=== PATIENT | male | born 1930 | race Caucasian/White ===

== ENCOUNTER 2016-06-20 18:38 | Inpatient (IN) | payer MEDICARE, OTHER ==
[~2016-06-20] VITALS: Ht 182.9 cm; Wt 65.9 kg
[~2016-06-20 18:38] MED LIST: APR10 PO; ASPCH81X PO; ATRINS INH; CARV3.12 PO; CHOL1000 PO; CYAN10005 PO; DFL100 PO; ESCI1TAB6 PO; FINA5TAB PO; IMDSR30 PO; LEVO25TA5 PO; LSX40 PO; PLV75 PO; PRT40 PO; TRAM-10 PO; XPNINS1255 INH; [UNRECOGNIZED DRUG - CODE] UT
[2016-06-20] MEDS ORDERED: SODIUM CHLORIDE 0.9% 1000ML 1,000 ML IV ONE (19:12)
--- NOTE | 2016-06-20 19:18 | EMERGENCY ROOM VISIT NOTE ---
History Report prepared by Fany: [place] Under the Supervision of: Dr. Joe Pennington D.O. First contact with patient: 19:01 Chief Complaint: WOUND INFECTION Stated Complaint: WEAKNESS Nursing Triage Summary: left great toe infection color is black History of Present Illness The patient is an 86 year old male who presents to the Emergency Room via BLS from home with complaints of a constant left great toe infection beginning several weeks prior to arrival. He associates left great toe pain with today's symptoms. As per nurse, the patient's family would like the patient worked up for a stroke. She notes the patient has a cardiac history and has urinary incontinence. The history is limited secondary to the patient's dementia. 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 Review of Systems The HPI and ROS are limited secondary to the patient's dementia. Past Medical & Surgical Medical Problems: (1) AAA (abdominal aortic aneurysm) (2) ASCVD (arteriosclerotic cardiovascular disease) (3) BPH (benign prostatic hyperplasia) (4) Carotid stenosis, asymptomatic (5) Change in mental state (6) CHF (congestive heart failure) (7) chronic pain pelvic and thigh (8) Cluster headache syndrome (9) CVA (cerebral vascular accident) (10) Dementia (11) Depression (12) DM2 (diabetes mellitus, type 2) (13) H/O chronic ischemic heart disease (14) History of left heart catheterization (LHC) (15) HLD (hyperlipidemia) (16) Incontinence of feces (17) Incontinence of urine (18) infected left great toe (19) Lacunar infarction (20) PAD (peripheral artery disease) (21) Respiratory failure (22) TIA (transient ischemic attack) Surgical Problems: (1) Hx of CABG (2) Hx of endarterectomy (3) S/P CABG x 4 (4) S/P insertion of iliac artery stent (5) Stented coronary artery Family History Diabetes mellitus Heart disease Social History Smoking Status: Unknown if Ever Smoked Alcohol Use: none Drug Use: none Marital Status: Housing Status: lives with family Occupation Status: retired Current/Historical Medications Scheduled Albuterol Sulfate (Proair Respiclick), 2 PUFFS INH QID Aspirin (Aspirin Chewable), 81 MG PO DAILY Cholecalciferol (Vitamin D3), 1,000 UNITS PO DAILY Clopidogrel Bisulfate (Clopidogrel), 75 MG PO DAILY Cyanocobalamin (Vitamin B-12), 1,000 MCG PO DAILY Finasteride (Proscar), 5 MG PO DAILY Furosemide (Furosemide), 40 MG PO QAM Hydralazine HCl (Hydralazine HCl), 10 MG PO TID Ipratropium Dale (Ipratropium Dale), 0.5 MG INH Q6R Isosorbide Mononitrate (Isosorbide Mononitrate ER), 90 MG PO DAILY Levothyroxine Sodium (Levothyroxine Sodium), 25 MCG PO DAILY Metoprolol Succinate (Toprol Xl), 50 MG PO DAILY Paroxetine (Paxil), 10 MG PO DAILY Scheduled PRN Nitroglycerin (Nitroglycerin Lingual), 1 SPRAY UT UD PRN for PRN Tramadol (Ultram), 50 MG PO Q4H PRN for Pain Allergies Coded Allergies: Pravastatin (Verified Allergy, Mild, 06/20/16) Codeine (Verified Allergy, Unknown, 06/20/16) Morphine (Unverified Allergy, Unknown, UNKNOWN, 06/20/16) Statins (Unverified Allergy, Unknown, UNKNOWN, 06/20/16) Sulfa Antibiotics (Verified Allergy, Unknown, ., 06/20/16) Physical Exam Vital Signs Date Time Temp Pulse Resp B/P Pulse Ox O2 Delivery O2 Flow Rate FiO2 06/20/16 20:00 73 20 95 06/20/16 19:55 146/82 06/20/16 19:38 72 21 93 Room Air 06/20/16 19:30 95 Room Air 06/20/16 19:08 79 25 06/20/16 18:55 36.9 82 18 176/94 93 Room Air 06/20/16 18:53 81 06/20/16 18:48 176/94 Physical Exam GENERAL: Patient is listless but awake. Responds to verbal commands. Does not appear to be in pain. EYES: The conjunctivae are clear. The pupils are round and reactive. EARS, NOSE, MOUTH AND THROAT: The nose is without any evidence of any deformity. Mucous membranes are moist tongue is midline NECK: The neck is nontender and supple. RESPIRATORY: Diminished to both bases. There were rales noted at both bases. No respiratory distress was noted. CARDIOVASCULAR: Regular rate and rhythm noted there no murmurs rubs or gallops normal S1 normal S2 GASTROINTESTINAL: The abdomen is soft. Bowel sounds are present in all quadrants. Abdomen is nontender MUSCULOSKELETAL/EXTREMITIES: There is no evidence of gross deformity full range of motion is noted in the hips and shoulders SKIN: There is a blackened area noted over the left great toe. There was edema and erythema noted on the dorsum of the left foot. Pulses were symmetric. NEUROLOGIC: Patient is oriented to person, place, but not time or situation. Strength was symmetric but diminished. Medical Decision & Procedures ER Provider Diagnostic Interpretation: Radiology results as stated below per my review and radiologist interpretation: CHEST ONE VIEW PORTABLE CLINICAL HISTORY: Sepsis. COMPARISON STUDY: Chest radiograph February 28, 2016. FINDINGS: There are median sternotomy wires and clips from bypass grafting. No pneumothorax or pleural effusion is present. Cardiomediastinal silhouette is stable. Right lung airspace opacity shown on exam of February 28, 2016 has resolved. Mild interstitial prominence is noted without overt pulmonary edema. There is no consolidation to suggest pneumonia. IMPRESSION: 1. No consolidation to suggest pneumonia. 2. Mild age indeterminate interstitial thickening. Electronically signed by: Yusuf Jin M.D. 06/20/2016 8:24 PM LEFT FOOT MIN 3 VIEWS ROUTINE CLINICAL HISTORY: Left great toe infection COMPARISON: None FINDINGS: The tarsometatarsal joints are intact. No fracture or suspicious lesion is identified within the left foot. There is no radiographic evidence of osteomyelitis within the left foot. IMPRESSION: No acute fracture or radiographic evidence of osteomyelitis within the left foot. Electronically signed by: Yusuf Jin M.D. 06/20/2016 8:[address] OF THE HEAD WITHOUT CONTRAST CLINICAL HISTORY: Weakness. COMPARISON STUDY: Head CT December 15, 2013. CT DOSE: 614.27 mGy.cm TECHNIQUE: Helical axial images of the head were obtained without IV contrast. Automated exposure control was utilized for the study. FINDINGS: No acute intracranial hemorrhage, midline shift or mass effect is present. Ventricular system is stable. The basilar cisterns are patent. There are no extra-axial collections. There are numerous old lacunar infarcts within the bilateral basal ganglia as well as the left cerebellar hemisphere. The majority of these were present on head CT of December 15, 2013. A lacunar infarct within the left cerebral hemisphere is new since prior exam but appears chronic. There are no CT findings to suggest acute dural sinus thrombosis or acute territorial infarct. There are no significant calvarial abnormalities. IMPRESSION: 1. No acute intracranial hemorrhage or mass effect. 2. Numerous lacunar infarcts. The majority of these were present on head CT of December 15, 2013 and are chronic. A few are new since prior exam. The appearance favors old lacunar infarcts although several are age indeterminate. Electronically signed by: Yusuf Jin M.D. 06/20/2016 8:06 PM Laboratory Results 06/20/16 19:10 Red Blood Count 4.01, Mean Corpuscular Volume 94.0, Mean Corpuscular Hemoglobin 32.4, Mean Corpuscular Hemoglobin Concent 34.5, Mean Platelet Volume 13.4, Neutrophils (%) (Auto) 84.7, Lymphocytes (%) (Auto) 6.3, Monocytes (%) (Auto) 8.3, Eosinophils (%) (Auto) 0.2, Basophils (%) (Auto) 0.2, Neutrophils # (Auto) 10.02, Lymphocytes # (Auto) 0.75, Monocytes # (Auto) 0.98, Eosinophils # (Auto) 0.02, Basophils # (Auto) 0.02 06/20/16 19:10 Test 06/20/16 19:10 06/20/16 19:19 White Blood Count 11.82 K/uL (4.8-10.8) Red Blood Count 4.01 M/uL (4.7-6.1) Hemoglobin 13.0 g/dL (14.0-18.0) Hematocrit 37.7 % (42-52) Mean Corpuscular Volume 94.0 fL (80-100) Mean Corpuscular Hemoglobin 32.4 pg (25-34) Mean Corpuscular Hemoglobin Concent 34.5 g/dl (32-36) Platelet Count 178 K/uL (130-400) Mean Platelet Volume 13.4 fL (7.4-10.4) Neutrophils (%) (Auto) 84.7 % Lymphocytes (%) (Auto) 6.3 % Monocytes (%) (Auto) 8.3 % Eosinophils (%) (Auto) 0.2 % Basophils (%) (Auto) 0.2 % Neutrophils # (Auto) 10.02 K/uL (1.4-6.5) Lymphocytes # (Auto) 0.75 K/uL (1.2-3.4) Monocytes # (Auto) 0.98 K/uL (0.11-0.59) Eosinophils # (Auto) 0.02 K/uL (0-0.5) Basophils # (Auto) 0.02 K/uL (0-0.2) RDW Standard Deviation 47.4 fL (36.4-46.3) RDW Coefficient of Variation 13.7 % (11.5-14.5) Immature Granulocyte % (Auto) 0.3 % Immature Granulocyte # (Auto) 0.03 K/uL (0.00-0.02) Erythrocyte Sedimentation Rate 30 mm/hr (0-14) Prothrombin Time 12.0 SECONDS (9.0-12.0) Prothromb Time International Ratio 1.1 (0.9-1.1) Activated Partial Thromboplast Time 30.3 SECONDS (21.0-31.0) Partial Thromboplastin Ratio 1.2 Anion Gap 10.0 mmol/L (3-11) Est Creatinine Clear Calc Drug Dose 26.0 ml/min Estimated GFR () 34.3 Estimated GFR (Non- 29.6 BUN/Creatinine Ratio 18.6 (10-20) Calcium Level 8.8 mg/dl (8.5-10.1) Phosphorus Level 2.7 mg/dl (2.5-4.9) Magnesium Level 2.1 mg/dl (1.8-2.4) Total Bilirubin 0.6 mg/dl (0.2-1) Aspartate Amino Transf (AST/SGOT) 10 U/L (15-37) Alanine Aminotransferase (ALT/SGPT) 10 U/L (12-78) Alkaline Phosphatase 110 U/L (45-117) Total Creatine Kinase 66 U/L (39-308) Creatine Kinase MB 0.6 ng/ml (0.5-3.6) Creatine Kinase MB Ratio 0.9 (0-3.0) Troponin I 0.409 ng/ml (0-0.045) C-Reactive Protein 2.42 mg/dl (0-0.29) Pro-B-Type Natriuretic Peptide > 36931 pg/ml (0-1800) Total Protein 7.2 gm/dl (6.4-8.2) Albumin 3.5 gm/dl (3.4-5.0) Globulin 3.7 gm/dl (2.5-4.0) Albumin/Globulin Ratio 0.9 (0.9-2) Lipase 114 U/L (73-393) Bedside Lactic Acid Venous 0.98 mmol/L (0.90-1.70) Laboratory results per my review. Medications Administered Medications (Trade) Dose Ordered Sig/Juan Route Start Time Stop Time Status Last Admin Dose Admin Sodium Chloride (Nss 1000ml) 1,000 ml @ 999 mls/hr Q1H1M ONCE IV 06/20/16 19:12 06/20/16 20:12 DC 06/20/16 19:56 999 MLS/HR Ceftriaxone Sodium (Rocephin Inj) 1 gm NOW STAT IV 06/20/16 20:14 06/20/16 20:15 DC 06/20/16 20:33 1 GM ECG Indication: other (toe infection) Rate (beats per minute): 77 Rhythm: sinus rhythm Findings: PVC, ST depression (diffuse), other (poor R wave progression) Comparison ECG Date: 02/29/2016 Change: no significant change (Similar tracing noted) ED Course 1910: The patient was evaluated in room A11B. A complete history and physical examination were performed. 1911: Ordered Sodium Chloride 1,000 ml @ 999 mls/hr IV. 2013: Ordered Rocephin Inj 1 gm IV. 2025: I spoke to Kendy Orozco (Hospitalist) about the patient's case, and she will follow the patient for further evaluation. Medical Decision Etiologies such as metabolic, infection, hypo/hyperglycemia, electrolyte abnormalities, cardiac sources, intracerebral event, toxicologic, neurologic, as well as others were entertained. Nursing notes reviewed. Additional history is obtained from the patient's son. The patient is an 86-year-old male who has a history of dementia but also has a history of diabetes who presented to the emergency department for evaluation of left great toe ulceration. Patient appeared to have signs of left great toe diabetic ulcer as well as cellulitis of the left foot. The patient was treated with IV fluids and IV antibiotics in emergency department. I discussed the patient's laboratory and radiographic studies with him and his son. I also discussed his case with the on-call [facility] hospitalist group. They have agreed to evaluate the patient in the emergency department for further management and disposition. Consults Time Called: 2022 Consulting Physician: Kendy Orozco (Hospitalist) Returned Call: 2025 I spoke to Kendy Orozco (Hospitalist) about the patient's case, and she will follow the patient for further evaluation. Impression Primary Impression: Altered mental status Additional Impressions: Elevated troponin Cellulitis of left foot Diabetic ulcer of left great toe Scribe Attestation The scribe's documentation has been prepared under my direction and personally reviewed by me in its entirety. I confirm that the note above accurately reflects all work, treatment, procedures, and medical decision making performed by me. Departure Information Dispostion Being Evaluated By Hospitalist (Kendy Orozco (Hospitalist)) Referrals Kim Crawford M.D. (PCP) Problem Qualifiers
[2016-06-20 19:40] LABS: BASO % 0.2 %; BASO ABS # 0.02 K/uL (0-0.2); COMPLETE YES; EOS % 0.2 %; HEMATOCRIT 37.7 % (42-52); IG% 0.3 %; LYMPH % 6.3 %; LYMPH ABS # 0.75 K/uL (1.2-3.4); MEAN CORPUSCULAR HEMOGLOBIN 32.4 pg (25-34); MEAN CORPUSCULAR HGB CONC 34.5 g/dl (32-36); MEAN PLATELET VOLUME 13.4 fL (7.4-10.4); MONO % 8.3 %; NEUT % 84.7 %; PLATELET COUNT 178 K/uL (130-400); RED BLOOD COUNT 4.01 M/uL (4.7-6.1); WHITE BLOOD COUNT 11.82 K/uL (4.8-10.8)
[2016-06-20 19:51] LABS: INR 1.1 (0.9-1.1); PARTIAL THROMBOPLASTIN RATIO 1.2
--- NOTE | 2016-06-20 20:07 | DIAGNOSTIC IMAGING REPORT ---
CT OF THE HEAD WITHOUT CONTRAST CLINICAL HISTORY: Weakness. COMPARISON STUDY: Head CT December 15, 2013. CT DOSE: 614.27 mGy.cm TECHNIQUE: Helical axial images of the head were obtained without IV contrast. Automated exposure control was utilized for the study. FINDINGS: No acute intracranial hemorrhage, midline shift or mass effect is present. Ventricular system is stable. The basilar cisterns are patent. There are no extra-axial collections. There are numerous old lacunar infarcts within the bilateral basal ganglia as well as the left cerebellar hemisphere. The majority of these were present on head CT of December 15, 2013. A lacunar infarct within the left cerebral hemisphere is new since prior exam but appears chronic. There are no CT findings to suggest acute dural sinus thrombosis or acute territorial infarct. There are no significant calvarial abnormalities. IMPRESSION: 1. No acute intracranial hemorrhage or mass effect. 2. Numerous lacunar infarcts. The majority of these were present on head CT of December 15, 2013 and are chronic. A few are new since prior exam. The appearance favors old lacunar infarcts although several are age indeterminate. Electronically signed by: Yusuf Jin M.D. 06/20/2016 8:06 PM Dictated Date/Time: 06/20/2016 8:01 PM
[2016-06-20 20:09] LABS: ALT/SGPT 10 U/L (12-78); BLOOD UREA NITROGEN 37 mg/dl (7-18); BUN/CREATININE RATIO 18.6 (10-20); C-REACTIVE PROTEIN 2.42 mg/dl (0-0.29); CALCIUM 8.8 mg/dl (8.5-10.1); CARBON DIOXIDE 26 mmol/L (21-32); CHLORIDE 104 mmol/L (98-107); GLUCOSE 170 mg/dl (70-99); MAGNESIUM 2.1 mg/dl (1.8-2.4); SODIUM 140 mmol/L (136-145)
[2016-06-20 20:14] LABS: ALB/GLOB RATIO 0.9 (0.9-2); ALKALINE PHOSPHATASE 110 U/L (45-117); AST/SGOT 10 U/L (15-37); CKMB/CK RATIO 0.9 (0-3.0); PHOSPHORUS 2.7 mg/dl (2.5-4.9)
[2016-06-20] MEDS ORDERED: CEFTRIAXONE SOD INJ 1 GM ADDVIAL IV STA (20:14)
[2016-06-20] MEDS ORDERED: METO1TAB66 PO (20:25)
[2016-06-20] MEDS ORDERED: PARO1TAB27 PO (20:25)
[2016-06-20] MEDS ORDERED: ALBU18002 INH (20:25)
[2016-06-20] MEDS ORDERED: PLV75 PO (20:26)
[2016-06-20] MEDS ORDERED: SODIUM CHLORIDE 0.9% 1000ML 1,000 ML IV SCH (20:26)
--- NOTE | 2016-06-20 20:26 | DIAGNOSTIC IMAGING REPORT ---
CHEST ONE VIEW PORTABLE CLINICAL HISTORY: Sepsis. COMPARISON STUDY: Chest radiograph February 28, 2016. FINDINGS: There are median sternotomy wires and clips from bypass grafting. No pneumothorax or pleural effusion is present. Cardiomediastinal silhouette is stable. Right lung airspace opacity shown on exam of February 28, 2016 has resolved. Mild interstitial prominence is noted without overt pulmonary edema. There is no consolidation to suggest pneumonia. IMPRESSION: 1. No consolidation to suggest pneumonia. 2. Mild age indeterminate interstitial thickening. Electronically signed by: Yusuf Jin M.D. 06/20/2016 8:24 PM Dictated Date/Time: 06/20/2016 8:23 PM
--- NOTE | 2016-06-20 20:27 | DIAGNOSTIC IMAGING REPORT ---
LEFT FOOT MIN 3 VIEWS ROUTINE CLINICAL HISTORY: Left great toe infection COMPARISON: None FINDINGS: The tarsometatarsal joints are intact. No fracture or suspicious lesion is identified within the left foot. There is no radiographic evidence of osteomyelitis within the left foot. IMPRESSION: No acute fracture or radiographic evidence of osteomyelitis within the left foot. Electronically signed by: Yusuf Jin M.D. 06/20/2016 8:26 PM Dictated Date/Time: 06/20/2016 8:25 PM
[2016-06-20] MEDS ORDERED: POLYETHYLENE (MIRALAX) 17 GM PACK PO PRN (20:30)
[2016-06-20] MEDS ORDERED: ALUMINUM/MAGNESIUM/SIMETH (MAALOX MAX) 30 ML UDC PO PRN (20:30)
[2016-06-20] MEDS ORDERED: ONDANSETRON INJ 2 MG/ML 2 ML VIAL IV PRN (20:30)
[2016-06-20] MEDS ORDERED: ACETAMINOPHEN 325 MG TAB PO PRN (20:30)
[2016-06-20] MEDS ORDERED: MAGNESIUM HYDROXIDE SUSP 30 ML UDC PO PRN (20:30)
[2016-06-20] MEDS ORDERED: GLUCOSE 10 TABS/TUBE PO PRN (20:45)
[2016-06-20] MEDS ORDERED: VANCOMYCIN CONSULT ACTIVE PRN (20:45)
[2016-06-20] MEDS ORDERED: DEXTROSE 50% 50 ML SYR IV PRN (20:45)
[2016-06-20] MEDS ORDERED: GLUCAGON FOR INJ 1 MG VIAL SQ PRN (20:45)
[2016-06-20] MEDS ORDERED: TRAMADOL HCL 50 MG TAB PO PRN (20:45)
[2016-06-20] MEDS ORDERED: GLUCOSE 40% GEL 15 GM TUBE PO PRN (20:45)
[2016-06-20] MEDS ORDERED: PIPERACILL/TAZOBAC CONSULT ACTIVE PRN (20:45)
[2016-06-20] MEDS: INSULIN HUMAN REGULAR SC SCH (21:00)
[2016-06-20] MEDS ORDERED: VANCOMYCIN INJ 1,500 MG in SODIUM CHLORIDE 0.9% 500ML 500 ML IV SCH (21:00)
[2016-06-20] MEDS ORDERED: VANCOMYCIN INJ 1,000 MG in SODIUM CHLORIDE 0.9% 250ML 250 ML IV SCH (21:00)
[2016-06-20 21:15] VITALS: BP 168/92; PULSE 80; TEMP 36.5; O2SAT 94; BMI 20.1
[2016-06-20] MEDS ORDERED: PIPERACILL/TAZOBAC IV 3.375 GM in DEXTROSE 5% 100ML IV ONE (22:00)
--- NOTE | 2016-06-20 22:00 | History and Physical ---
History & Physical Date & Time of Service: Jun 20, 2016 at 22:00 Chief Complaint: Change In Mental State,Infected Left Great Toe Primary Care Physician: Kim Crawford M.D. History of Present Illness Source: hospital records this is a 86 Yo Male with complex past medical hx of Severe Peripheral Vascular disease , chronic systolic heart failure with severe ischemic cardiomyopathy EF 20 % . 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 xray was negative for osteomyelitis. He was started on cephalexin which he finished on 06/05/16 there was some improvement of redness and swelling of left foot after abx but had persisted dark discoloration of left great toe with scab formation pt was seen by Dr Santos in the past for his PAD had balloon angioplasty and stent place in left common iliac vein in 2013 has not been following with Vascular surgery since after Dr Posadas left practice today -pt was found to be more somnolent , confused was having tremor , dysarthria no fever or chills notes family was concerned for a new stroke , brought him to ER for evaluation Past Medical/Surgical History Medical Problems: (1) AAA (abdominal aortic aneurysm) Status: Chronic (2) ASCVD (arteriosclerotic cardiovascular disease) Status: Chronic (3) BPH (benign prostatic hyperplasia) Status: Chronic (4) Carotid stenosis, asymptomatic Status: Chronic (5) CHF (congestive heart failure) Status: Chronic (6) chronic pain pelvic and thigh Status: Chronic (7) Cluster headache syndrome Status: Chronic (8) CVA (cerebral vascular accident) Status: Chronic (9) Dementia Status: Chronic (10) Depression Status: Chronic (11) DM2 (diabetes mellitus, type 2) Status: Chronic (12) H/O chronic ischemic heart disease Status: Chronic (13) History of left heart catheterization (LHC) Status: Chronic (14) HLD (hyperlipidemia) Status: Chronic (15) Incontinence of feces Status: Chronic (16) Incontinence of urine Status: Chronic (17) Lacunar infarction Permanent Comment: basal ganglia, thalami, franco, left cerebellar hemisphere Status: Chronic (18) PAD (peripheral artery disease) Status: Chronic (19) TIA (transient ischemic attack) Status: Chronic Surgical Problems: (1) Hx of CABG Permanent Comment: 1986 Status: Resolved (2) Hx of endarterectomy Status: Chronic (3) S/P CABG x 4 Permanent Comment: 2002 Status: Chronic (4) S/P insertion of iliac artery stent Status: Chronic (5) Stented coronary artery Status: Chronic Family History Diabetes mellitus Heart disease Social History Smoking Status: Unknown if Ever Smoked Drug Use: none Marital Status: Housing status: lives with significant other Occupational Status: retired Immunizations History of Influenza Vaccine: Yes History of Tetanus Vaccine?: Yes History of Pneumococcal: Yes Pneumococcal Date: Feb 17, 2008 History of Hepatitis B Vaccine: Unknown Allergies Coded Allergies: Pravastatin (Verified Allergy, Mild, 06/20/16) Codeine (Verified Allergy, Unknown, 06/20/16) Morphine (Unverified Allergy, Unknown, UNKNOWN, 06/20/16) Statins (Unverified Allergy, Unknown, UNKNOWN, 06/20/16) Sulfa Antibiotics (Verified Allergy, Unknown, ., 06/20/16) Home Medications Scheduled Albuterol Sulfate (Proair Respiclick), 2 PUFFS INH QID Aspirin (Aspirin Chewable), 81 MG PO DAILY Cholecalciferol (Vitamin D3), 1,000 UNITS PO DAILY Clopidogrel Bisulfate (Clopidogrel), 75 MG PO DAILY Cyanocobalamin (Vitamin B-12), 1,000 MCG PO DAILY Finasteride (Proscar), 5 MG PO DAILY Furosemide (Furosemide), 40 MG PO QAM Hydralazine HCl (Hydralazine HCl), 10 MG PO TID Ipratropium Goff (Ipratropium Goff), 0.5 MG INH Q6R Isosorbide Mononitrate (Isosorbide Mononitrate ER), 90 MG PO DAILY Levothyroxine Sodium (Levothyroxine Sodium), 25 MCG PO DAILY Metoprolol Succinate (Toprol Xl), 50 MG PO DAILY Paroxetine (Paxil), 10 MG PO DAILY Scheduled PRN Nitroglycerin (Nitroglycerin Lingual), 1 SPRAY UT UD PRN for PRN Tramadol (Ultram), 50 MG PO Q4H PRN for Pain Review of Systems unable to obtain due to pt's dementia Musculoskeletal: + problem reported (grangrenous left great toe ) Physical Exam Vital Signs Date Time Temp Pulse Resp B/P Pulse Ox O2 Delivery O2 Flow Rate FiO2 06/20/16 21:01 69 17 153/74 96 06/20/16 20:30 69 23 97 06/20/16 20:00 73 20 95 06/20/16 19:55 146/82 06/20/16 19:38 72 21 93 Room Air 06/20/16 19:30 95 Room Air 06/20/16 19:08 79 25 06/20/16 18:55 36.9 82 18 176/94 93 Room Air 06/20/16 18:53 81 06/20/16 18:48 176/94 General Appearance: no apparent distress, + pertinent finding (elderly male , forgetful . baseline dementia ) Head: normocephalic, atraumatic Eyes: sclerae normal Respiratory/Chest: lungs clear, normal breath sounds, no respiratory distress Cardiovascular: regular rate, rhythm Abdomen/GI: non tender, soft Extremities/Musculoskelatal: + slow capillary refill (pedal pulse not palpable ), + pertinent finding (There is dark black scabbed distal border of toe nailbed that extends under toenail, no erythema or drainage present, ) Neurologic/Psych: + pertinent finding (baseline dementia, no facial droop , no focal neurological deficit noted ) Diagnostics Laboratory Results Results Past 24 Hours Test 06/20/16 19:10 06/20/16 19:19 Range/Units White Blood Count 11.82 4.8-10.8 K/uL Red Blood Count 4.01 4.7-6.1 M/uL Hemoglobin 13.0 14.0-18.0 g/dL Hematocrit 37.7 42-52 % Mean Corpuscular Volume 94.0 80-100 fL Mean Corpuscular Hemoglobin 32.4 25-34 pg Mean Corpuscular Hemoglobin Concent 34.5 32-36 g/dl Platelet Count 178 130-400 K/uL Mean Platelet Volume 13.4 7.4-10.4 fL Neutrophils (%) (Auto) 84.7 % Lymphocytes (%) (Auto) 6.3 % Monocytes (%) (Auto) 8.3 % Eosinophils (%) (Auto) 0.2 % Basophils (%) (Auto) 0.2 % Neutrophils # (Auto) 10.02 1.4-6.5 K/uL Lymphocytes # (Auto) 0.75 1.2-3.4 K/uL Monocytes # (Auto) 0.98 0.11-0.59 K/uL Eosinophils # (Auto) 0.02 0-0.5 K/uL Basophils # (Auto) 0.02 0-0.2 K/uL RDW Standard Deviation 47.4 36.4-46.3 fL RDW Coefficient of Variation 13.7 11.5-14.5 % Immature Granulocyte % (Auto) 0.3 % Immature Granulocyte # (Auto) 0.03 0.00-0.02 K/uL Erythrocyte Sedimentation Rate 30 0-14 mm/hr Prothrombin Time 12.0 9.0-12.0 SECONDS Prothromb Time International Ratio 1.1 0.9-1.1 Activated Partial Thromboplast Time 30.3 21.0-31.0 SECONDS Partial Thromboplastin Ratio 1.2 Sodium Level 140 136-145 mmol/L Potassium Level 4.0 3.5-5.1 mmol/L Chloride Level 104 98-107 mmol/L Carbon Dioxide Level 26 21-32 mmol/L Anion Gap 10.0 3-11 mmol/L Blood Urea Nitrogen 37 7-18 mg/dl Creatinine 2.00 0.60-1.40 mg/dl Est Creatinine Clear Calc Drug Dose 26.0 ml/min Estimated GFR () 34.3 Estimated GFR (Non- 29.6 BUN/Creatinine Ratio 18.6 10-20 Random Glucose 170 70-99 mg/dl Calcium Level 8.8 8.5-10.1 mg/dl Phosphorus Level 2.7 2.5-4.9 mg/dl Magnesium Level 2.1 1.8-2.4 mg/dl Total Bilirubin 0.6 0.2-1 mg/dl Aspartate Amino Transf (AST/SGOT) 10 15-37 U/L Alanine Aminotransferase (ALT/SGPT) 10 12-78 U/L Alkaline Phosphatase 110 45-117 U/L Total Creatine Kinase 66 39-308 U/L Creatine Kinase MB 0.6 0.5-3.6 ng/ml Creatine Kinase MB Ratio 0.9 0-3.0 Troponin I 0.409 0-0.045 ng/ml C-Reactive Protein 2.42 0-0.29 mg/dl Pro-B-Type Natriuretic Peptide > 68301 0-1800 pg/ml Total Protein 7.2 6.4-8.2 gm/dl Albumin 3.5 3.4-5.0 gm/dl Globulin 3.7 2.5-4.0 gm/dl Albumin/Globulin Ratio 0.9 0.9-2 Lipase 114 73-393 U/L Bedside Lactic Acid Venous 0.98 0.90-1.70 mmol/L Microbiology Results 06/20/16 Blood Culture, Angelica Batch Pending 06/20/16 Blood Culture, Angelica Batch Pending 06/20/16 Blood Culture, Received Pending 06/20/16 Blood Culture, Received Pending Diagnostic Radiology CT OF THE HEAD WITHOUT CONTRAST IMPRESSION: 1. No acute intracranial hemorrhage or mass effect. 2. Numerous lacunar infarcts. The majority of these were present on head CT of December 15, 2013 and are chronic. A few are new since prior exam. The appearance favors old lacunar infarcts although several are age indeterminate. LEFT FOOT MIN 3 VIEWS ROUTINE FINDINGS: The tarsometatarsal joints are intact. No fracture or suspicious lesion is identified within the left foot. There is no radiographic evidence of osteomyelitis within the left foot. IMPRESSION: No acute fracture or radiographic evidence of osteomyelitis within the left foot. CHEST XRAY : IMPRESSION: 1. No consolidation to suggest pneumonia. 2. Mild age indeterminate interstitial thickening. Impression Assessment and Plan CONFUSION /METABOLIC ENCEPHALOPATHY : due to left great toe infection CT head negative for any new CVA mental status improved to baseline after IV abx cont neuro checks LEFT GREAT TOE INFECTION due to severe peripheral vascular disease no evidence of sepsis pt recently completed 7 days course of Keflex on 06/05/16 ordered for IV Vancomycin /Zosyn xray of left foot negative for osteomyelitis Vancomycin can be d/liz if MRSA screen negative ID eval requested Wound care consulted SEVERE PERIPHERAL VASCULAR DISEASE possibly causing non healing of left great toe wound with evidence of ischemia Had bilat LE angiogram with balloon angioplasty of left SFA and balloon expandable stent in left common iliac artery in [address] Malik on aspirin , Plavix , statin evidence of persistent poor circulation of left lower ext with non healing wound lower ext arterial Doppler ordered very poor prognosis very poor candidate for amputation due to severe cardiomyopathy increased chance of non healing of post surgical incision aware -was updated by Dr Malik in past that there very limited option for vascular intervention due to severity of disease CHRONIC SYSTOLIC HEART FAILURE /SEVERE CARDIOMYOPATHY : hx of NSTEMI EF of 20 % as per Last ECHO on 10/2015 does not appear to be in acute decompensation monitor vol status ; I's /O's caution for IV fluid hydration HX OF MULTIPLE CVA : CT head showed evidence of old lacunar infraction no new ischemic change cont aspirin , Plavix ,statin CKD STAGE 3-4 : baseline Cr 1.9 -2 monitor avoid contrast studied when able avoid nephrotoxins HTN: BP stable cont home medications of Beta mayra , Imdur , Hydralazine ELEVATED TROPONIN : chronically elevated Troponin improved from prior admission possible due to Advance CKD -poor renal clearance with very poor cardiac reserve has underlying severe CAD monitor in tele serial cardiac markers ordered HYPERLIPIDEMIA: cont statin TYPE 2 DM DIET CONTROLLED insulin SSI check Hb A1c CODE STATUS : has living will DNR/DNI DVT PROPHYLAXIS : moderate to high risk sub q heparin DISPOSITION : at present living at home with elderly mentions -difficulty in taking care of pt due to advance dementia /poor functional status was in [facility] in past after NSTEMI willing for SNF vs placement PT/OT eval requested Social service consulted for discharge planning Medicine follow up with Dr Crawford Contacts: Mary Jane Cuevas # phone : [phone] updated regarding Pt's status requests update form Provider periodically as due to bad weather it would be difficult to commute for her to [facility] Level of Care Telemetry Resuscitation Status DO NOT RESUSCITATE VTE Prophylaxis VTE Risk Assessment Done? Y/N: Yes Risk Level: Moderate Given or contraindicated: Unfractionated heparin SQ
[2016-06-20] MEDS: HydrALAZINE 10 MG TAB PO SCH (22:24)
[2016-06-20] MEDS: ALBUTEROL HFA 8 GM INHALER INH SCH (22:24)
[2016-06-20] MEDS: HEPARIN SOD 5000 UNIT/0.5 ML CARP SQ SCH (22:30)
[2016-06-20 23:22] VITALS: BP 134/70; PULSE 66; TEMP 36.6; O2SAT 98
[2016-06-21] VITALS (9 sets, daily range): BP systolic 127–151; BP diastolic 72–95; PULSE 69–77; TEMP 36.4–36.7; O2SAT 93–97
[2016-06-21] MEDS ORDERED: PIPERACILL/TAZOBAC IV 3.375 GM in DEXTROSE 5% 100ML 100 ML IV SCH ×2
[2016-06-21 03:10] LABS: CKMB/CK RATIO 1.7 (0-3.0)
[2016-06-21] MEDS: PIPERACILL/TAZOBAC IV 3.375 GM in DEXTROSE 5% 100ML IV SCH ×3 (04:13→19:48)
[2016-06-21 04:55] LABS: URINE APPEARANCE CLEAR (CLEAR); URINE BILIRUBIN NEG (NEG); URINE COLOR YELLOW; URINE EPITHELIAL CELL AUTO 0-5 /lpf (0-5); URINE NITRITE NEG (NEG); URINE PH 5.5 (4.5-7.5); URINE SPECIFIC GRAVITY 1.014 (1.000-1.030); UROBILINOGEN NEG (NEG); ZZUR CULT IF INDIC CLEAN CATCH NO
[2016-06-21 05:17] LABS: MANUAL MICROSCOPIC REQUIRED? NO; REVIEW REQ? NO
[2016-06-21 05:33] LABS: MEAN CELL VOLUME 94.1 fL (80-100); MEAN CORPUSCULAR HEMOGLOBIN 32.3 pg (25-34); MEAN CORPUSCULAR HGB CONC 34.3 g/dl (32-36); MEAN PLATELET VOLUME 12.6 fL (7.4-10.4); PLATELET COUNT 161 K/uL (130-400); RED BLOOD COUNT 3.93 M/uL (4.7-6.1); WHITE BLOOD COUNT 11.26 K/uL (4.8-10.8)
[2016-06-21] MEDS: LEVOTHYROXINE 25 MCG TAB PO SCH (05:48)
[2016-06-21] MEDS: HEPARIN SOD 5000 UNIT/0.5 ML CARP SQ SCH ×3 (05:48→20:47)
[2016-06-21 06:04] LABS: BUN/CREATININE RATIO 16.5 (10-20); CALCIUM 8.2 mg/dl (8.5-10.1); CREATININE 1.9 mg/dl (0.60-1.40); POTASSIUM 3.9 mmol/L (3.5-5.1)
[2016-06-21 06:06] LABS: CHOLESTEROL/HDL RATIO 3.8
[2016-06-21 06:36] LABS: ESTIMATED AVERAGE GLUCOSE 160 mg/dl; HA1C FLAG Normal (Normal)
[2016-06-21] MEDS: ALBUTEROL HFA 8 GM INHALER INH SCH ×4 (08:04→20:43)
[2016-06-21] MEDS: HydrALAZINE 10 MG TAB PO SCH ×3 (08:04→20:43)
[2016-06-21] MEDS: ASPIRIN 81 MG ECTAB PO SCH (08:04)
[2016-06-21] MEDS: ISOSORBIDE MONONITRATE 30 MG TABCR PO SCH (08:05)
[2016-06-21] MEDS: PAROXETINE 20 MG TAB PO SCH (08:05)
[2016-06-21] MEDS: CLOPIDOGREL BISULFATE 75 MG TAB PO SCH (08:06)
[2016-06-21] MEDS: FINASTERIDE 5 MG TAB PO SCH (08:06)
[2016-06-21] MEDS: METOPROLOL SUCC 50MG EXT REL TAB PO SCH (08:07)
[2016-06-21] MEDS: CYANOCOBALAMIN 500 MCG TAB (VIT B-12) PO SCH (08:07)
[2016-06-21] MEDS: CHOLECALCIFEROL 1000 INTER.UNIT TAB PO SCH (08:07)
[2016-06-21] MEDS: INSULIN HUMAN REGULAR SC SCH ×4 (08:12→20:44)
--- NOTE | 2016-06-21 09:37 | Pharmacy Progress Note ---
Pharmacy Antibiotic Consult Date of Service: Jun 21, 2016. Pharmacy Dosing Scope Pharmacy is consulted to initiate VANCOMYCIN / ZOSYN IV dosing therapy, order appropriate labs and adjust drug dose/frequency. Subjective The patient is a 86 year old male admitted on Jun 20, 2016 at 20:29. Objective Height (Feet): 6 Height (Inches): 0.00 Weight (Kilograms): 67.200 Lab Results (24hrs): Laboratory Tests Test 06/20/16 19:10 06/21/16 05:23 BUN/Creatinine Ratio 18.6 16.5 Blood Urea Nitrogen 37 mg/dl 31 mg/dl Creatinine 2.00 mg/dl 1.90 mg/dl White Blood Count 11.82 K/uL 11.26 K/uL Red Blood Count 4.01 M/uL Hemoglobin 13.0 g/dL Hematocrit 37.7 % Mean Corpuscular Volume 94.0 fL Mean Corpuscular Hemoglobin 32.4 pg Mean Corpuscular Hemoglobin Concent 34.5 g/dl Platelet Count 178 K/uL Mean Platelet Volume 13.4 fL Neutrophils (%) (Auto) 84.7 % Lymphocytes (%) (Auto) 6.3 % Monocytes (%) (Auto) 8.3 % Eosinophils (%) (Auto) 0.2 % Basophils (%) (Auto) 0.2 % Neutrophils # (Auto) 10.02 K/uL Lymphocytes # (Auto) 0.75 K/uL Monocytes # (Auto) 0.98 K/uL Eosinophils # (Auto) 0.02 K/uL Basophils # (Auto) 0.02 K/uL Micro Results: * 06/20/16 -- Blood x 2 -- pending * 06/21/16 -- Nasal -- (-) MRSA Assessment & Plan 86yo male ordered VANCOMYCIN / ZOSYN for L toe wound. VANCOMYCIN: * Loading dose: VANCOMYCIN 1500mg (22mg/kg) IV X 1 dose (received last evening ~2215) then VANCOMYCIN 1000mg (~15mg/kg) IV every 30 hours. * Estimated Pk parameters: Vd ~0.7 L/kg ke ~0.027 t1/2 ~26 hours * Goal trough level estimate: between 15 - 20 mcg/mL. * Trough level has been ordered for: @ 0930. Pharmacy will continue to follow and will adjust dose/frequency as necessary. Thank you
--- NOTE | 2016-06-21 18:21 | Progress Note ---
Medicine Progress Note Date & Time of Visit: Jun 21, 2016 at 18:06. Subjective Patient seen and examined. Notes pain of left toe. Objective Last 8 Hrs Date Time Temp Pulse Resp B/P Pulse Ox O2 Delivery O2 Flow Rate FiO2 06/21/16 16:36 97 Nasal Cannula 2.0 06/21/16 15:38 36.7 69 18 140/83 97 Nasal Cannula 2.0 06/21/16 12:00 Nasal Cannula 2.0 06/21/16 11:55 36.7 75 19 141/81 96 Nasal Cannula 2.0 Physical Exam: General-awake; alert; NAD Eyes-EOMI; no scleral icterus Neck-no stridor; trachea midline Lungs-CTA bilaterally; no wheezes/crackles Heart-RRR Abdomen-soft; NTND; nBS Extremities-no c/c/e; necrotic appearing left great toe Neuro-unable to assess due to underlying dementia Laboratory Results: Last 24 Hours Test 06/20/16 19:10 06/20/16 19:19 06/20/16 22:27 06/21/16 02:36 White Blood Count 11.82 K/uL Red Blood Count 4.01 M/uL Hemoglobin 13.0 g/dL Hematocrit 37.7 % Mean Corpuscular Volume 94.0 fL Mean Corpuscular Hemoglobin 32.4 pg Mean Corpuscular Hemoglobin Concent 34.5 g/dl Platelet Count 178 K/uL Mean Platelet Volume 13.4 fL Neutrophils (%) (Auto) 84.7 % Lymphocytes (%) (Auto) 6.3 % Monocytes (%) (Auto) 8.3 % Eosinophils (%) (Auto) 0.2 % Basophils (%) (Auto) 0.2 % Neutrophils # (Auto) 10.02 K/uL Lymphocytes # (Auto) 0.75 K/uL Monocytes # (Auto) 0.98 K/uL Eosinophils # (Auto) 0.02 K/uL Basophils # (Auto) 0.02 K/uL RDW Standard Deviation 47.4 fL RDW Coefficient of Variation 13.7 % Immature Granulocyte % (Auto) 0.3 % Immature Granulocyte # (Auto) 0.03 K/uL Erythrocyte Sedimentation Rate 30 mm/hr Prothrombin Time 12.0 SECONDS Prothromb Time International Ratio 1.1 Activated Partial Thromboplast Time 30.3 SECONDS Partial Thromboplastin Ratio 1.2 Sodium Level 140 mmol/L Potassium Level 4.0 mmol/L Chloride Level 104 mmol/L Carbon Dioxide Level 26 mmol/L Anion Gap 10.0 mmol/L Blood Urea Nitrogen 37 mg/dl Creatinine 2.00 mg/dl Est Creatinine Clear Calc Drug Dose 26.0 ml/min Estimated GFR () 34.3 Estimated GFR (Non- 29.6 BUN/Creatinine Ratio 18.6 Random Glucose 170 mg/dl Calcium Level 8.8 mg/dl Phosphorus Level 2.7 mg/dl Magnesium Level 2.1 mg/dl Total Bilirubin 0.6 mg/dl Aspartate Amino Transf (AST/SGOT) 10 U/L Alanine Aminotransferase (ALT/SGPT) 10 U/L Alkaline Phosphatase 110 U/L Total Creatine Kinase 66 U/L 115 U/L Creatine Kinase MB 0.6 ng/ml 1.9 ng/ml Creatine Kinase MB Ratio 0.9 1.7 Troponin I 0.409 ng/ml 0.442 ng/ml C-Reactive Protein 2.42 mg/dl Pro-B-Type Natriuretic Peptide > 69451 pg/ml Total Protein 7.2 gm/dl Albumin 3.5 gm/dl Globulin 3.7 gm/dl Albumin/Globulin Ratio 0.9 Lipase 114 U/L Bedside Lactic Acid Venous 0.98 mmol/L Bedside Glucose 140 mg/dl Test 06/21/16 04:03 06/21/16 05:23 06/21/16 06:47 06/21/16 10:33 Urine Color YELLOW Urine Appearance CLEAR Urine pH 5.5 Urine Specific [place] 1.014 Urine Protein NEG Urine Glucose (UA) NEG Urine Ketones NEG Urine Occult Blood NEG Urine Nitrite NEG Urine Bilirubin NEG Urine Urobilinogen NEG Urine Leukocyte Esterase NEG Urine WBC (Auto) 0 /hpf Urine RBC (Auto) 0-4 /hpf Urine Hyaline Casts (Auto) 0 /lpf Urine Epithelial Cells (Auto) 0-5 /lpf Urine Bacteria (Auto) NEG White Blood Count 11.26 K/uL Red Blood Count 3.93 M/uL Hemoglobin 12.7 g/dL Hematocrit 37.0 % Mean Corpuscular Volume 94.1 fL Mean Corpuscular Hemoglobin 32.3 pg Mean Corpuscular Hemoglobin Concent 34.3 g/dl RDW Standard Deviation 47.1 fL RDW Coefficient of Variation 13.7 % Platelet Count 161 K/uL Mean Platelet Volume 12.6 fL Sodium Level 142 mmol/L Potassium Level 3.9 mmol/L Chloride Level 106 mmol/L Carbon Dioxide Level 24 mmol/L Anion Gap 12.0 mmol/L Blood Urea Nitrogen 31 mg/dl Creatinine 1.90 mg/dl Est Creatinine Clear Calc Drug Dose 27.4 ml/min Estimated GFR () 36.4 Estimated GFR (Non- 31.4 BUN/Creatinine Ratio 16.5 Random Glucose 143 mg/dl Estimated Average Glucose 160 mg/dl Hemoglobin A1c 7.2 % Calcium Level 8.2 mg/dl Magnesium Level 2.0 mg/dl Triglycerides Level 80 mg/dl Cholesterol Level 143 mg/dl HDL Cholesterol 38 mg/dl LDL Cholesterol, Calculated 89 mg/dl VLDL Cholesterol, Calculated 16 mg/dl Cholesterol/HDL Ratio 3.8 Bedside Glucose 154 mg/dl Total Creatine Kinase 107 U/L Creatine Kinase MB 1.1 ng/ml Creatine Kinase MB Ratio 1.0 Troponin I 0.413 ng/ml Test 06/21/16 11:02 06/21/16 16:19 Bedside Glucose 155 mg/dl 141 mg/dl Date/Time Source Procedure Growth Status 06/21/16 17:05 Blood Blood Culture Pending Received 06/21/16 16:57 Blood Blood Culture Pending Received 06/20/16 19:20 Blood Blood Culture - Preliminary Gram Negative Bacilli Resulted 06/20/16 19:10 Blood Blood Culture Pending Received 06/21/16 00:20 Nasal MRSA DNA Surveillance Screen - Final Specimen Negative for MRSA by DNA Probe Complete Assessment & Plan METABOLIC ENCEPHALOPATHY - most likely due to left great toe infection - CT head negative LEFT GREAT TOE INFECTION - patient with underlying severe peripheral vascular disease - pt recently completed 10 day course of Keflex on 06/16/16 - continue Vancomycin and Zosyn - xray of left foot negative for osteomyelitis - ID consulted - Wound care consulted - arterial doppler of left leg pending - Ortho consulted to evaluate for possible amputation - blood culture (06/20) 1of2 with gram negative bacilli - repeat cultures pending SEVERE PERIPHERAL VASCULAR DISEASE - s/p bilateral LE angiogram with balloon angioplasty of left SFA and balloon expandable stent in left common iliac artery [place] [address] Malik - continue aspirin, Plavix - lower ext arterial Doppler pending CHRONIC SYSTOLIC HEART FAILURE /SEVERE CARDIOMYOPATHY - hx of NSTEMI - EF of 20 % as per Last ECHO on 10/2015 HX OF MULTIPLE CVA - CT head showed evidence of old lacunar infraction - cont aspirin, Plavix CKD STAGE 3-4 - baseline Cr 1.9 -2 HTN - BP stable - cont metoprolol, Imdur, Hydralazine TYPE 2 DM DIET CONTROLLED - insulin SSI - A1c of 7.2 CODE STATUS DNR/DNI DVT PROPHYLAXIS : moderate to high risk sub q heparin DISPOSITION : at present living at home with elderly mentions -difficulty in taking care of pt due to advance dementia /poor functional status was in [facility] in past after NSTEMI willing for SNF vs placement PT/OT eval requested Social service consulted for discharge planning Consultants: Infectious disease Orthopedics Procedures: CT head 1. No acute intracranial hemorrhage or mass effect. 2. Numerous lacunar infarcts. The majority of these were present on head CT of December 15, 2013 and are chronic. A few are new since prior exam. The appearance favors old lacunar infarcts although several are age indeterminate. Xray Left foot No acute fracture or radiographic evidence of osteomyelitis within the left foot. Current Inpatient Medications: Current Inpatient Medications Medications (Trade) Dose Ordered Sig/Juan Route Start Time Stop Time Status Last Admin Dose Admin Heparin Sodium (Porcine) (Heparin Sq 5000 Unit/0.5ml) 5,000 unit Q8 SQ 06/20/16 22:00 07/20/16 21:59 06/21/16 14:43 5,000 UNIT Acetaminophen (Tylenol Tab) 650 mg Q4H PRN PO 06/20/16 20:30 07/20/16 20:29 Al Hydrox/Mg Hydrox/Simethicone (Maalox Max Susp) 15 ml Q4H PRN PO 06/20/16 20:30 07/20/16 20:29 Magnesium Hydroxide (Milk Of Magnesia Susp) 30 ml Q12H PRN PO 06/20/16 20:30 07/20/16 20:29 Ondansetron HCl (Zofran Inj) 4 mg Q6H PRN IV 06/20/16 20:30 07/20/16 20:29 Polyethylene (Miralax Powder Packet) 17 gm DAILY PRN PO 06/20/16 20:30 07/20/16 20:29 Piperacillin Sod/ Tazobactam Sod (Consult) 1 ea UD PRN N/A 06/20/16 20:45 07/20/16 20:44 Vancomycin HCl (Consult) 1 ea UD PRN N/A 06/20/16 20:45 07/20/16 20:44 Aspirin (Ecotrin Tab) 81 mg DAILY PO 06/21/16 09:00 07/21/16 08:59 06/21/16 08:04 81 MG Cholecalciferol (Vitamin D Tab) 1,000 inter.unit DAILY PO 06/21/16 09:00 07/21/16 08:59 06/21/16 08:07 1,000 INTER.UNIT Clopidogrel Bisulfate (plAVix TAB) 75 mg DAILY PO 06/21/16 09:00 07/21/16 08:59 06/21/16 08:06 75 MG Cyanocobalamin (Vitamin B-12 Tab) 1,000 mcg DAILY PO 06/21/16 09:00 07/21/16 08:59 06/21/16 08:07 1,000 MCG Finasteride (Proscar Tab) 5 mg DAILY PO 06/21/16 09:00 07/21/16 08:59 06/21/16 08:06 5 MG Hydralazine HCl (Apresoline Tab) 10 mg TID PO 06/20/16 21:00 07/20/16 20:59 06/21/16 14:41 10 MG Isosorbide Mononitrate (Imdur Ext Rel Tab) 90 mg DAILY PO 06/21/16 09:00 07/21/16 08:59 06/21/16 08:05 90 MG Levothyroxine Sodium (Synthroid Tab) 25 mcg DAILYBB PO 06/21/16 06:00 07/21/16 06:59 06/21/16 05:48 25 MCG Metoprolol Succinate (Toprol Xl Tab) 50 mg DAILY PO 06/21/16 09:00 07/21/16 08:59 06/21/16 08:07 50 MG Paroxetine HCl (pAXil TAB) 10 mg DAILY PO 06/21/16 09:00 07/21/16 08:59 06/21/16 08:05 10 MG Tramadol HCl (Ultram Tab) 50 mg Q4H PRN PO 06/20/16 20:45 07/20/16 20:44 Albuterol (Ventolin Hfa Inhaler) 2 puffs QID INH 06/20/16 21:00 07/20/16 20:59 06/21/16 17:45 2 PUFFS Insulin Human Regular (novoLIN-R) SLIDING SCALE IF C... ACHS SC 06/20/16 21:00 07/20/16 20:59 06/21/16 17:44 5 UNITS Glucose (Glucose 40% Gel) 15-30 GRAMS 15 GRAMS... UD PRN PO 06/20/16 20:45 07/20/16 20:44 Glucose (Glucose Chew Tab) 4-8 Tablets 4 Tabl... UD PRN PO 06/20/16 20:45 07/20/16 20:44 Dextrose (Dextrose 50% 50ML Syringe) 25-50ML OF 50% DW IV FOR... UD PRN IV 06/20/16 20:45 07/20/16 20:44 Glucagon 1 mg 1 mg UD PRN SQ 06/20/16 20:45 07/20/16 20:44 Piperacillin Sod/ Tazobactam Sod 3.375 gm/Dextrose 115 ml @ 28.75 mls/ hr Q8H IV 06/21/16 04:00 06/30/16 21:59 06/21/16 12:42 28.75 MLS/HR Vancomycin HCl/ Sodium Chloride (Vancomycin Inj/ Nss 250ml) 270 ml @ 125 mls/hr Q30H IV 06/22/16 04:00 07/02/16 03:59
--- NOTE | 2016-06-21 18:42 | Medical Consult ---
Consultation Date of Consultation: Jun 21, 2016. Attending Physician: Malinda Eli MD Reason for Consultation: Diabetic foot infection History of Present Illness 86-year-old male with complicated past medical history with comorbidities diabetes mellitus, severe peripheral arterial disease, coronary artery disease, dementia, chronic congestive heart failure, and chronic kidney disease, who has been suffering from infection ulceration of his left great toe for several months. He was previously treated with a course of cephalexin with slight improvement, but has had progressive worsening symptoms. X-ray done as an outpatient reportedly shows no evidence of osteomyelitis. He was admitted now with 1 day history of acute change in mental status with confusion and poor responsiveness. He was started on IV vancomycin and Zosyn, and blood cultures today are reported positive for gram-negative bacilli. Orthopedic consultation is pending. Past Medical/Surgical History Medical Problems: (1) Acute CHF Status: Acute (2) Acute congestive heart failure Status: Acute (3) Acute coronary syndrome Status: Acute (4) Altered mental status Status: Acute (5) Cellulitis of left foot Status: Acute (6) Diabetic ulcer of left great toe Status: Acute (7) Elevated troponin Status: Acute (8) Elevated troponin Status: Acute (9) Hypoxia Status: Acute (10) Hypoxia Status: Acute (11) Pneumonia Status: Acute (12) Pulmonary edema Status: Acute (13) Pulmonary edema Status: Acute (14) Renal failure Status: Acute Medical Problems: (1) AAA (abdominal aortic aneurysm) (2) ASCVD (arteriosclerotic cardiovascular disease) (3) BPH (benign prostatic hyperplasia) (4) Carotid stenosis, asymptomatic (5) Change in mental state (6) CHF (congestive heart failure) (7) chronic pain pelvic and thigh (8) Cluster headache syndrome (9) CVA (cerebral vascular accident) (10) Dementia (11) Depression (12) DM2 (diabetes mellitus, type 2) (13) H/O chronic ischemic heart disease (14) History of left heart catheterization (LHC) (15) HLD (hyperlipidemia) (16) Incontinence of feces (17) Incontinence of urine (18) infected left great toe (19) Lacunar infarction (20) PAD (peripheral artery disease) (21) Respiratory failure (22) TIA (transient ischemic attack) Surgical Problems: (1) Hx of CABG (2) Hx of endarterectomy (3) S/P CABG x 4 (4) S/P insertion of iliac artery stent (5) Stented coronary artery Family History Diabetes mellitus Heart disease Social History Smoking Status: Former Smoker Drug Use: none Marital Status: Housing Status: lives with family Occupation Status: retired Allergies Coded Allergies: Pravastatin (Verified Allergy, Mild, 06/20/16) Codeine (Verified Allergy, Unknown, 06/20/16) Morphine (Unverified Allergy, Unknown, UNKNOWN, 06/20/16) Statins (Unverified Allergy, Unknown, UNKNOWN, 06/20/16) Sulfa Antibiotics (Verified Allergy, Unknown, ., 06/20/16) Current Inpatient Medications Current Inpatient Medications Medications (Trade) Dose Ordered Sig/Juan Route Start Time Stop Time Status Last Admin Dose Admin Heparin Sodium (Porcine) (Heparin Sq 5000 Unit/0.5ml) 5,000 unit Q8 SQ 06/20/16 22:00 07/20/16 21:59 06/21/16 14:43 5,000 UNIT Acetaminophen (Tylenol Tab) 650 mg Q4H PRN PO 06/20/16 20:30 07/20/16 20:29 Al Hydrox/Mg Hydrox/Simethicone (Maalox Max Susp) 15 ml Q4H PRN PO 06/20/16 20:30 07/20/16 20:29 Magnesium Hydroxide (Milk Of Magnesia Susp) 30 ml Q12H PRN PO 06/20/16 20:30 07/20/16 20:29 Ondansetron HCl (Zofran Inj) 4 mg Q6H PRN IV 06/20/16 20:30 07/20/16 20:29 Polyethylene (Miralax Powder Packet) 17 gm DAILY PRN PO 06/20/16 20:30 07/20/16 20:29 Piperacillin Sod/ Tazobactam Sod (Consult) 1 ea UD PRN N/A 06/20/16 20:45 07/20/16 20:44 Vancomycin HCl (Consult) 1 ea UD PRN N/A 06/20/16 20:45 07/20/16 20:44 Aspirin (Ecotrin Tab) 81 mg DAILY PO 06/21/16 09:00 07/21/16 08:59 06/21/16 08:04 81 MG Cholecalciferol (Vitamin D Tab) 1,000 inter.unit DAILY PO 06/21/16 09:00 3/13/17 08:59 06/21/16 08:07 1,000 INTER.UNIT Clopidogrel Bisulfate (plAVix TAB) 75 mg DAILY PO 06/21/16 09:00 07/21/16 08:59 06/21/16 08:06 75 MG Cyanocobalamin (Vitamin B-12 Tab) 1,000 mcg DAILY PO 06/21/16 09:00 07/21/16 08:59 06/21/16 08:07 1,000 MCG Finasteride (Proscar Tab) 5 mg DAILY PO 06/21/16 09:00 07/21/16 08:59 06/21/16 08:06 5 MG Hydralazine HCl (Apresoline Tab) 10 mg TID PO 06/20/16 21:00 07/20/16 20:59 06/21/16 14:41 10 MG Isosorbide Mononitrate (Imdur Ext Rel Tab) 90 mg DAILY PO 06/21/16 09:00 07/21/16 08:59 06/21/16 08:05 90 MG Levothyroxine Sodium (Synthroid Tab) 25 mcg DAILYBB PO 06/21/16 06:00 07/21/16 06:59 06/21/16 05:48 25 MCG Metoprolol Succinate (Toprol Xl Tab) 50 mg DAILY PO 06/21/16 09:00 07/21/16 08:59 06/21/16 08:07 50 MG Paroxetine HCl (pAXil TAB) 10 mg DAILY PO 06/21/16 09:00 07/21/16 08:59 06/21/16 08:05 10 MG Tramadol HCl (Ultram Tab) 50 mg Q4H PRN PO 06/20/16 20:45 07/20/16 20:44 Albuterol (Ventolin Hfa Inhaler) 2 puffs QID INH 06/20/16 21:00 07/20/16 20:59 06/21/16 17:45 2 PUFFS Insulin Human Regular (novoLIN-R) SLIDING SCALE IF C... ACHS SC 06/20/16 21:00 07/20/16 20:59 06/21/16 17:44 5 UNITS Glucose (Glucose 40% Gel) 15-30 GRAMS 15 GRAMS... UD PRN PO 06/20/16 20:45 07/20/16 20:44 Glucose (Glucose Chew Tab) 4-8 Tablets 4 Tabl... UD PRN PO 06/20/16 20:45 07/20/16 20:44 Dextrose (Dextrose 50% 50ML Syringe) 25-50ML OF 50% DW IV FOR... UD PRN IV 06/20/16 20:45 07/20/16 20:44 Glucagon 1 mg 1 mg UD PRN SQ 06/20/16 20:45 07/20/16 20:44 Piperacillin Sod/ Tazobactam Sod 3.375 gm/Dextrose 115 ml @ 28.75 mls/ hr Q8H IV 06/21/16 04:00 06/30/16 21:59 06/21/16 12:42 28.75 MLS/HR Vancomycin HCl/ Sodium Chloride (Vancomycin Inj/ Nss 250ml) 270 ml @ 125 mls/hr Q30H IV 06/22/16 04:00 07/02/16 03:59 Review of Systems not obtainable because of patient's mental status Physical Exam Date Time Temp Pulse Resp B/P Pulse Ox O2 Delivery O2 Flow Rate FiO2 06/21/16 16:36 97 Nasal Cannula 2.0 06/21/16 15:38 36.7 69 18 140/83 97 Nasal Cannula 2.0 06/21/16 12:00 Nasal Cannula 2.0 06/21/16 11:55 36.7 75 19 141/81 96 Nasal Cannula 2.0 06/21/16 08:00 Nasal Cannula 2.0 06/21/16 07:55 36.4 77 18 127/88 93 Nasal Cannula 2.0 06/21/16 04:00 Nasal Cannula 2.0 06/21/16 03:10 36.6 70 20 146/95 96 Nasal Cannula 2.0 06/21/16 00:00 Nasal Cannula 2.0 06/20/16 23:22 36.6 66 18 134/70 98 Nasal Cannula 2.0 06/20/16 21:15 36.5 80 18 168/92 94 Nasal Cannula 2.0 06/20/16 21:01 69 17 153/74 96 06/20/16 20:30 69 23 97 06/20/16 20:00 73 20 95 06/20/16 19:55 146/82 06/20/16 19:38 72 21 93 Room Air 06/20/16 19:30 95 Room Air 06/20/16 19:08 79 25 06/20/16 18:55 36.9 82 18 176/94 93 Room Air 06/20/16 18:53 81 06/20/16 18:48 176/94 General Appearance: WD/WN, no apparent distress Head: normocephalic, atraumatic Eyes: normal inspection, EOMI, sclerae normal ENT: normal ENT inspection, pharynx normal Neck: supple, no adenopathy, thyroid normal, trachea midline Respiratory/Chest: chest non-tender, lungs clear, normal breath sounds, no respiratory distress Cardiovascular: regular rate, rhythm, no gallop, no murmur Abdomen/GI: normal bowel sounds, non tender, soft, no organomegaly Back: normal inspection, no CVA tenderness Extremities/Musculoskelatal: no calf tenderness, + slow capillary refill, + pertinent finding ( left great toe necrotic ulceration) Neurologic/Psych: alert, + disoriented Skin: normal color, no rash, + pertinent finding ( necrotic left great toe ulceration) Laboratory Results RUN DATE: 06/21/16 [facility] LAB PAGE 1 RUN TIME: 1018 Specimen Inquiry PATIENT: DANDY GARCIA LOC: [place] U # : [id number] AGE/SX: 86/M ROOM: E201 REG : 06/20/[address]: Malinda Eli : 1930 BED: 1 DIS : STATUS: ADM IN TLOC: SPEC #: [id number] IQRA: 06/20/16 STATUS: RES REQ #: [id number] RECD: 06/20/[address]: Joe Pennington DO SOURCE: BLOOD ENTR: 06/20/[address] [facility] [address]: Kim Crawford M.D. SPDESC: ORDERED: BLOOD CULTURE Procedure Result Verified Site BLD CULT Preliminary 06/21/16-1018 Organism 1 GRAM NEGATIVE BACILLI SENS SENSITIVITIES DEPENDENT ON FURTHER IDENTIFICATION Phoned results to JATIN VERMA on 06/21/16 at 1017 by Emily Ferguson. Results were verbalized back to LIZZ. Last 24 Hours Test 06/20/16 19:10 06/20/16 19:19 06/20/16 22:27 06/21/16 02:36 White Blood Count 11.82 K/uL Red Blood Count 4.01 M/uL Hemoglobin 13.0 g/dL Hematocrit 37.7 % Mean Corpuscular Volume 94.0 fL Mean Corpuscular Hemoglobin 32.4 pg Mean Corpuscular Hemoglobin Concent 34.5 g/dl Platelet Count 178 K/uL Mean Platelet Volume 13.4 fL Neutrophils (%) (Auto) 84.7 % Lymphocytes (%) (Auto) 6.3 % Monocytes (%) (Auto) 8.3 % Eosinophils (%) (Auto) 0.2 % Basophils (%) (Auto) 0.2 % Neutrophils # (Auto) 10.02 K/uL Lymphocytes # (Auto) 0.75 K/uL Monocytes # (Auto) 0.98 K/uL Eosinophils # (Auto) 0.02 K/uL Basophils # (Auto) 0.02 K/uL RDW Standard Deviation 47.4 fL RDW Coefficient of Variation 13.7 % Immature Granulocyte % (Auto) 0.3 % Immature Granulocyte # (Auto) 0.03 K/uL Erythrocyte Sedimentation Rate 30 mm/hr Prothrombin Time 12.0 SECONDS Prothromb Time International Ratio 1.1 Activated Partial Thromboplast Time 30.3 SECONDS Partial Thromboplastin Ratio 1.2 Sodium Level 140 mmol/L Potassium Level 4.0 mmol/L Chloride Level 104 mmol/L Carbon Dioxide Level 26 mmol/L Anion Gap 10.0 mmol/L Blood Urea Nitrogen 37 mg/dl Creatinine 2.00 mg/dl Est Creatinine Clear Calc Drug Dose 26.0 ml/min Estimated GFR () 34.3 Estimated GFR (Non- 29.6 BUN/Creatinine Ratio 18.6 Random Glucose 170 mg/dl Calcium Level 8.8 mg/dl Phosphorus Level 2.7 mg/dl Magnesium Level 2.1 mg/dl Total Bilirubin 0.6 mg/dl Aspartate Amino Transf (AST/SGOT) 10 U/L Alanine Aminotransferase (ALT/SGPT) 10 U/L Alkaline Phosphatase 110 U/L Total Creatine Kinase 66 U/L 115 U/L Creatine Kinase MB 0.6 ng/ml 1.9 ng/ml Creatine Kinase MB Ratio 0.9 1.7 Troponin I 0.409 ng/ml 0.442 ng/ml C-Reactive Protein 2.42 mg/dl Pro-B-Type Natriuretic Peptide > 01960 pg/ml Total Protein 7.2 gm/dl Albumin 3.5 gm/dl Globulin 3.7 gm/dl Albumin/Globulin Ratio 0.9 Lipase 114 U/L Bedside Lactic Acid Venous 0.98 mmol/L Bedside Glucose 140 mg/dl Test 06/21/16 04:03 06/21/16 05:23 06/21/16 06:47 06/21/16 10:33 Urine Color YELLOW Urine Appearance CLEAR Urine pH 5.5 Urine Specific [place] 1.014 Urine Protein NEG Urine Glucose (UA) NEG Urine Ketones NEG Urine Occult Blood NEG Urine Nitrite NEG Urine Bilirubin NEG Urine Urobilinogen NEG Urine Leukocyte Esterase NEG Urine WBC (Auto) 0 /hpf Urine RBC (Auto) 0-4 /hpf Urine Hyaline Casts (Auto) 0 /lpf Urine Epithelial Cells (Auto) 0-5 /lpf Urine Bacteria (Auto) NEG White Blood Count 11.26 K/uL Red Blood Count 3.93 M/uL Hemoglobin 12.7 g/dL Hematocrit 37.0 % Mean Corpuscular Volume 94.1 fL Mean Corpuscular Hemoglobin 32.3 pg Mean Corpuscular Hemoglobin Concent 34.3 g/dl RDW Standard Deviation 47.1 fL RDW Coefficient of Variation 13.7 % Platelet Count 161 K/uL Mean Platelet Volume 12.6 fL Sodium Level 142 mmol/L Potassium Level 3.9 mmol/L Chloride Level 106 mmol/L Carbon Dioxide Level 24 mmol/L Anion Gap 12.0 mmol/L Blood Urea Nitrogen 31 mg/dl Creatinine 1.90 mg/dl Est Creatinine Clear Calc Drug Dose 27.4 ml/min Estimated GFR () 36.4 Estimated GFR (Non- 31.4 BUN/Creatinine Ratio 16.5 Random Glucose 143 mg/dl Estimated Average Glucose 160 mg/dl Hemoglobin A1c 7.2 % Calcium Level 8.2 mg/dl Magnesium Level 2.0 mg/dl Triglycerides Level 80 mg/dl Cholesterol Level 143 mg/dl HDL Cholesterol 38 mg/dl LDL Cholesterol, Calculated 89 mg/dl VLDL Cholesterol, Calculated 16 mg/dl Cholesterol/HDL Ratio 3.8 Bedside Glucose 154 mg/dl Total Creatine Kinase 107 U/L Creatine Kinase MB 1.1 ng/ml Creatine Kinase MB Ratio 1.0 Troponin I 0.413 ng/ml Test 06/21/16 11:02 06/21/16 16:19 Bedside Glucose 155 mg/dl 141 mg/dl Patient Name: DANDY GARCIA Unit Number: [id number] Dictated: 06/20/162024 Transcribed: 06/20/162024 JA Printed Date/Time: [~ rep prt dt]/[~ rep prt tm] [~ rep ct labl] - [~ rep ct ivnm] [facility] Radiology Department [place] [id number] Dictated: 06/20/162024 Transcribed: 06/20/162024 JA Printed Date/Time: [~ rep prt dt]/[~ rep prt tm] [~ rep ct labl] - [~ rep ct ivnm] [~ rep ct add3]] LEFT FOOT MIN 3 VIEWS ROUTINE CLINICAL HISTORY: Left great toe infection COMPARISON: None FINDINGS: The tarsometatarsal joints are intact. No fracture or suspicious lesion is identified within the left foot. There is no radiographic evidence of osteomyelitis within the left foot. IMPRESSION: No acute fracture or radiographic evidence of osteomyelitis within the left foot. Electronically signed by: Yusuf Jin M.D. 06/20/2016 8:26 PM Dictated Date/Time: 06/20/2016 8:25 PM The status of this report is Signed. Draft = Not yet reviewed or approved by Radiologist. Signed = Reviewed and approved by Radiologist. <AttendingPhy></AttendingPhy> <FamilyPhy>Kim Crawford M.D.</FamilyPhy> < PrimaryPhy>Kim Crawford M.D.</PrimaryPhy> <UnitNumber>[id number]</UnitNumber > <VisitNumber>[id number]</VisitNumber> <PatientName>DANDY GARCIA</ PatientName> <DateOfBirth>1930</DateOfBirth> <Location>[facility]</Location> < ServiceDate>06/20/16</ServiceDate> <MNE>ESINDI</MNE> <OrderingPhy>Joe Pennington D.O.</OrderingPhy> <OrderingPhyMNE>f rep ord dr greenfield</OrderingPhyMNE> <DictatingPhyMNE>f rep dict dr rgeenfield</DictatingPhyMNE> <CCListMNE>f rep ct mne</ CCListMNE> <AdmittingPhyMNE>f pt admit dr greenfield</AdmittingPhyMNE> <AttendingPhyMNE >f pt attend dr greenfield</AttendingPhyMNE> <ConsultingPhyMNE>f pt consult dr greenfield</ConsultingPhyMNE> <FamilyPhyMNE>f pt fam dr greenfield</FamilyPhyMNE> <OtherPhyMNE>f pt other dr greenfield</OtherPhyMNE> < PrimaryPhyMNE>f pt prim care dr greenfield</PrimaryPhyMNE> <ReferringPhyMNE>f pt referring dr greenfield</ReferringPhyMNE> Assessment & Plan Gram negative sepsis with likely source infected left great toe in diabetic with PAD. Zosyn should provide adequate coverage pending ID/sensitivities. Will likely be able to discontinue vancomycin if MRSA not identified. Await orthopedic consultation regarding need for amputation. Will disscuuss with all involved. Will follow.
[2016-06-22] VITALS (9 sets, daily range): BP systolic 127–176; BP diastolic 69–100; PULSE 65–88; TEMP 36.4–37.8; O2SAT 92–97
[2016-06-22] MEDS ORDERED: VANCOMYCIN INJ 1,000 MG in SODIUM CHLORIDE 0.9% 250ML 250 ML IV SCH (04:00)
[2016-06-22] MEDS: PIPERACILL/TAZOBAC IV 3.375 GM in DEXTROSE 5% 100ML IV SCH ×3 (04:08→19:31)
[2016-06-22 06:42] LABS: MEAN CELL VOLUME 93.1 fL (80-100); MEAN CORPUSCULAR HEMOGLOBIN 32.2 pg (25-34); MEAN CORPUSCULAR HGB CONC 34.6 g/dl (32-36); MEAN PLATELET VOLUME 13.2 fL (7.4-10.4); PLATELET COUNT 152 K/uL (130-400); RED BLOOD COUNT 3.76 M/uL (4.7-6.1)
[2016-06-22] MEDS: LEVOTHYROXINE 25 MCG TAB PO SCH (06:43)
[2016-06-22] MEDS: HEPARIN SOD 5000 UNIT/0.5 ML CARP SQ SCH ×3 (06:49→20:49)
[2016-06-22 07:23] LABS: BUN/CREATININE RATIO 17.4 (10-20); CALCIUM 8.4 mg/dl (8.5-10.1); CREATININE 1.9 mg/dl (0.60-1.40); POTASSIUM 3.3 mmol/L (3.5-5.1)
[2016-06-22] MEDS: INSULIN HUMAN REGULAR SC SCH ×4 (08:36→20:57)
[2016-06-22] MEDS: ALBUTEROL HFA 8 GM INHALER INH SCH ×4 (08:37→19:27)
[2016-06-22] MEDS: HydrALAZINE 10 MG TAB PO SCH ×3 (08:37→19:28)
[2016-06-22] MEDS: ASPIRIN 81 MG ECTAB PO SCH (08:37)
[2016-06-22] MEDS: ISOSORBIDE MONONITRATE 30 MG TABCR PO SCH (08:38)
[2016-06-22] MEDS: PAROXETINE 20 MG TAB PO SCH (08:38)
[2016-06-22] MEDS: CLOPIDOGREL BISULFATE 75 MG TAB PO SCH (08:39)
[2016-06-22] MEDS: FINASTERIDE 5 MG TAB PO SCH (08:39)
[2016-06-22] MEDS: CYANOCOBALAMIN 500 MCG TAB (VIT B-12) PO SCH (08:40)
[2016-06-22] MEDS: CHOLECALCIFEROL 1000 INTER.UNIT TAB PO SCH (08:40)
[2016-06-22] MEDS: METOPROLOL SUCC 50MG EXT REL TAB PO SCH (08:40)
--- NOTE | 2016-06-22 14:03 | DIAGNOSTIC IMAGING REPORT ---
LEFT LOWER EXTREMITY ARTERIAL DOPPLER ULTRASOUND CLINICAL HISTORY: Left toe gangrene COMPARISON STUDY: No previous studies for comparison. TECHNIQUE: Grayscale and color and duplex Doppler sonography of the arterial system of the left lower extremity was performed. FINDINGS: Ankle to brachial indices could not be obtained in this patient due to significantly diminished flow within the calf vessels. There is extensive atherosclerotic plaque throughout the left lower extremity. There is biphasic flow within the left common femoral artery. A markedly elevated velocity within the proximal left superficial femoral artery of 374 cm/s was noted. There is an additional area of increased peak systolic velocity within the mid superficial femoral artery of 367 cm/s. These suggest hemodynamically significant stenoses. Evaluation was difficult given extensive atherosclerotic plaque. There is monophasic flow distal to the stenoses. Specifically, there was monophasic flow within the left popliteal and peroneal arteries. There was suspected proximal occlusion of the anterior tibial artery with distal reconstitution with monophasic flow within the left dorsalis pedis. There is minimal monophasic flow within the distal left posterior tibial artery. IMPRESSION: 1. Extensive atherosclerotic plaque within the left lower extremity. 2. Findings suggestive of two stenoses within the left superficial femoral artery with monophasic, dampened flow distal to the stenosis. 3. Suspected occlusion of the proximal left anterior tibial and posterior tibial arteries with distal reconstitution. However, the flow within the dorsalis pedis and left posterior tibial artery is significantly dampened and monophasic. Electronically signed by: Yusuf Jin M.D. 06/22/2016 2:01 PM Dictated Date/Time: 06/22/2016 1:55 PM
[2016-06-22] MEDS ORDERED: POTASSIUM CHLORIDE 10 MEQ TABCR PO ONE (15:00)
--- NOTE | 2016-06-22 15:02 | CONSULTATION REPORT ---
DATE OF CONSULTATION: 06/22/2016 REASON FOR CONSULT: Infected left great toe. HISTORY OF PRESENT ILLNESS: This is an 86-year-old male patient who was admitted to the hospital under the medical service for mental status change as well as infected left great toe. The patient has a complex past medical history including abdominal aortic aneurysm, arteriosclerotic cardiovascular disease, BPH, carotid stenosis, congestive heart failure, cluster headaches, history of CVA, dementia, depression, diabetes type 2, ischemic heart disease, history of left heart catheterization, hyperlipidemia, incontinence, lacunar infarction, peripheral artery disease, history of TIA. Orthopedics is being consulted for evaluation and possible surgical intervention for the left great toe. PAST SURGICAL HISTORY: Multiple CABG, history of endarterectomy, insertion of an iliac artery stent, stented coronary artery. SOCIAL HISTORY: The patient lives at home and is . He is a nonsmoker, nondrinker. MEDICATIONS: Noted in the admitting attending history and physical. ALLERGIES: Include PRAVASTATIN, CODEINE, MORPHINE, STATINS, AND SULFA. X-rays of the left great toe showed no evidence of osteomyelitis or fractures. Infectious disease has been consulted. The patient is currently on Zosyn. He is currently growing Gram-negative bacilli in his blood cultures. PHYSICAL EXAMINATION: This is a well-developed, well-nourished 86-year-old male. He is in no acute distress. He is alert and oriented. Vital signs, most recent, temperature 36.8, respiratory rate 20, blood pressure 141/88, pulse ox 92% on 2 liters via nasal cannula. Orthopedically, his left great toe is discolored black. His nail is intact. There is no drainage. There is minimal erythema noted around the toe and into the top of the foot. He is able to mobilize his toes actively. He has minimal sensation with palpation of the great toe. DIAGNOSES: Left great toe infection with gangrenous changes, currently on Zosyn. He also has an extensive past medical history as mentioned above. PLAN: As per medicine for multiple comorbidities. Arterial Doppler of the left leg is pending. We will also recommend consulting vascular service. This was relayed to Dr. Keita. We will have Dr. Kim evaluate the need for any surgical intervention along with vascular's input for any intervention on their part. Continue plans per infectious disease and follow this patient in the hospital for treatment of his left great toe. [facility]ITAL[facility]mael
--- NOTE | 2016-06-22 15:04 | ORTHOPEDIC CONSULTATION ---
DATE OF CONSULTATION: 06/20/2016 HISTORY OF PRESENT ILLNESS: The patient is an 86-year-old male admitted on the medical service with a gangrene of his left great toe. He has a history of peripheral vascular disease. I asked the patient if he has had any recent vascular studies and he says nothing recently. According to history, he has a complex medical history with severe peripheral vascular disease, CHF, CAD, dementia, type 2 diabetes mellitus, and history of multiple CVA. Chronic infection, cellulitis left great toe with gangrene. He has been on cephalexin. He has had balloon angioplasty in 2013. No followup with vascular surgery site. PAST MEDICAL HISTORY: Extensive abdominal aortic aneurysm, arteriosclerotic cardiovascular disease, BPH, carotid stenosis, CHF, chronic pain syndrome, CVA, dementia, depression, diabetes, chronic ischemic heart disease, lacunar infarcts, peripheral artery disease, TIAs. See H\T\P for further review. MEDICATIONS: He is on multiple medications which were reviewed. PERTINENT STUDIES: Positive blood culture for gram negative organism, present white count 13,000. Radiographs demonstrate no clear osteomyelitis. PHYSICAL EXAMINATION: Demonstrates that he is demented and does not have good knowledge of his history, but he is comfortable, eating a meal. He is aware that he just had a dressing change to his toe. Exam of his foot demonstrates he has chronic dependent rubor and gangrene of the great toe. ASSESSMENT AND PLAN: I will notify Dr. Kim of his condition, but vascular surgery needs to be on board and may be able to treat this situation without the assistance of Dr. Kim. Certainly needs a vascular consult and new vascular studies to predict level of amputation required to treat condition as a toe amputation may not heal due to his severe peripheral vascular disease unless something is done to improve his vascular situation. Thanks for this consult.
--- NOTE | 2016-06-22 17:11 | Progress Note ---
Medicine Progress Note Date & Time of Visit: Jun 22, 2016 at 17:08. Subjective Patient seen and examined. Denies any complaints. Would like a [place] chocolate bar. Objective Last 8 Hrs Date Time Temp Pulse Resp B/P Pulse Ox O2 Delivery O2 Flow Rate FiO2 06/22/16 16:00 Nasal Cannula 2.0 06/22/16 16:00 Nasal Cannula 2.0 06/22/16 14:45 36.4 71 18 159/88 94 Nasal Cannula 2.0 06/22/16 12:00 Nasal Cannula 2.0 06/22/16 11:30 36.4 65 18 155/83 95 Nasal Cannula Physical Exam: General-awake; alert; NAD Eyes-EOMI; no scleral icterus Neck-no stridor; trachea midline Lungs-CTA bilaterally; no wheezes/crackles Heart-RRR Abdomen-soft; NTND; nBS Extremities-no c/c/e; necrotic appearing left great toe with erythema extending to the dorsum of the left foot at the base of the great toe Neuro-unable to assess due to underlying dementia Laboratory Results: Last 24 Hours Test 06/21/16 20:11 06/22/16 06:06 06/22/16 06:16 06/22/16 07:24 Bedside Glucose 136 mg/dl 123 mg/dl Sodium Level 139 mmol/L Potassium Level 3.3 mmol/L Chloride Level 106 mmol/L Carbon Dioxide Level 20 mmol/L Anion Gap 13.0 mmol/L Blood Urea Nitrogen 33 mg/dl Creatinine 1.90 mg/dl Est Creatinine Clear Calc Drug Dose 27.3 ml/min Estimated GFR () 36.4 Estimated GFR (Non- 31.4 BUN/Creatinine Ratio 17.4 Random Glucose 105 mg/dl Calcium Level 8.4 mg/dl Magnesium Level 2.0 mg/dl White Blood Count 13.00 K/uL Red Blood Count 3.76 M/uL Hemoglobin 12.1 g/dL Hematocrit 35.0 % Mean Corpuscular Volume 93.1 fL Mean Corpuscular Hemoglobin 32.2 pg Mean Corpuscular Hemoglobin Concent 34.6 g/dl RDW Standard Deviation 46.7 fL RDW Coefficient of Variation 13.8 % Platelet Count 152 K/uL Mean Platelet Volume 13.2 fL Test 06/22/16 11:02 06/22/16 16:31 Bedside Glucose 188 mg/dl 117 mg/dl Assessment & Plan METABOLIC ENCEPHALOPATHY - most likely due to left great toe infection - CT head negative LEFT GREAT TOE GANGRENE - patient with underlying severe peripheral vascular disease - pt recently completed 10 day course of Keflex on 06/16/16 - continue Zosyn - discontinue Vancomycin given gram negative bacilli in blood culture and MRSA swab negative - xray of left foot negative for osteomyelitis - ID consulted - Wound care consulted - arterial doppler of left leg showing severe occlusive disease - Ortho consulted to evaluate for possible amputation - Vascular surgery consulted - blood culture (06/20) 1of2 with gram negative bacilli - repeat cultures pending SEVERE PERIPHERAL VASCULAR DISEASE - s/p bilateral LE angiogram with balloon angioplasty of left SFA and balloon expandable stent in left common iliac artery [place] [address] Malik - continue aspirin, Plavix - lower ext arterial Doppler showing severe occlusive disease - Vascular surgery consulted CHRONIC SYSTOLIC HEART FAILURE /SEVERE CARDIOMYOPATHY - hx of NSTEMI - EF of 20 % as per Last ECHO on 10/2015 HX OF MULTIPLE CVA - CT head showed evidence of old lacunar infraction - cont aspirin, Plavix CKD STAGE 3-4 - baseline Cr 1.9 -2 HTN - BP stable - cont metoprolol, Imdur, Hydralazine TYPE 2 DM, DIET CONTROLLED - insulin SSI - A1c of 7.2 CODE STATUS DNR/DNI DVT PROPHYLAXIS : moderate to high risk sub q heparin DISPOSITION : at present living at home with elderly mentions -difficulty in taking care of pt due to advance dementia /poor functional status was in [facility] in past after NSTEMI willing for SNF vs placement PT/OT eval requested Social service consulted for discharge planning Consultants: Infectious disease Orthopedics Vascular surgery Procedures: CT head 1. No acute intracranial hemorrhage or mass effect. 2. Numerous lacunar infarcts. The majority of these were present on head CT of December 15, 2013 and are chronic. A few are new since prior exam. The appearance favors old lacunar infarcts although several are age indeterminate. Xray Left foot No acute fracture or radiographic evidence of osteomyelitis within the left foot. Current Inpatient Medications: Current Inpatient Medications Medications (Trade) Dose Ordered Sig/Juan Route Start Time Stop Time Status Last Admin Dose Admin Heparin Sodium (Porcine) (Heparin Sq 5000 Unit/0.5ml) 5,000 unit Q8 SQ 2/10/17 22:00 07/20/16 21:59 06/22/16 13:51 5,000 UNIT Acetaminophen (Tylenol Tab) 650 mg Q4H PRN PO 06/20/16 20:30 07/20/16 20:29 06/22/16 04:27 650 MG Al Hydrox/Mg Hydrox/Simethicone (Maalox Max Susp) 15 ml Q4H PRN PO 06/20/16 20:30 07/20/16 20:29 Magnesium Hydroxide (Milk Of Magnesia Susp) 30 ml Q12H PRN PO 06/20/16 20:30 07/20/16 20:29 Ondansetron HCl (Zofran Inj) 4 mg Q6H PRN IV 06/20/16 20:30 07/20/16 20:29 Polyethylene (Miralax Powder Packet) 17 gm DAILY PRN PO 06/20/16 20:30 07/20/16 20:29 Piperacillin Sod/ Tazobactam Sod (Consult) 1 ea UD PRN N/A 06/20/16 20:45 07/20/16 20:44 Aspirin (Ecotrin Tab) 81 mg DAILY PO 06/21/16 09:00 07/21/16 08:59 06/22/16 08:37 81 MG Cholecalciferol (Vitamin D Tab) 1,000 inter.unit DAILY PO 06/21/16 09:00 07/21/16 08:59 06/22/16 08:40 1,000 INTER.UNIT Clopidogrel Bisulfate (plAVix TAB) 75 mg DAILY PO 06/21/16 09:00 07/21/16 08:59 06/22/16 08:39 75 MG Cyanocobalamin (Vitamin B-12 Tab) 1,000 mcg DAILY PO 06/21/16 09:00 07/21/16 08:59 06/22/16 08:40 1,000 MCG Finasteride (Proscar Tab) 5 mg DAILY PO 06/21/16 09:00 07/21/16 08:59 06/22/16 08:39 5 MG Hydralazine HCl (Apresoline Tab) 10 mg TID PO 06/20/16 21:00 07/20/16 20:59 06/22/16 13:50 10 MG Isosorbide Mononitrate (Imdur Ext Rel Tab) 90 mg DAILY PO 06/21/16 09:00 07/21/16 08:59 06/22/16 08:38 90 MG Levothyroxine Sodium (Synthroid Tab) 25 mcg DAILYBB PO 06/21/16 06:00 07/21/16 06:59 06/22/16 06:43 25 MCG Metoprolol Succinate (Toprol Xl Tab) 50 mg DAILY PO 06/21/16 09:00 07/21/16 08:59 06/22/16 08:40 50 MG Paroxetine HCl (pAXil TAB) 10 mg DAILY PO 06/21/16 09:00 07/21/16 08:59 06/22/16 08:38 10 MG Tramadol HCl (Ultram Tab) 50 mg Q4H PRN PO 06/20/16 20:45 07/20/16 20:44 06/22/16 04:27 50 MG Albuterol (Ventolin Hfa Inhaler) 2 puffs QID INH 06/20/16 21:00 07/20/16 20:59 06/22/16 12:51 2 PUFFS Insulin Human Regular (novoLIN-R) SLIDING SCALE IF C... ACHS SC 06/20/16 21:00 07/20/16 20:59 06/22/16 12:14 2 UNITS Glucose (Glucose 40% Gel) 15-30 GRAMS 15 GRAMS... UD PRN PO 06/20/16 20:45 07/20/16 20:44 Glucose (Glucose Chew Tab) 4-8 Tablets 4 Tabl... UD PRN PO 06/20/16 20:45 07/20/16 20:44 Dextrose (Dextrose 50% 50ML Syringe) 25-50ML OF 50% DW IV FOR... UD PRN IV 06/20/16 20:45 07/20/16 20:44 Glucagon 1 mg 1 mg UD PRN SQ 06/20/16 20:45 07/20/16 20:44 Piperacillin Sod/ Tazobactam Sod/ Dextrose (Zosyn Iv/D5 100ml) 115 ml @ 28.75 mls/ hr Q8H IV 06/21/16 04:00 06/30/16 21:59 06/22/16 12:13 28.75 MLS/HR Hydralazine HCl (HydrALAZINE INJ) 10 mg Q6 PRN IV. 06/22/16 05:00 07/22/16 04:59
[2016-06-23 04:00] VITALS: BP 158/84; PULSE 86; TEMP 36.5; O2SAT 92
[2016-06-23] MEDS: PIPERACILL/TAZOBAC IV 3.375 GM in DEXTROSE 5% 100ML IV SCH ×3 (04:15→20:29)
[2016-06-23] MEDS: LEVOTHYROXINE 25 MCG TAB PO SCH (06:12)
[2016-06-23] MEDS: HEPARIN SOD 5000 UNIT/0.5 ML CARP SQ SCH ×3 (06:15→22:00)
[2016-06-23 06:20] LABS: HEMATOCRIT 36.8 % (42-52); MEAN CELL VOLUME 92.2 fL (80-100); MEAN CORPUSCULAR HEMOGLOBIN 31.6 pg (25-34); MEAN CORPUSCULAR HGB CONC 34.2 g/dl (32-36); MEAN PLATELET VOLUME 13.5 fL (7.4-10.4); PLATELET COUNT 174 K/uL (130-400); RED BLOOD COUNT 3.99 M/uL (4.7-6.1); WHITE BLOOD COUNT 10.08 K/uL (4.8-10.8)
[2016-06-23 06:49] LABS: BUN/CREATININE RATIO 15.2 (10-20); CALCIUM 8.5 mg/dl (8.5-10.1); CREATININE 1.9 mg/dl (0.60-1.40); MAGNESIUM 2.2 mg/dl (1.8-2.4); POTASSIUM 3.9 mmol/L (3.5-5.1)
[2016-06-23 07:40] VITALS: BP 156/86; PULSE 93; TEMP 36.8; O2SAT 91
[2016-06-23] MEDS: INSULIN HUMAN REGULAR SC SCH ×4 (07:43→20:33)
[2016-06-23] MEDS: ALBUTEROL HFA 8 GM INHALER INH SCH ×4 (07:47→20:31)
[2016-06-23] MEDS: ISOSORBIDE MONONITRATE 30 MG TABCR PO SCH (07:48)
[2016-06-23] MEDS: HydrALAZINE 10 MG TAB PO SCH ×3 (07:49→20:32)
[2016-06-23] MEDS: ASPIRIN 81 MG ECTAB PO SCH (07:49)
[2016-06-23] MEDS: CLOPIDOGREL BISULFATE 75 MG TAB PO SCH (07:49)
[2016-06-23] MEDS: CHOLECALCIFEROL 1000 INTER.UNIT TAB PO SCH (07:49)
[2016-06-23] MEDS: CYANOCOBALAMIN 500 MCG TAB (VIT B-12) PO SCH (07:49)
[2016-06-23] MEDS: METOPROLOL SUCC 50MG EXT REL TAB PO SCH (07:49)
[2016-06-23] MEDS: PAROXETINE 20 MG TAB PO SCH (07:49)
[2016-06-23] MEDS: FINASTERIDE 5 MG TAB PO SCH (07:50)
[2016-06-23] MEDS ORDERED: VANCOMYCIN TROUGH SCH (09:30)
--- NOTE | 2016-06-23 10:05 | Surgery Consultation ---
Consultation Date of Service Jun 23, 2016. Chief Complaint LLE Gangrene History of Present Illness The patient is a 86 year old male with multiple medical problems, including CKD , HTN, CAD s/p CABG, CHF, PAD, carotid stenosis, CVA/TIA, seen in consultation today for L great toe gangrene. Pt is poor historian d/t dementia. Pt states his L great toe began turning black about 1 yr ago. Did not see Dr Malik since it began turning black, although Dr Malik had previously performed LLE angio with intervention in 2013. Pt states his L great toe occasionally causes pain, but not often. Ambulates with walker, denies claudication. Lives at home with , Mary Jane. Denies GIBBS, fever, chills, chest pain, SOB, abd pain, N /V, rest pain, other complaints. Vitals Vital Signs Past 12 Hours Date Time Temp Pulse Resp B/P Pulse Ox O2 Delivery O2 Flow Rate FiO2 06/23/16 07:40 36.8 93 20 156/86 91 Room Air 06/23/16 04:00 Nasal Cannula 2.0 06/23/16 04:00 36.5 86 18 158/84 92 Nasal Cannula 2.0 06/23/16 00:01 Nasal Cannula 2.0 06/22/16 22:56 36.7 80 22 144/84 95 Nasal Cannula 3.0 Allergies Coded Allergies: Pravastatin (Verified Allergy, Mild, 06/20/16) Codeine (Verified Allergy, Unknown, 06/20/16) Morphine (Unverified Allergy, Unknown, UNKNOWN, 06/20/16) Statins (Unverified Allergy, Unknown, UNKNOWN, 06/20/16) Sulfa Antibiotics (Verified Allergy, Unknown, ., 06/20/16) Home Medications Scheduled Albuterol Sulfate (Proair Respiclick), 2 PUFFS INH QID Aspirin (Aspirin Chewable), 81 MG PO DAILY Cholecalciferol (Vitamin D3), 1,000 UNITS PO DAILY Clopidogrel Bisulfate (Clopidogrel), 75 MG PO DAILY Cyanocobalamin (Vitamin B-12), 1,000 MCG PO DAILY Finasteride (Proscar), 5 MG PO DAILY Furosemide (Furosemide), 40 MG PO QAM Hydralazine HCl (Hydralazine HCl), 10 MG PO TID Ipratropium [place] (Ipratropium [place]), 0.5 MG INH Q6R Isosorbide Mononitrate (Isosorbide Mononitrate ER), 90 MG PO DAILY Levothyroxine Sodium (Levothyroxine Sodium), 25 MCG PO DAILY Metoprolol Succinate (Toprol Xl), 50 MG PO DAILY Paroxetine (Paxil), 10 MG PO DAILY Scheduled PRN Nitroglycerin (Nitroglycerin Lingual), 1 SPRAY UT UD PRN for PRN Tramadol (Ultram), 50 MG PO Q4H PRN for Pain Problem List Medical Problems: (1) AAA (abdominal aortic aneurysm) (2) ASCVD (arteriosclerotic cardiovascular disease) (3) BPH (benign prostatic hyperplasia) (4) Carotid stenosis, asymptomatic (5) Change in mental state (6) CHF (congestive heart failure) (7) chronic pain pelvic and thigh (8) Cluster headache syndrome (9) CVA (cerebral vascular accident) (10) Dementia (11) Depression (12) DM2 (diabetes mellitus, type 2) (13) H/O chronic ischemic heart disease (14) History of left heart catheterization (LHC) (15) HLD (hyperlipidemia) (16) Incontinence of feces (17) Incontinence of urine (18) infected left great toe (19) Lacunar infarction (20) PAD (peripheral artery disease) (21) Respiratory failure (22) TIA (transient ischemic attack) Surgical Problems: (1) Hx of CABG (2) Hx of endarterectomy (3) S/P CABG x 4 (4) S/P insertion of iliac artery stent (5) Stented coronary artery Surgical / Medical History Hx Cardiac Surgery: Yes (CABG X 2) Hx Abdominal Surgery: No Hx Cancer Surgery: No Hx Thoracic Surgery: No Hx Orthopedic: No Hx Urinary Tract Surgery: No Past Medical/Surgical History: Angioplasty/Stent, CABG, CHF, CVA/TIA, Diabetes , Heart Disease, Hypertension, Kidney Disease Family History Diabetes mellitus Heart disease Social History Smoking Status: Former Smoker Hx Tobacco Use In Past Year?: Yes Hx Alcohol Use - Type & Amnt: No Hx Substance Use -Type & Amnt: No Review of Systems Constitutional: No chills, No malaise Skin: + change in color Eyes: No visual changes ENMT: No sore throat Respiratory: + VILLA, No cough, No hemoptysis, No orthopnea, No short of breath Cardiovascular: No chest pain, No edema, No intermittent claudication, No palpitations, No syncope Gastrointestinal: No abdominal pain, No nausea, No vomiting Neurologic: No dizziness, No headache, No lethargy, No numbness, No tingling Physical Exam Constitutional: General Apperance: well-nourished, well-developed, too thin Level of Distress: NAD, chronically ill Psychiatric: Mental Status: active & alert, normal mood, normal affect Orientation: oriented except where noted, to place, to person, not oriented to time Memory: recent memory abnormal, remote memory abnormal Head: normocephalic, atraumatic Eyes: EOM: EOMI ENMT: normal ENT inspection, hearing grossly normal Neck: supple, trachea midline Lungs: Respiratory effort: no dyspnea Auscultation: no wheezing, no rales/crackles, no rhonchi, decreased breath sounds Cardiovascular: Apical Impulse: not displaced Heart Auscultation: RRR, no rubs, no gallops Peripheral Pulses: Pulses: full and equal, in all extremities except if noted Bruits: none appreciated Carotid Pulse: normal on the left, normal on the right Brachial Pulses: normal on the left, normal on the right Radial Pulse: decreased on the left, decreased on the right Ulnar Pulse: normal on the left, normal on the right Femoral Pulse: normal on the left, normal on the right Posterior Tibialis Pulse: pertinent finding (Nonpalpable BLE. RLE + doppler signal. LLE no doppler.) Dorsalis Pedis Pulse: pertinent finding (Nonpalpable BLE. RLE + doppler signal. LLE no signal. Faint peroneal signal noted at ankle.) Abdomen: Bowel Sounds: normal Inspection & Palpation: soft, non-distended, no tenderness, guarding & rebound Musculoskeletal: normal strength (5/5 throughout), normal tone Extremities: Upper Right: no cyanosis, no edema, no varicosities Upper Left: no cyanosis, no edema, no varicosities Lower Right: no cyanosis, no edema, no varicosities Lower Left: gangrene (L great toe, no refill to base of toe. + odor. No drainage. + periwound erythema with streak extending to ankle. ), pertinent finding (toes 2-5 with delayed cap refill at 5-6 seconds.) Neurologic: Cranial Nerves: grossly intact Sensation: grossly intact Assessment and Plan ASSESSMENT and PLAN: L great toe gangrene Severe PAD Pt discussed with Dr Romero. US demonstrates severe PAD with 2 SFA lesions and chronically occluded PT and AT. Toe amputation unlikely to heal without attempting revascularization. Recommend LLE angio with intervention in OR tomorrow afternoon. D/T CKD, will order renal protection protocol. Discussed procedure, risks, benefits and alternatives with pt's , Mary Jane, she will discuss with her children and sign consent tomorrow before procedure if agreeable.
--- NOTE | 2016-06-23 10:48 | Infectious Disease Progress Nt ---
Progress Note Date of Service Jun 23, 2016. Subjective Pt evaluation today including: conversation w/ patient, physical exam, chart review, lab review, review of studies, conversation w/ consultant [employer]. vice president [employer] (ex ), review of inpatient medication list Vascular surgery consultation noted. For angiography and possible intervention tomorrow. Patient offers no new specific complaints. Hemodynamically stable overnight. Appears to be tolerating antibiotics without apparent difficulty. Blood cultures have grown Citrobacter species. All Other Systems: Reviewed and Negative Medications Current Inpatient Medications Medications (Trade) Dose Ordered Sig/Juan Route Start Time Stop Time Status Last Admin Dose Admin Heparin Sodium (Porcine) (Heparin Sq 5000 Unit/0.5ml) 5,000 unit Q8 SQ 06/20/16 22:00 07/20/16 21:59 06/23/16 06:15 5,000 UNIT Acetaminophen (Tylenol Tab) 650 mg Q4H PRN PO 06/20/16 20:30 07/20/16 20:29 06/22/16 04:27 650 MG Al Hydrox/Mg Hydrox/Simethicone (Maalox Max Susp) 15 ml Q4H PRN PO 06/20/16 20:30 07/20/16 20:29 Magnesium Hydroxide (Milk Of Magnesia Susp) 30 ml Q12H PRN PO 06/20/16 20:30 07/20/16 20:29 Ondansetron HCl (Zofran Inj) 4 mg Q6H PRN IV 06/20/16 20:30 07/20/16 20:29 Polyethylene (Miralax Powder Packet) 17 gm DAILY PRN PO 06/20/16 20:30 07/20/16 20:29 Piperacillin Sod/ Tazobactam Sod (Consult) 1 ea UD PRN N/A 06/20/16 20:45 07/20/16 20:44 Aspirin (Ecotrin Tab) 81 mg DAILY PO 06/21/16 09:00 07/21/16 08:59 06/23/16 07:49 81 MG Cholecalciferol (Vitamin D Tab) 1,000 inter.unit DAILY PO 06/21/16 09:00 07/21/16 08:59 06/23/16 07:49 1,000 INTER.UNIT Clopidogrel Bisulfate (plAVix TAB) 75 mg DAILY PO 06/21/16 09:00 07/21/16 08:59 06/23/16 07:49 75 MG Cyanocobalamin (Vitamin B-12 Tab) 1,000 mcg DAILY PO 06/21/16 09:00 07/21/16 08:59 06/23/16 07:49 1,000 MCG Finasteride (Proscar Tab) 5 mg DAILY PO 06/21/16 09:00 07/21/16 08:59 06/23/16 07:50 5 MG Hydralazine HCl (Apresoline Tab) 10 mg TID PO 06/20/16 21:00 07/20/16 20:59 06/23/16 07:49 10 MG Isosorbide Mononitrate (Imdur Ext Rel Tab) 90 mg DAILY PO 06/21/16 09:00 07/21/16 08:59 06/23/16 07:48 90 MG Levothyroxine Sodium (Synthroid Tab) 25 mcg DAILYBB PO 06/21/16 06:00 07/21/16 06:59 06/23/16 06:12 25 MCG Metoprolol Succinate (Toprol Xl Tab) 50 mg DAILY PO 06/21/16 09:00 07/21/16 08:59 06/23/16 07:49 50 MG Paroxetine HCl (pAXil TAB) 10 mg DAILY PO 06/21/16 09:00 07/21/16 08:59 06/23/16 07:49 10 MG Tramadol HCl (Ultram Tab) 50 mg Q4H PRN PO 06/20/16 20:45 07/20/16 20:44 06/22/16 04:27 50 MG Albuterol (Ventolin Hfa Inhaler) 2 puffs QID INH 06/20/16 21:00 07/20/16 20:59 06/23/16 07:47 2 PUFFS Insulin Human Regular (novoLIN-R) SLIDING SCALE IF C... ACHS SC 06/20/16 21:00 07/20/16 20:59 06/22/16 20:57 2 UNITS Glucose (Glucose 40% Gel) 15-30 GRAMS 15 GRAMS... UD PRN PO 06/20/16 20:45 07/20/16 20:44 Glucose (Glucose Chew Tab) 4-8 Tablets 4 Tabl... UD PRN PO 06/20/16 20:45 07/20/16 20:44 Dextrose (Dextrose 50% 50ML Syringe) 25-50ML OF 50% DW IV FOR... UD PRN IV 06/20/16 20:45 07/20/16 20:44 Glucagon 1 mg 1 mg UD PRN SQ 06/20/16 20:45 07/20/16 20:44 Piperacillin Sod/ Tazobactam Sod/ Dextrose (Zosyn Iv/D5 100ml) 115 ml @ 28.75 mls/ hr Q8H IV 06/21/16 04:00 06/30/16 21:59 06/23/16 04:15 28.75 MLS/HR Hydralazine HCl 10 mg 10 mg Q6 PRN IV. 06/22/16 05:00 07/22/16 04:59 Cefazolin Sodium/ Dextrose (Ancef Iv/D5 50ml) 55 ml @ 100 mls/hr PREOP IV 06/24/16 06:00 06/24/16 18:00 Acetylcysteine 600 mg 600 mg Q12H PO 06/23/16 18:00 06/25/16 06:01 Sodium Chloride 1,000 ml @ 68 mls/hr [id number] IV 06/24/16 08:00 07/24/16 07:59 Sodium Bicarbonate/ Sterile Water (Sodium Bicarbonate 8.4% Inj/Sterile Water 1000 ml) 1,100 ml @ 80 mls/hr [id number] IV 06/24/16 08:00 07/24/16 07:59 Objective Vital Signs Date Time Temp Pulse Resp B/P Pulse Ox O2 Delivery O2 Flow Rate FiO2 06/23/16 07:40 36.8 93 20 156/86 91 Room Air 06/23/16 04:00 Nasal Cannula 2.0 06/23/16 04:00 36.5 86 18 158/84 92 Nasal Cannula 2.0 06/23/16 00:01 Nasal Cannula 2.0 06/22/16 22:56 36.7 80 22 144/84 95 Nasal Cannula 3.0 06/22/16 20:10 36.9 79 18 127/69 97 Nasal Cannula 3.0 06/22/16 20:00 Nasal Cannula 2.0 06/22/16 16:00 Nasal Cannula 2.0 06/22/16 16:00 Nasal Cannula 2.0 06/22/16 14:45 36.4 71 18 159/88 94 Nasal Cannula 2.0 06/22/16 12:00 Nasal Cannula 2.0 06/22/16 11:30 36.4 65 18 155/83 95 Nasal Cannula Physical Exam General Appearance: WD/WN, no apparent distress Eyes: normal inspection, sclerae normal ENT: normal ENT inspection, pharynx normal Neck: supple, no adenopathy, trachea midline Respiratory/Chest: lungs clear, normal breath sounds, no respiratory distress Cardiovascular: regular rate, rhythm, no gallop, no murmur Abdomen: normal bowel sounds, non tender, soft, no organomegaly Extremities: non-tender, + inflammation, + slow capillary refill Neurologic/Psychiatric: alert, + pertinent finding (Oriented to person) Skin: normal color, no rash, + pertinent finding (Necrotic left toe with some erythema to ankle) Lymphatic: no adenopathy Laboratory Results RUN DATE: 06/23/16 [facility] LAB PAGE 1 RUN TIME: 718 Specimen Inquiry PAT[id number] LOC: [place] U # : [id number] AGE/SX: 86/M ROOM: E2 REG : 06/20/[address]: Malinda Eli : 1930 BED: 1 DIS : STATUS: ADM IN TLOC: SPEC #: [id number] IQRA: 06/20/16 STATUS: RES REQ #: [id number] RECD: 06/20/[address]: Joe Pennington DO SOURCE: BLOOD ENTR: 06/20/[address]: Kim Crawford M.D. [facility]: ORDERED: BLOOD CULTURE Procedure Result Verified Site BLD CULT Preliminary 06/23/16 Organism 1 CITROBACTER FREUNDII COMPLEX SENS SENSITIVITY TO FOLLOW Phoned results to JATIN VERMA on 06/21/16 at 1017 by Emily Ferguson. Results were verbalized back to LIZZ. 1. CITROBACTER FREUNDII COMPLEX Target Route Dose RX AB Cost M.I.C. IQ ------ ----- ------ -- ------ -------- - ------ TRIMET/SULFA S <=2/38 CEFOTAXIME S <=2 CEFTRIAXONE I 2 CEFEPIME S <=4 IMIPENEM S <=1 GENTAMICIN S <=4 TOBRAMYCIN S <=4 AMIKACIN S <=16 CIPROFLOXACIN S <=1 LEVOFLOXACIN S <=2 ERTAPENEM S <=1 PIP/TAZO S <=16 S = SENSITIVE I = INTERMEDIATE R = RESISTANT Last 24 Hours Test 06/22/16 11:02 06/22/16 16:31 06/22/16 20:53 06/23/16 05:15 Bedside Glucose 188 mg/dl 117 mg/dl 215 mg/dl White Blood Count 10.08 K/uL Red Blood Count 3.99 M/uL Hemoglobin 12.6 g/dL Hematocrit 36.8 % Mean Corpuscular Volume 92.2 fL Mean Corpuscular Hemoglobin 31.6 pg Mean Corpuscular Hemoglobin Concent 34.2 g/dl RDW Standard Deviation 46.3 fL RDW Coefficient of Variation 13.8 % Platelet Count 174 K/uL Mean Platelet Volume 13.5 fL Sodium Level 141 mmol/L Potassium Level 3.9 mmol/L Chloride Level 106 mmol/L Carbon Dioxide Level 24 mmol/L Anion Gap 11.0 mmol/L Blood Urea Nitrogen 29 mg/dl Creatinine 1.90 mg/dl Est Creatinine Clear Calc Drug Dose 27.1 ml/min Estimated GFR () 36.4 Estimated GFR (Non- 31.4 BUN/Creatinine Ratio 15.2 Random Glucose 122 mg/dl Calcium Level 8.5 mg/dl Magnesium Level 2.2 mg/dl Test 06/23/16 07:09 Bedside Glucose 139 mg/dl Patient Name: DANDY GARCIA Unit Number: [id number] Dictated: 06/22/161354 Transcribed: 06/22/161354 MIGDALIA Printed Date/Time: [~ rep prt dt]/[~ rep prt tm] [~ rep ct labl] - [~ rep ct ivnm] [facility] [place] [address] Dictated: 06/22/161354 Transcribed: 06/22/161354 MIGDALIA Printed Date/Time: [~ rep prt dt]/[~ rep prt tm] [~ rep ct labl] - [~ rep ct ivnm] LEFT LOWER EXTREMITY ARTERIAL DOPPLER ULTRASOUND CLINICAL HISTORY: Left toe gangrene COMPARISON STUDY: No previous studies for comparison. TECHNIQUE: Grayscale and color and duplex Doppler sonography of the arterial system of the left lower extremity was performed. FINDINGS: Ankle to brachial indices could not be obtained in this patient due to significantly diminished flow within the calf vessels. There is extensive atherosclerotic plaque throughout the left lower extremity. There is biphasic flow within the left common femoral artery. A markedly elevated velocity within the proximal left superficial femoral artery of 374 cm/s was noted. There is an additional area of increased peak systolic velocity within the mid superficial femoral artery of 367 cm/s. These suggest hemodynamically significant stenoses. Evaluation was difficult given extensive atherosclerotic plaque. There is monophasic flow distal to the stenoses. Specifically, there was monophasic flow within the left popliteal and peroneal arteries. There was suspected proximal occlusion of the anterior tibial artery with distal reconstitution with monophasic flow within the left dorsalis pedis. There is minimal monophasic flow within the distal left posterior tibial artery. IMPRESSION: 1. Extensive atherosclerotic plaque within the left lower extremity. 2. Findings suggestive of two stenoses within the left superficial femoral artery with monophasic, dampened flow distal to the stenosis. 3. Suspected occlusion of the proximal left anterior tibial and posterior tibial arteries with distal reconstitution. However, the flow within the dorsalis pedis and left posterior tibial artery is significantly dampened and monophasic. Electronically signed by: Yusuf Jin M.D. 06/22/2016 2:01 PM Dictated Date/Time: 06/22/2016 1:55 PM The status of this report is Signed. Draft = Not yet reviewed or approved by Radiologist. Signed = Reviewed and approved by Radiologist. <AttendingPhy>Malinda Eli MD</AttendingPhy> <FamilyPhy>Kim Crawford M.D.</FamilyPhy> <PrimaryPhy>Kim Crawford M.D.</PrimaryPhy> <UnitNumber >[id number]</UnitNumber> <VisitNumber>[id number]</VisitNumber> <PatientName> RADHADANDY Sullivan</PatientName> <DateOfBirth>1930</DateOfBirth> <Location>C[facility] </Location> <ServiceDate>06/20/16</ServiceDate> <MNE>ESINDI</MNE> <OrderingPhy> Malinda Eli MD</OrderingPhy> <OrderingPhyMNE>f rep ord dr greenfield</ OrderingPhyMNE> <DictatingPhyMNE>f rep dict dr greenfield</DictatingPhyMNE> <CCListMNE> f rep ct mne</CCListMNE> <AdmittingPhyMNE>f pt admit dr greenfield</AdmittingPhyMNE> < AttendingPhyMNE>f pt attend dr greenfield</AttendingPhyMNE> <ConsultingPhyMNE>f pt consult dr greenfield</ConsultingPhyMNE> <FamilyPhyMNE>f pt fam dr greenfield</FamilyPhyMNE> <OtherPhyMNE>f pt other dr greenfield</OtherPhyMNE> < PrimaryPhyMNE>f pt prim care dr greenfield</PrimaryPhyMNE> <ReferringPhyMNE>f pt referring dr greenfield</ReferringPhyMNE> Assessment and Plan Citrobacter sepsis in the setting of gangrenous left toe with severe peripheral arterial disease. Agree that unlikely to heal if cannot reestablish adequate blood supply. Zosyn should provide adequate coverage for now,with length of therapy to be determined by clinical response and results of angiography. We will continue to follow.
[2016-06-23 11:28] VITALS: BP 150/87; PULSE 87; TEMP 37; O2SAT 95
[2016-06-23 16:00] VITALS: BP 138/76; PULSE 76; TEMP 36.9; O2SAT 99
--- NOTE | 2016-06-23 16:44 | Progress Note ---
Medicine Progress Note Date & Time of Visit: Jun 23, 2016 at 16:36. Subjective Patient seen and examined. Daughter present at bedside. Patient is without complaints. Denies pain. Objective Last 8 Hrs Date Time Temp Pulse Resp B/P Pulse Ox O2 Delivery O2 Flow Rate FiO2 06/23/16 16:00 36.9 76 18 138/76 99 06/23/16 12:00 Nasal Cannula 3.0 06/23/16 11:28 37.0 87 20 150/87 95 Nasal Cannula 3.0 Physical Exam: General-awake; alert; NAD Eyes-EOMI; no scleral icterus Neck-no stridor; trachea midline Lungs-CTA bilaterally; no wheezes/crackles Heart-RRR Abdomen-soft; NTND; nBS Extremities-no c/c/e; necrotic appearing left great toe with erythema extending to the dorsum of the left foot at the base of the great toe Neuro-unable to assess due to underlying dementia Laboratory Results: Last 24 Hours Test 06/22/16 20:53 06/23/16 05:15 06/23/16 07:09 06/23/16 11:21 Bedside Glucose 215 mg/dl 139 mg/dl 189 mg/dl White Blood Count 10.08 K/uL Red Blood Count 3.99 M/uL Hemoglobin 12.6 g/dL Hematocrit 36.8 % Mean Corpuscular Volume 92.2 fL Mean Corpuscular Hemoglobin 31.6 pg Mean Corpuscular Hemoglobin Concent 34.2 g/dl RDW Standard Deviation 46.3 fL RDW Coefficient of Variation 13.8 % Platelet Count 174 K/uL Mean Platelet Volume 13.5 fL Sodium Level 141 mmol/L Potassium Level 3.9 mmol/L Chloride Level 106 mmol/L Carbon Dioxide Level 24 mmol/L Anion Gap 11.0 mmol/L Blood Urea Nitrogen 29 mg/dl Creatinine 1.90 mg/dl Est Creatinine Clear Calc Drug Dose 27.1 ml/min Estimated GFR () 36.4 Estimated GFR (Non- 31.4 BUN/Creatinine Ratio 15.2 Random Glucose 122 mg/dl Calcium Level 8.5 mg/dl Magnesium Level 2.2 mg/dl Test 06/23/16 16:21 Bedside Glucose 197 mg/dl Assessment & Plan METABOLIC ENCEPHALOPATHY - most likely due to left great toe infection - CT head negative - patient may be at baseline mental status LEFT GREAT TOE GANGRENE - patient with underlying severe peripheral vascular disease - pt recently completed 10 day course of Keflex on 06/16/16 - continue Zosyn - discontinued Vancomycin given Citrobacter in blood culture and MRSA swab negative - xray of left foot negative for osteomyelitis - ID consulted - Wound care consulted - arterial doppler of left leg showing severe occlusive disease - Ortho consulted to evaluate for possible amputation - requesting Vascular evaluation first - Vascular surgery consulted (see below) - blood culture (06/20) 1of2 with Citrobacter - repeat cultures (06/21) ngtd SEVERE PERIPHERAL VASCULAR DISEASE - s/p bilateral LE angiogram with balloon angioplasty of left SFA and balloon expandable stent in left common iliac artery [place] [address] Malik - continue aspirin, Plavix - lower ext arterial Doppler showing severe occlusive disease - Vascular surgery consulted - plan for possible LLE angio with intervention in OR tomorrow afternoon - renal protection protocol ordered CHRONIC SYSTOLIC HEART FAILURE /SEVERE CARDIOMYOPATHY - hx of NSTEMI - EF of 20 % as per Last ECHO on 10/2015 HX OF MULTIPLE CVA - CT head showed evidence of old lacunar infraction - cont aspirin, Plavix CKD STAGE 3-4 - baseline Cr 1.9 -2 HTN - BP stable - cont metoprolol, Imdur, Hydralazine TYPE 2 DM, DIET CONTROLLED - insulin SSI - A1c of 7.2 CODE STATUS DNR/DNI DVT PROPHYLAXIS : moderate to high risk sub q heparin DISPOSITION : PT/OT eval requested Social service consulted for discharge planning Anticipate [facility] Consultants: Infectious disease Orthopedics Vascular surgery Procedures: CT head 1. No acute intracranial hemorrhage or mass effect. 2. Numerous lacunar infarcts. The majority of these were present on head CT of December 15, 2013 and are chronic. A few are new since prior exam. The appearance favors old lacunar infarcts although several are age indeterminate. Xray Left foot No acute fracture or radiographic evidence of osteomyelitis within the left foot. Current Inpatient Medications: Current Inpatient Medications Medications (Trade) Dose Ordered Sig/Juan Route Start Time Stop Time Status Last Admin Dose Admin Heparin Sodium (Porcine) (Heparin Sq 5000 Unit/0.5ml) 5,000 unit Q8 SQ 06/20/16 22:00 07/20/16 21:59 06/23/16 06:15 5,000 UNIT Acetaminophen (Tylenol Tab) 650 mg Q4H PRN PO 06/20/16 20:30 07/20/16 20:29 06/22/16 04:27 650 MG Al Hydrox/Mg Hydrox/Simethicone (Maalox Max Susp) 15 ml Q4H PRN PO 06/20/16 20:30 07/20/16 20:29 Magnesium Hydroxide (Milk Of Magnesia Susp) 30 ml Q12H PRN PO 06/20/16 20:30 07/20/16 20:29 Ondansetron HCl (Zofran Inj) 4 mg Q6H PRN IV 06/20/16 20:30 07/20/16 20:29 Polyethylene (Miralax Powder Packet) 17 gm DAILY PRN PO 06/20/16 20:30 07/20/16 20:29 Piperacillin Sod/ Tazobactam Sod (Consult) 1 ea UD PRN N/A 06/20/16 20:45 07/20/16 20:44 Aspirin (Ecotrin Tab) 81 mg DAILY PO 06/21/16 09:00 07/21/16 08:59 06/23/16 07:49 81 MG Cholecalciferol (Vitamin D Tab) 1,000 inter.unit DAILY PO 06/21/16 09:00 07/21/16 08:59 06/23/16 07:49 1,000 INTER.UNIT Clopidogrel Bisulfate (plAVix TAB) 75 mg DAILY PO 06/21/16 09:00 07/21/16 08:59 06/23/16 07:49 75 MG Cyanocobalamin (Vitamin B-12 Tab) 1,000 mcg DAILY PO 06/21/16 09:00 07/21/16 08:59 06/23/16 07:49 1,000 MCG Finasteride (Proscar Tab) 5 mg DAILY PO 06/21/16 09:00 07/21/16 08:59 06/23/16 07:50 5 MG Hydralazine HCl (Apresoline Tab) 10 mg TID PO 06/20/16 21:00 07/20/16 20:59 06/23/16 14:07 10 MG Isosorbide Mononitrate (Imdur Ext Rel Tab) 90 mg DAILY PO 06/21/16 09:00 07/21/16 08:59 06/23/16 07:48 90 MG Levothyroxine Sodium (Synthroid Tab) 25 mcg DAILYBB PO 06/21/16 06:00 07/21/16 06:59 06/23/16 06:12 25 MCG Metoprolol Succinate (Toprol Xl Tab) 50 mg DAILY PO 06/21/16 09:00 07/21/16 08:59 06/23/16 07:49 50 MG Paroxetine HCl (pAXil TAB) 10 mg DAILY PO 06/21/16 09:00 07/21/16 08:59 06/23/16 07:49 10 MG Tramadol HCl (Ultram Tab) 50 mg Q4H PRN PO 06/20/16 20:45 07/20/16 20:44 06/22/16 04:27 50 MG Albuterol (Ventolin Hfa Inhaler) 2 puffs QID INH 06/20/16 21:00 07/20/16 20:59 06/23/16 13:38 2 PUFFS Insulin Human Regular (novoLIN-R) SLIDING SCALE IF C... ACHS SC 06/20/16 21:00 07/20/16 20:59 06/23/16 13:12 3 UNITS Glucose (Glucose 40% Gel) 15-30 GRAMS 15 GRAMS... UD PRN PO 06/20/16 20:45 07/20/16 20:44 Glucose (Glucose Chew Tab) 4-8 Tablets 4 Tabl... UD PRN PO 06/20/16 20:45 07/20/16 20:44 Dextrose (Dextrose 50% 50ML Syringe) 25-50ML OF 50% DW IV FOR... UD PRN IV 06/20/16 20:45 07/20/16 20:44 Glucagon 1 mg 1 mg UD PRN SQ 06/20/16 20:45 07/20/16 20:44 Piperacillin Sod/ Tazobactam Sod/ Dextrose (Zosyn Iv/D5 100ml) 115 ml @ 28.75 mls/ hr Q8H IV 06/21/16 04:00 06/30/16 21:59 06/23/16 13:38 28.75 MLS/HR Hydralazine HCl 10 mg 10 mg Q6 PRN IV. 06/22/16 05:00 07/22/16 04:59 Cefazolin Sodium/ Dextrose (Ancef Iv/D5 50ml) 55 ml @ 100 mls/hr PREOP IV 06/24/16 06:00 06/24/16 18:00 Acetylcysteine 600 mg 600 mg Q12H PO 06/23/16 18:00 06/25/16 06:01 Sodium Chloride 1,000 ml @ 68 mls/hr [id number] IV 06/24/16 08:00 07/24/16 07:59 Sodium Bicarbonate/ Sterile Water (Sodium Bicarbonate 8.4% Inj/Sterile Water 1000 ml) 1,100 ml @ 80 mls/hr [id number] IV 06/24/16 08:00 07/24/16 07:59
[2016-06-23] MEDS: ACETYLCYSTEINE 600 MG CAP PO SCH (17:25)
--- NOTE | 2016-06-23 17:33 | Orthopedic Progress Note ---
Orthopedic Progress Note Date of Service Jun 23, 2016. Subjective Reports: feeling well, Denies: complaints Additional Notes: Pleasantly confused. Appears comfortable. Objective Dressing left on. Date Time Temp Pulse Resp B/P Pulse Ox O2 Delivery O2 Flow Rate FiO2 06/23/16 16:00 Nasal Cannula 3.0 06/23/16 16:00 36.9 76 18 138/76 99 06/23/16 12:00 Nasal Cannula 3.0 06/23/16 11:28 37.0 87 20 150/87 95 Nasal Cannula 3.0 06/23/16 08:00 Nasal Cannula 3.0 06/23/16 07:40 36.8 93 20 156/86 91 Room Air 06/23/16 04:00 Nasal Cannula 2.0 06/23/16 04:00 36.5 86 18 158/84 92 Nasal Cannula 2.0 06/23/16 00:01 Nasal Cannula 2.0 06/22/16 22:56 36.7 80 22 144/84 95 Nasal Cannula 3.0 06/22/16 20:10 36.9 79 18 127/69 97 Nasal Cannula 3.0 06/22/16 20:00 Nasal Cannula 2.0 Laboratory Results 24 Hours: Test 06/23/16 05:15 Hematocrit 36.8 % Hemoglobin 12.6 g/dL Assessment & Plan Assessment: Gangrenous Left Great Toe Plan: Pt seen by Vascular Team. Likely poor candidate for healing if toe amp performed due to severe PAD. Planning on LLE angio tomorrow. Hold of on amputation at this time. Will reassess after angio done.
[2016-06-23 19:39] VITALS: BP 137/81; PULSE 83; TEMP 36.8; O2SAT 96
[2016-06-23 20:00] VITALS: O2SAT 96
[2016-06-24] VITALS (18 sets, daily range): BP systolic 136–183; BP diastolic 63–113; PULSE 71–91; TEMP 36.6–36.9; O2SAT 93–96
[2016-06-24] MEDS: PIPERACILL/TAZOBAC IV 3.375 GM in DEXTROSE 5% 100ML IV SCH ×3 (04:47→14:24)
[2016-06-24] MEDS ORDERED: CEFAZOLIN 1000MG/55 ML D5W 55 ML IV SCH (06:00)
[2016-06-24] MEDS ORDERED: CEFAZOLIN IV 1,000 MG in DEXTROSE 5% 50ML 50 ML IV SCH (06:00)
[2016-06-24] MEDS: HEPARIN SOD 5000 UNIT/0.5 ML CARP SQ SCH ×3 (06:10→21:42)
[2016-06-24] MEDS: LEVOTHYROXINE 25 MCG TAB PO SCH (06:10)
[2016-06-24] MEDS: ACETYLCYSTEINE 600 MG CAP PO SCH ×2 (06:10→18:20)
[2016-06-24 06:20] LABS: HEMATOCRIT 35.8 % (42-52); MEAN CELL VOLUME 91.8 fL (80-100); MEAN CORPUSCULAR HEMOGLOBIN 31.8 pg (25-34); MEAN CORPUSCULAR HGB CONC 34.6 g/dl (32-36); MEAN PLATELET VOLUME 12.9 fL (7.4-10.4); PLATELET COUNT 179 K/uL (130-400); WHITE BLOOD COUNT 9.65 K/uL (4.8-10.8)
[2016-06-24 06:53] LABS: BUN/CREATININE RATIO 17.4 (10-20); CALCIUM 8.5 mg/dl (8.5-10.1); CREATININE 1.9 mg/dl (0.60-1.40); MAGNESIUM 2.2 mg/dl (1.8-2.4); POTASSIUM 3.8 mmol/L (3.5-5.1)
[2016-06-24] MEDS: INSULIN HUMAN REGULAR SC SCH ×4 (07:00→21:42)
[2016-06-24] MEDS ORDERED: SODIUM CHLORIDE 0.9% 1000ML 1,000 ML IV SCH ×2 (08:00→14:51)
[2016-06-24] MEDS ORDERED: SODIUM BICARBONATE 8.4% INJ 100 MEQ in STERILE WATER 1000 ML 1,000 ML IV SCH ×2 (08:00→15:55)
[2016-06-24] MEDS: PAROXETINE 20 MG TAB PO SCH (08:19)
[2016-06-24] MEDS: METOPROLOL SUCC 50MG EXT REL TAB PO SCH (08:19)
[2016-06-24] MEDS: HydrALAZINE 10 MG TAB PO SCH ×3 (08:19→21:41)
[2016-06-24] MEDS: FINASTERIDE 5 MG TAB PO SCH (08:19)
[2016-06-24] MEDS: ALBUTEROL HFA 8 GM INHALER INH SCH ×4 (08:20→21:43)
[2016-06-24] MEDS: ISOSORBIDE MONONITRATE 30 MG TABCR PO SCH (08:20)
[2016-06-24] MEDS ORDERED: HEPARIN SOD (PORCINE) 1000 UNIT/ML 10 ML VIAL ONE (12:49)
[2016-06-24] MEDS ORDERED: FENTANYL CITRATE INJ 50 MCG/1 ML 2 ML VIAL ONE (12:49)
[2016-06-24] MEDS ORDERED: MIDAZOLAM HCL 1 MG/ML 2ML VIAL ONE (12:49)
--- NOTE | 2016-06-24 13:16 | Procedure Note ---
Pre-Mod Sedation Assessment General Date of Moderate Sedation: Jun 24, 2016. Vital Signs: Vital Signs Past 12 Hours Date Time Temp Pulse Resp B/P Pulse Ox O2 Delivery O2 Flow Rate FiO2 06/24/16 11:47 36.7 72 16 156/84 95 06/24/16 11:45 Nasal Cannula 2.0 06/24/16 08:05 36.6 81 18 160/85 95 06/24/16 07:30 Nasal Cannula 2.0 06/24/16 04:00 Nasal Cannula 2.0 06/24/16 03:47 36.8 86 19 149/77 93 Nasal Cannula 2.0 Pre-Sedation Airway Assessment Smoking Status: Former Smoker Mallampati Classification: Class I ASA Classification: Class II Notes The planned sedation has been discussed with the patient and consent obtained. I have identified the patient, determined the appropriateness of sedation and have assessed the patient immediately prior to the procedure. All medicine(s) and interventions are by my order.
--- NOTE | 2016-06-24 13:16 | Progress Note ---
Progress Note Patient for arteriography with possible intervention of the left leg. I have discussed the risks options and benefits of the procedure with the patient and family. The patient and family understand the risks options and benefits and agrees to the procedure. I have examined the patient, reviewed the History & Physical and in the interval since the performance of the History & Physical I have noted the following changes of clinical significance: No changes noted
[2016-06-24] MEDS ORDERED: LIDOCAINE HCL 1% 20 ML VIAL INJ ONE (13:58)
[2016-06-24] MEDS ORDERED: HEPARIN SOD (PORCINE) 1000 UNIT/ML 10 ML VIAL IV ONE (14:06)
[2016-06-24] MEDS ORDERED: MIDAZOLAM HCL 1 MG/ML 2ML VIAL IV ONE (14:18)
[2016-06-24] MEDS ORDERED: FENTANYL CITRATE INJ 50 MCG/1 ML 2 ML VIAL IV ONE (14:18)
[2016-06-24] MEDS ORDERED: IODIXANOL (VISIPAQUE) 270 MG/ML 150ML XX ONE (14:55)
--- NOTE | 2016-06-24 14:56 | [facility] Post Operative Brief Note ---
Immediate Operative Summary Operative Date Jun 24, 2016. Pre-Operative Diagnosis gangrene left great toe Post-Operative Diagnosis same Procedure(s) Performed Left Lower Extremity Arteriogram, Percutaneous Transluminal Angioplasty and Stent of Left Popliteal and Superficial Femoral Artery, Mechanical Closure of Right Femoral Artery, Moderate Concious Sedation [id number] Romero Sugar Presser Surgeon(s) none Estimated Blood Loss 10 ml Findings good dp doppler Specimens none Anesthesia Local with moderate conscious sedation Complication(s) None Disposition
--- NOTE | 2016-06-24 14:57 | Procedure Note ---
Post-Moderate Sedation Plan General Date of Moderate Sedation Jun 24, 2016. Vital Signs: Vital Signs Past 12 Hours Date Time Temp Pulse Resp B/P Pulse Ox O2 Delivery O2 Flow Rate FiO2 06/24/16 11:47 36.7 72 16 156/84 95 06/24/16 11:45 Nasal Cannula 2.0 06/24/16 08:05 36.6 81 18 160/85 95 06/24/16 07:30 Nasal Cannula 2.0 06/24/16 04:00 Nasal Cannula 2.0 06/24/16 03:47 36.8 86 19 149/77 93 Nasal Cannula 2.0 Review - Discharge Plan Post Moderate Sedation Plan: On clinical assessment, the patient appears to have tolerated the conscious sedation without complications. Patient is recovering as anticipated. Patient will continue to be monitored by nursing and may be discharged when conscious sedation discharge criteria are met.
[2016-06-24] MEDS: HydrALAZINE HCL 20 MG/ML VIAL IV. PRN (16:12)
--- NOTE | 2016-06-24 16:58 | DIAGNOSTIC IMAGING REPORT ---
DATE OF PROCEDURE: 06/24/2016 PREOPERATIVE DIAGNOSIS: Gangrene, left great toe. POSTOPERATIVE DIAGNOSIS: Same. PROCEDURE: 1. Left lower extremity arteriogram. 2. Balloon angioplasty and stenting of the left popliteal and superficial femoral arteries. 3. Mechanical closure of the right common femoral artery. 4. Conscious sedation, 37 minutes. SURGEON: Dr. Romero. ANESTHETIC: Local with moderate conscious sedation. PROCEDURE INDICATIONS: The patient is an 86-year-old gentleman with gangrene left great toe. He has had intervention of his left common iliac and left superficial femoral artery in the past. He has severe restenosis on the superficial femoral and popliteal arteries. He also has significant runoff disease. Arteriography and possible re-intervention was recommended. The family understood the risks, options and benefits and agreed to have this procedure. The patient was taken to the angiogram suite and placed in supine position. After the groins were prepped and draped in a sterile manner, local anesthetic was administered. A percutaneous puncture was then made of the right common femoral artery. A wire was inserted. The 5-Mauritanian sheath was inserted over the wire. An 0.035 Glidewire and rim catheter was used to access the left side from the right. Using a rim catheter, the 0.035 wire was passed down through the common iliac stent on the left side. The wire was then passed down into the profunda femoral artery. The rim catheter was advanced. Arteriography was then performed of the left lower extremity which showed multiple severe stenoses and 2 focal occlusions of the superficial femoral artery on the left side. Infrapopliteally the tibial was occluded down to the lower third of the leg. The peroneal was patent to the upper third of the calf and then occluded. The posterior tibial was occluded in its entirety. Next, the wire was inserted. It was actually passed down into the popliteal through the narrowings. Once the wire was passed down into the popliteal the rim catheter was removed. The 5 Mauritanian sheath was exchanged through a 7-Mauritanian destination. The Quick-Cross was reinserted. It was decided to try and see if we get a wire down through the infrapopliteal arteries. We tried an 0.014 Command which was unsuccessful. It was then decided to try and increase the inflow to the lower extremities so that the patient would have a chance to heal an amputation. We then used a 5 x 100 [place] balloon. The popliteal was then ballooned with the 5 x 100. More proximally, we used a 6 x [address] up to the superficial femoral artery origin. The flow was still extremely sluggish in the superficial femoral artery due to runoff. It was decided to try to stent these areas. We then inserted a 6 x 100 starting just at the knee level extending more proximally. We overlapped this with a 6 x 100 and two more 7 x 100s. We finally finished with an 8 x 80 which took us just beyond the superficial femoral artery origin. At that point, the hand injection was again done. This showed that the flow was much better going down the superficial femoral and popliteal. At that point we decided we would not go any further. The wire was reinserted. The destination sheath was removed and a Star closure device was used to close the puncture in the right groin. Adequate hemostasis was noted at that time. Sterile dressings were applied to the wound. The patient had a much better Doppler signal at the dorsalis pedis in the left foot than preop. His toes were all markedly improved, being nice and pink with normal capillary refill. The patient left the angio suite in good condition and tolerated the procedure well.
[2016-06-24] MEDS: CHOLECALCIFEROL 1000 INTER.UNIT TAB PO SCH (17:31)
[2016-06-24] MEDS: CLOPIDOGREL BISULFATE 75 MG TAB PO SCH (17:31)
[2016-06-24] MEDS: ASPIRIN 81 MG ECTAB PO SCH (17:31)
[2016-06-24] MEDS: CYANOCOBALAMIN 500 MCG TAB (VIT B-12) PO SCH (17:31)
--- NOTE | 2016-06-24 22:28 | Progress Note ---
Subjective Date of Service: Jun 24, 2016. Subjective Pt evaluation today including: conversation w/ patient, physical exam, lab review, review of studies, review of inpatient medication list Saw/examined the patient in room 201 He seems to have underlying dementia Does state that he feels fine post-operatively No other issues verbalized by the patient Problem List Medical Problems: (1) Acute CHF Status: Acute (2) Acute congestive heart failure Status: Acute (3) Acute coronary syndrome Status: Acute (4) Altered mental status Status: Acute (5) Cellulitis of left foot Status: Acute (6) Diabetic ulcer of left great toe Status: Acute (7) Elevated troponin Status: Acute (8) Elevated troponin Status: Acute (9) Hypoxia Status: Acute (10) Hypoxia Status: Acute (11) Pneumonia Status: Acute (12) Pulmonary edema Status: Acute (13) Pulmonary edema Status: Acute (14) Renal failure Status: Acute Review of Systems Respiratory: No shortness of breath Cardiac: No chest pain Abdomen: No diarrhea, No nausea, No pain, No vomiting Musculoskeletal: No calf pain, No joint pain, No muscle pain, No swelling Medications Current Inpatient Medications Medications (Trade) Dose Ordered Sig/Juan Route Start Time Stop Time Status Last Admin Dose Admin Heparin Sodium (Porcine) (Heparin Sq 5000 Unit/0.5ml) 5,000 unit Q8 SQ 06/20/16 22:00 07/20/16 21:59 06/24/16 06:10 5,000 UNIT Acetaminophen (Tylenol Tab) 650 mg Q4H PRN PO 06/20/16 20:30 07/20/16 20:29 06/22/16 04:27 650 MG Al Hydrox/Mg Hydrox/Simethicone (Maalox Max Susp) 15 ml Q4H PRN PO 06/20/16 20:30 07/20/16 20:29 Magnesium Hydroxide (Milk Of Magnesia Susp) 30 ml Q12H PRN PO 06/20/16 20:30 07/20/16 20:29 Ondansetron HCl (Zofran Inj) 4 mg Q6H PRN IV 06/20/16 20:30 07/20/16 20:29 Polyethylene (Miralax Powder Packet) 17 gm DAILY PRN PO 06/20/16 20:30 07/20/16 20:29 Piperacillin Sod/ Tazobactam Sod (Consult) 1 ea UD PRN N/A 06/20/16 20:45 07/20/16 20:44 Aspirin (Ecotrin Tab) 81 mg DAILY PO 06/21/16 09:00 07/21/16 08:59 06/24/16 17:31 81 MG Cholecalciferol (Vitamin D Tab) 1,000 inter.unit DAILY PO 06/21/16 09:00 07/21/16 08:59 06/24/16 17:31 1,000 INTER.UNIT Clopidogrel Bisulfate (plAVix TAB) 75 mg DAILY PO 06/21/16 09:00 07/21/16 08:59 06/24/16 17:31 75 MG Cyanocobalamin (Vitamin B-12 Tab) 1,000 mcg DAILY PO 06/21/16 09:00 07/21/16 08:59 06/24/16 17:31 1,000 MCG Finasteride (Proscar Tab) 5 mg DAILY PO 06/21/16 09:00 07/21/16 08:59 06/24/16 08:19 5 MG Hydralazine HCl (Apresoline Tab) 10 mg TID PO 06/20/16 21:00 07/20/16 20:59 06/24/16 15:42 10 MG Isosorbide Mononitrate (Imdur Ext Rel Tab) 90 mg DAILY PO 06/21/16 09:00 07/21/16 08:59 06/24/16 08:20 90 MG Levothyroxine Sodium (Synthroid Tab) 25 mcg DAILYBB PO 06/21/16 06:00 07/21/16 06:59 06/24/16 06:10 25 MCG Metoprolol Succinate (Toprol Xl Tab) 50 mg DAILY PO 06/21/16 09:00 07/21/16 08:59 06/24/16 08:19 50 MG Paroxetine HCl (pAXil TAB) 10 mg DAILY PO 06/21/16 09:00 07/21/16 08:59 06/24/16 08:19 10 MG Tramadol HCl (Ultram Tab) 50 mg Q4H PRN PO 06/20/16 20:45 07/20/16 20:44 06/22/16 04:27 50 MG Albuterol (Ventolin Hfa Inhaler) 2 puffs QID INH 06/20/16 21:00 07/20/16 20:59 06/24/16 17:35 2 PUFFS Insulin Human Regular (novoLIN-R) SLIDING SCALE IF C... ACHS SC 06/20/16 21:00 07/20/16 20:59 06/24/16 17:39 3 UNITS Glucose (Glucose 40% Gel) 15-30 GRAMS 15 GRAMS... UD PRN PO 06/20/16 20:45 07/20/16 20:44 Glucose (Glucose Chew Tab) 4-8 Tablets 4 Tabl... UD PRN PO 06/20/16 20:45 07/20/16 20:44 Dextrose (Dextrose 50% 50ML Syringe) 25-50ML OF 50% DW IV FOR... UD PRN IV 06/20/16 20:45 07/20/16 20:44 Glucagon 1 mg 1 mg UD PRN SQ 06/20/16 20:45 07/20/16 20:44 Piperacillin Sod/ Tazobactam Sod/ Dextrose (Zosyn Iv/D5 100ml) 115 ml @ 28.75 mls/ hr Q8H IV 06/21/16 04:00 06/30/16 21:59 06/24/16 14:24 28.75 MLS/HR Hydralazine HCl (HydrALAZINE INJ) 10 mg Q6 PRN IV. 06/22/16 05:00 07/22/16 04:59 06/24/16 16:12 10 MG Acetylcysteine 600 mg 600 mg Q12H PO 06/23/16 18:00 06/25/16 06:01 06/24/16 06:10 600 MG Cefazolin Sodium (Ancef 1000mg/55 ml D5W) 55 ml @ 100 mls/hr PREOP IV 06/24/16 06:00 06/24/16 18:00 Objective Vital Signs Date Time Temp Pulse Resp B/P Pulse Ox O2 Delivery O2 Flow Rate FiO2 06/24/16 16:33 82 16 161/84 95 Nasal Cannula 2.0 06/24/16 16:02 36.7 72 16 181/104 95 Nasal Cannula 2.0 06/24/16 15:59 36.7 79 18 163/76 96 06/24/16 15:30 Nasal Cannula 2.0 06/24/16 15:30 83 16 06/24/16 15:30 36.7 72 16 183/104 95 Nasal Cannula 2.0 06/24/16 15:20 36.7 72 16 175/113 95 Nasal Cannula 2.0 06/24/16 12:30 71 16 06/24/16 12:00 72 16 06/24/16 11:47 36.7 72 16 156/84 95 06/24/16 11:45 Nasal Cannula 2.0 06/24/16 11:30 75 17 06/24/16 11:00 74 18 06/24/16 10:30 73 11 06/24/16 10:00 74 5 06/24/16 08:05 36.6 81 18 160/85 95 06/24/16 07:30 Nasal Cannula 2.0 06/24/16 04:00 Nasal Cannula 2.0 06/24/16 03:47 36.8 86 19 149/77 93 Nasal Cannula 2.0 06/24/16 00:20 36.9 82 20 136/84 96 Nasal Cannula 3.5 06/23/16 23:59 Nasal Cannula 2.0 06/23/16 20:00 96 Nasal Cannula 4.0 06/23/16 19:39 36.8 83 18 137/81 96 Physical Exam General Appearance: no apparent distress, + pertinent finding (pleasantly demented) Respiratory/Chest: lungs clear, normal breath sounds, no respiratory distress, no accessory muscle use Cardiovascular: regular rate, rhythm, no edema, no murmur Abdomen: normal bowel sounds, non tender, soft Laboratory Results Last 24 Hours Test 06/23/16 20:09 06/24/16 05:39 06/24/16 06:18 06/24/16 11:11 Bedside Glucose 137 mg/dl 122 mg/dl 145 mg/dl White Blood Count 9.65 K/uL Red Blood Count 3.90 M/uL Hemoglobin 12.4 g/dL Hematocrit 35.8 % Mean Corpuscular Volume 91.8 fL Mean Corpuscular Hemoglobin 31.8 pg Mean Corpuscular Hemoglobin Concent 34.6 g/dl RDW Standard Deviation 46.3 fL RDW Coefficient of Variation 13.9 % Platelet Count 179 K/uL Mean Platelet Volume 12.9 fL Sodium Level 140 mmol/L Potassium Level 3.8 mmol/L Chloride Level 105 mmol/L Carbon Dioxide Level 21 mmol/L Anion Gap 14.0 mmol/L Blood Urea Nitrogen 33 mg/dl Creatinine 1.90 mg/dl Est Creatinine Clear Calc Drug Dose 27.8 ml/min Estimated GFR () 36.4 Estimated GFR (Non- 31.4 BUN/Creatinine Ratio 17.4 Random Glucose 116 mg/dl Calcium Level 8.5 mg/dl Magnesium Level 2.2 mg/dl Test 06/24/16 16:36 Bedside Glucose 176 mg/dl Assessment and Plan This is an 86 year old male with PMH of severe peripheral vascular disease with previous stenting of left common iliac, severe ischemic cardiomyopathy, chronic systolic heart failure with EF ~ 20%, recent NSTEMI, DM2, HTN, CKD stage 3, dementia Metabolic Encephalopathy, resolved seems to be closer to baseline currently has underlying dementia likely infectious process causing it, continue antibiotics Left Big Toe 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 of Peripheral Vascular Disease patient has known severe vascular disease; previous stenting of left common iliac Left LE U/S suggestive of multiple stenotic vessels Left Foot X-ray - no osteomyelitis Vascular surgery consulted - appreciate input and management Stenting of the left popliteal and superficial femoral arteries - 06/24 will need to continue dual antiplatelet therapy Appreciate orthopedic evaluation - possible amputation of the left big toe Appreciate ID input - continue Zosyn for now Blood culture + x1 for Citrobacter Additional cultures pending Severe Cardiomyopathy and Chronic Systolic Dysfunction likely secondary to a recent NSTEMI - non-operable EF ~ 20%; last echo around 6-7 months prior Hx. of Multiple CVA Head CT performed showing previous lacunar infarction continue ASA, plavix will need tighter blood pressure control HTN BP is uncontrolled today (06/24) extra dose of hydralazine given continue b-mayra, hydralazine, imdur at this time CKD stage 3-4 creat seems to be at baseline of 1.9 estimated GFR ~ 30 DM2, diet controlled A1c = 7.2%, well controlled insulin sliding scale DVT ppx subq heparin DNR
[2016-06-25] VITALS (12 sets, daily range): BP systolic 136–181; BP diastolic 76–102; PULSE 90–97; TEMP 36.4–36.8; O2SAT 91–95
[2016-06-25] MEDS: PIPERACILL/TAZOBAC IV 3.375 GM in DEXTROSE 5% 100ML IV SCH ×3 (04:57→20:54)
[2016-06-25] MEDS: LEVOTHYROXINE 25 MCG TAB PO SCH (06:20)
[2016-06-25] MEDS: ACETYLCYSTEINE 600 MG CAP PO SCH (06:20)
[2016-06-25] MEDS: HEPARIN SOD 5000 UNIT/0.5 ML CARP SQ SCH ×3 (06:21→21:57)
[2016-06-25] MEDS: INSULIN HUMAN REGULAR SC SCH ×4 (07:00→21:00)
[2016-06-25] MEDS: ALBUTEROL HFA 8 GM INHALER INH SCH ×4 (08:50→21:00)
[2016-06-25] MEDS: HydrALAZINE 10 MG TAB PO SCH (08:51)
[2016-06-25] MEDS: FINASTERIDE 5 MG TAB PO SCH (08:51)
[2016-06-25] MEDS: METOPROLOL SUCC 50MG EXT REL TAB PO SCH (08:53)
[2016-06-25] MEDS: PAROXETINE 20 MG TAB PO SCH (08:53)
[2016-06-25] MEDS: ISOSORBIDE MONONITRATE 30 MG TABCR PO SCH (08:53)
[2016-06-25 08:55] LABS: HEMATOCRIT 39.5 % (42-52); MEAN CELL VOLUME 92.9 fL (80-100); MEAN CORPUSCULAR HEMOGLOBIN 33.2 pg (25-34); MEAN CORPUSCULAR HGB CONC 35.7 g/dl (32-36); MEAN PLATELET VOLUME 13.3 fL (7.4-10.4); PLATELET COUNT 216 K/uL (130-400); RED BLOOD COUNT 4.25 M/uL (4.7-6.1); WHITE BLOOD COUNT 10.55 K/uL (4.8-10.8)
[2016-06-25 09:23] LABS: CREATININE 1.8 mg/dl (0.60-1.40)
[2016-06-25 09:24] LABS: BUN/CREATININE RATIO 15.8 (10-20); POTASSIUM 3.7 mmol/L (3.5-5.1)
--- NOTE | 2016-06-25 09:36 | Progress Note ---
Subjective Date of Service: Jun 25, 2016. Subjective Pt evaluation today including: conversation w/ patient, physical exam, lab review, review of studies, review of inpatient medication list Saw/examined the patient in room 201 He seems to be doing well underlying dementia No complaints at this time Problem List Medical Problems: (1) Acute CHF Status: Acute (2) Acute congestive heart failure Status: Acute (3) Acute coronary syndrome Status: Acute (4) Altered mental status Status: Acute (5) Cellulitis of left foot Status: Acute (6) Diabetic ulcer of left great toe Status: Acute (7) Elevated troponin Status: Acute (8) Elevated troponin Status: Acute (9) Hypoxia Status: Acute (10) Hypoxia Status: Acute (11) Pneumonia Status: Acute (12) Pulmonary edema Status: Acute (13) Pulmonary edema Status: Acute (14) Renal failure Status: Acute Review of Systems Unable to obtain accurate ROS due to patient's mental status Medications Current Inpatient Medications Medications (Trade) Dose Ordered Sig/Juan Route Start Time Stop Time Status Last Admin Dose Admin Heparin Sodium (Porcine) (Heparin Sq 5000 Unit/0.5ml) 5,000 unit Q8 SQ 06/20/16 22:00 07/20/16 21:59 06/25/16 06:21 5,000 UNIT Acetaminophen (Tylenol Tab) 650 mg Q4H PRN PO 06/20/16 20:30 07/20/16 20:29 06/22/16 04:27 650 MG Al Hydrox/Mg Hydrox/Simethicone (Maalox Max Susp) 15 ml Q4H PRN PO 06/20/16 20:30 07/20/16 20:29 Magnesium Hydroxide (Milk Of Magnesia Susp) 30 ml Q12H PRN PO 06/20/16 20:30 07/20/16 20:29 Ondansetron HCl (Zofran Inj) 4 mg Q6H PRN IV 06/20/16 20:30 07/20/16 20:29 Polyethylene (Miralax Powder Packet) 17 gm DAILY PRN PO 06/20/16 20:30 07/20/16 20:29 Piperacillin Sod/ Tazobactam Sod (Consult) 1 ea UD PRN N/A 06/20/16 20:45 07/20/16 20:44 Aspirin (Ecotrin Tab) 81 mg DAILY PO 06/21/16 09:00 07/21/16 08:59 06/24/16 17:31 81 MG Cholecalciferol (Vitamin D Tab) 1,000 inter.unit DAILY PO 06/21/16 09:00 07/21/16 08:59 06/24/16 17:31 1,000 INTER.UNIT Clopidogrel Bisulfate (plAVix TAB) 75 mg DAILY PO 06/21/16 09:00 07/21/16 08:59 06/24/16 17:31 75 MG Cyanocobalamin (Vitamin B-12 Tab) 1,000 mcg DAILY PO 06/21/16 09:00 07/21/16 08:59 06/24/16 17:31 1,000 MCG Finasteride (Proscar Tab) 5 mg DAILY PO 06/21/16 09:00 07/21/16 08:59 06/25/16 08:51 5 MG Hydralazine HCl (Apresoline Tab) 10 mg TID PO 06/20/16 21:00 07/20/16 20:59 06/25/16 08:51 10 MG Isosorbide Mononitrate (Imdur Ext Rel Tab) 90 mg DAILY PO 06/21/16 09:00 07/21/16 08:59 06/25/16 08:53 90 MG Levothyroxine Sodium (Synthroid Tab) 25 mcg DAILYBB PO 06/21/16 06:00 07/21/16 06:59 06/25/16 06:20 25 MCG Metoprolol Succinate (Toprol Xl Tab) 50 mg DAILY PO 06/21/16 09:00 07/21/16 08:59 06/25/16 08:53 50 MG Paroxetine HCl (pAXil TAB) 10 mg DAILY PO 06/21/16 09:00 07/21/16 08:59 06/25/16 08:53 10 MG Tramadol HCl (Ultram Tab) 50 mg Q4H PRN PO 06/20/16 20:45 07/20/16 20:44 06/22/16 04:27 50 MG Albuterol (Ventolin Hfa Inhaler) 2 puffs QID INH 06/20/16 21:00 07/20/16 20:59 06/25/16 08:50 2 PUFFS Insulin Human Regular (novoLIN-R) SLIDING SCALE IF C... ACHS SC 06/20/16 21:00 07/20/16 20:59 06/25/16 07:00 4 UNITS Glucose (Glucose 40% Gel) 15-30 GRAMS 15 GRAMS... UD PRN PO 06/20/16 20:45 07/20/16 20:44 Glucose (Glucose Chew Tab) 4-8 Tablets 4 Tabl... UD PRN PO 06/20/16 20:45 07/20/16 20:44 Dextrose (Dextrose 50% 50ML Syringe) 25-50ML OF 50% DW IV FOR... UD PRN IV 06/20/16 20:45 07/20/16 20:44 Glucagon (Glucagon Inj) 1 mg UD PRN SQ 06/20/16 20:45 07/20/16 20:44 Hydralazine HCl 10 mg 10 mg Q6 PRN IV. 06/22/16 05:00 07/22/16 04:59 06/24/16 16:12 10 MG Piperacillin Sod/ Tazobactam Sod/ Dextrose (Zosyn Iv/D5 100ml) 115 ml @ 28.75 mls/ hr Q8H IV 06/25/16 12:00 06/30/16 21:59 Objective Vital Signs Date Time Temp Pulse Resp B/P Pulse Ox O2 Delivery O2 Flow Rate FiO2 06/25/16 08:23 36.4 92 22 181/102 93 Room Air 06/25/16 08:00 Room Air 06/25/16 04:15 36.4 90 18 163/92 95 Room Air 06/25/16 04:00 95 Room Air 06/25/16 00:10 95 Room Air 06/25/16 00:00 36.4 92 18 163/88 93 Room Air 06/24/16 20:04 36.8 91 18 158/63 96 06/24/16 20:00 96 Nasal Cannula 2.0 06/24/16 17:00 82 16 164/86 96 Nasal Cannula 2.0 06/24/16 16:33 82 16 161/84 95 Nasal Cannula 2.0 06/24/16 16:02 36.7 72 16 181/104 95 Nasal Cannula 2.0 06/24/16 15:59 36.7 79 18 163/76 96 06/24/16 15:30 Nasal Cannula 2.0 06/24/16 15:30 83 16 06/24/16 15:30 36.7 72 16 183/104 95 Nasal Cannula 2.0 06/24/16 15:20 36.7 72 16 175/113 95 Nasal Cannula 2.0 06/24/16 12:30 71 16 06/24/16 12:00 72 16 06/24/16 11:47 36.7 72 16 156/84 95 06/24/16 11:45 Nasal Cannula 2.0 06/24/16 11:30 75 17 06/24/16 11:00 74 18 06/24/16 10:30 73 11 06/24/16 10:00 74 5 Physical Exam General Appearance: no apparent distress, + thin Respiratory/Chest: no respiratory distress, no accessory muscle use, + decreased breath sounds Cardiovascular: regular rate, rhythm, no edema, no murmur Abdomen: normal bowel sounds, non tender, soft Extremities: no pedal edema, + pertinent finding (waffle boots in place; right big toe is gangrenous; there are mild pedal pulses palpable on this left side) Neurologic/Psychiatric: alert, + pertinent finding (underlying dementia) Laboratory Results Last 24 Hours Test 06/24/16 11:11 06/24/16 16:36 06/24/16 20:30 06/25/16 06:47 Bedside Glucose 145 mg/dl 176 mg/dl 171 mg/dl 141 mg/dl Test 06/25/16 08:16 White Blood Count 10.55 K/uL Red Blood Count 4.25 M/uL Hemoglobin 14.1 g/dL Hematocrit 39.5 % Mean Corpuscular Volume 92.9 fL Mean Corpuscular Hemoglobin 33.2 pg Mean Corpuscular Hemoglobin Concent 35.7 g/dl RDW Standard Deviation 47.4 fL RDW Coefficient of Variation 13.9 % Platelet Count 216 K/uL Mean Platelet Volume 13.3 fL Sodium Level 137 mmol/L Potassium Level 3.7 mmol/L Chloride Level 103 mmol/L Carbon Dioxide Level 20 mmol/L Anion Gap 14.0 mmol/L Blood Urea Nitrogen 28 mg/dl Creatinine 1.80 mg/dl Est Creatinine Clear Calc Drug Dose 29.1 ml/min Estimated GFR () 38.9 Estimated GFR (Non- 33.6 BUN/Creatinine Ratio 15.8 Random Glucose 187 mg/dl Calcium Level 9.0 mg/dl Assessment and Plan This is an 86 year old male with PMH of severe peripheral vascular disease with previous stenting of left common iliac, severe ischemic cardiomyopathy, chronic systolic heart failure with EF ~ 20%, recent NSTEMI, DM2, HTN, CKD stage 3, dementia Metabolic Encephalopathy, resolved seems to be closer to baseline currently has underlying dementia likely infectious process causing it, continue antibiotics Left Big Toe 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 of Peripheral Vascular Disease 06/25 s/p stenting x 2 of the left LE Plan is to continue Zosyn at this time continue aspirin/Plavix for the arterial disease and stenting appreciate vascular, ID input Ortho recommendations to follow for possible amputation 06/24 patient has known severe vascular disease; previous stenting of left common iliac Left LE U/S suggestive of multiple stenotic vessels Left Foot X-ray - no osteomyelitis Vascular surgery consulted - appreciate input and management Stenting of the left popliteal and superficial femoral arteries - 06/24 will need to continue dual antiplatelet therapy Appreciate orthopedic evaluation - possible amputation of the left big toe Appreciate ID input - continue Zosyn for now Blood culture + x1 for Citrobacter Additional cultures pending Severe Cardiomyopathy and Chronic Systolic Dysfunction likely secondary to a recent NSTEMI - non-operable EF ~ 20%; last echo around 6-7 months prior Hx. of Multiple CVA Head CT performed showing previous lacunar infarction continue ASA, Plavix will need tighter blood pressure control HTN 06/25 increased dose of hydralazine PO to 25mg TID 06/24 BP is uncontrolled today (06/24) extra dose of hydralazine given continue b-mayra, hydralazine, Imdur at this time CKD stage 3-4 creat seems to be at baseline of 1.9 estimated GFR ~ 30 DM2, diet controlled A1c = 7.2%, well controlled insulin sliding scale DVT ppx subq heparin DNR
[2016-06-25] MEDS: CHOLECALCIFEROL 1000 INTER.UNIT TAB PO SCH (10:04)
[2016-06-25] MEDS: ASPIRIN 81 MG ECTAB PO SCH (10:05)
[2016-06-25] MEDS: CLOPIDOGREL BISULFATE 75 MG TAB PO SCH (10:05)
[2016-06-25] MEDS: CYANOCOBALAMIN 500 MCG TAB (VIT B-12) PO SCH (10:06)
[2016-06-25] MEDS: HydrALAZINE HCL 20 MG/ML VIAL IV. PRN ×2 (10:14→23:50)
--- NOTE | 2016-06-25 16:32 | Orthopedic Progress Note ---
Orthopedic Progress Note Date of Service Jun 25, 2016. Subjective Additional Notes: Pt sitting up in bed. Family present. Pt pleasantly confused. No complaints currently. Objective Dressing removed from Left Great Toe. Toe is gangrenous. No overt drainage. Mild odor. Date Time Temp Pulse Resp B/P Pulse Ox O2 Delivery O2 Flow Rate FiO2 06/25/16 14:53 36.8 97 16 136/76 91 Room Air 06/25/16 12:47 91 Room Air 06/25/16 12:45 93 16 162/83 91 Room Air 06/25/16 10:51 36.4 92 22 93 2.0 06/25/16 10:31 162/93 06/25/16 08:23 36.4 92 22 181/102 93 Room Air 06/25/16 08:00 Room Air 06/25/16 04:15 36.4 90 18 163/92 95 Room Air 06/25/16 04:00 95 Room Air 06/25/16 00:10 95 Room Air 06/25/16 00:00 36.4 92 18 163/88 93 Room Air 06/24/16 20:04 36.8 91 18 158/63 96 06/24/16 20:00 96 Nasal Cannula 2.0 06/24/16 17:00 82 16 164/86 96 Nasal Cannula 2.0 06/24/16 16:33 82 16 161/84 95 Nasal Cannula 2.0 Laboratory Results 24 Hours: Test 06/25/16 08:16 Hematocrit 39.5 % Hemoglobin 14.1 g/dL Assessment & Plan Assessment: Gangrenous Left Great Toe Plan: POD 1 s/p Left Lower Extremity Arteriogram,Percutaneous Transluminal Angioplasty and Stent of Left Popliteal and Superficial Femoral Artery, Mechanical Closure of Right Femoral Artery by Dr Romero. Dr Kim to see patient today. Discussed treatment plan for the Left Great Toe with family. Planning for Great Toe amputation likely Thursday afternoon. Patient seen and examined. I agree with the assessment, exam and plan as documented above by the PA. Will proceed with amputation of the great toe on Thursday. NPO after midnight night for surgery on Thursday. Consent signed and in the chart. Anna Kim DO
--- NOTE | 2016-06-25 19:56 | Infectious Disease Progress Nt ---
Progress Note Date of Service Jun 25, 2016. Subjective Pt evaluation today including: conversation w/ patient, physical exam, chart review, lab review, review of studies, conversation w/ solar consultant, review of inpatient medication list Patient is status post revascularization procedure. No new specific complaints. Plans for amputation of the toe later this week. Remains afebrile. Tolerating antibiotics without apparent difficulty. All Other Systems: Reviewed and Negative Medications Current Inpatient Medications Medications (Trade) Dose Ordered Sig/Juan Route Start Time Stop Time Status Last Admin Dose Admin Heparin Sodium (Porcine) (Heparin Sq 5000 Unit/0.5ml) 5,000 unit Q8 SQ 06/20/16 22:00 07/20/16 21:59 06/25/16 13:19 5,000 UNIT Acetaminophen (Tylenol Tab) 650 mg Q4H PRN PO 06/20/16 20:30 07/20/16 20:29 06/22/16 04:27 650 MG Al Hydrox/Mg Hydrox/Simethicone (Maalox Max Susp) 15 ml Q4H PRN PO 06/20/16 20:30 07/20/16 20:29 Magnesium Hydroxide (Milk Of Magnesia Susp) 30 ml Q12H PRN PO 06/20/16 20:30 07/20/16 20:29 Ondansetron HCl (Zofran Inj) 4 mg Q6H PRN IV 06/20/16 20:30 07/20/16 20:29 Polyethylene (Miralax Powder Packet) 17 gm DAILY PRN PO 06/20/16 20:30 07/20/16 20:29 Piperacillin Sod/ Tazobactam Sod (Consult) 1 ea UD PRN N/A 06/20/16 20:45 07/20/16 20:44 Aspirin (Ecotrin Tab) 81 mg DAILY PO 06/21/16 09:00 07/21/16 08:59 06/25/16 10:05 81 MG Cholecalciferol (Vitamin D Tab) 1,000 inter.unit DAILY PO 06/21/16 09:00 07/21/16 08:59 06/25/16 10:04 1,000 INTER.UNIT Clopidogrel Bisulfate (plAVix TAB) 75 mg DAILY PO 06/21/16 09:00 07/21/16 08:59 06/25/16 10:05 75 MG Cyanocobalamin (Vitamin B-12 Tab) 1,000 mcg DAILY PO 06/21/16 09:00 07/21/16 08:59 06/25/16 10:06 1,000 MCG Finasteride (Proscar Tab) 5 mg DAILY PO 06/21/16 09:00 07/21/16 08:59 06/25/16 08:51 5 MG Isosorbide Mononitrate (Imdur Ext Rel Tab) 90 mg DAILY PO 06/21/16 09:00 07/21/16 08:59 06/25/16 08:53 90 MG Levothyroxine Sodium (Synthroid Tab) 25 mcg DAILYBB PO 06/21/16 06:00 07/21/16 06:59 06/25/16 06:20 25 MCG Metoprolol Succinate (Toprol Xl Tab) 50 mg DAILY PO 06/21/16 09:00 07/21/16 08:59 06/25/16 08:53 50 MG Paroxetine HCl (pAXil TAB) 10 mg DAILY PO 06/21/16 09:00 07/21/16 08:59 06/25/16 08:53 10 MG Tramadol HCl (Ultram Tab) 50 mg Q4H PRN PO 06/20/16 20:45 07/20/16 20:44 06/22/16 04:27 50 MG Albuterol (Ventolin Hfa Inhaler) 2 puffs QID INH 06/20/16 21:00 07/20/16 20:59 06/25/16 18:05 2 PUFFS Insulin Human Regular (novoLIN-R) SLIDING SCALE IF C... ACHS SC 06/20/16 21:00 07/20/16 20:59 06/25/16 19:18 3 UNITS Glucose (Glucose 40% Gel) 15-30 GRAMS 15 GRAMS... UD PRN PO 06/20/16 20:45 07/20/16 20:44 Glucose (Glucose Chew Tab) 4-8 Tablets 4 Tabl... UD PRN PO 06/20/16 20:45 07/20/16 20:44 Dextrose (Dextrose 50% 50ML Syringe) 25-50ML OF 50% DW IV FOR... UD PRN IV 06/20/16 20:45 07/20/16 20:44 Glucagon (Glucagon Inj) 1 mg UD PRN SQ 06/20/16 20:45 07/20/16 20:44 Hydralazine HCl 10 mg 10 mg Q6 PRN IV. 06/22/16 05:00 07/22/16 04:59 06/25/16 10:14 10 MG Piperacillin Sod/ Tazobactam Sod/ Dextrose (Zosyn Iv/D5 100ml) 115 ml @ 28.75 mls/ hr Q8H IV 06/25/16 12:00 06/30/16 21:59 06/25/16 12:37 28.75 MLS/HR Hydralazine HCl (Apresoline Tab) 25 mg TID PO 06/25/16 14:00 07/25/16 13:59 06/25/16 13:16 25 MG Objective Vital Signs Date Time Temp Pulse Resp B/P Pulse Ox O2 Delivery O2 Flow Rate FiO2 06/25/16 14:53 36.8 97 16 136/76 91 Room Air 06/25/16 12:47 91 Room Air 06/25/16 12:45 93 16 162/83 91 Room Air 06/25/16 10:51 36.4 92 22 93 2.0 06/25/16 10:31 162/93 06/25/16 08:23 36.4 92 22 181/102 93 Room Air 06/25/16 08:00 Room Air 06/25/16 04:15 36.4 90 18 163/92 95 Room Air 06/25/16 04:00 95 Room Air 06/25/16 00:10 95 Room Air 06/25/16 00:00 36.4 92 18 163/88 93 Room Air 06/24/16 20:04 36.8 91 18 158/63 96 06/24/16 20:00 96 Nasal Cannula 2.0 Physical Exam General Appearance: WD/WN, no apparent distress Eyes: normal inspection, EOMI, sclerae normal ENT: normal ENT inspection, pharynx normal Neck: supple, no adenopathy, trachea midline Respiratory/Chest: lungs clear, normal breath sounds, no respiratory distress Cardiovascular: regular rate, rhythm, no gallop, no murmur Abdomen: normal bowel sounds, non tender, soft, no organomegaly Extremities: no calf tenderness, + slow capillary refill Neurologic/Psychiatric: alert, oriented x 3 Skin: normal color, no rash, + pertinent finding (Gangrenous left great toe) Lymphatic: no adenopathy Laboratory Results Last 24 Hours Test 06/24/16 20:30 06/25/16 06:47 06/25/16 08:16 06/25/16 11:43 Bedside Glucose 171 mg/dl 141 mg/dl 182 mg/dl White Blood Count 10.55 K/uL Red Blood Count 4.25 M/uL Hemoglobin 14.1 g/dL Hematocrit 39.5 % Mean Corpuscular Volume 92.9 fL Mean Corpuscular Hemoglobin 33.2 pg Mean Corpuscular Hemoglobin Concent 35.7 g/dl RDW Standard Deviation 47.4 fL RDW Coefficient of Variation 13.9 % Platelet Count 216 K/uL Mean Platelet Volume 13.3 fL Sodium Level 137 mmol/L Potassium Level 3.7 mmol/L Chloride Level 103 mmol/L Carbon Dioxide Level 20 mmol/L Anion Gap 14.0 mmol/L Blood Urea Nitrogen 28 mg/dl Creatinine 1.80 mg/dl Est Creatinine Clear Calc Drug Dose 29.1 ml/min Estimated GFR () 38.9 Estimated GFR (Non- 33.6 BUN/Creatinine Ratio 15.8 Random Glucose 187 mg/dl Calcium Level 9.0 mg/dl Test 06/25/16 16:58 Bedside Glucose 209 mg/dl Assessment and Plan Citrobacter sepsis in the setting of gangrenous left toe with severe peripheral arterial disease. Now s/p revascularization. Continue IV Abx pending upcoming toe amputation.
[2016-06-26] VITALS (7 sets, daily range): BP systolic 138–165; BP diastolic 76–90; PULSE 89–109; TEMP 36.4–37.1; O2SAT 92–93
[2016-06-26] MEDS: PIPERACILL/TAZOBAC IV 3.375 GM in DEXTROSE 5% 100ML IV SCH ×3 (04:14→20:22)
[2016-06-26] MEDS: LEVOTHYROXINE 25 MCG TAB PO SCH (05:57)
[2016-06-26] MEDS: HEPARIN SOD 5000 UNIT/0.5 ML CARP SQ SCH ×3 (06:06→22:00)
[2016-06-26 07:53] LABS: HEMATOCRIT 35.4 % (42-52); MEAN CELL VOLUME 90.1 fL (80-100); MEAN CORPUSCULAR HEMOGLOBIN 32.3 pg (25-34); MEAN CORPUSCULAR HGB CONC 35.9 g/dl (32-36); MEAN PLATELET VOLUME 12.8 fL (7.4-10.4); PLATELET COUNT 229 K/uL (130-400); RED BLOOD COUNT 3.93 M/uL (4.7-6.1); WHITE BLOOD COUNT 13.99 K/uL (4.8-10.8)
[2016-06-26 08:43] LABS: BUN/CREATININE RATIO 16.2 (10-20); CALCIUM 8.8 mg/dl (8.5-10.1); CREATININE 1.9 mg/dl (0.60-1.40); MAGNESIUM 2.3 mg/dl (1.8-2.4); POTASSIUM 3.7 mmol/L (3.5-5.1)
[2016-06-26] MEDS: ISOSORBIDE MONONITRATE 30 MG TABCR PO SCH (09:31)
[2016-06-26] MEDS: ASPIRIN 81 MG ECTAB PO SCH (09:31)
[2016-06-26] MEDS: PAROXETINE 20 MG TAB PO SCH (09:31)
[2016-06-26] MEDS: CHOLECALCIFEROL 1000 INTER.UNIT TAB PO SCH (09:32)
[2016-06-26] MEDS: CYANOCOBALAMIN 500 MCG TAB (VIT B-12) PO SCH (09:32)
[2016-06-26] MEDS: CLOPIDOGREL BISULFATE 75 MG TAB PO SCH (09:32)
[2016-06-26] MEDS: FINASTERIDE 5 MG TAB PO SCH (09:32)
[2016-06-26] MEDS: METOPROLOL SUCC 50MG EXT REL TAB PO SCH (09:32)
[2016-06-26] MEDS: ALBUTEROL HFA 8 GM INHALER INH SCH ×4 (09:33→21:27)
[2016-06-26] MEDS: INSULIN HUMAN REGULAR SC SCH ×4 (09:38→22:10)
--- NOTE | 2016-06-26 12:46 | Progress Note ---
Subjective Date of Service: Jun 26, 2016. Subjective Pt evaluation today including: conversation w/ patient, physical exam, lab review, review of studies, review of inpatient medication list Saw/examined the patient in room 379 Underlying dementia Denies pain anywhere No shortness of breath +gangrenous left great toe Problem List Medical Problems: (1) Acute CHF Status: Acute (2) Acute congestive heart failure Status: Acute (3) Acute coronary syndrome Status: Acute (4) Altered mental status Status: Acute (5) Cellulitis of left foot Status: Acute (6) Diabetic ulcer of left great toe Status: Acute (7) Elevated troponin Status: Acute (8) Elevated troponin Status: Acute (9) Hypoxia Status: Acute (10) Hypoxia Status: Acute (11) Pneumonia Status: Acute (12) Pulmonary edema Status: Acute (13) Pulmonary edema Status: Acute (14) Renal failure Status: Acute Medications Current Inpatient Medications Medications (Trade) Dose Ordered Sig/Juan Route Start Time Stop Time Status Last Admin Dose Admin Heparin Sodium (Porcine) (Heparin Sq 5000 Unit/0.5ml) 5,000 unit Q8 SQ 06/20/16 22:00 07/20/16 21:59 06/26/16 06:06 5,000 UNIT Acetaminophen (Tylenol Tab) 650 mg Q4H PRN PO 06/20/16 20:30 07/20/16 20:29 06/22/16 04:27 650 MG Al Hydrox/Mg Hydrox/Simethicone (Maalox Max Susp) 15 ml Q4H PRN PO 06/20/16 20:30 07/20/16 20:29 Magnesium Hydroxide (Milk Of Magnesia Susp) 30 ml Q12H PRN PO 06/20/16 20:30 07/20/16 20:29 Ondansetron HCl (Zofran Inj) 4 mg Q6H PRN IV 06/20/16 20:30 07/20/16 20:29 Polyethylene (Miralax Powder Packet) 17 gm DAILY PRN PO 06/20/16 20:30 07/20/16 20:29 Piperacillin Sod/ Tazobactam Sod (Consult) 1 ea UD PRN N/A 06/20/16 20:45 07/20/16 20:44 Aspirin (Ecotrin Tab) 81 mg DAILY PO 06/21/16 09:00 3/13/17 08:59 06/26/16 09:31 81 MG Cholecalciferol (Vitamin D Tab) 1,000 inter.unit DAILY PO 06/21/16 09:00 07/21/16 08:59 06/26/16 09:32 1,000 INTER.UNIT Clopidogrel Bisulfate (plAVix TAB) 75 mg DAILY PO 06/21/16 09:00 07/21/16 08:59 06/26/16 09:32 75 MG Cyanocobalamin (Vitamin B-12 Tab) 1,000 mcg DAILY PO 06/21/16 09:00 07/21/16 08:59 06/26/16 09:32 1,000 MCG Finasteride (Proscar Tab) 5 mg DAILY PO 06/21/16 09:00 07/21/16 08:59 06/26/16 09:32 5 MG Isosorbide Mononitrate (Imdur Ext Rel Tab) 90 mg DAILY PO 06/21/16 09:00 07/21/16 08:59 06/26/16 09:31 90 MG Levothyroxine Sodium (Synthroid Tab) 25 mcg DAILYBB PO 06/21/16 06:00 07/21/16 06:59 06/26/16 05:57 25 MCG Metoprolol Succinate (Toprol Xl Tab) 50 mg DAILY PO 06/21/16 09:00 07/21/16 08:59 06/26/16 09:32 50 MG Paroxetine HCl (pAXil TAB) 10 mg DAILY PO 06/21/16 09:00 07/21/16 08:59 06/26/16 09:31 10 MG Tramadol HCl (Ultram Tab) 50 mg Q4H PRN PO 06/20/16 20:45 07/20/16 20:44 06/22/16 04:27 50 MG Albuterol (Ventolin Hfa Inhaler) 2 puffs QID INH 06/20/16 21:00 07/20/16 20:59 06/26/16 09:33 2 PUFFS Insulin Human Regular (novoLIN-R) SLIDING SCALE IF C... ACHS SC 06/20/16 21:00 07/20/16 20:59 06/26/16 09:38 2 UNITS Glucose (Glucose 40% Gel) 15-30 GRAMS 15 GRAMS... UD PRN PO 06/20/16 20:45 07/20/16 20:44 Glucose (Glucose Chew Tab) 4-8 Tablets 4 Tabl... UD PRN PO 06/20/16 20:45 07/20/16 20:44 Dextrose (Dextrose 50% 50ML Syringe) 25-50ML OF 50% DW IV FOR... UD PRN IV 06/20/16 20:45 07/20/16 20:44 Glucagon (Glucagon Inj) 1 mg UD PRN SQ 06/20/16 20:45 07/20/16 20:44 Hydralazine HCl 10 mg 10 mg Q6 PRN IV. 06/22/16 05:00 07/22/16 04:59 06/25/16 23:50 10 MG Piperacillin Sod/ Tazobactam Sod/ Dextrose (Zosyn Iv/D5 100ml) 115 ml @ 28.75 mls/ hr Q8H IV 06/25/16 12:00 06/30/16 21:59 06/26/16 12:34 28.75 MLS/HR Hydralazine HCl (Apresoline Tab) 25 mg TID PO 06/25/16 14:00 07/25/16 13:59 06/26/16 09:31 25 MG Objective Vital Signs Date Time Temp Pulse Resp B/P Pulse Ox O2 Delivery O2 Flow Rate FiO2 06/26/16 07:59 Room Air 06/26/16 07:00 36.4 107 18 165/90 93 Room Air 06/26/16 04:14 159/85 06/26/16 01:58 165/89 06/25/16 23:45 36.6 97 18 173/91 95 Room Air 06/25/16 23:30 Room Air 06/25/16 22:43 Room Air 06/25/16 21:03 94 158/87 06/25/16 14:53 36.8 97 16 136/76 91 Room Air 06/25/16 12:47 91 Room Air 06/25/16 12:45 93 16 162/83 91 Room Air Physical Exam General Appearance: no apparent distress Respiratory/Chest: lungs clear, normal breath sounds, no respiratory distress, no accessory muscle use Cardiovascular: regular rate, rhythm, no edema, no murmur Abdomen: normal bowel sounds, non tender, soft Extremities: + pertinent finding (+gangrenous left big toe) Laboratory Results Last 24 Hours Test 06/25/16 16:58 06/25/16 20:52 06/26/16 07:11 06/26/16 07:17 Bedside Glucose 209 mg/dl 182 mg/dl White Blood Count 13.99 K/uL Red Blood Count 3.93 M/uL Hemoglobin 12.7 g/dL Hematocrit 35.4 % Mean Corpuscular Volume 90.1 fL Mean Corpuscular Hemoglobin 32.3 pg Mean Corpuscular Hemoglobin Concent 35.9 g/dl RDW Standard Deviation 44.2 fL RDW Coefficient of Variation 13.5 % Platelet Count 229 K/uL Mean Platelet Volume 12.8 fL Sodium Level 138 mmol/L Potassium Level 3.7 mmol/L Chloride Level 104 mmol/L Carbon Dioxide Level 16 mmol/L Anion Gap 18.0 mmol/L Blood Urea Nitrogen 31 mg/dl Creatinine 1.90 mg/dl Est Creatinine Clear Calc Drug Dose 27.6 ml/min Estimated GFR () 36.4 Estimated GFR (Non- 31.4 BUN/Creatinine Ratio 16.2 Random Glucose 186 mg/dl Calcium Level 8.8 mg/dl Magnesium Level 2.3 mg/dl Test 06/26/16 08:06 06/26/16 12:18 Bedside Glucose 188 mg/dl 199 mg/dl Assessment and Plan This is an 86 year old male with PMH of severe peripheral vascular disease with previous stenting of left common iliac, severe ischemic cardiomyopathy, chronic systolic heart failure with EF ~ 20%, recent NSTEMI, DM2, HTN, CKD stage 3, dementia Metabolic Encephalopathy, resolved seems to be closer to baseline currently has underlying dementia likely infectious process causing it, continue antibiotics Left Big Toe 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 of Peripheral Vascular Disease 06/26 s/p stenting due to PAD plan for left big toe amputation on 06/27 06/25 s/p stenting x 2 of the left LE Plan is to continue Zosyn at this time continue aspirin/Plavix for the arterial disease and stenting appreciate vascular, ID input Ortho recommendations to follow for possible amputation 06/24 patient has known severe vascular disease; previous stenting of left common iliac Left LE U/S suggestive of multiple stenotic vessels Left Foot X-ray - no osteomyelitis Vascular surgery consulted - appreciate input and management Stenting of the left popliteal and superficial femoral arteries - 06/24 will need to continue dual antiplatelet therapy Appreciate orthopedic evaluation - possible amputation of the left big toe Appreciate ID input - continue Zosyn for now Blood culture + x1 for Citrobacter Additional cultures pending Severe Cardiomyopathy and Chronic Systolic Dysfunction likely secondary to a recent NSTEMI - non-operable EF ~ 20%; last echo around 6-7 months prior Hx. of Multiple CVA Head CT performed showing previous lacunar infarction continue ASA, Plavix will need tighter blood pressure control HTN 06/25 increased dose of hydralazine PO to 25mg TID 06/24 BP is uncontrolled today (06/24) extra dose of hydralazine given continue b-mayra, hydralazine, Imdur at this time CKD stage 3-4 creat seems to be at baseline of 1.9 estimated GFR ~ 30 DM2, diet controlled A1c = 7.2%, well controlled insulin sliding scale DVT ppx subq heparin DNR
--- NOTE | 2016-06-26 16:17 | Infectious Disease Progress Nt ---
Progress Note Date of Service Jun 26, 2016. Subjective Pt evaluation today including: conversation w/ patient, physical exam, chart review, lab review, review of studies, conversation w/ financial analysis consultant, review of inpatient medication list Patient offers no new complaints today. Pain controlled. No fever or chills. Continues to tolerate antibiotics. All Other Systems: Reviewed and Negative Medications Current Inpatient Medications Medications (Trade) Dose Ordered Sig/Juan Route Start Time Stop Time Status Last Admin Dose Admin Heparin Sodium (Porcine) (Heparin Sq 5000 Unit/0.5ml) 5,000 unit Q8 SQ 06/20/16 22:00 07/20/16 21:59 06/26/16 13:44 5,000 UNIT Acetaminophen (Tylenol Tab) 650 mg Q4H PRN PO 06/20/16 20:30 07/20/16 20:29 06/22/16 04:27 650 MG Al Hydrox/Mg Hydrox/Simethicone (Maalox Max Susp) 15 ml Q4H PRN PO 06/20/16 20:30 07/20/16 20:29 Magnesium Hydroxide (Milk Of Magnesia Susp) 30 ml Q12H PRN PO 06/20/16 20:30 07/20/16 20:29 Ondansetron HCl (Zofran Inj) 4 mg Q6H PRN IV 06/20/16 20:30 07/20/16 20:29 Polyethylene (Miralax Powder Packet) 17 gm DAILY PRN PO 06/20/16 20:30 07/20/16 20:29 Piperacillin Sod/ Tazobactam Sod (Consult) 1 ea UD PRN N/A 06/20/16 20:45 07/20/16 20:44 Aspirin (Ecotrin Tab) 81 mg DAILY PO 06/21/16 09:00 07/21/16 08:59 06/26/16 09:31 81 MG Cholecalciferol (Vitamin D Tab) 1,000 inter.unit DAILY PO 06/21/16 09:00 07/21/16 08:59 06/26/16 09:32 1,000 INTER.UNIT Clopidogrel Bisulfate (plAVix TAB) 75 mg DAILY PO 06/21/16 09:00 07/21/16 08:59 06/26/16 09:32 75 MG Cyanocobalamin (Vitamin B-12 Tab) 1,000 mcg DAILY PO 06/21/16 09:00 3/13/17 08:59 06/26/16 09:32 1,000 MCG Finasteride (Proscar Tab) 5 mg DAILY PO 06/21/16 09:00 07/21/16 08:59 06/26/16 09:32 5 MG Isosorbide Mononitrate (Imdur Ext Rel Tab) 90 mg DAILY PO 06/21/16 09:00 07/21/16 08:59 06/26/16 09:31 90 MG Levothyroxine Sodium (Synthroid Tab) 25 mcg DAILYBB PO 06/21/16 06:00 07/21/16 06:59 06/26/16 05:57 25 MCG Metoprolol Succinate (Toprol Xl Tab) 50 mg DAILY PO 06/21/16 09:00 07/21/16 08:59 06/26/16 09:32 50 MG Paroxetine HCl (pAXil TAB) 10 mg DAILY PO 06/21/16 09:00 07/21/16 08:59 06/26/16 09:31 10 MG Tramadol HCl (Ultram Tab) 50 mg Q4H PRN PO 06/20/16 20:45 07/20/16 20:44 06/22/16 04:27 50 MG Albuterol (Ventolin Hfa Inhaler) 2 puffs QID INH 06/20/16 21:00 07/20/16 20:59 06/26/16 13:38 2 PUFFS Insulin Human Regular (novoLIN-R) SLIDING SCALE IF C... ACHS SC 06/20/16 21:00 07/20/16 20:59 06/26/16 13:43 3 UNITS Glucose (Glucose 40% Gel) 15-30 GRAMS 15 GRAMS... UD PRN PO 06/20/16 20:45 07/20/16 20:44 Glucose (Glucose Chew Tab) 4-8 Tablets 4 Tabl... UD PRN PO 06/20/16 20:45 07/20/16 20:44 Dextrose (Dextrose 50% 50ML Syringe) 25-50ML OF 50% DW IV FOR... UD PRN IV 06/20/16 20:45 07/20/16 20:44 Glucagon (Glucagon Inj) 1 mg UD PRN SQ 06/20/16 20:45 07/20/16 20:44 Hydralazine HCl 10 mg 10 mg Q6 PRN IV. 06/22/16 05:00 07/22/16 04:59 06/25/16 23:50 10 MG Piperacillin Sod/ Tazobactam Sod/ Dextrose (Zosyn Iv/D5 100ml) 115 ml @ 28.75 mls/ hr Q8H IV 06/25/16 12:00 06/30/16 21:59 06/26/16 12:34 28.75 MLS/HR Hydralazine HCl (Apresoline Tab) 25 mg TID PO 06/25/16 14:00 07/25/16 13:59 06/26/16 13:40 25 MG Objective Vital Signs Date Time Temp Pulse Resp B/P Pulse Ox O2 Delivery O2 Flow Rate FiO2 06/26/16 15:43 37.1 89 18 138/76 92 Room Air 06/26/16 13:45 109 148/87 06/26/16 07:59 Room Air 06/26/16 07:00 36.4 107 18 165/90 93 Room Air 06/26/16 04:14 159/85 06/26/16 01:58 165/89 06/25/16 23:45 36.6 97 18 173/91 95 Room Air 06/25/16 23:30 Room Air 06/25/16 22:43 Room Air 06/25/16 21:03 94 158/87 Physical Exam General Appearance: WD/WN, no apparent distress Eyes: normal inspection, sclerae normal ENT: normal ENT inspection, pharynx normal Neck: supple, no adenopathy, trachea midline Respiratory/Chest: lungs clear, normal breath sounds, no respiratory distress Cardiovascular: regular rate, rhythm, no gallop, no murmur Abdomen: normal bowel sounds, non tender, soft, no organomegaly Extremities: non-tender, no calf tenderness Neurologic/Psychiatric: alert, oriented x 3 Skin: normal color, no rash, + pertinent finding (Unchanged left great toe gangrene) Lymphatic: no adenopathy Laboratory Results Last 24 Hours Test 06/25/16 16:58 06/25/16 20:52 06/26/16 07:11 06/26/16 07:17 Bedside Glucose 209 mg/dl 182 mg/dl White Blood Count 13.99 K/uL Red Blood Count 3.93 M/uL Hemoglobin 12.7 g/dL Hematocrit 35.4 % Mean Corpuscular Volume 90.1 fL Mean Corpuscular Hemoglobin 32.3 pg Mean Corpuscular Hemoglobin Concent 35.9 g/dl RDW Standard Deviation 44.2 fL RDW Coefficient of Variation 13.5 % Platelet Count 229 K/uL Mean Platelet Volume 12.8 fL Sodium Level 138 mmol/L Potassium Level 3.7 mmol/L Chloride Level 104 mmol/L Carbon Dioxide Level 16 mmol/L Anion Gap 18.0 mmol/L Blood Urea Nitrogen 31 mg/dl Creatinine 1.90 mg/dl Est Creatinine Clear Calc Drug Dose 27.6 ml/min Estimated GFR () 36.4 Estimated GFR (Non- 31.4 BUN/Creatinine Ratio 16.2 Random Glucose 186 mg/dl Calcium Level 8.8 mg/dl Magnesium Level 2.3 mg/dl Test 06/26/16 08:06 06/26/16 12:18 Bedside Glucose 188 mg/dl 199 mg/dl Assessment and Plan Citrobacter sepsis in the setting of gangrenous left toe with severe peripheral arterial disease. Now s/p revascularization. Continue IV Abx pending upcoming toe amputation.
--- NOTE | 2016-06-26 17:58 | Anesthesiology Progress Note ---
Anesthesia Progress Note Date of Service Jun 26, 2016. Progress Notes Mr. Cuevas is an 86 year old male with multiple medical problems to include COPD , chronic SOB, recent NSTEMI, CAD, PVD, HTN, CHF (EF 25%), AAA, GERD, CVA ( lacunar infarct seen on CT), NIDDM, Stage 3 CKD, Depression, and demential who is slated to undergo toe amputation with Dr. Kim for gangrenous left toe. He recently underwent LLE arteriogram with Dr. Romero on 06/24/16 under moderate sedation. Patient has had CABG x2 (1986, 2002), L CEA, iliac artery stent with multiple cardiac caths with no apparent complications (per patient's ). EKG shows HR 77, sinus rhythm with LVH and evidence of septal infarct. Echo from 11/15 showed multiple areas of hypokinetic and akinetic wall motion with EF of 25 % and moderate MR. On airway exam, patient did not cooperate for MP assessment but patient's stated he has upper dentures and lower partials. ANNETTE heard on auscultation. Spoke at length to patient's as he is unable to provide his own consent. Plan would be for local with minimal sedation given his multiple medical problems. GA was discussed as backup but would like to avoid if possible. Patient's had all questions answered and provided phone consent witnessed by nursing staff.
[2016-06-27] VITALS (7 sets, daily range): BP systolic 147–166; BP diastolic 77–87; PULSE 82–92; TEMP 36.4–36.7; O2SAT 90–97
[2016-06-27] MEDS ORDERED: NURSING VERBAL MED ORDER ONE ×3 (01:15→21:15)
[2016-06-27] MEDS: PIPERACILL/TAZOBAC IV 3.375 GM in DEXTROSE 5% 100ML IV SCH ×3 (03:32→20:31)
[2016-06-27] MEDS: LEVOTHYROXINE 25 MCG TAB PO SCH (05:50)
[2016-06-27] MEDS: HEPARIN SOD 5000 UNIT/0.5 ML CARP SQ SCH ×3 (05:54→21:21)
[2016-06-27] MEDS: INSULIN HUMAN REGULAR SC SCH ×3 (05:54→20:02)
[2016-06-27 07:46] LABS: HEMATOCRIT 36.9 % (42-52); MEAN CELL VOLUME 92.7 fL (80-100); MEAN CORPUSCULAR HEMOGLOBIN 32.7 pg (25-34); MEAN CORPUSCULAR HGB CONC 35.2 g/dl (32-36); MEAN PLATELET VOLUME 12.8 fL (7.4-10.4); PLATELET COUNT 256 K/uL (130-400); RED BLOOD COUNT 3.98 M/uL (4.7-6.1); WHITE BLOOD COUNT 16.95 K/uL (4.8-10.8)
[2016-06-27] MEDS: METOPROLOL SUCC 50MG EXT REL TAB PO SCH (07:52)
[2016-06-27 08:19] LABS: BUN/CREATININE RATIO 17.6 (10-20); CREATININE 1.9 mg/dl (0.60-1.40); MAGNESIUM 2.3 mg/dl (1.8-2.4); POTASSIUM 3.5 mmol/L (3.5-5.1)
[2016-06-27] MEDS: ISOSORBIDE MONONITRATE 30 MG TABCR PO SCH (09:00)
[2016-06-27] MEDS: ASPIRIN 81 MG ECTAB PO SCH (09:00)
[2016-06-27] MEDS: CYANOCOBALAMIN 500 MCG TAB (VIT B-12) PO SCH (09:00)
[2016-06-27] MEDS: CLOPIDOGREL BISULFATE 75 MG TAB PO SCH (09:00)
[2016-06-27] MEDS: PAROXETINE 20 MG TAB PO SCH (09:00)
[2016-06-27] MEDS: FINASTERIDE 5 MG TAB PO SCH (09:00)
[2016-06-27] MEDS: CHOLECALCIFEROL 1000 INTER.UNIT TAB PO SCH (09:00)
[2016-06-27] MEDS: ALBUTEROL HFA 8 GM INHALER INH SCH ×4 (09:00→20:29)
--- NOTE | 2016-06-27 15:36 | History & Physical Bridge Note ---
H&P Re-Evaluation Bridge Note: I have examined the patient, reviewed the History & Physical and in the interval since the performance of the History & Physical I have noted the following changes of clinical significance: Gangrene Left great toe.
[2016-06-27] MEDS ORDERED: ATROPINE SULFATE 0.1 MG/ML 5ML SYR IV PRN (16:30)
[2016-06-27] MEDS ORDERED: ONDANSETRON INJ 2 MG/ML 2 ML VIAL IV PRN (16:30)
[2016-06-27] MEDS ORDERED: FENTANYL CITRATE INJ 50 MCG/1 ML 2 ML VIAL IV PRN (16:30)
[2016-06-27] MEDS ORDERED: EpHEDrine SULFATE INJ 50 MG/ML AMP IV PRN (16:30)
[2016-06-27] MEDS ORDERED: BUPIVACAINE 0.5 % 5 MG/1 ML MPF 30ML VIAL ONE (16:39)
[2016-06-27] MEDS ORDERED: BACITRACIN 50000 UNIT VIAL ONE (16:39)
--- NOTE | 2016-06-27 16:57 | DIAGNOSTIC IMAGING REPORT ---
CHEST ONE VIEW PORTABLE CLINICAL HISTORY: ASPIRATION /LEUKOCYTOSIS dyspnea COMPARISON STUDY: 06/20/2016 FINDINGS: There is mildly enlarged. Prior median sternotomy. Interval development of diffuse bilateral parenchymal infiltrates versus pulmonary edema. Small bilateral pleural effusions. IMPRESSION: Diffuse bilateral parenchymal infiltrates versus developing pulmonary edema. Small bilateral pleural effusions. Electronically signed by: Juan Ramon Aquino M.D. 06/27/2016 4:56 PM Dictated Date/Time: 06/27/2016 4:55 PM
[2016-06-27] MEDS ORDERED: KETAMINE HCL INJ 50 MG/ML 10 ML VIAL ONE (17:05)
[2016-06-27] MEDS ORDERED: METOPROLOL TARTRATE 1 MG/ML VIAL ONE (17:47)
[2016-06-27] MEDS ORDERED: SODIUM CHLORIDE 0.9% INJ 10 ML VIAL ONE (17:47)
[2016-06-27] MEDS ORDERED: PROPOFOL IV EMULSION 10 MG/ML 20 ML VIAL IV ONE (17:47)
--- NOTE | 2016-06-27 18:23 | [facility] Post Operative Brief Note ---
Immediate Operative Summary Operative Date Jun 27, 2016. Pre-Operative Diagnosis Gangrene left great toe Post-Operative Diagnosis Gangrene left great toe, Cellulitis great toe Procedure(s) Performed Left Foot Amputation of great toe; Resection Distal First Metatarsal Head Surgeon Dr Kim Gift Wrapper Surgeon(s) none Estimated Blood Loss <1 ml Findings See Dict Specimens a. great toe, left foot Drains None Anesthesia Ankle block w/ sedation Complication(s) None Disposition Recovery Room / PACU
--- NOTE | 2016-06-27 18:57 | Anesthesiology Progress Note ---
Anesthesia Post Op Note Date & Time Jun 27, 2016 at 18:57 Vital Signs Pain Intensity: 0 Vital Signs Past 12 Hours Date Time Temp Pulse Resp B/P Pulse Ox O2 Delivery O2 Flow Rate FiO2 06/27/16 18:39 37.3 88 21 130/94 94 Nasal Cannula 2 06/27/16 18:35 87 21 177/89 93 Nasal Cannula 2 06/27/16 18:25 84 21 165/94 93 Nasal Cannula 2 06/27/16 18:15 87 21 157/96 92 Nasal Cannula 2 06/27/16 18:08 37.1 88 20 176/95 94 Room Air 06/27/16 08:00 Room Air 06/27/16 07:56 36.4 92 16 166/82 90 Room Air Notes Mental Status: alert / awake / arousable, participated in evaluation Pt Amnestic to Procedure: Yes Nausea / Vomiting: adequately controlled Pain: adequately controlled Airway Patency, RR, SpO2: stable & adequate BP & HR: stable & adequate Hydration State: stable & adequate Anesthetic Complications: no major complications apparent
--- NOTE | 2016-06-27 19:37 | Infectious Disease Progress Nt ---
Progress Note Date of Service Jun 27, 2016. Subjective Pt evaluation today including: conversation w/ patient, physical exam, chart review, lab review, review of studies, conversation w/ dairy feed sales consultant, review of inpatient medication list Now status post amputation of toe. Expected postoperative pain. Afebrile and hemodynamically stable. All Other Systems: Reviewed and Negative Medications Current Inpatient Medications Medications (Trade) Dose Ordered Sig/Juan Route Start Time Stop Time Status Last Admin Dose Admin Heparin Sodium (Porcine) (Heparin Sq 5000 Unit/0.5ml) 5,000 unit Q8 SQ 06/20/16 22:00 07/20/16 21:59 06/27/16 05:54 5,000 UNIT Acetaminophen (Tylenol Tab) 650 mg Q4H PRN PO 06/20/16 20:30 07/20/16 20:29 06/22/16 04:27 650 MG Al Hydrox/Mg Hydrox/Simethicone (Maalox Max Susp) 15 ml Q4H PRN PO 06/20/16 20:30 07/20/16 20:29 Magnesium Hydroxide (Milk Of Magnesia Susp) 30 ml Q12H PRN PO 06/20/16 20:30 07/20/16 20:29 Ondansetron HCl (Zofran Inj) 4 mg Q6H PRN IV 06/20/16 20:30 07/20/16 20:29 Polyethylene (Miralax Powder Packet) 17 gm DAILY PRN PO 06/20/16 20:30 07/20/16 20:29 Piperacillin Sod/ Tazobactam Sod (Consult) 1 ea UD PRN N/A 06/20/16 20:45 07/20/16 20:44 Aspirin (Ecotrin Tab) 81 mg DAILY PO 06/21/16 09:00 07/21/16 08:59 06/26/16 09:31 81 MG Cholecalciferol (Vitamin D Tab) 1,000 inter.unit DAILY PO 06/21/16 09:00 07/21/16 08:59 06/26/16 09:32 1,000 INTER.UNIT Clopidogrel Bisulfate (plAVix TAB) 75 mg DAILY PO 06/21/16 09:00 07/21/16 08:59 06/26/16 09:32 75 MG Cyanocobalamin (Vitamin B-12 Tab) 1,000 mcg DAILY PO 06/21/16 09:00 07/21/16 08:59 06/26/16 09:32 1,000 MCG Finasteride (Proscar Tab) 5 mg DAILY PO 06/21/16 09:00 07/21/16 08:59 06/26/16 09:32 5 MG Isosorbide Mononitrate (Imdur Ext Rel Tab) 90 mg DAILY PO 06/21/16 09:00 07/21/16 08:59 06/26/16 09:31 90 MG Levothyroxine Sodium (Synthroid Tab) 25 mcg DAILYBB PO 06/21/16 06:00 07/21/16 06:59 06/27/16 05:50 25 MCG Metoprolol Succinate (Toprol Xl Tab) 50 mg DAILY PO 06/21/16 09:00 07/21/16 08:59 06/27/16 07:52 50 MG Paroxetine HCl (pAXil TAB) 10 mg DAILY PO 06/21/16 09:00 07/21/16 08:59 06/26/16 09:31 10 MG Tramadol HCl (Ultram Tab) 50 mg Q4H PRN PO 06/20/16 20:45 07/20/16 20:44 06/22/16 04:27 50 MG Albuterol (Ventolin Hfa Inhaler) 2 puffs QID INH 06/20/16 21:00 07/20/16 20:59 06/27/16 13:00 2 PUFFS Glucose (Glucose 40% Gel) 15-30 GRAMS 15 GRAMS... UD PRN PO 06/20/16 20:45 07/20/16 20:44 Glucose (Glucose Chew Tab) 4-8 Tablets 4 Tabl... UD PRN PO 06/20/16 20:45 07/20/16 20:44 Dextrose (Dextrose 50% 50ML Syringe) 25-50ML OF 50% DW IV FOR... UD PRN IV 06/20/16 20:45 07/20/16 20:44 Glucagon (Glucagon Inj) 1 mg UD PRN SQ 06/20/16 20:45 07/20/16 20:44 Hydralazine HCl 10 mg 10 mg Q6 PRN IV. 06/22/16 05:00 07/22/16 04:59 06/25/16 23:50 10 MG Piperacillin Sod/ Tazobactam Sod/ Dextrose (Zosyn Iv/D5 100ml) 115 ml @ 28.75 mls/ hr Q8H IV 06/25/16 12:00 06/30/16 21:59 06/27/16 12:23 28.75 MLS/HR Hydralazine HCl (Apresoline Tab) 25 mg TID PO 06/25/16 14:00 07/25/16 13:59 06/26/16 13:40 25 MG Insulin Human Regular (novoLIN-R) SLIDING SCALE IF C... Q6 SC 06/27/16 06:00 07/27/16 05:59 06/27/16 12:25 1 UNITS Fentanyl Citrate (Fentanyl Inj) 25 mcg Q5M PRN IV 06/27/16 16:30 06/27/16 21:30 Ondansetron HCl (Zofran Inj) 4 mg ONE PRN IV 06/27/16 16:30 06/27/16 21:30 Ephedrine Sulfate (EpHEDrine SULFATE INJ) 5 mg Q5M PRN IV 06/27/16 16:30 06/27/16 21:30 Atropine Sulfate (Atropine Sulfate 0.1MG/Ml Inj) 0.5 mg Q1M PRN IV 06/27/16 16:30 06/27/16 21:30 Objective Vital Signs Date Time Temp Pulse Resp B/P Pulse Ox O2 Delivery O2 Flow Rate FiO2 06/27/16 18:39 37.3 88 21 130/94 94 Nasal Cannula 2 06/27/16 18:35 87 21 177/89 93 Nasal Cannula 2 06/27/16 18:25 84 21 165/94 93 Nasal Cannula 2 06/27/16 18:15 87 21 157/96 92 Nasal Cannula 2 06/27/16 18:08 37.1 88 20 176/95 94 Room Air 06/27/16 08:00 Room Air 06/27/16 07:56 36.4 92 16 166/82 90 Room Air 06/27/16 05:45 36.6 88 20 147/77 92 Room Air 06/26/16 23:15 Room Air 06/26/16 22:44 36.7 90 24 159/84 93 Room Air 06/26/16 21:27 91 157/89 Physical Exam General Appearance: WD/WN, no apparent distress Eyes: normal inspection, sclerae normal ENT: normal ENT inspection, pharynx normal Neck: supple, no adenopathy, trachea midline Respiratory/Chest: lungs clear, normal breath sounds, no respiratory distress Cardiovascular: regular rate, rhythm, no gallop, no murmur Abdomen: normal bowel sounds, non tender, soft, no organomegaly Extremities: no calf tenderness, + pertinent finding ( Surgical dressing intact) Neurologic/Psychiatric: alert Skin: normal color, no rash Lymphatic: no adenopathy Laboratory Results Last 24 Hours Test 06/26/16 20:55 06/27/16 05:45 06/27/16 07:10 06/27/16 08:03 Bedside Glucose 147 mg/dl 159 mg/dl 150 mg/dl White Blood Count 16.95 K/uL Red Blood Count 3.98 M/uL Hemoglobin 13.0 g/dL Hematocrit 36.9 % Mean Corpuscular Volume 92.7 fL Mean Corpuscular Hemoglobin 32.7 pg Mean Corpuscular Hemoglobin Concent 35.2 g/dl RDW Standard Deviation 47.0 fL RDW Coefficient of Variation 13.8 % Platelet Count 256 K/uL Mean Platelet Volume 12.8 fL Sodium Level 140 mmol/L Potassium Level 3.5 mmol/L Chloride Level 106 mmol/L Carbon Dioxide Level 18 mmol/L Anion Gap 16.0 mmol/L Blood Urea Nitrogen 34 mg/dl Creatinine 1.90 mg/dl Est Creatinine Clear Calc Drug Dose 27.6 ml/min Estimated GFR () 36.4 Estimated GFR (Non- 31.4 BUN/Creatinine Ratio 17.6 Random Glucose 153 mg/dl Calcium Level 9.0 mg/dl Magnesium Level 2.3 mg/dl Test 06/27/16 12:12 06/27/16 15:26 06/27/16 18:30 Bedside Glucose 159 mg/dl 149 mg/dl 150 mg/dl Assessment and Plan Citrobacter sepsis in the setting of gangrenous left toe with severe peripheral arterial disease. Now s/p revascularization and s/p toe amputation today. Continue present Abx pending surgical cultures.
--- NOTE | 2016-06-27 19:43 | Progress Note ---
Internal Med Progress Note Date of Service: Jun 27, 2016. Provider Documentation: SUBJECTIVE: S/P left great toe amputation today denies of any pain or discomfort as per nursing pt was having difficulty swallowing pills earlier today pt does not remember has baseline dementia , can not recall any event happened earlier has non productive cough no fever or chills OBJECTIVE: Vital Signs-as noted below Exam: General-elderly male , no sign of discomfort Eyes-sclera non icteric ENT-dry oral mucosa, poor dentition Neck-no thyromegaly Lungs-diminished, with coarse rales Heart-regular Abdomen-soft, non tender Extremities-s/p left great toe amputation, bandage in place Neuro-baseline dementia, no focal deficit Lab data as noted below. ASSESSMENT & PLAN: Left Big Toe 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 of Peripheral Vascular Disease s/p left lower ext arteriogram and balloon angioplasty and stenting of left popliteal and superficial femoral arteries on 06/24 s/p left big toe amputation by Ortho today Appreciate ID input - continue Zosyn for now-pending further culture report Blood culture 06/20/16 + x1 for Citrobacter repeat blood cultures 06/21/16 : no growth Metabolic Encephalopathy, resolved due to infection /dehydration seems to be closer to baseline currently has underlying dementia Severe Cardiomyopathy and Chronic Systolic Dysfunction likely secondary to a recent NSTEMI - non-operable EF ~ 20%; last echo around 6-7 months prior caution with vol overload Cxray shows bilateral worsening of pulmonary edema /interstitial infiltrate Lasix 20 mg X1 ordered repeat Cxray in AM Dysphagia /concern for aspiration : as per Nursing -pt found chocking on food /pills Cxray shows progression of diffuse bilat interstitial infiltrate on Zosyn speech eval requested Keep NPO except for meds , till evaluated by speech Leukocytosis : concern for aspiration pneumonia aspiration precaution IV Zosyn follow daily CBC ordered for repeat blood culture Hx. of Multiple CVA Head CT performed showing previous lacunar infarction continue ASA, Plavix HTN on hydralazine PO to 25mg TID continue b-mayra, Imdur CKD stage 3-4 creat seems to be at baseline of 1.9 estimated GFR ~ 30 DM2, diet controlled A1c = 7.2%, well controlled insulin sliding scale DVT ppx subq heparin DNR DISPOSITION to be determined PT/OT \ may need rehab Vital Signs: Date Time Temp Pulse Resp B/P Pulse Ox O2 Delivery O2 Flow Rate FiO2 06/27/16 20:22 36.6 85 18 157/80 96 Nasal Cannula 06/27/16 19:35 36.4 82 20 156/80 97 Nasal Cannula 06/27/16 18:39 37.3 88 21 130/94 94 Nasal Cannula 2 06/27/16 18:35 87 21 177/89 93 Nasal Cannula 2 06/27/16 18:25 84 21 165/94 93 Nasal Cannula 2 06/27/16 18:15 87 21 157/96 92 Nasal Cannula 2 06/27/16 18:08 37.1 88 20 176/95 94 Room Air 06/27/16 08:00 Room Air 06/27/16 07:56 36.4 92 16 166/82 90 Room Air 06/27/16 05:45 36.6 88 20 147/77 92 Room Air 06/26/16 23:15 Room Air 06/26/16 22:44 36.7 90 24 159/84 93 Room Air 06/26/16 21:27 91 157/89 Lab Results: Results Past 24 Hours Test 06/26/16 20:55 06/27/16 05:45 06/27/16 07:10 06/27/16 08:03 Range/Units Bedside Glucose 147 159 150 70-99 mg/dl White Blood Count 16.95 4.8-10.8 K/uL Red Blood Count 3.98 4.7-6.1 M/uL Hemoglobin 13.0 14.0-18.0 g/dL Hematocrit 36.9 42-52 % Mean Corpuscular Volume 92.7 80-100 fL Mean Corpuscular Hemoglobin 32.7 25-34 pg Mean Corpuscular Hemoglobin Concent 35.2 32-36 g/dl RDW Standard Deviation 47.0 36.4-46.3 fL RDW Coefficient of Variation 13.8 11.5-14.5 % Platelet Count 256 130-400 K/uL Mean Platelet Volume 12.8 7.4-10.4 fL Sodium Level 140 136-145 mmol/L Potassium Level 3.5 3.5-5.1 mmol/L Chloride Level 106 98-107 mmol/L Carbon Dioxide Level 18 21-32 mmol/L Anion Gap 16.0 3-11 mmol/L Blood Urea Nitrogen 34 7-18 mg/dl Creatinine 1.90 0.60-1.40 mg/dl Est Creatinine Clear Calc Drug Dose 27.6 ml/min Estimated GFR () 36.4 Estimated GFR (Non- 31.4 BUN/Creatinine Ratio 17.6 10-20 Random Glucose 153 70-99 mg/dl Calcium Level 9.0 8.5-10.1 mg/dl Magnesium Level 2.3 1.8-2.4 mg/dl Test 06/27/16 12:12 06/27/16 15:26 06/27/16 18:30 Range/Units Bedside Glucose 159 149 150 70-99 mg/dl Microbiology Results 06/27/16 Blood Culture, Received Pending 06/27/16 Blood Culture, Received Pending
[2016-06-27] MEDS ORDERED: FUROSEMIDE INJ 20 MG in SYRINGE 0 ML IV ONE (20:00)
[2016-06-27] MEDS ORDERED: INSULIN HUMAN REGULAR SC SCH (21:00)
--- NOTE | 2016-06-27 22:26 | OPERATIVE REPORT ---
DATE OF OPERATION: 06/27/2016 PREOPERATIVE DIAGNOSIS: Left great toe gangrene. POSTOPERATIVE DIAGNOSES: 1. Left great toe gangrene. 2. Cellulitis of the great toe. PROCEDURE: 1. Left great toe amputation. 2. Resection of distal first metatarsal head. SURGEON: Dr. Kim. MEDICAL RECORDS SECRETARY: None. ANESTHESIA: Ankle block with sedation. SPECIMENS: Left great toe. DRAINS: None. COMPLICATIONS: None. BLOOD LOSS: Less than 1 mL PERTINENT HISTORY: This is an 86-year-old gentleman who has a history of chronic infection and cellulitis of the left great toe with black scab formation. He was seen in his primary care physician's office on 06/06/2016 for redness, swelling and drainage of his toe. He had x-rays at that time which were negative for osteomyelitis. He was started on cephalexin. He had some improvement in redness and swelling but had persistent dark discoloration to left great toe. He had a change in mental status and was admitted to the hospital and then had worsening gangrenous changes of his left great toe. He did undergo a revascularization procedure by Dr. Romero and then was scheduled for left great toe amputation as indicated. All potential risks, benefits, complications, alternatives, rehab, potential for incomplete relief of symptoms, need for further surgery, DVT, PE, , persistent pain, swelling, scarring, weakness, neurovascular injury, wound complications, need for further amputation was discussed with the family. They decided to proceed with the procedure as indicated. PROCEDURE IN DETAIL: The patient was taken to the operative suite, placed supine on the operating room table. I reviewed the consent and identification of proper operative site. The patient was sedated. Ankle block was performed by the department of anesthesia. Next, the left lower extremity was then sterilely prepped and draped in usual fashion, elevated, and the mid foot proximally was then exsanguinated with an Esmarch bandage and Esmarch tourniquet applied over sterile surgical towel at the level of the ankle. Next, a 15 blade scalpel was used to make a dorsal incision over the great toe, adjacent to the proximal phalanx. The incision was deepened through subcutaneous tissue, extensor mechanism, and periosteum, down to the level of bone. Next, the medial and lateral incisions were carried down to the mid axial line and then a plantar flap was then fashioned in the soft tissue extending distally. Then, there was a zone of demarcation which did not allow for any further length of the flap due to soft tissue compromise, therefore, the flap had to be truncated somewhat on the plantar aspect. Next, the flap was completed circumferentially and the soft tissue was then retracted proximally on the dorsum, revealing the capsule of the first metatarsophalangeal joint. This was then incised from the mid axial line medially to the mid axial line laterally and the joint was then opened and then carefully dissected through the plantar plate, then resecting the great toe from the proximal and distal phalanges of the great toe and the toe was then passed off. There was noted be cellulitic rim of erythematous tissue just proximal to the gangrenous changes on the great toe and a portion of the tissue was preserved, portion of it was sacrificed with the amputation. Next, the metatarsal head was noted to be somewhat prominent with relation to the remainder of the flap which was viable. Therefore, decision was made to resect the distal aspect of the first metatarsal head with a slight plantar oblique angle to help with roll through with gait. This was resected using a combination of bone biting rongeur and osteotome and mallet. Next, a regular rongeur was then used to smoothen and contour the remainder of the distal aspect of the first metatarsal. The wound was copiously irrigated with sterile normal saline with bacitracin and then full-thickness skin flap closure was performed with interrupted 3-0 nylon sutures. A sterile compressive dressing was applied overwrapped with a 4-inch Jovi wrap. The tourniquet was released. The patient was awakened and taken to recovery in stable condition. I attest to the content of the Intraoperative Record and any orders documented therein. Any exceptio ns are noted below.
[2016-06-28] MEDS: INSULIN HUMAN REGULAR SC SCH ×4 (00:27→18:50)
[2016-06-28 03:47] VITALS: BP 159/81; PULSE 93; TEMP 37.1; O2SAT 90
[2016-06-28] MEDS: PIPERACILL/TAZOBAC IV 3.375 GM in DEXTROSE 5% 100ML IV SCH ×3 (03:59→19:46)
[2016-06-28] MEDS: HEPARIN SOD 5000 UNIT/0.5 ML CARP SQ SCH ×3 (06:16→21:05)
[2016-06-28] MEDS: LEVOTHYROXINE 25 MCG TAB PO SCH (06:18)
[2016-06-28 07:00] VITALS: BP 157/87; PULSE 88; TEMP 36.5; O2SAT 93
--- NOTE | 2016-06-28 07:11 | DIAGNOSTIC IMAGING REPORT ---
CHEST ONE VIEW PORTABLE CLINICAL HISTORY: Congestive heart failure. COMPARISON STUDY: Chest radiograph June 27, 2016. FINDINGS: There are median sternotomy wires and mediastinal surgical clips. Mild cardiomegaly is unchanged. Small bilateral pleural effusions are present. Diffuse interstitial thickening is slightly improved. There is asymmetric right upper lobe airspace opacity. IMPRESSION: 1. Persistent, but slightly improved, pulmonary edema. 2. Small bilateral pleural effusions. 3. Asymmetric right upper lung airspace opacity. This likely reflects asymmetric pulmonary edema although superimposed pneumonia could appear similar. Electronically signed by: Yusuf Jin M.D. 06/28/2016 7:09 AM Dictated Date/Time: 06/28/2016 7:08 AM
[2016-06-28 07:20] LABS: HEMATOCRIT 36.6 % (42-52); MEAN CELL VOLUME 92.2 fL (80-100); MEAN CORPUSCULAR HEMOGLOBIN 31.7 pg (25-34); MEAN CORPUSCULAR HGB CONC 34.4 g/dl (32-36); MEAN PLATELET VOLUME 12.6 fL (7.4-10.4); PLATELET COUNT 287 K/uL (130-400); RED BLOOD COUNT 3.97 M/uL (4.7-6.1); WHITE BLOOD COUNT 16.34 K/uL (4.8-10.8)
[2016-06-28] MEDS: CLOPIDOGREL BISULFATE 75 MG TAB PO SCH (07:25)
[2016-06-28] MEDS: ASPIRIN 81 MG ECTAB PO SCH (07:25)
[2016-06-28] MEDS: ISOSORBIDE MONONITRATE 30 MG TABCR PO SCH (07:26)
[2016-06-28] MEDS: CYANOCOBALAMIN 500 MCG TAB (VIT B-12) PO SCH (07:26)
[2016-06-28] MEDS: CHOLECALCIFEROL 1000 INTER.UNIT TAB PO SCH (07:26)
[2016-06-28] MEDS: PAROXETINE 20 MG TAB PO SCH (07:27)
[2016-06-28] MEDS: FINASTERIDE 5 MG TAB PO SCH (07:27)
[2016-06-28] MEDS: METOPROLOL SUCC 50MG EXT REL TAB PO SCH (07:27)
[2016-06-28] MEDS: ALBUTEROL HFA 8 GM INHALER INH SCH ×4 (07:28→20:59)
[2016-06-28 07:56] LABS: BUN/CREATININE RATIO 17.7 (10-20); CALCIUM 8.8 mg/dl (8.5-10.1); CREATININE 1.9 mg/dl (0.60-1.40); MAGNESIUM 2.4 mg/dl (1.8-2.4); POTASSIUM 3.6 mmol/L (3.5-5.1)
--- NOTE | 2016-06-28 09:14 | Orthopedic Progress Note ---
Orthopedic Progress Note Date of Service Jun 28, 2016. Subjective Post OP Day: 1 Reports: feeling well Additional Notes: Pleasantly confused. Denies pain this AM. Objective dressing C/D/I, toes mobile Date Time Temp Pulse Resp B/P Pulse Ox O2 Delivery O2 Flow Rate FiO2 06/28/16 08:00 Nasal Cannula 2.0 06/28/16 07:00 36.5 88 16 157/87 93 Room Air 06/28/16 03:47 37.1 93 20 159/81 90 Nasal Cannula 2.0 06/28/16 00:25 Nasal Cannula 2.0 06/27/16 22:32 36.7 84 20 157/82 95 Nasal Cannula 06/27/16 21:26 36.4 86 18 158/87 94 Nasal Cannula 06/27/16 20:22 36.6 85 18 157/80 96 Nasal Cannula 06/27/16 19:35 36.4 82 20 156/80 97 Nasal Cannula 06/27/16 19:00 Nasal Cannula 2.0 06/27/16 19:00 Nasal Cannula 2.0 06/27/16 19:00 36.6 85 16 156/81 92 Nasal Cannula 2.0 06/27/16 18:39 37.3 88 21 130/94 94 Nasal Cannula 2 06/27/16 18:35 87 21 177/89 93 Nasal Cannula 2 06/27/16 18:25 84 21 165/94 93 Nasal Cannula 2 06/27/16 18:15 87 21 157/96 92 Nasal Cannula 2 06/27/16 18:08 37.1 88 20 176/95 94 Room Air Laboratory Results 24 Hours: Test 06/28/16 06:20 Hematocrit 36.6 % Hemoglobin 12.6 g/dL Assessment & Plan Assessment: Gangrenous Left Great Toe s/p Left Great Toe Amputation. POD 1 Plan: Plan for dressing change tomorrow. May be OOB. WBAT on Heel only! If patient unable to maintain heel weightbearing only, would be better to remain NWB on the whole foot. Inhouse Planning Pain Management: Ultram, PO Tylenol DVT Prophylaxis: other (Plavix and Heparin SQ) Discharge Planning Discharge Planning: uncertain
[2016-06-28 15:08] VITALS: BP 146/75; PULSE 85; TEMP 36.3; O2SAT 97
[2016-06-28 16:00] VITALS: O2SAT 97
[2016-06-28 23:14] VITALS: BP 175/80; PULSE 75; TEMP 36.8; O2SAT 92
[2016-06-29] VITALS (14 sets, daily range): BP systolic 135–190; BP diastolic 51–97; PULSE 72–103; TEMP 35.2–36.5; O2SAT 93–98
[2016-06-29] MEDS: INSULIN HUMAN REGULAR SC SCH ×5 (00:10→21:42)
[2016-06-29] MEDS: HydrALAZINE HCL 20 MG/ML VIAL IV. PRN (00:50)
[2016-06-29] MEDS ORDERED: NURSING VERBAL MED ORDER ONE (03:15)
[2016-06-29] MEDS: PIPERACILL/TAZOBAC IV 3.375 GM in DEXTROSE 5% 100ML IV SCH ×3 (03:54→20:13)
[2016-06-29] MEDS: HEPARIN SOD 5000 UNIT/0.5 ML CARP SQ SCH ×3 (06:06→21:42)
[2016-06-29] MEDS: LEVOTHYROXINE 25 MCG TAB PO SCH (06:06)
[2016-06-29 06:52] LABS: HEMATOCRIT 36.8 % (42-52); MEAN CELL VOLUME 93.6 fL (80-100); MEAN CORPUSCULAR HEMOGLOBIN 32.3 pg (25-34); MEAN CORPUSCULAR HGB CONC 34.5 g/dl (32-36); MEAN PLATELET VOLUME 12.5 fL (7.4-10.4); PLATELET COUNT 327 K/uL (130-400); RED BLOOD COUNT 3.93 M/uL (4.7-6.1); WHITE BLOOD COUNT 16.94 K/uL (4.8-10.8)
[2016-06-29 07:19] LABS: BUN/CREATININE RATIO 18.5 (10-20); CALCIUM 8.9 mg/dl (8.5-10.1); MAGNESIUM 2.4 mg/dl (1.8-2.4); POTASSIUM 3.2 mmol/L (3.5-5.1)
[2016-06-29] MEDS: ALBUTEROL HFA 8 GM INHALER INH SCH ×4 (07:29→21:00)
[2016-06-29] MEDS: FINASTERIDE 5 MG TAB PO SCH (07:40)
[2016-06-29] MEDS: CHOLECALCIFEROL 1000 INTER.UNIT TAB PO SCH (07:40)
[2016-06-29] MEDS: ASPIRIN 81 MG ECTAB PO SCH (07:40)
[2016-06-29] MEDS: CYANOCOBALAMIN 500 MCG TAB (VIT B-12) PO SCH (07:40)
[2016-06-29] MEDS: ISOSORBIDE MONONITRATE 30 MG TABCR PO SCH (07:40)
[2016-06-29] MEDS: CLOPIDOGREL BISULFATE 75 MG TAB PO SCH (07:40)
[2016-06-29] MEDS: PAROXETINE 20 MG TAB PO SCH (07:40)
[2016-06-29] MEDS: METOPROLOL SUCC 50MG EXT REL TAB PO SCH (07:40)
--- NOTE | 2016-06-29 08:17 | DIAGNOSTIC IMAGING REPORT ---
CHEST ONE VIEW PORTABLE CLINICAL HISTORY: SOB dyspnea COMPARISON STUDY: 06/28/2016 FINDINGS: Similar study radiographically. Findings of pulmonary edema versus diffuse bilateral parenchymal infiltrative change. Prior median sternotomy.-The smooth. Slight blunting right lateral costophrenic angle. IMPRESSION: No change from the prior exam. Diffuse bilateral parenchymal infiltrative change versus asymmetric pulmonary edema Electronically signed by: Juan Ramon Aquino M.D. 06/29/2016 8:16 AM Dictated Date/Time: 06/29/2016 8:15 AM
[2016-06-29] MEDS: ALBUT/IPRATROP 3MG/0.5MG NEB 3 ML VIAL INH SCH ×4 (08:30→18:43)
--- NOTE | 2016-06-29 08:59 | Orthopedic Progress Note ---
Orthopedic Progress Note Date of Service Jun 29, 2016. Subjective Post OP Day: 2 Additional Notes: Pt had been moved to bed closer to nursing station. Nursing relates patient was much worse this AM with his breathing and affect. Spoke with Dr Ibrhaim. Likely he has aspirated some of his food. Being moved to PCU to watch more closely. Pt more somnolent this AM. Arouses with physical stimuli. Objective Dressing removed. Wound well approximated. No overt drainage. Mild erythema around the wound itself. Redressed. Date Time Temp Pulse Resp B/P Pulse Ox O2 Delivery O2 Flow Rate FiO2 06/29/16 08:34 103 22 93 Nasal Cannula 4.0 06/29/16 02:00 160/77 06/29/16 00:00 Room Air 06/28/16 23:14 36.8 75 18 175/80 92 Room Air 06/28/16 16:00 97 Room Air 06/28/16 15:08 36.3 85 16 146/75 97 Room Air Laboratory Results 24 Hours: Test 06/29/16 06:20 Hematocrit 36.8 % Hemoglobin 12.7 g/dL Assessment & Plan Assessment: Gangrenous Left Great Toe s/p Left Great Toe Amputation. POD 1 Plan: Plan for daily dressing changes. *May be OOB. WBAT on Heel only! If patient unable to maintain heel weightbearing only, would be better to remain NWB on the whole foot.* Being transferred to PCU today per Med Service Inhouse Planning Pain Management: Ultram, PO Tylenol DVT Prophylaxis: other (Plavix and Heparin SQ) Discharge Planning Discharge Planning: uncertain
--- NOTE | 2016-06-29 19:40 | Progress Note ---
Internal Med Progress Note Date of Service: Jun 28, 2016. late entry pt seen on 06/28/16 at 8 pm Provider Documentation: SUBJECTIVE: offers no complain no fever or chills , no complain of pain on left great toe amputation site no fever or chills pt started on mechanical soft diet earlier today after speech eval no aspiration noted by Nursing OBJECTIVE: Vital Signs-as noted below Exam: General-elderly male , no sign of discomfort Eyes-sclera non icteric ENT-dry oral mucosa, poor dentition Neck-no thyromegaly Lungs-diminished, with coarse rales Heart-regular Abdomen-soft, non tender Extremities-s/p left great toe amputation, bandage in place Neuro-baseline dementia, no focal deficit Lab data as noted below. ASSESSMENT & PLAN: Left Big Toe 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 of Peripheral Vascular Disease s/p left lower ext arteriogram and balloon angioplasty and stenting of left popliteal and superficial femoral arteries on 06/24 s/p left big toe amputation by Ortho POD # 1 Appreciate ID input - continue Zosyn Blood culture 06/20/16 + x1 for Citrobacter repeat blood cultures 06/21/16 : no growth Metabolic Encephalopathy, resolved due to infection /dehydration seems to be closer to baseline currently has underlying dementia Severe Cardiomyopathy and Chronic Systolic Dysfunction likely secondary to a recent NSTEMI - non-operable EF ~ 20%; last echo around 6-7 months prior caution with vol overload Cxray shows bilateral worsening of pulmonary edema /interstitial infiltrate given Lasix 20 mg X1 follow vol status Dysphagia /concern for aspiration : as per Nursing -pt found chocking on food /pills Cxray shows progression of diffuse bilat interstitial infiltrate on Zosyn speech eval appreciated mechanical soft diet with aspiration precaution Leukocytosis : concern for aspiration pneumonia aspiration precaution IV Zosyn follow daily CBC Hx. of Multiple CVA Head CT performed showing previous lacunar infarction continue ASA, Plavix HTN on hydralazine PO to 25mg TID continue b-mayra, Imdur CKD stage 3-4 creat seems to be at baseline of 1.9 estimated GFR ~ 30 DM2, diet controlled A1c = 7.2%, well controlled insulin sliding scale DVT ppx subq heparin DNR DISPOSITION to be determined PT/OT \ may need rehab Vital Signs: Date Time Temp Pulse Resp B/P Pulse Ox O2 Delivery O2 Flow Rate FiO2 06/29/16 18:43 94 16 97 Nasal Cannula 4.0 06/29/16 18:27 93 167/90 97 Nasal Cannula 4.0 Humidified Oxygen 06/29/16 16:59 Nasal Cannula 4.0 Humidified Oxygen 06/29/16 16:35 92 16 94 Nasal Cannula 4.0 06/29/16 15:26 35.2 75 22 135/81 98 Nasal Cannula 4.0 Humidified Oxygen 06/29/16 12:00 72 157/51 98 Nasal Cannula 4.0 06/29/16 11:53 92 16 94 Nasal Cannula 4.0 06/29/16 09:29 150/71 06/29/16 08:34 103 22 93 Nasal Cannula 4.0 06/29/16 08:00 97 Room Air 06/29/16 07:00 190/97 06/29/16 02:00 160/77 06/29/16 00:00 Room Air 06/28/16 23:14 36.8 75 18 175/80 92 Room Air Lab Results: Results Past 24 Hours Test 06/28/16 20:36 06/29/16 00:05 06/29/16 06:20 06/29/16 09:51 Range/Units Bedside Glucose 210 171 253 70-99 mg/dl White Blood Count 16.94 4.8-10.8 K/uL Red Blood Count 3.93 4.7-6.1 M/uL Hemoglobin 12.7 14.0-18.0 g/dL Hematocrit 36.8 42-52 % Mean Corpuscular Volume 93.6 80-100 fL Mean Corpuscular Hemoglobin 32.3 25-34 pg Mean Corpuscular Hemoglobin Concent 34.5 32-36 g/dl RDW Standard Deviation 47.7 36.4-46.3 fL RDW Coefficient of Variation 14.0 11.5-14.5 % Platelet Count 327 130-400 K/uL Mean Platelet Volume 12.5 7.4-10.4 fL Sodium Level 141 136-145 mmol/L Potassium Level 3.2 3.5-5.1 mmol/L Chloride Level 106 98-107 mmol/L Carbon Dioxide Level 19 21-32 mmol/L Anion Gap 16.0 3-11 mmol/L Blood Urea Nitrogen 37 7-18 mg/dl Creatinine 2.00 0.60-1.40 mg/dl Est Creatinine Clear Calc Drug Dose 26.2 ml/min Estimated GFR () 34.3 Estimated GFR (Non- 29.6 BUN/Creatinine Ratio 18.5 10-20 Random Glucose 172 70-99 mg/dl Calcium Level 8.9 8.5-10.1 mg/dl Magnesium Level 2.4 1.8-2.4 mg/dl Test 06/29/16 11:38 06/29/16 17:02 Range/Units Bedside Glucose 230 242 70-99 mg/dl
--- NOTE | 2016-06-29 19:48 | Progress Note ---
Internal Med Progress Note Date of Service: Jun 29, 2016. Provider Documentation: SUBJECTIVE: developed SOB , hypoxia this AM diffuse rales auscultate on all lungs field pt mentions of having shortness of breath concern for aspiration stat portable Cxray ordered speech pathology consulted to re evaluate pt OBJECTIVE: Vital Signs-as noted below Exam: General-elderly male , in respiratory distress Eyes-sclera non icteric ENT-dry oral mucosa, poor dentition Neck-no thyromegaly Lungs-coarse rales in all lung field Heart-regular Abdomen-soft, non tender Extremities-s/p left great toe amputation, bandage in place Neuro-baseline dementia, no focal deficit Lab data as noted below. ASSESSMENT & PLAN: Left Big Toe 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 of Peripheral Vascular Disease s/p left lower ext arteriogram and balloon angioplasty and stenting of left popliteal and superficial femoral arteries on 06/24 s/p left big toe amputation by Ortho POD # 2 appreciate ortho eval wt bearing as tolerated on left foot ,on heel only if pt unable to follow instruction will need to be Non wt bearing status on left lower ext given fall risk , dementia , severe PVD , poor wound healing -requiring wound care pt will benefit with rehab placement Appreciate ID input - continue Zosyn Blood culture 06/20/16 + x1 for Citrobacter repeat blood cultures 06/21/16 : no growth HYPOXIA /SOB developed this AM concerned for aspiration xray shows persistent bilat pulmonary congestion -unchanged form prior speech eval appreciated, pt able to tolerated mechanical soft food with out any overt sign of aspiration diet resumed scheduled for [facility]FSS tomorrow possible CHF decompensation with severe systolic dysfunction /cardiomyopathy \ ordered for 20 mg IV Lasix now repeat Cxray in AM Metabolic Encephalopathy, resolved due to infection /dehydration seems to be closer to baseline currently has underlying dementia Severe Cardiomyopathy and Chronic Systolic Dysfunction likely secondary to a recent NSTEMI - non-operable EF ~ 20%; last echo around 6-7 months prior caution with vol overload SOB /hypoxia possible CHF decompensation Lasix 20 mg X1 repeat Cxray in AM monitor vol status Dysphagia /concern for aspiration : as per Nursing -pt found chocking on food /pills Cxray shows progression of diffuse bilat interstitial infiltrate on Zosyn speech eval appreciated mechanical soft diet with aspiration precaution =resumed Video swallow eval in AM Leukocytosis : concern for aspiration pneumonia cont aspiration precaution IV Zosyn follow daily CBC Hx. of Multiple CVA Head CT performed showing previous lacunar infarction continue ASA, Plavix HTN on hydralazine PO to 25mg TID continue b-mayra, Imdur CKD stage 3-4 creat seems to be at baseline of 1.9 estimated GFR ~ 30 DM2, diet controlled A1c = 7.2%, well controlled insulin sliding scale DVT ppx subq heparin DNR DISPOSITION to be determined PT/OT \ may need rehab Vital Signs: Date Time Temp Pulse Resp B/P Pulse Ox O2 Delivery O2 Flow Rate FiO2 06/29/16 18:43 94 16 97 Nasal Cannula 4.0 06/29/16 18:27 93 167/90 97 Nasal Cannula 4.0 Humidified Oxygen 06/29/16 16:59 Nasal Cannula 4.0 Humidified Oxygen 06/29/16 16:35 92 16 94 Nasal Cannula 4.0 06/29/16 15:26 35.2 75 22 135/81 98 Nasal Cannula 4.0 Humidified Oxygen 06/29/16 12:00 72 157/51 98 Nasal Cannula 4.0 06/29/16 11:53 92 16 94 Nasal Cannula 4.0 06/29/16 09:29 150/71 06/29/16 08:34 103 22 93 Nasal Cannula 4.0 06/29/16 08:00 97 Room Air 06/29/16 07:00 190/97 06/29/16 02:00 160/77 06/29/16 00:00 Room Air 06/28/16 23:14 36.8 75 18 175/80 92 Room Air Lab Results: Results Past 24 Hours Test 06/28/16 20:36 06/29/16 00:05 06/29/16 06:20 06/29/16 09:51 Range/Units Bedside Glucose 210 171 253 70-99 mg/dl White Blood Count 16.94 4.8-10.8 K/uL Red Blood Count 3.93 4.7-6.1 M/uL Hemoglobin 12.7 14.0-18.0 g/dL Hematocrit 36.8 42-52 % Mean Corpuscular Volume 93.6 80-100 fL Mean Corpuscular Hemoglobin 32.3 25-34 pg Mean Corpuscular Hemoglobin Concent 34.5 32-36 g/dl RDW Standard Deviation 47.7 36.4-46.3 fL RDW Coefficient of Variation 14.0 11.5-14.5 % Platelet Count 327 130-400 K/uL Mean Platelet Volume 12.5 7.4-10.4 fL Sodium Level 141 136-145 mmol/L Potassium Level 3.2 3.5-5.1 mmol/L Chloride Level 106 98-107 mmol/L Carbon Dioxide Level 19 21-32 mmol/L Anion Gap 16.0 3-11 mmol/L Blood Urea Nitrogen 37 7-18 mg/dl Creatinine 2.00 0.60-1.40 mg/dl Est Creatinine Clear Calc Drug Dose 26.2 ml/min Estimated GFR () 34.3 Estimated GFR (Non- 29.6 BUN/Creatinine Ratio 18.5 10-20 Random Glucose 172 70-99 mg/dl Calcium Level 8.9 8.5-10.1 mg/dl Magnesium Level 2.4 1.8-2.4 mg/dl Test 06/29/16 11:38 06/29/16 17:02 Range/Units Bedside Glucose 230 242 70-99 mg/dl
[2016-06-29] MEDS ORDERED: FUROSEMIDE INJ 20 MG in SYRINGE 0 ML IV SCH (20:00)
[2016-06-30] VITALS (10 sets, daily range): BP systolic 113–144; BP diastolic 73–87; PULSE 80–122; TEMP 36.6–37; O2SAT 92–98
[2016-06-30] MEDS: PIPERACILL/TAZOBAC IV 3.375 GM in DEXTROSE 5% 100ML IV SCH ×3 (04:33→19:25)
[2016-06-30] MEDS: LEVOTHYROXINE 25 MCG TAB PO SCH (05:54)
[2016-06-30] MEDS: HEPARIN SOD 5000 UNIT/0.5 ML CARP SQ SCH (05:54)
[2016-06-30 06:55] LABS: HEMATOCRIT 34.7 % (42-52); MEAN CORPUSCULAR HEMOGLOBIN 31.6 pg (25-34); MEAN PLATELET VOLUME 12.4 fL (7.4-10.4); PLATELET COUNT 299 K/uL (130-400); RED BLOOD COUNT 3.73 M/uL (4.7-6.1); WHITE BLOOD COUNT 16.71 K/uL (4.8-10.8)
--- NOTE | 2016-06-30 07:23 | DIAGNOSTIC IMAGING REPORT ---
CHEST ONE VIEW PORTABLE CLINICAL HISTORY: CHF COMPARISON STUDY: 06/29/2016 FINDINGS: There are postsurgical changes of a midline sternotomy. The heart is enlarged. There are small bilateral pleural effusions. There is persistent but improving pulmonary vascular congestion. There are persistent but improving more focal right upper lobe airspace opacities.[ IMPRESSION: 1. Cardiomegaly, small bilateral pleural effusions, and mild improvement in the pulmonary vascular congestion 2. Slight improvement in the focal right upper lobe airspace opacity Electronically signed by: Liam Toledo M.D. 06/30/2016 7:22 AM Dictated Date/Time: 06/30/2016 7:21 AM
[2016-06-30 07:24] LABS: BUN/CREATININE RATIO 18.7 (10-20); CALCIUM 8.7 mg/dl (8.5-10.1); CREATININE 2.2 mg/dl (0.60-1.40); MAGNESIUM 2.2 mg/dl (1.8-2.4); POTASSIUM 2.8 mmol/L (3.5-5.1)
--- NOTE | 2016-06-30 07:31 | Orthopedic Progress Note ---
Orthopedic Progress Note Date of Service Jun 30, 2016. Subjective Post OP Day: 3 Reports: pain controlled w PO medications, Denies: complaints (States that he does not have pain in the left foot.) Objective calves soft nontender, N/V intact, incision C/D/I, A&O x3 Patient alert this AM sitting up in bed. Dressing in place and clean. Dressing changed today with adaptic cut to the size of the amputation flap. Amputation site is well approximated with minimal bloody drainage on the dressing. No erythema or streaking. Date Time Temp Pulse Resp B/P Pulse Ox O2 Delivery O2 Flow Rate FiO2 06/30/16 07:12 36.7 98 16 144/80 97 Nasal Cannula 4.0 06/30/16 00:15 Nasal Cannula 4.0 Humidified Oxygen 06/29/16 23:00 36.5 99 16 153/73 96 Nasal Cannula 4.0 Humidified Oxygen 06/29/16 21:01 156/83 06/29/16 20:09 136/70 06/29/16 18:43 94 16 97 Nasal Cannula 4.0 06/29/16 18:27 93 167/90 97 Nasal Cannula 4.0 Humidified Oxygen 06/29/16 16:59 Nasal Cannula 4.0 Humidified Oxygen 06/29/16 16:35 92 16 94 Nasal Cannula 4.0 06/29/16 15:26 35.2 75 22 135/81 98 Nasal Cannula 4.0 Humidified Oxygen 06/29/16 12:00 72 157/51 98 Nasal Cannula 4.0 06/29/16 11:53 92 16 94 Nasal Cannula 4.0 06/29/16 09:29 150/71 06/29/16 08:34 103 22 93 Nasal Cannula 4.0 06/29/16 08:00 97 Room Air Laboratory Results 24 Hours: Test 06/30/16 06:30 Hematocrit 34.7 % Hemoglobin 11.8 g/dL Assessment & Plan Assessment: POD #3 Left Foot Amputation of great toe; Resection Distal First Metatarsal Head Plan: Dressing changed today. Orthopedically stable. Will sign off at this time. If the patient is still inpatient at the end of the week, the dressing will be changed. If he is able to be discharged, he is to follow up with Dr. Kim's clinic on 07.08.16. Patient or facility will need to call to confirm time of appointment. *May be OOB. WBAT on Heel only! If patient unable to maintain heel weightbearing only, would be better to remain NWB on the whole foot.* Inhouse Planning Pain Management: Ultram, PO Tylenol DVT Prophylaxis: other (Plavix and Heparin SQ) Discharge Planning Discharge Planning: uncertain
--- NOTE | 2016-06-30 07:38 | Discharge Instructions ---
Discharge Instructions Admission Reason for Admission: Change In Mental State,Infected Left Great Toe Discharge Discharge Diagnosis / Problem: left great toe gangrene Discharge Goals Goal(s): Decrease discomfort, Improve function Activity Recommendations Activity Limitations: as noted below Lifting Limitations: until after follow-up appointment Exercise/Sports Limitations: until after follow-up appointment May Resume Sexual Activity: after follow-up appointment Shower/Bathe: keep incision dry (Keep dressing in place until follow up appointment once discharged.) Driving or Machine Use: When medicine doctors feel you are able. Weightbearing Status: Left partial (Heel weightbear only. If unable to heel weightbear, must remain non-weightbearing.) . Instructions / Follow-Up Instructions / Follow-Up ACTIVITY RECOMMENDATIONS: Limitations: Heel weight bearing only if able to tolerate. SPECIAL CARE INSTRUCTIONS: * Some drainage onto the dressing is normal and is no cause for alarm. * Some swelling is natural especially after walking. * When resting, keep your foot elevated above the level of your heart. * Call [facility] if you notice: -Increased drainage -Fever over 101 degrees F -Severe constant pain BANDAGE: * Leave bandage/cast in place unless otherwise directed. * Keep bandage/cast dry at all times. PIN CARE: * Leave pins alone. * If pins come loose or fall out, notify physician. FOLLOW UP VISIT WITH DR. CARRANZA If appointment is not already scheduled: [facility] [place] after you get home today to schedule a follow-up appointment for 07.08.[address] Carranza at . Time will need to be confirmed with call to the office. Current Hospital Diet Patient's current hospital diet: Diabetes Type 2 Diet, AHA Diet (Heart Healthy) Discharge Diet Recommended Diet: AHA Diet (Heart Healthy) Procedures Procedures Performed: Left Foot Amputation of great toe; Resection Distal First Metatarsal Head Pending Studies Studies pending at discharge: no Laboratory Results Hemoglobin A1c Test 06/21/16 05:23 Range/Units Estimated Average Glucose 160 mg/dl Hemoglobin A1c 7.2 H 4.5-5.6 % Lipid Panel Test 06/21/16 05:23 Range/Units Triglycerides Level 80 0-150 mg/dl Cholesterol Level 143 0-200 mg/dl HDL Cholesterol 38 mg/dl Cholesterol/HDL Ratio 3.8 LDL Cholesterol, Calculated 89 mg/dl Medical Emergencies . Who to Call and When: Medical Emergencies: If at any time you feel your situation is an emergency, please call 911 immediately. . Non-Emergent Contact Non-Emergency issues call your: Surgeon Call Non-Emergent contact if: temperature is above 101, your pain is not controlled, your pain is worsening, wound has increased drainage, wound has increased pain . "Provider Documentation" section prepared by Ramez Ji. VTE Core Measure Inpt VTE Proph given/why not?: Unfractionated heparin SQ
[2016-06-30] MEDS: ALBUT/IPRATROP 3MG/0.5MG NEB 3 ML VIAL INH SCH ×2 (08:04→11:44)
[2016-06-30] MEDS: ALBUTEROL HFA 8 GM INHALER INH SCH ×4 (08:08→19:24)
--- NOTE | 2016-06-30 08:20 | Anesthesiology Progress Note ---
Anesthesia Post Op Note Date & Time Jun 30, 2016 at 08:17 Vital Signs Pain Intensity: 0.0 Vital Signs Past 12 Hours Date Time Temp Pulse Resp B/P Pulse Ox O2 Delivery O2 Flow Rate FiO2 06/30/16 08:06 Nasal Cannula 4.0 06/30/16 08:04 94 16 92 Nasal Cannula 4.0 06/30/16 07:12 36.7 98 16 144/80 97 Nasal Cannula 4.0 06/30/16 00:15 Nasal Cannula 4.0 Humidified Oxygen 06/29/16 23:00 36.5 99 16 153/73 96 Nasal Cannula 4.0 Humidified Oxygen 06/29/16 21:01 156/83 Notes Mental Status: alert / awake / arousable, participated in evaluation, see Notes Pt Amnestic to Procedure: Yes Nausea / Vomiting: adequately controlled Pain: adequately controlled Airway Patency, RR, SpO2: stable & adequate BP & HR: stable & adequate Hydration State: stable & adequate Anesthetic Complications: no major complications apparent Pt. unable to participate in evaluation due to dementia
[2016-06-30] MEDS: PAROXETINE 20 MG TAB PO SCH (09:33)
[2016-06-30] MEDS: ASPIRIN 81 MG ECTAB PO SCH (09:33)
[2016-06-30] MEDS: METOPROLOL SUCC 50MG EXT REL TAB PO SCH (09:33)
[2016-06-30] MEDS: FINASTERIDE 5 MG TAB PO SCH (09:34)
[2016-06-30] MEDS: ISOSORBIDE MONONITRATE 30 MG TABCR PO SCH (09:34)
[2016-06-30] MEDS: CLOPIDOGREL BISULFATE 75 MG TAB PO SCH (09:34)
[2016-06-30] MEDS: CYANOCOBALAMIN 500 MCG TAB (VIT B-12) PO SCH (09:34)
[2016-06-30] MEDS: CHOLECALCIFEROL 1000 INTER.UNIT TAB PO SCH (09:35)
[2016-06-30] MEDS: INSULIN HUMAN REGULAR SC SCH ×3 (09:42→20:11)
[2016-06-30] MEDS ORDERED: POTASSIUM CHLR 10 MEQ / WTR 10 MEQ in PREMIXED WATER 100 ML IV SCH (10:30)
[2016-06-30] MEDS ORDERED: METOPROLOL TARTRATE 1 MG/ML VIAL IV PRN (10:45)
[2016-06-30] MEDS ORDERED: AMIODARONE IV BOLUS / DRIP IV STA (11:42)
[2016-06-30 11:44] LABS: CKMB/CK RATIO 1.8 (0-3.0)
[2016-06-30] MEDS ORDERED: HEPARIN IV LOW DOSE NO BOLUS SCH (12:00)
[2016-06-30] MEDS ORDERED: NURSING VERBAL MED ORDER ONE (12:00)
[2016-06-30] MEDS ORDERED: AMIODARONE / D5W 100 ML IV ONE (12:00)
[2016-06-30] MEDS ORDERED: AMIODARONE / D5W 200 ML IV SCH (12:00)
[2016-06-30] MEDS ORDERED: POTASSIUM CHLORIDE 10 MEQ TABCR PO ONE (12:15)
[2016-06-30] MEDS: HEPARIN 25,000 UNIT/500ML D5W 500 ML IV PRN ×2 (13:06→23:35)
[2016-06-30 13:12] LABS: EOS % 0.1 %; HEMATOCRIT 31.5 % (42-52); IG% 0.2 %; LYMPH % 3.3 %; LYMPH ABS # 0.55 K/uL (1.2-3.4); MEAN CELL VOLUME 90.3 fL (80-100); MEAN CORPUSCULAR HEMOGLOBIN 32.1 pg (25-34); MEAN PLATELET VOLUME 11.1 fL (7.4-10.4); MONO % 6.9 %; NEUT % 89.5 %; PLATELET COUNT 300 K/uL (130-400); RED BLOOD COUNT 3.49 M/uL (4.7-6.1); WHITE BLOOD COUNT 16.51 K/uL (4.8-10.8)
[2016-06-30 13:21] LABS: INR 1.1 (0.9-1.1); PARTIAL THROMBOPLASTIN RATIO 1.2; PROTHROMBIN TIME (PATIENT) 12.1 SECONDS (9.0-12.0)
[2016-06-30 13:32] LABS: COMPLETE YES; MEAN CORPUSCULAR HGB CONC 35.6 g/dl (32-36)
[2016-06-30] MEDS ORDERED: AMIODARONE 150MG / 100ML D5W ONE (14:34)
--- NOTE | 2016-06-30 15:24 | Cardiology Consultation ---
Cardiology Consultation Date of Consultation: Jun 30, 2016 History of Present Illness Addison Cuevas is an 86 year old male seen in cardiology consultation per the request of Dr Ibrahim for the evaluation of new onset atrial fibrillation with rapid ventricular rate. Patient is well known to our cardiology service having most recently been seen as an outpatient on 05/27/16 by Juan Ramon Alonzo PA-C. Patient was admitted to [facility] on 06/20/16 and was diagnosed with gangrene of the left great toe. He underwent angioplasty and stentin of the left popliteal and superficial femoral artery by Dr Romero on 06/24/16, but his infection persisted prompting toe / first metatarsal amputation on 06/27/16. Today pt was on the 3rd floor and on vital signs check tachycardia was discovered. EKG confirmed the presence of atrial fibrillation with RVR at 120 bpm with significant lateral [address] depression. Compared to EKG performed on 06/20/16, AF had replaced SR and the ST depression was new. Troponin has been resulted and is 2.74 ng/ml. Patient has since been transferred to PCU. He has baseline dementia. He has no cardiac complaints. He denies chest pain or shortness of breath. He explained to me that he recently had a toe operation , but had no other concerns. History Past Medical History: Coronary artery disease. Status post inferior wall AL. Status post CABG x 3 in 1988. Cardiac catheterization in February 1996 showed occlusion of all grafts, including left internal mammary artery. Status post redo CABG x 3 in June 2002, off-pump redo coronary artery bypass grafting times three with a right internal mammary artery to the left anterior descending, left radial artery from right internal mammary artery to posterior descending artery, and saphenous vein graft from ascending aorta to second obtuse marginal using a Symmetry proximal connector. Last cardiac catheterization occurred on November 04, 2015, demonstrating occlusion of all [place] vessels and occlusion of all grafts except for a single remaining graft - right internal mammary artery to the left anterior descending. There were no targets for percutaneous intervention or bypass. NSTEMI's in October 2015, November 2015, February 2016. Severe ischemic cardiomyopathy. EF 25%. Chart history of diastolic heart failure. Peripheral arterial disease, status post right lower extremity intervention in March 2014. Unknown AAA, previously followed by Dr. Nicole Hypertension Dyslipidemia Type II diabetes mellitus Stage 3 chronic kidney disease Carotid artery stenosis History of CVA Dementia, Alzheimer's type Depression Chronic tobacco abuse Left upper lobe pulmonary nodule BPH Hypothyroidism DNR/DNI Past Surgical History: as above, in addition to CABG on two occasions ,had angioplasty and stenting to the left popliteal and SFA this admission (06/20) and left great toe amputation ( 06/27/16) Review Of Systems unobtainable due to dementia Allergies Coded Allergies: Pravastatin (Verified Allergy, Mild, 06/20/16) Codeine (Verified Allergy, Unknown, 06/20/16) Morphine (Unverified Allergy, Unknown, UNKNOWN, 06/20/16) Statins (Unverified Allergy, Unknown, UNKNOWN, 06/20/16) Sulfa Antibiotics (Verified Allergy, Unknown, ., 06/20/16) Medications Reported Home Medications Medications Dose Route/Sig Max Daily Dose Days Date Category Dose Instructions Clopidogrel (Clopidogrel Bisulfate) 75 Mg Tab 75 Mg PO DAILY 06/20/16 Reported Paxil (Paroxetine HCl) 20 Mg Tab 10 Mg PO DAILY 06/20/16 Reported Proair Respiclick (Albuterol Sulfate) 108 Mcg/Act Aer 2 Puffs INH QID 06/20/16 Reported Toprol Xl (Metoprolol Succinate) 50 Mg Tab 50 Mg PO DAILY 06/20/16 Reported Aspirin Chewable (Aspirin) 81 Mg Chew 81 Mg PO DAILY 02/28/16 Reported Vitamin D3 (Cholecalciferol) 1,000 Unit Tab 1,000 Units PO DAILY 90 02/28/16 Reported Vitamin B-12 (Cyanocobalamin) 1,000 Mcg Tab 1,000 Mcg PO DAILY 02/28/16 Reported Ultram (Tramadol HCl) 50 Mg Tab 50 Mg PO Q4H PRN 02/28/16 Reported Furosemide 40 Mg Tab 40 Mg PO QAM 30 11/23/15 Rx Hydralazine HCl 10 Mg Tab 10 Mg PO TID 11/23/15 Rx Ipratropium [place] 0.5 Mg/2.5 Ml Nebu 0.5 Mg INH Q6R 30 11/23/15 Rx Isosorbide Mononitrate ER (Isosorbide Mononitrate) 30 Mg Tabcr 90 Mg PO DAILY 30 11/08/15 Rx Levothyroxine Sodium 25 Mcg Tab 25 Mcg PO DAILY 90 11/02/15 Reported Proscar (Finasteride) 5 Mg Tab 5 Mg PO DAILY 11/02/15 Reported Nitroglycerin Lingual (Nitroglycerin) 400 Mcg/[place] Aer 1 [place] UD PRN 05/10/13 Reported ONE SPRAY UNDER THE TONGUE EVERY 5 MINUTES X 3 NEEDED. Physical Exam Vital Signs (Last 8hrs): Last 8 Hrs Date Time Temp Pulse Resp B/P Pulse Ox O2 Delivery O2 Flow Rate FiO2 06/30/16 12:01 121 20 124/73 96 Nasal Cannula 4.0 06/30/16 12:00 92 Nasal Cannula 4.0 06/30/16 11:04 36.7 122 16 92 4.0 06/30/16 10:39 36.7 122 16 92 4.0 06/30/16 08:06 Nasal Cannula 4.0 06/30/16 08:04 94 16 92 Nasal Cannula 4.0 06/30/16 07:12 36.7 98 16 144/80 97 Nasal Cannula 4.0 General Appearance: awake, oriented to place Head: Normocephalic Atraumatic. Eyes: PERRLA, EOMI, conjunctiva and sclera clear Neck: Supple. No carotid bruits noted. No JVD. No HJD. Respiratory: Breath sounds clear to auscultation bilaterally. No w/r/r. Cardiovascular: tachycardic, irregular rhythm Abdomen: Normal bowel sounds, soft nontender. no abdominal bruits. Extremities: No edema Psychiatric: Normal affect. Data Last Resulted 06/30/16 13:00 Red Blood Count 3.49, Mean Corpuscular Volume 90.3, Mean Corpuscular Hemoglobin 32.1, Mean Corpuscular Hemoglobin Concent 35.6, Mean Platelet Volume 11.1, Neutrophils (%) (Auto) 89.5, Lymphocytes (%) (Auto) 3.3, Monocytes (%) (Auto) 6.9, Eosinophils (%) (Auto) 0.1, Basophils (%) (Auto) 0.0, Neutrophils # (Auto) 14.77, Lymphocytes # (Auto) 0.55, Monocytes # (Auto) 1.14, Eosinophils # (Auto) 0.01, Basophils # (Auto) 0.00 Past 24 Hours Test 06/30/16 10:59 06/30/16 13:00 Range/Units Creatine Kinase MB 7.0 H 0.5-3.6 ng/ml Creatine Kinase MB Ratio 1.8 0-3.0 Total Creatine Kinase 387 H 39-308 U/L Troponin I 2.740 *H 0-0.045 ng/ml Prothromb Time International Ratio 1.1 0.9-1.1 Prothrombin Time 12.1 H 9.0-12.0 SECONDS EKG:as per [facility] Telemetry reviewed: AF RVR 120 bpm Assessment & Plan Impression: 1. New Atrial fibrillation, RVR, NSTEMI due to supply demand mismatch, from tachycardia in setting of severe underlying CAD, severe ischemic CM 2. Chronic systolic heart failure, relatively well compensated at present 3. Left great toe gangrene, infection persisted after percutaneous revascularization, prompting surgical debridement / amputation 4. Dementia 5. Hypokalemia Plan: Start heparin for stroke prophylaxis. However likely is not a intermediate designer coumadin candidate. Start IV amiodarone. metoprolol 5 mg IV x 1 and PRN continue oral metoprolol. replace potassium, IV and oral. Repeat troponin tomorrow. Would like to spare phlebotomy to avoid decrease in Hgb. Repeat EKG tomorrow.
[2016-06-30 18:19] LABS: BUN/CREATININE RATIO 17.7 (10-20); CALCIUM 8.7 mg/dl (8.5-10.1); CKMB/CK RATIO 2.1 (0-3.0); CREATININE 2.7 mg/dl (0.60-1.40); MAGNESIUM 2.3 mg/dl (1.8-2.4)
--- NOTE | 2016-06-30 18:19 | Infectious Disease Progress Nt ---
Progress Note Date of Service Jun 30, 2016. Subjective Pt evaluation today including: conversation w/ patient, physical exam, chart review, lab review, review of studies, conversation w/ area development consultant, review of inpatient medication list Developed Afib with mildly increased troponin. Remains afebrile. All Other Systems: Reviewed and Negative Medications Current Inpatient Medications Medications (Trade) Dose Ordered Sig/Juan Route Start Time Stop Time Status Last Admin Dose Admin Acetaminophen (Tylenol Tab) 650 mg Q4H PRN PO 06/20/16 20:30 07/20/16 20:29 06/22/16 04:27 650 MG Al Hydrox/Mg Hydrox/Simethicone (Maalox Max Susp) 15 ml Q4H PRN PO 06/20/16 20:30 07/20/16 20:29 Magnesium Hydroxide (Milk Of Magnesia Susp) 30 ml Q12H PRN PO 06/20/16 20:30 07/20/16 20:29 Polyethylene (Miralax Powder Packet) 17 gm DAILY PRN PO 06/20/16 20:30 07/20/16 20:29 Piperacillin Sod/ Tazobactam Sod (Consult) 1 ea UD PRN N/A 06/20/16 20:45 07/20/16 20:44 Aspirin (Ecotrin Tab) 81 mg DAILY PO 06/21/16 09:00 07/21/16 08:59 06/30/16 09:33 81 MG Cholecalciferol (Vitamin D Tab) 1,000 inter.unit DAILY PO 06/21/16 09:00 07/21/16 08:59 06/30/16 09:35 1,000 INTER.UNIT Clopidogrel Bisulfate (plAVix TAB) 75 mg DAILY PO 06/21/16 09:00 07/21/16 08:59 06/30/16 09:34 75 MG Cyanocobalamin (Vitamin B-12 Tab) 1,000 mcg DAILY PO 06/21/16 09:00 07/21/16 08:59 06/30/16 09:34 1,000 MCG Finasteride (Proscar Tab) 5 mg DAILY PO 06/21/16 09:00 07/21/16 08:59 06/30/16 09:34 5 MG Isosorbide Mononitrate (Imdur Ext Rel Tab) 90 mg DAILY PO 06/21/16 09:00 07/21/16 08:59 06/30/16 09:34 90 MG Levothyroxine Sodium (Synthroid Tab) 25 mcg DAILYBB PO 06/21/16 06:00 07/21/16 06:59 06/30/16 05:54 25 MCG Metoprolol Succinate (Toprol Xl Tab) 50 mg DAILY PO 06/21/16 09:00 07/21/16 08:59 06/30/16 09:33 50 MG Albuterol (Ventolin Hfa Inhaler) 2 puffs QID INH 06/20/16 21:00 07/20/16 20:59 06/30/16 12:34 2 PUFFS Glucose (Glucose 40% Gel) 15-30 GRAMS 15 GRAMS... UD PRN PO 06/20/16 20:45 07/20/16 20:44 Glucose (Glucose Chew Tab) 4-8 Tablets 4 Tabl... UD PRN PO 06/20/16 20:45 07/20/16 20:44 Dextrose (Dextrose 50% 50ML Syringe) 25-50ML OF 50% DW IV FOR... UD PRN IV 06/20/16 20:45 07/20/16 20:44 Glucagon 1 mg 1 mg UD PRN SQ 06/20/16 20:45 07/20/16 20:44 Piperacillin Sod/ Tazobactam Sod/ Dextrose (Zosyn Iv/D5 100ml) 115 ml @ 28.75 mls/ hr Q8H IV 06/25/16 12:00 07/10/16 11:59 06/30/16 12:06 28.75 MLS/HR Hydralazine HCl (Apresoline Tab) 25 mg TID PO 06/25/16 14:00 07/25/16 13:59 06/30/16 15:52 25 MG Insulin Human Regular (novoLIN-R) SLIDING SCALE IF C... ACHS SC 06/29/16 08:00 07/29/16 07:59 06/30/16 18:10 3 UNITS Albuterol/ Ipratropium (Duoneb) 3 ml QIDR INH 06/29/16 08:30 07/29/16 08:29 06/30/16 08:04 3 ML Metoprolol Tartrate 5 mg 5 mg Q6 PRN IV 06/30/16 10:45 07/30/16 10:44 06/30/16 15:39 5 MG Amiodarone HCL/ Dextrose 200 ml @ 16.7 mls/hr [id number] IV 06/30/16 18:00 07/30/16 17:59 Heparin Sodium/ Dextrose (Heparin 25,000 Unit/500ml D5W) 500 ml @ 16 mls/hr Q24H PRN IV 06/30/16 12:45 07/30/16 12:44 06/30/16 13:06 16 MLS/HR Objective Vital Signs Date Time Temp Pulse Resp B/P Pulse Ox O2 Delivery O2 Flow Rate FiO2 06/30/16 17:53 Nasal Cannula 4.0 06/30/16 16:04 37.0 114 18 113/73 96 Nasal Cannula 4.0 06/30/16 15:39 121 124/73 06/30/16 12:01 121 20 124/73 96 Nasal Cannula 4.0 06/30/16 12:00 92 Nasal Cannula 4.0 06/30/16 11:04 36.7 122 16 92 4.0 06/30/16 10:39 36.7 122 16 92 4.0 06/30/16 08:06 Nasal Cannula 4.0 06/30/16 08:04 94 16 92 Nasal Cannula 4.0 06/30/16 07:12 36.7 98 16 144/80 97 Nasal Cannula 4.0 06/30/16 00:15 Nasal Cannula 4.0 Humidified Oxygen 06/29/16 23:00 36.5 99 16 153/73 96 Nasal Cannula 4.0 Humidified Oxygen 06/29/16 21:01 156/83 06/29/16 20:09 136/70 06/29/16 18:43 94 16 97 Nasal Cannula 4.0 06/29/16 18:27 93 167/90 97 Nasal Cannula 4.0 Humidified Oxygen Physical Exam General Appearance: WD/WN, no apparent distress Eyes: normal inspection, sclerae normal ENT: normal ENT inspection, pharynx normal Neck: supple, trachea midline Respiratory/Chest: chest non-tender, lungs clear, normal breath sounds, no respiratory distress Cardiovascular: no gallop, no murmur, + irregularly irregular Abdomen: normal bowel sounds, non tender, soft, no organomegaly Extremities: non-tender, no calf tenderness Neurologic/Psychiatric: alert, + disoriented Skin: normal color, no rash, + pertinent finding (dressing intact) Lymphatic: no adenopathy Laboratory Results Last 24 Hours Test 06/29/16 20:30 06/30/16 06:30 06/30/16 08:01 06/30/16 10:59 Bedside Glucose 194 mg/dl 159 mg/dl White Blood Count 16.71 K/uL Red Blood Count 3.73 M/uL Hemoglobin 11.8 g/dL Hematocrit 34.7 % Mean Corpuscular Volume 93.0 fL Mean Corpuscular Hemoglobin 31.6 pg Mean Corpuscular Hemoglobin Concent 34.0 g/dl RDW Standard Deviation 48.0 fL RDW Coefficient of Variation 14.1 % Platelet Count 299 K/uL Mean Platelet Volume 12.4 fL Sodium Level 143 mmol/L Potassium Level 2.8 mmol/L Chloride Level 106 mmol/L Carbon Dioxide Level 20 mmol/L Anion Gap 17.0 mmol/L Blood Urea Nitrogen 41 mg/dl Creatinine 2.20 mg/dl Est Creatinine Clear Calc Drug Dose 23.1 ml/min Estimated GFR () 30.5 Estimated GFR (Non- 26.3 BUN/Creatinine Ratio 18.7 Random Glucose 148 mg/dl Calcium Level 8.7 mg/dl Magnesium Level 2.2 mg/dl Total Creatine Kinase 387 U/L Creatine Kinase MB 7.0 ng/ml Creatine Kinase MB Ratio 1.8 Troponin I 2.740 ng/ml Test 06/30/16 11:54 06/30/16 13:00 06/30/16 16:25 06/30/16 16:35 Bedside Glucose 234 mg/dl 216 mg/dl White Blood Count 16.51 K/uL Red Blood Count 3.49 M/uL Hemoglobin 11.2 g/dL Hematocrit 31.5 % Mean Corpuscular Volume 90.3 fL Mean Corpuscular Hemoglobin 32.1 pg Mean Corpuscular Hemoglobin Concent 35.6 g/dl Platelet Count 300 K/uL Mean Platelet Volume 11.1 fL Neutrophils (%) (Auto) 89.5 % Lymphocytes (%) (Auto) 3.3 % Monocytes (%) (Auto) 6.9 % Eosinophils (%) (Auto) 0.1 % Basophils (%) (Auto) 0.0 % Neutrophils # (Auto) 14.77 K/uL Lymphocytes # (Auto) 0.55 K/uL Monocytes # (Auto) 1.14 K/uL Eosinophils # (Auto) 0.01 K/uL Basophils # (Auto) 0.00 K/uL RDW Standard Deviation 46.1 fL RDW Coefficient of Variation 14.1 % Immature Granulocyte % (Auto) 0.2 % Immature Granulocyte # (Auto) 0.04 K/uL Prothrombin Time 12.1 SECONDS Prothromb Time International Ratio 1.1 Activated Partial Thromboplast Time 30.3 SECONDS Partial Thromboplastin Ratio 1.2 Creatine Kinase MB Ratio Test 06/30/16 17:25 Assessment and Plan Citrobacter sepsis in the setting of gangrenous left toe with severe peripheral arterial disease. Now s/p revascularization and s/p toe amputation. Course now complicated by STEMI, Afib. For now, until patient stabilizes from cardiac standpoint would continue on current Abx. Will follow.
[2016-06-30 18:20] LABS: POTASSIUM 3.4 mmol/L (3.5-5.1)
[2016-06-30] MEDS ORDERED: POTASSIUM CHLORIDE 10 MEQ TABCR PO STA (19:29)
[2016-06-30 19:45] LABS: PARTIAL THROMBOPLASTIN RATIO 1.5
[2016-06-30] MEDS: AMIODARONE / D5W 200 ML IV SCH (20:19)
--- NOTE | 2016-06-30 22:34 | Progress Note ---
Internal Med Progress Note Date of Service: Jun 30, 2016. Provider Documentation: SUBJECTIVE: developed afib with RVR today pt remains asymptomatic baseline advanced dementia OBJECTIVE: Vital Signs-as noted below Exam: General-elderly male , no sign of distress Eyes-sclera non icteric ENT-dry oral mucosa, poor dentition Neck-no thyromegaly Lungs-coarse rales in all lung field Heart-irregular , rapid Abdomen-soft, non tender Extremities-s/p left great toe amputation, bandage in place Neuro-baseline dementia, no focal deficit Lab data as noted below. ASSESSMENT & PLAN: AFIB RVR : in a setting of severe cardiomyopathy , EF 20 % , PVD , gangrenous toe , PVD pt transferred to PCU started on IV Amiodarone gtt for rate controlled IV heparin gtt appreciate Cardiology eval NSTEMI: micheal > 4 in setting of Afib RVR , severe cardiomyopathy possible demand ischemia on IV heparin IV Amiodarone gtt for rate control iV Lopressor PRN HR > 100 given multiple co morbidities -medical management appropriate Left Big Toe 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 of Peripheral Vascular Disease s/p left lower ext arteriogram and balloon angioplasty and stenting of left popliteal and superficial femoral arteries on 06/24 s/p left big toe amputation by Ortho POD # 3 appreciate ortho eval wt bearing as tolerated on left foot ,on heel only if pt unable to follow instruction will need to be Non wt bearing status on left lower ext given fall risk , dementia , severe PVD , poor wound healing -requiring wound care pt will benefit with rehab placement Appreciate ID input - continue Zosyn Blood culture 06/20/16 + x1 for Citrobacter repeat blood cultures 06/21/16 : no growth HYPOXIA /SOB due to CHF decompensation improved after IV Lasix poor prognosis LOW k ; corrected need close monitoring of K , mg and rapid correction -given pt remains on amiodarone gtt cont tele monitoring Metabolic Encephalopathy, due to infection /dehydration seems to be closer to baseline currently has underlying dementia Severe Cardiomyopathy and Chronic Systolic Dysfunction likely secondary to a recent NSTEMI - non-operable EF ~ 20%; last echo around 6-7 months prior caution with vol overload SOB /hypoxia possible CHF decompensation monitor vol status closely Dysphagia /concern for aspiration : as per Nursing -pt found chocking on food /pills Cxray shows progression of diffuse bilat interstitial infiltrate on Zosyn speech eval appreciated mechanical soft diet with aspiration precaution =resumed Video swallow eval when HR improves Leukocytosis : concern for aspiration pneumonia cont aspiration precaution IV Zosyn follow daily CBC Hx. of Multiple CVA Head CT performed showing previous lacunar infarction continue ASA, Plavix HTN on hydralazine PO to 25mg TID continue b-mayra, Imdur CKD stage 3-4 creat seems to be at baseline of 1.9 estimated GFR ~ 30 DM2, diet controlled A1c = 7.2%, well controlled insulin sliding scale DVT ppx subq heparin DNR DISPOSITION to be determined PT/OT \ may need rehab Vital Signs: Date Time Temp Pulse Resp B/P Pulse Ox O2 Delivery O2 Flow Rate FiO2 06/30/16 21:00 94 16 92 Nasal Cannula 4.0 06/30/16 20:00 Nasal Cannula 4.0 06/30/16 18:53 36.6 94 21 125/87 98 Nasal Cannula 4.0 06/30/16 17:53 Nasal Cannula 4.0 06/30/16 16:04 37.0 114 18 113/73 96 Nasal Cannula 4.0 06/30/16 15:39 121 124/73 06/30/16 12:01 121 20 124/73 96 Nasal Cannula 4.0 06/30/16 12:00 92 Nasal Cannula 4.0 06/30/16 11:04 36.7 122 16 92 4.0 06/30/16 10:39 36.7 122 16 92 4.0 06/30/16 08:06 Nasal Cannula 4.0 06/30/16 08:04 94 16 92 Nasal Cannula 4.0 06/30/16 07:12 36.7 98 16 144/80 97 Nasal Cannula 4.0 06/30/16 00:15 Nasal Cannula 4.0 Humidified Oxygen Lab Results: Results Past 24 Hours Test 06/30/16 06:30 06/30/16 08:01 06/30/16 10:59 06/30/16 11:54 Range/Units White Blood Count 16.71 4.8-10.8 K/uL Red Blood Count 3.73 4.7-6.1 M/uL Hemoglobin 11.8 14.0-18.0 g/dL Hematocrit 34.7 42-52 % Mean Corpuscular Volume 93.0 80-100 fL Mean Corpuscular Hemoglobin 31.6 25-34 pg Mean Corpuscular Hemoglobin Concent 34.0 32-36 g/dl RDW Standard Deviation 48.0 36.4-46.3 fL RDW Coefficient of Variation 14.1 11.5-14.5 % Platelet Count 299 130-400 K/uL Mean Platelet Volume 12.4 7.4-10.4 fL Sodium Level 143 136-145 mmol/L Potassium Level 2.8 3.5-5.1 mmol/L Chloride Level 106 98-107 mmol/L Carbon Dioxide Level 20 21-32 mmol/L Anion Gap 17.0 3-11 mmol/L Blood Urea Nitrogen 41 7-18 mg/dl Creatinine 2.20 0.60-1.40 mg/dl Est Creatinine Clear Calc Drug Dose 23.1 ml/min Estimated GFR () 30.5 Estimated GFR (Non- 26.3 BUN/Creatinine Ratio 18.7 10-20 Random Glucose 148 70-99 mg/dl Calcium Level 8.7 8.5-10.1 mg/dl Magnesium Level 2.2 1.8-2.4 mg/dl Bedside Glucose 159 234 70-99 mg/dl Total Creatine Kinase 387 39-308 U/L Creatine Kinase MB 7.0 0.5-3.6 ng/ml Creatine Kinase MB Ratio 1.8 0-3.0 Troponin I 2.740 0-0.045 ng/ml Test 06/30/16 13:00 06/30/16 16:25 06/30/16 17:25 06/30/16 19:13 Range/Units White Blood Count 16.51 4.8-10.8 K/uL Red Blood Count 3.49 4.7-6.1 M/uL Hemoglobin 11.2 14.0-18.0 g/dL Hematocrit 31.5 42-52 % Mean Corpuscular Volume 90.3 80-100 fL Mean Corpuscular Hemoglobin 32.1 25-34 pg Mean Corpuscular Hemoglobin Concent 35.6 32-36 g/dl Platelet Count 300 130-400 K/uL Mean Platelet Volume 11.1 7.4-10.4 fL Neutrophils (%) (Auto) 89.5 % Lymphocytes (%) (Auto) 3.3 % Monocytes (%) (Auto) 6.9 % Eosinophils (%) (Auto) 0.1 % Basophils (%) (Auto) 0.0 % Neutrophils # (Auto) 14.77 1.4-6.5 K/uL Lymphocytes # (Auto) 0.55 1.2-3.4 K/uL Monocytes # (Auto) 1.14 0.11-0.59 K/uL Eosinophils # (Auto) 0.01 0-0.5 K/uL Basophils # (Auto) 0.00 0-0.2 K/uL RDW Standard Deviation 46.1 36.4-46.3 fL RDW Coefficient of Variation 14.1 11.5-14.5 % Immature Granulocyte % (Auto) 0.2 % Immature Granulocyte # (Auto) 0.04 0.00-0.02 K/uL Prothrombin Time 12.1 9.0-12.0 SECONDS Prothromb Time International Ratio 1.1 0.9-1.1 Activated Partial Thromboplast Time 30.3 39.0 21.0-31.0 SECONDS Partial Thromboplastin Ratio 1.2 1.5 Bedside Glucose 216 70-99 mg/dl Sodium Level 143 136-145 mmol/L Potassium Level 3.4 3.5-5.1 mmol/L Chloride Level 106 98-107 mmol/L Carbon Dioxide Level 22 21-32 mmol/L Anion Gap 15.0 3-11 mmol/L Blood Urea Nitrogen 48 7-18 mg/dl Creatinine 2.70 0.60-1.40 mg/dl Est Creatinine Clear Calc Drug Dose 18.8 ml/min Estimated GFR () 23.8 Estimated GFR (Non- 20.6 BUN/Creatinine Ratio 17.7 10-20 Random Glucose 172 70-99 mg/dl Calcium Level 8.7 8.5-10.1 mg/dl Magnesium Level 2.3 1.8-2.4 mg/dl Total Creatine Kinase 321 39-308 U/L Creatine Kinase MB 6.7 0.5-3.6 ng/ml Creatine Kinase MB Ratio 2.1 0-3.0 Troponin I 4.620 0-0.045 ng/ml Test 06/30/16 20:07 Range/Units Bedside Glucose 144 70-99 mg/dl
[2016-06-30] MEDS ORDERED: HEPARIN IV BOLUS 4,500 UNIT in SYRINGE 0 ML IV STA (23:22)
[2016-07-01] VITALS (12 sets, daily range): BP systolic 112–176; BP diastolic 70–83; PULSE 60–94; TEMP 36.3–36.7; O2SAT 90–99; Ht 182.9 cm; Wt 65.9 kg
[2016-07-01] MEDS: PIPERACILL/TAZOBAC IV 3.375 GM in DEXTROSE 5% 100ML IV SCH ×3 (04:52→19:29)
[2016-07-01] MEDS: LEVOTHYROXINE 25 MCG TAB PO SCH (05:38)
[2016-07-01 06:12] LABS: PARTIAL THROMBOPLASTIN RATIO 2.6
[2016-07-01] MEDS: ALBUT/IPRATROP 3MG/0.5MG NEB 3 ML VIAL INH SCH ×3 (06:16→20:00)
[2016-07-01 06:26] LABS: BUN/CREATININE RATIO 18.8 (10-20); CALCIUM 8.6 mg/dl (8.5-10.1); CREATININE 2.6 mg/dl (0.60-1.40); MAGNESIUM 2.4 mg/dl (1.8-2.4); POTASSIUM 3.8 mmol/L (3.5-5.1)
[2016-07-01 06:32] LABS: ARTERIAL BLOOD GAS BASE EXCESS -9.4 mEq/L (-9-1.8); ARTERIAL BLOOD GAS HCO3 17 mmol/L (19-24); ARTERIAL BLOOD GAS PO2 89 mm/Hg (80-95); ARTERIAL BLOOD GAS pH 7.28 (7.35-7.45)
[2016-07-01 06:33] LABS: ALLEN TEST POS (POS); O2 ADMINISTRATION 6L
[2016-07-01] MEDS ORDERED: INSULIN GLARGINE SOLOSTAR 100 UNITS/ML 3 ML PEN SC ONE (06:42)
[2016-07-01 06:45] LABS: HEMATOCRIT 34.9 % (42-52); MEAN CELL VOLUME 95.1 fL (80-100); MEAN CORPUSCULAR HEMOGLOBIN 32.7 pg (25-34); MEAN CORPUSCULAR HGB CONC 34.4 g/dl (32-36); MEAN PLATELET VOLUME 12.1 fL (7.4-10.4); PLATELET COUNT 322 K/uL (130-400); RED BLOOD COUNT 3.67 M/uL (4.7-6.1); WHITE BLOOD COUNT 16.65 K/uL (4.8-10.8)
[2016-07-01] MEDS ORDERED: METHYLPREDNISOLONE IV 20 MG in SYRINGE 0 ML IV STA (06:45)
[2016-07-01] MEDS ORDERED: LEVALBUTEROL 1.25MG/0.5ML NEB INH STA (06:50)
[2016-07-01] MEDS ORDERED: IPRATROPIUM BROMIDE NEB SOLN 0.02% 2.5 ML VIAL INH STA (06:50)
[2016-07-01] MEDS ORDERED: LEVALBUTEROL 1.25MG/0.5ML NEB INH PRN (07:00)
[2016-07-01] MEDS ORDERED: IPRATROPIUM BROMIDE NEB SOLN 0.02% 2.5 ML VIAL INH PRN (07:00)
[2016-07-01] MEDS: IPRATROPIUM BROMIDE NEB SOLN 0.02% 2.5 ML VIAL INH SCH ×3 (07:09→19:22)
[2016-07-01] MEDS: LEVALBUTEROL 1.25MG/0.5ML NEB INH SCH ×2 (07:09→19:22)
--- NOTE | 2016-07-01 07:31 | DIAGNOSTIC IMAGING REPORT ---
CHEST ONE VIEW PORTABLE CLINICAL HISTORY: Respiratory distress. COMPARISON STUDY: Chest radiograph June 30, 2016. FINDINGS: There are median sternotomy wires. Mediastinal surgical clips are noted. Mild cardiomegaly is unchanged. No pneumothorax is identified. There are suspected small bilateral pleural effusions. Diffuse interstitial thickening persists. Right upper lobe airspace opacity is slightly increased. IMPRESSION: 1. Increase in right upper lobe airspace opacity which could reflect pneumonia or asymmetric pulmonary edema. 2. Persistent interstitial thickening throughout the remainder of the lungs suggestive of pulmonary edema. Electronically signed by: Yusuf Jin M.D. 07/01/2016 7:29 AM Dictated Date/Time: 07/01/2016 7:27 AM
[2016-07-01] MEDS ORDERED: FUROSEMIDE INJ 80 MG in SYRINGE 0 ML IV ONE (08:15)
[2016-07-01] MEDS: ALBUTEROL HFA 8 GM INHALER INH SCH ×4 (08:29→19:27)
[2016-07-01] MEDS: METOPROLOL SUCC 50MG EXT REL TAB PO SCH (08:30)
[2016-07-01] MEDS: INSULIN HUMAN REGULAR SC SCH ×4 (08:38→21:00)
[2016-07-01] MEDS ORDERED: LEVALBUTEROL/IPRATROPIUM NEB INH SCH (09:00)
[2016-07-01] MEDS: FINASTERIDE 5 MG TAB PO SCH (09:29)
[2016-07-01] MEDS: CYANOCOBALAMIN 500 MCG TAB (VIT B-12) PO SCH (09:29)
[2016-07-01] MEDS: CHOLECALCIFEROL 1000 INTER.UNIT TAB PO SCH (09:30)
[2016-07-01] MEDS: ISOSORBIDE MONONITRATE 30 MG TABCR PO SCH (09:30)
[2016-07-01] MEDS: CLOPIDOGREL BISULFATE 75 MG TAB PO SCH (09:30)
[2016-07-01] MEDS: AMIODARONE / D5W 200 ML IV SCH (09:35)
--- NOTE | 2016-07-01 10:59 | Cardiology Follow-Up ---
Subjective General Date of Service: Jul 01, 2016. Chief Complaint: Cough Pt evaluation today including: conversation w/ patient, physical exam, chart review, lab review, review of studies, review of inpatient medication list History of Present Illness Patient seen and examined. Feels better today compared to yesterday + Cough. No chest pain. Stable dyspnea. Telemetry: Spontaneous conversion from atrial fibrillation back to sinus at 00: 11. Maintaining sinus since conversion. EKG this AM reveals NSR at [address]-T changes laterally. QTc: 481 ms. Allergies Coded Allergies: Pravastatin (Verified Allergy, Mild, 06/20/16) Codeine (Verified Allergy, Unknown, 06/20/16) Morphine (Unverified Allergy, Unknown, UNKNOWN, 06/20/16) Statins (Unverified Allergy, Unknown, UNKNOWN, 06/20/16) Sulfa Antibiotics (Verified Allergy, Unknown, ., 06/20/16) Social History Smoking Status: Former Smoker Hx Tobacco Use In Past Year?: Yes Hx Alcohol Use - Type And Amou: No Hx Substance Use - Type And Am: No Problem List Medical Problems: (1) Acute CHF Status: Acute (2) Acute congestive heart failure Status: Acute (3) Acute coronary syndrome Status: Acute (4) Altered mental status Status: Acute (5) Cellulitis of left foot Status: Acute (6) Diabetic ulcer of left great toe Status: Acute (7) Elevated troponin Status: Acute (8) Elevated troponin Status: Acute (9) Hypoxia Status: Acute (10) Hypoxia Status: Acute (11) Pneumonia Status: Acute (12) Pulmonary edema Status: Acute (13) Pulmonary edema Status: Acute (14) Renal failure Status: Acute Physical Exam Vital Signs Last Vital Signs Documentation Date Time Temp Pulse Resp B/P Pulse Ox O2 Delivery O2 Flow Rate FiO2 07/01/16 08:00 Nasal Cannula 4.0 07/01/16 07:07 36.7 79 22 148/78 92 Physical Exam Constitutional: General Apperance: too thin Level of Distress: NAD, chronically ill Psychiatric: Orientation: to place, to person, not oriented to time Memory: recent memory abnormal, remote memory abnormal Head: normocephalic, atraumatic Eyes: EOM: EOMI Neck: pertinent finding (No JVD) Lungs: Respiratory effort: no dyspnea Auscultation: deminished air movement, decreased breath sounds, wet rales/ crackles, rhonchi, rales/crackles on the right Cardiovascular: Apical Impulse: not displaced Heart Auscultation: RRR, II/ ANNETTE Peripheral Pulses: Bruits: none appreciated Carotid Pulse: normal on the left, normal on the right Radial Pulse: decreased on the left, decreased on the right Dorsalis Pedis Pulse: pertinent finding (dressing to the left lower extremity. no pulses appreciated) Abdomen: Bowel Sounds: normal Inspection & Palpation: soft, non-distended, no tenderness, guarding & rebound Extremities: no edema, no clubbing Neurologic: Cranial Nerves: grossly intact Assessment and Plan Assessment and Plan Admission on 06/20/2016 with confusion, metabolic encephalopathy secondary to a left great toe infection, gangrene, status post percutaneous revascularization followed by surgical debridement/amputation New onset symptomatic atrial fibrillation with a rapid ventricular response, resultant NSTEMI CHADS2 Score 6/6 Severe diffuse atherosclerosis. Severe end stage coronary artery disease not amendable to revascularization. Last cardiac catheterization occurred on November 04, 2015, demonstrating occlusion of all [place] vessels and occlusion of all grafts except for a single remaining graft - right internal mammary artery to the left anterior descending. There were no targets for percutaneous intervention or bypass. Severe ischemic cardiomyopathy, EF 25%. NYHA Class III+ congestive heart failure. Appears compensated currently Stage III-IV chronic kidney disease Hypertension Dyslipidemia Type II diabetes mellitus Dementia, Alzheimer's type RECOMMENDATIONS/PLAN: 48 hours of IV Heparin ? 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 Discontinue IV amiodarone Start oral amiodarone Check TSH. LFT's normal on 06/20/2016. EKG in AM. Continue Toprol XL, nitrates and hydralazine, ASA and Plavix Maintain electrolytes. CARDIOLOGY ATTENDING ADDENDUM: The patient was seen and personally examined. Agree with Juan Ramon Alonzo PA-C's findings and plans as documented above. Patient resting comfortably at time of my assessment. Telemetry reveals continued SR having converted in early am. Data: EKG this am reveals SR with marked inferior and lateral ST depression, compared to baseline outpt EKG dated 04/17/16, inferior and lateral ST depression noted then, but more prominent on the present tracing. Impression as above. Plan: transition to oral amiodarone. Continue heparin for now to complete 48 hour course. Although pt is at high risk of stroke, he has advanced cardiac disease and advanced dementia, not seems like hospice is appropriate rather than anticoagulation. Laboratory Results Last 24 Hours Test 06/30/16 10:59 06/30/16 11:54 06/30/16 13:00 06/30/16 16:25 Total Creatine Kinase 387 U/L Creatine Kinase MB 7.0 ng/ml Creatine Kinase MB Ratio 1.8 Troponin I 2.740 ng/ml Bedside Glucose 234 mg/dl 216 mg/dl White Blood Count 16.51 K/uL Red Blood Count 3.49 M/uL Hemoglobin 11.2 g/dL Hematocrit 31.5 % Mean Corpuscular Volume 90.3 fL Mean Corpuscular Hemoglobin 32.1 pg Mean Corpuscular Hemoglobin Concent 35.6 g/dl Platelet Count 300 K/uL Mean Platelet Volume 11.1 fL Neutrophils (%) (Auto) 89.5 % Lymphocytes (%) (Auto) 3.3 % Monocytes (%) (Auto) 6.9 % Eosinophils (%) (Auto) 0.1 % Basophils (%) (Auto) 0.0 % Neutrophils # (Auto) 14.77 K/uL Lymphocytes # (Auto) 0.55 K/uL Monocytes # (Auto) 1.14 K/uL Eosinophils # (Auto) 0.01 K/uL Basophils # (Auto) 0.00 K/uL RDW Standard Deviation 46.1 fL RDW Coefficient of Variation 14.1 % Immature Granulocyte % (Auto) 0.2 % Immature Granulocyte # (Auto) 0.04 K/uL Prothrombin Time 12.1 SECONDS Prothromb Time International Ratio 1.1 Activated Partial Thromboplast Time 30.3 SECONDS Partial Thromboplastin Ratio 1.2 Test 06/30/16 17:25 06/30/16 19:13 06/30/16 20:07 07/01/16 05:40 Sodium Level 143 mmol/L 140 mmol/L Potassium Level 3.4 mmol/L 3.8 mmol/L Chloride Level 106 mmol/L 105 mmol/L Carbon Dioxide Level 22 mmol/L 19 mmol/L Anion Gap 15.0 mmol/L 16.0 mmol/L Blood Urea Nitrogen 48 mg/dl 49 mg/dl Creatinine 2.70 mg/dl 2.60 mg/dl Est Creatinine Clear Calc Drug Dose 18.8 ml/min 19.9 ml/min Estimated GFR () 23.8 24.9 Estimated GFR (Non- 20.6 21.5 BUN/Creatinine Ratio 17.7 18.8 Random Glucose 172 mg/dl 197 mg/dl Calcium Level 8.7 mg/dl 8.6 mg/dl Magnesium Level 2.3 mg/dl 2.4 mg/dl Total Creatine Kinase 321 U/L Creatine Kinase MB 6.7 ng/ml Creatine Kinase MB Ratio 2.1 Troponin I 4.620 ng/ml Activated Partial Thromboplast Time 39.0 SECONDS 67.8 SECONDS Partial Thromboplastin Ratio 1.5 2.6 Bedside Glucose 144 mg/dl White Blood Count 16.65 K/uL Red Blood Count 3.67 M/uL Hemoglobin 12.0 g/dL Hematocrit 34.9 % Mean Corpuscular Volume 95.1 fL Mean Corpuscular Hemoglobin 32.7 pg Mean Corpuscular Hemoglobin Concent 34.4 g/dl RDW Standard Deviation 50.2 fL RDW Coefficient of Variation 14.6 % Platelet Count 322 K/uL Mean Platelet Volume 12.1 fL Test 07/01/16 06:25 07/01/16 06:27 Arterial Blood pH 7.28 Arterial Blood Partial Pressure CO2 36 mmHg Arterial Blood Partial Pressure O2 89 mm/Hg Arterial Blood HCO3 17 mmol/L Arterial Blood Oxygen Saturation 95.0 % Arterial Blood Base Excess -9.4 mEq/L Arterial Blood Gas Delivery 6L Will Test POS Bedside Glucose 308 mg/dl
[2016-07-01] MEDS: ASPIRIN 81 MG ECTAB PO SCH (11:02)
[2016-07-01 12:23] LABS: THYROID STIMULATING HORMONE 3.52 uIu/ml (0.300-4.500)
[2016-07-01] MEDS: AMIODARONE 200 MG TAB PO SCH ×2 (14:02→19:28)
--- NOTE | 2016-07-01 14:14 | DIAGNOSTIC IMAGING REPORT ---
MODIFIED BARIUM SWALLOW CLINICAL HISTORY: Frequent changes in respiratory status. COMPARISON STUDY: Modified barium swallow February 29, 2016. FLUOROSCOPY TIME: 2.8 minutes. FINDINGS: Multiple episodes of tracheal aspiration were noted with swallows of thin liquids, swallows of nectar thick liquids as well as crackers with paste. There is premature spillage. Residuals were noted. No aspiration was identified with pudding or honey thickened liquids. IMPRESSION: 1. Multiple episodes of tracheal aspiration with thin liquids, nectar thick liquids and crackers with paste. No aspiration with honey thick liquids or pudding consistencies. 2. Full recommendations by speech pathology to follow. Electronically signed by: Yusuf Jin M.D. 07/01/2016 2:13 PM Dictated Date/Time: 07/01/2016 2:10 PM
[2016-07-01] MEDS ORDERED: PERFLUTREN LIPID MICROSPHERE (DEFINITY) IV ONE (14:32)
[2016-07-01] MEDS: HEPARIN 25,000 UNIT/500ML D5W 500 ML IV PRN (17:29)
--- NOTE | 2016-07-01 19:08 | Progress Note ---
Subjective Date of Service: Jul 01, 2016. Subjective Pt evaluation today including: conversation w/ patient, physical exam, lab review, review of studies, conversation w/ railroad design consultant, review of inpatient medication list Saw/examined the patient in room 229 Doing well Mild dementia, but answering questions appropriately No complaints at this time Problem List Medical Problems: (1) Acute CHF Status: Acute (2) Acute congestive heart failure Status: Acute (3) Acute coronary syndrome Status: Acute (4) Altered mental status Status: Acute (5) Cellulitis of left foot Status: Acute (6) Diabetic ulcer of left great toe Status: Acute (7) Elevated troponin Status: Acute (8) Elevated troponin Status: Acute (9) Hypoxia Status: Acute (10) Hypoxia Status: Acute (11) Pneumonia Status: Acute (12) Pulmonary edema Status: Acute (13) Pulmonary edema Status: Acute (14) Renal failure Status: Acute Review of Systems No complaints - mild underlying dementia Medications Current Inpatient Medications Medications (Trade) Dose Ordered Sig/Juan Route Start Time Stop Time Status Last Admin Dose Admin Acetaminophen (Tylenol Tab) 650 mg Q4H PRN PO 06/20/16 20:30 07/20/16 20:29 06/22/16 04:27 650 MG Al Hydrox/Mg Hydrox/Simethicone (Maalox Max Susp) 15 ml Q4H PRN PO 06/20/16 20:30 07/20/16 20:29 Magnesium Hydroxide (Milk Of Magnesia Susp) 30 ml Q12H PRN PO 06/20/16 20:30 07/20/16 20:29 Polyethylene (Miralax Powder Packet) 17 gm DAILY PRN PO 06/20/16 20:30 07/20/16 20:29 Piperacillin Sod/ Tazobactam Sod (Consult) 1 ea UD PRN N/A 06/20/16 20:45 07/20/16 20:44 Aspirin (Ecotrin Tab) 81 mg DAILY PO 06/21/16 09:00 07/21/16 08:59 07/01/16 11:02 81 MG Cholecalciferol (Vitamin D Tab) 1,000 inter.unit DAILY PO 06/21/16 09:00 07/21/16 08:59 07/01/16 09:30 1,000 INTER.UNIT Clopidogrel Bisulfate (plAVix TAB) 75 mg DAILY PO 06/21/16 09:00 07/21/16 08:59 07/01/16 09:30 75 MG Cyanocobalamin (Vitamin B-12 Tab) 1,000 mcg DAILY PO 06/21/16 09:00 07/21/16 08:59 07/01/16 09:29 1,000 MCG Finasteride (Proscar Tab) 5 mg DAILY PO 06/21/16 09:00 07/21/16 08:59 07/01/16 09:29 5 MG Isosorbide Mononitrate (Imdur Ext Rel Tab) 90 mg DAILY PO 06/21/16 09:00 07/21/16 08:59 07/01/16 09:30 90 MG Levothyroxine Sodium (Synthroid Tab) 25 mcg DAILYBB PO 06/21/16 06:00 07/21/16 06:59 07/01/16 05:38 25 MCG Metoprolol Succinate (Toprol Xl Tab) 50 mg DAILY PO 06/21/16 09:00 07/21/16 08:59 07/01/16 08:30 50 MG Albuterol (Ventolin Hfa Inhaler) 2 puffs QID INH 06/20/16 21:00 07/20/16 20:59 07/01/16 17:20 2 PUFFS Glucose (Glucose 40% Gel) 15-30 GRAMS 15 GRAMS... UD PRN PO 06/20/16 20:45 07/20/16 20:44 Glucose (Glucose Chew Tab) 4-8 Tablets 4 Tabl... UD PRN PO 06/20/16 20:45 07/20/16 20:44 Dextrose (Dextrose 50% 50ML Syringe) 25-50ML OF 50% DW IV FOR... UD PRN IV 06/20/16 20:45 07/20/16 20:44 Glucagon 1 mg 1 mg UD PRN SQ 06/20/16 20:45 07/20/16 20:44 Piperacillin Sod/ Tazobactam Sod/ Dextrose (Zosyn Iv/D5 100ml) 115 ml @ 28.75 mls/ hr Q8H IV 06/25/16 12:00 07/10/16 11:59 07/01/16 12:08 28.75 MLS/HR Hydralazine HCl (Apresoline Tab) 25 mg TID PO 2/15/17 14:00 07/25/16 13:59 07/01/16 14:02 25 MG Insulin Human Regular (novoLIN-R) SLIDING SCALE IF C... ACHS SC 06/29/16 08:00 07/29/16 07:59 07/01/16 17:23 4 UNITS Albuterol/ Ipratropium (Duoneb) 3 ml QIDR INH 06/29/16 08:30 07/29/16 08:29 07/01/16 12:16 3 ML Metoprolol Tartrate 5 mg 5 mg Q6 PRN IV 06/30/16 10:45 07/30/16 10:44 06/30/16 15:39 5 MG Heparin Sodium/ Dextrose (Heparin 25,000 Unit/500ml D5W) 500 ml @ 19 mls/hr Q24H PRN IV 06/30/16 12:45 07/30/16 12:44 07/01/16 17:29 19 MLS/HR Insulin Glargine (Lantus Solostar Pen) 5 unit DAILY SC 07/02/16 09:00 08/01/16 08:59 Ipratropium [place] (Atrovent 0.02% 0.5MG/2.5ML Neb) 0.5 mg Q6R INH 07/01/16 09:00 07/31/16 08:59 07/01/16 07:58 0.5 MG Levalbuterol (Xopenex 1.25MG/ 0.5ML Neb) 1.25 mg Q6R INH 07/01/16 09:00 07/31/16 08:59 07/01/16 07:09 1.25 MG Ipratropium [place] (Atrovent 0.02% 0.5MG/2.5ML Neb) 0.5 mg Q4H PRN INH 07/01/16 07:00 07/31/16 06:59 Levalbuterol (Xopenex 1.25MG/ 0.5ML Neb) 1.25 mg Q4H PRN INH 07/01/16 07:00 07/31/16 06:59 Amiodarone HCl (Cordarone Tab) 400 mg TID PO 07/01/16 14:00 07/31/16 13:59 07/01/16 14:02 400 MG Objective Vital Signs Date Time Temp Pulse Resp B/P Pulse Ox O2 Delivery O2 Flow Rate FiO2 07/01/16 15:41 Nasal Cannula 4.0 07/01/16 15:33 36.5 75 20 139/74 98 Nasal Cannula 2.0 07/01/16 12:04 36.4 77 20 128/73 92 Nasal Cannula 2.0 07/01/16 12:02 79 20 98 Nasal Cannula 4.0 07/01/16 12:00 Nasal Cannula 4.0 07/01/16 08:00 Nasal Cannula 4.0 07/01/16 07:07 36.7 79 22 148/78 92 Nasal Cannula 4.0 07/01/16 07:05 71 20 90 Nasal Cannula 4.0 07/01/16 06:24 94 28 176/83 91 Nasal Cannula 6.0 07/01/16 06:16 92 28 96 Nasal Cannula 4.0 07/01/16 04:00 Nasal Cannula 4.0 07/01/16 03:48 36.7 82 18 112/70 98 Nasal Cannula 2.0 07/01/16 00:00 Nasal Cannula 4.0 06/30/16 23:39 36.7 80 19 116/76 98 Nasal Cannula 2.0 06/30/16 21:00 94 16 92 Nasal Cannula 4.0 06/30/16 20:00 Nasal Cannula 4.0 Physical Exam General Appearance: no apparent distress, + pertinent finding (underlying dementia noted) Respiratory/Chest: lungs clear, normal breath sounds, no respiratory distress, no accessory muscle use Cardiovascular: regular rate, rhythm, no edema, no murmur Abdomen: normal bowel sounds, non tender, soft Extremities: normal inspection, no pedal edema, + pertinent finding (+left big toe amputation) Laboratory Results Last 24 Hours Test 06/30/16 19:13 06/30/16 20:07 07/01/16 05:40 07/01/16 06:25 Activated Partial Thromboplast Time 39.0 SECONDS 67.8 SECONDS Partial Thromboplastin Ratio 1.5 2.6 Bedside Glucose 144 mg/dl White Blood Count 16.65 K/uL Red Blood Count 3.67 M/uL Hemoglobin 12.0 g/dL Hematocrit 34.9 % Mean Corpuscular Volume 95.1 fL Mean Corpuscular Hemoglobin 32.7 pg Mean Corpuscular Hemoglobin Concent 34.4 g/dl RDW Standard Deviation 50.2 fL RDW Coefficient of Variation 14.6 % Platelet Count 322 K/uL Mean Platelet Volume 12.1 fL Sodium Level 140 mmol/L Potassium Level 3.8 mmol/L Chloride Level 105 mmol/L Carbon Dioxide Level 19 mmol/L Anion Gap 16.0 mmol/L Blood Urea Nitrogen 49 mg/dl Creatinine 2.60 mg/dl Est Creatinine Clear Calc Drug Dose 19.9 ml/min Estimated GFR () 24.9 Estimated GFR (Non- 21.5 BUN/Creatinine Ratio 18.8 Random Glucose 197 mg/dl Calcium Level 8.6 mg/dl Magnesium Level 2.4 mg/dl Arterial Blood pH 7.28 Arterial Blood Partial Pressure CO2 36 mmHg Arterial Blood Partial Pressure O2 89 mm/Hg Arterial Blood HCO3 17 mmol/L Arterial Blood Oxygen Saturation 95.0 % Arterial Blood Base Excess -9.4 mEq/L Arterial Blood Gas Delivery 6L Will Test POS Test 07/01/16 06:27 07/01/16 11:33 07/01/16 11:36 07/01/16 16:02 Bedside Glucose 308 mg/dl 197 mg/dl 198 mg/dl Thyroid Stimulating Hormone (TSH) 3.520 uIu/ml Free Thyroxine 1.20 ng/dl Assessment and Plan This is an 86 year old male with PMH of severe peripheral vascular disease with previous stenting of left common iliac, severe ischemic cardiomyopathy, chronic systolic heart failure with EF ~ 20%, recent NSTEMI, DM2, HTN, CKD stage 3, dementia Metabolic Encephalopathy, resolved seems to be closer to baseline currently has underlying dementia likely infectious process causing it, continue antibiotics Left Big Toe 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 of Peripheral Vascular Disease 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 Doing well post-operatively pain controlled 06/26 s/p stenting due to PAD plan for left big toe amputation on 06/27 06/25 s/p stenting x 2 of the left LE Plan is to continue Zosyn at this time continue aspirin/Plavix for the arterial disease and stenting appreciate vascular, ID input Ortho recommendations to follow for possible amputation 06/24 patient has known severe vascular disease; previous stenting of left common iliac Left LE U/S suggestive of multiple stenotic vessels Left Foot X-ray - no osteomyelitis Vascular surgery consulted - appreciate input and management Stenting of the left popliteal and superficial femoral arteries - 2/14 will need to continue dual antiplatelet therapy Appreciate orthopedic evaluation - possible amputation of the left big toe Appreciate ID input - continue Zosyn for now Blood culture + x1 for Citrobacter Additional cultures pending New Onset A. Fib with RVR appreciate cardiology input will do 48 hours of IV heparin IV amio changed to oral amiodarone TSH wnl NSTEMI type II secondary to atrial fibrillation with RVR troponin elevation noted IV heparin started b-mayra Aspiration video swallow performed appreciate speech/swallow input honey thick liquids, pureed solids aspiration precautions Severe Cardiomyopathy and Chronic Systolic Dysfunction likely secondary to a recent NSTEMI - non-operable EF ~ 20%; last echo around 6-7 months prior Hx. of Multiple CVA Head CT performed showing previous lacunar infarction continue ASA, Plavix will need tighter blood pressure control HTN 06/25 increased dose of hydralazine PO to 25mg TID 06/24 BP is uncontrolled today (06/24) extra dose of hydralazine given continue b-mayra, hydralazine, Imdur at this time CKD stage 3-4 creat seems to be at baseline of 1.9 estimated GFR ~ 30 DM2, diet controlled A1c = 7.2%, well controlled insulin sliding scale DVT ppx subq heparin DNR
--- NOTE | 2016-07-01 19:28 | Infectious Disease Progress Nt ---
Progress Note Date of Service Jul 01, 2016. Subjective Pt evaluation today including: conversation w/ patient, physical exam, chart review, lab review, review of studies, conversation w/ infrastructure consultant, review of inpatient medication list patient appears unchanged. Hemodynamically stable overnight. Palliative care consultation pending. All Other Systems: Reviewed and Negative Medications Current Inpatient Medications Medications (Trade) Dose Ordered Sig/Juan Route Start Time Stop Time Status Last Admin Dose Admin Acetaminophen (Tylenol Tab) 650 mg Q4H PRN PO 06/20/16 20:30 07/20/16 20:29 06/22/16 04:27 650 MG Al Hydrox/Mg Hydrox/Simethicone (Maalox Max Susp) 15 ml Q4H PRN PO 06/20/16 20:30 07/20/16 20:29 Magnesium Hydroxide (Milk Of Magnesia Susp) 30 ml Q12H PRN PO 06/20/16 20:30 07/20/16 20:29 Polyethylene (Miralax Powder Packet) 17 gm DAILY PRN PO 06/20/16 20:30 07/20/16 20:29 Piperacillin Sod/ Tazobactam Sod (Consult) 1 ea UD PRN N/A 06/20/16 20:45 07/20/16 20:44 Aspirin (Ecotrin Tab) 81 mg DAILY PO 06/21/16 09:00 07/21/16 08:59 07/01/16 11:02 81 MG Cholecalciferol (Vitamin D Tab) 1,000 inter.unit DAILY PO 06/21/16 09:00 07/21/16 08:59 07/01/16 09:30 1,000 INTER.UNIT Clopidogrel Bisulfate (plAVix TAB) 75 mg DAILY PO 06/21/16 09:00 07/21/16 08:59 07/01/16 09:30 75 MG Cyanocobalamin (Vitamin B-12 Tab) 1,000 mcg DAILY PO 06/21/16 09:00 07/21/16 08:59 07/01/16 09:29 1,000 MCG Finasteride (Proscar Tab) 5 mg DAILY PO 06/21/16 09:00 07/21/16 08:59 07/01/16 09:29 5 MG Isosorbide Mononitrate (Imdur Ext Rel Tab) 90 mg DAILY PO 06/21/16 09:00 07/21/16 08:59 2/21/17 09:30 90 MG Levothyroxine Sodium (Synthroid Tab) 25 mcg DAILYBB PO 06/21/16 06:00 07/21/16 06:59 07/01/16 05:38 25 MCG Metoprolol Succinate (Toprol Xl Tab) 50 mg DAILY PO 06/21/16 09:00 07/21/16 08:59 07/01/16 08:30 50 MG Albuterol (Ventolin Hfa Inhaler) 2 puffs QID INH 06/20/16 21:00 07/20/16 20:59 07/01/16 17:20 2 PUFFS Glucose (Glucose 40% Gel) 15-30 GRAMS 15 GRAMS... UD PRN PO 06/20/16 20:45 07/20/16 20:44 Glucose (Glucose Chew Tab) 4-8 Tablets 4 Tabl... UD PRN PO 06/20/16 20:45 07/20/16 20:44 Dextrose (Dextrose 50% 50ML Syringe) 25-50ML OF 50% DW IV FOR... UD PRN IV 06/20/16 20:45 07/20/16 20:44 Glucagon 1 mg 1 mg UD PRN SQ 06/20/16 20:45 07/20/16 20:44 Piperacillin Sod/ Tazobactam Sod/ Dextrose (Zosyn Iv/D5 100ml) 115 ml @ 28.75 mls/ hr Q8H IV 06/25/16 12:00 07/10/16 11:59 07/01/16 12:08 28.75 MLS/HR Hydralazine HCl (Apresoline Tab) 25 mg TID PO 06/25/16 14:00 07/25/16 13:59 07/01/16 14:02 25 MG Insulin Human Regular (novoLIN-R) SLIDING SCALE IF C... ACHS SC 06/29/16 08:00 07/29/16 07:59 07/01/16 17:23 4 UNITS Albuterol/ Ipratropium (Duoneb) 3 ml QIDR INH 06/29/16 08:30 07/29/16 08:29 07/01/16 12:16 3 ML Metoprolol Tartrate 5 mg 5 mg Q6 PRN IV 06/30/16 10:45 07/30/16 10:44 06/30/16 15:39 5 MG Heparin Sodium/ Dextrose (Heparin 25,000 Unit/500ml D5W) 500 ml @ 19 mls/hr Q24H PRN IV 06/30/16 12:45 07/30/16 12:44 07/01/16 17:29 19 MLS/HR Insulin Glargine (Lantus Solostar Pen) 5 unit DAILY SC 07/02/16 09:00 08/01/16 08:59 Ipratropium [place] (Atrovent 0.02% 0.5MG/2.5ML Neb) 0.5 mg Q6R INH 07/01/16 09:00 07/31/16 08:59 07/01/16 07:58 0.5 MG Levalbuterol (Xopenex 1.25MG/ 0.5ML Neb) 1.25 mg Q6R INH 07/01/16 09:00 07/31/16 08:59 07/01/16 07:09 1.25 MG Ipratropium [place] (Atrovent 0.02% 0.5MG/2.5ML Neb) 0.5 mg Q4H PRN INH 07/01/16 07:00 07/31/16 06:59 Levalbuterol (Xopenex 1.25MG/ 0.5ML Neb) 1.25 mg Q4H PRN INH 07/01/16 07:00 07/31/16 06:59 Amiodarone HCl (Cordarone Tab) 400 mg TID PO 07/01/16 14:00 07/31/16 13:59 07/01/16 14:02 400 MG Objective Vital Signs Date Time Temp Pulse Resp B/P Pulse Ox O2 Delivery O2 Flow Rate FiO2 07/01/16 15:41 Nasal Cannula 4.0 07/01/16 15:33 36.5 75 20 139/74 98 Nasal Cannula 2.0 07/01/16 12:04 36.4 77 20 128/73 92 Nasal Cannula 2.0 07/01/16 12:02 79 20 98 Nasal Cannula 4.0 07/01/16 12:00 Nasal Cannula 4.0 07/01/16 08:00 Nasal Cannula 4.0 07/01/16 07:07 36.7 79 22 148/78 92 Nasal Cannula 4.0 07/01/16 07:05 71 20 90 Nasal Cannula 4.0 07/01/16 06:24 94 28 176/83 91 Nasal Cannula 6.0 07/01/16 06:16 92 28 96 Nasal Cannula 4.0 07/01/16 04:00 Nasal Cannula 4.0 07/01/16 03:48 36.7 82 18 112/70 98 Nasal Cannula 2.0 07/01/16 00:00 Nasal Cannula 4.0 06/30/16 23:39 36.7 80 19 116/76 98 Nasal Cannula 2.0 06/30/16 21:00 94 16 92 Nasal Cannula 4.0 06/30/16 20:00 Nasal Cannula 4.0 Physical Exam General Appearance: WD/WN, no apparent distress Eyes: normal inspection, sclerae normal ENT: normal ENT inspection, pharynx normal Neck: supple, no adenopathy, trachea midline Respiratory/Chest: lungs clear, normal breath sounds, no respiratory distress Cardiovascular: regular rate, rhythm, no gallop, no murmur Abdomen: normal bowel sounds, non tender, soft, no organomegaly Extremities: non-tender, + pertinent finding ( Dressing intact right foot) Neurologic/Psychiatric: alert, + disoriented Skin: normal color, no rash Lymphatic: no adenopathy Laboratory Results Last 24 Hours Test 06/30/16 20:07 07/01/16 05:40 07/01/16 06:25 07/01/16 06:27 Bedside Glucose 144 mg/dl 308 mg/dl White Blood Count 16.65 K/uL Red Blood Count 3.67 M/uL Hemoglobin 12.0 g/dL Hematocrit 34.9 % Mean Corpuscular Volume 95.1 fL Mean Corpuscular Hemoglobin 32.7 pg Mean Corpuscular Hemoglobin Concent 34.4 g/dl RDW Standard Deviation 50.2 fL RDW Coefficient of Variation 14.6 % Platelet Count 322 K/uL Mean Platelet Volume 12.1 fL Activated Partial Thromboplast Time 67.8 SECONDS Partial Thromboplastin Ratio 2.6 Sodium Level 140 mmol/L Potassium Level 3.8 mmol/L Chloride Level 105 mmol/L Carbon Dioxide Level 19 mmol/L Anion Gap 16.0 mmol/L Blood Urea Nitrogen 49 mg/dl Creatinine 2.60 mg/dl Est Creatinine Clear Calc Drug Dose 19.9 ml/min Estimated GFR () 24.9 Estimated GFR (Non- 21.5 BUN/Creatinine Ratio 18.8 Random Glucose 197 mg/dl Calcium Level 8.6 mg/dl Magnesium Level 2.4 mg/dl Arterial Blood pH 7.28 Arterial Blood Partial Pressure CO2 36 mmHg Arterial Blood Partial Pressure O2 89 mm/Hg Arterial Blood HCO3 17 mmol/L Arterial Blood Oxygen Saturation 95.0 % Arterial Blood Base Excess -9.4 mEq/L Arterial Blood Gas Delivery 6L Will Test POS Test 07/01/16 11:33 07/01/16 11:36 07/01/16 16:02 Thyroid Stimulating Hormone (TSH) 3.520 uIu/ml Free Thyroxine 1.20 ng/dl Bedside Glucose 197 mg/dl 198 mg/dl Assessment and Plan Citrobacter sepsis in the setting of gangrenous left toe with severe peripheral arterial disease. Now s/p revascularization and s/p toe amputation. Course now complicated by STEMI, Afib. For now, until patient stabilizes from cardiac standpoint would continue on current Abx. Will follow.
[2016-07-02] VITALS (9 sets, daily range): BP systolic 114–144; BP diastolic 66–81; PULSE 63–81; TEMP 36.5–36.9; O2SAT 93–99
[2016-07-02] MEDS: IPRATROPIUM BROMIDE NEB SOLN 0.02% 2.5 ML VIAL INH SCH ×4 (03:00→20:22)
[2016-07-02] MEDS: LEVALBUTEROL 1.25MG/0.5ML NEB INH SCH ×4 (03:00→20:22)
[2016-07-02] MEDS: PIPERACILL/TAZOBAC IV 3.375 GM in DEXTROSE 5% 100ML IV SCH ×3 (04:20→20:39)
[2016-07-02 05:41] LABS: MEAN CELL VOLUME 91.7 fL (80-100); MEAN CORPUSCULAR HEMOGLOBIN 31.5 pg (25-34); MEAN CORPUSCULAR HGB CONC 34.4 g/dl (32-36); MEAN PLATELET VOLUME 11.8 fL (7.4-10.4); PLATELET COUNT 304 K/uL (130-400); RED BLOOD COUNT 3.49 M/uL (4.7-6.1); WHITE BLOOD COUNT 18.13 K/uL (4.8-10.8)
[2016-07-02] MEDS: LEVOTHYROXINE 25 MCG TAB PO SCH (05:51)
[2016-07-02 05:58] LABS: INR 1.2 (0.9-1.1); PARTIAL THROMBOPLASTIN RATIO 1.8; PROTHROMBIN TIME (PATIENT) 12.5 SECONDS (9.0-12.0)
[2016-07-02 06:05] LABS: BUN/CREATININE RATIO 21.1 (10-20); CALCIUM 8.5 mg/dl (8.5-10.1); CREATININE 2.4 mg/dl (0.60-1.40); MAGNESIUM 2.2 mg/dl (1.8-2.4); POTASSIUM 3.6 mmol/L (3.5-5.1)
[2016-07-02] MEDS ORDERED: HEPARIN IV BOLUS 3,000 UNIT in SYRINGE 0 ML IV STA (06:35)
[2016-07-02] MEDS: ALBUT/IPRATROP 3MG/0.5MG NEB 3 ML VIAL INH SCH (06:55)
[2016-07-02] MEDS: ASPIRIN 81 MG ECTAB PO SCH (07:51)
[2016-07-02] MEDS: CLOPIDOGREL BISULFATE 75 MG TAB PO SCH (07:51)
[2016-07-02] MEDS: CYANOCOBALAMIN 500 MCG TAB (VIT B-12) PO SCH (07:52)
[2016-07-02] MEDS: ISOSORBIDE MONONITRATE 30 MG TABCR PO SCH (07:52)
[2016-07-02] MEDS: METOPROLOL SUCC 50MG EXT REL TAB PO SCH (07:53)
[2016-07-02] MEDS: AMIODARONE 200 MG TAB PO SCH ×2 (07:53→12:47)
[2016-07-02] MEDS: CHOLECALCIFEROL 1000 INTER.UNIT TAB PO SCH (07:54)
[2016-07-02] MEDS: FINASTERIDE 5 MG TAB PO SCH (07:54)
[2016-07-02] MEDS: INSULIN HUMAN REGULAR SC SCH ×4 (08:00→21:00)
[2016-07-02] MEDS: INSULIN GLARGINE SOLOSTAR 100 UNITS/ML 3 ML PEN SC SCH (08:01)
[2016-07-02] MEDS: ALBUTEROL HFA 8 GM INHALER INH SCH ×4 (08:03→19:21)
[2016-07-02] MEDS ORDERED: LEVALBUTEROL/IPRATROPIUM NEB INH SCH (09:00)
[2016-07-02] MEDS ORDERED: INSULIN GLARGINE SOLOSTAR 100 UNITS/ML 3 ML PEN SC SCH (09:00)
--- NOTE | 2016-07-02 11:21 | Cardiology Follow-Up ---
Subjective General Date of Service: Jul 02, 2016. Chief Complaint: Cough History of Present Illness Patient seen and examined. No complaints. Denies chest pain, dyspnea, or palpitations. Telemetry: Sinus at 66 bpm. No further atrial fibrillation. No significant bradycardia or pauses. EKG dated and timed 02-JUL-2016 @ 06:55:36: Normal sinus rhythm. Left ventricular hypertrophy with QRS widening and repolarization abnormality. Cannot rule out Septal infarct (cited on or before 28-FEB-2016). Prolonged QT. QT prolongation present prior to initiation of amiodarone. Allergies Coded Allergies: Pravastatin (Verified Allergy, Mild, 06/20/16) Codeine (Verified Allergy, Unknown, 06/20/16) Morphine (Unverified Allergy, Unknown, UNKNOWN, 06/20/16) Statins (Unverified Allergy, Unknown, UNKNOWN, 06/20/16) Sulfa Antibiotics (Verified Allergy, Unknown, ., 06/20/16) Social History Smoking Status: Former Smoker Hx Tobacco Use In Past Year?: Yes Hx Alcohol Use - Type And Amou: No Hx Substance Use - Type And Am: No Problem List Medical Problems: (1) Acute CHF Status: Acute (2) Acute congestive heart failure Status: Acute (3) Acute coronary syndrome Status: Acute (4) Altered mental status Status: Acute (5) Cellulitis of left foot Status: Acute (6) Diabetic ulcer of left great toe Status: Acute (7) Elevated troponin Status: Acute (8) Elevated troponin Status: Acute (9) Hypoxia Status: Acute (10) Hypoxia Status: Acute (11) Pneumonia Status: Acute (12) Pulmonary edema Status: Acute (13) Pulmonary edema Status: Acute (14) Renal failure Status: Acute Physical Exam Vital Signs Last Vital Signs Documentation Date Time Temp Pulse Resp B/P Pulse Ox O2 Delivery O2 Flow Rate FiO2 07/02/16 08:00 Nasal Cannula 4.0 07/02/16 08:00 36.6 66 16 136/79 93 Physical Exam Constitutional: General Apperance: too thin Level of Distress: NAD, chronically ill Psychiatric: Orientation: to place, to person, not oriented to time Memory: recent memory abnormal, remote memory abnormal Head: normocephalic, atraumatic Eyes: EOM: EOMI Neck: pertinent finding (No JVD) Lungs: Respiratory effort: no dyspnea Auscultation: deminished air movement, decreased breath sounds, wet rales/ crackles, rhonchi, rales/crackles on the right Cardiovascular: Apical Impulse: not displaced Heart Auscultation: RRR, II/ ANNETTE Peripheral Pulses: Bruits: none appreciated Carotid Pulse: normal on the left, normal on the right Radial Pulse: decreased on the left, decreased on the right Dorsalis Pedis Pulse: pertinent finding (dressing to the left lower extremity. no pulses appreciated) Abdomen: Bowel Sounds: normal Inspection & Palpation: soft, non-distended, no tenderness, guarding & rebound Extremities: no edema, no clubbing Neurologic: Cranial Nerves: grossly intact Assessment and Plan Assessment and Plan Admission on 06/20/2016 with confusion, metabolic encephalopathy secondary to a left great toe infection, gangrene, status post percutaneous revascularization followed by surgical debridement/amputation New onset symptomatic atrial fibrillation with a rapid ventricular response, resultant NSTEMI CHADS2 Score 6/6 Severe diffuse atherosclerosis. Severe end stage coronary artery disease not amendable to revascularization. Last cardiac catheterization occurred on November 04, 2015, demonstrating occlusion of all [place] vessels and occlusion of all grafts except for a single remaining graft - right internal mammary artery to the left anterior descending. There were no targets for percutaneous intervention or bypass. Severe ischemic cardiomyopathy, EF 25%. NYHA Class III+ congestive heart failure. Appears compensated currently Stage III-IV chronic kidney disease Hypertension Dyslipidemia Type II diabetes mellitus Dementia, Alzheimer's type RECOMMENDATIONS/PLAN: 48 hours of IV Heparin for the NSTEMI then SubQ heparin for DVT prophylaxis Decrease oral amiodarone Risks of termite treater anticoagulation appear to be greater than the benefit Continue Toprol XL, nitrates and hydralazine, ASA and Plavix Maintain electrolytes. CARDIOLOGY ATTENDING ADDENDUM: The patient was seen and personally examined. Agree with Juan Ramon Alonzo PA-C's findings and plans as documented above with additions as noted below. Subjective: Patient without complaints Exam: Lungs clear, heart rate regular, no tachycardia Impression: As above Plan: Heparin infusion has been discontinued status post 48 hours of therapy, subcutaneous heparin 5000 units subcutaneous every 8 hours to start tomorrow morning. Laboratory Results Last 24 Hours Test 07/01/16 11:33 07/01/16 11:36 07/01/16 16:02 07/01/16 20:56 Thyroid Stimulating Hormone (TSH) 3.520 uIu/ml Free Thyroxine 1.20 ng/dl Bedside Glucose 197 mg/dl 198 mg/dl 123 mg/dl Test 07/02/16 05:10 07/02/16 06:42 White Blood Count 18.13 K/uL Red Blood Count 3.49 M/uL Hemoglobin 11.0 g/dL Hematocrit 32.0 % Mean Corpuscular Volume 91.7 fL Mean Corpuscular Hemoglobin 31.5 pg Mean Corpuscular Hemoglobin Concent 34.4 g/dl RDW Standard Deviation 47.5 fL RDW Coefficient of Variation 14.5 % Platelet Count 304 K/uL Mean Platelet Volume 11.8 fL Prothrombin Time 12.5 SECONDS Prothromb Time International Ratio 1.2 Activated Partial Thromboplast Time 45.7 SECONDS Partial Thromboplastin Ratio 1.8 Sodium Level 141 mmol/L Potassium Level 3.6 mmol/L Chloride Level 105 mmol/L Carbon Dioxide Level 25 mmol/L Anion Gap 11.0 mmol/L Blood Urea Nitrogen 51 mg/dl Creatinine 2.40 mg/dl Est Creatinine Clear Calc Drug Dose 21.6 ml/min Estimated GFR () 27.5 Estimated GFR (Non- 23.7 BUN/Creatinine Ratio 21.1 Random Glucose 147 mg/dl Calcium Level 8.5 mg/dl Magnesium Level 2.2 mg/dl Bedside Glucose 155 mg/dl
--- NOTE | 2016-07-02 11:43 | Palliative Care Consultation ---
Consultation Date of Consultation: Jul 02, 2016. Requesting Physician: Dr. Meyers Attending Physician: Dr. Meyers Reason for Consultation: Goals of care History of Present Illness This 86 year old male patient presented to the ED 13 days ago with complaints of altered mental status and infected left great toe. This patient has a history of severe PVD and PAD with a gangrenous left great toe. He used to follow with vascular surgery, but has not been since Dr. Malik left [facility]. Apparently he was at his PCP's office on 06/06/2016 for redness, swelling and drainage of the toe, was started on cephalexin, x-ray negative for osteomyelitis. The day of admission, however, patient was more confused, even with history of dementia, and somnolent. His was concerned about another stroke so she brought him to ED for evaluation. CT head was negative for anything acute, showed numerous lacunar infarcts- age indeterminate but most of these were apparently present since 2013. X-ray of left foot showed no evidence of osteomyelitis, CXR showed interstitial thickening. Patient was admitted for encephalopathy, left great toe gangrene/infection and elevated troponin. Was initially being treated to telemetry, was transferred to surgical unit, then back to telemetry. Developed new onset atrial fibrillation for which he is being seen by cardiology-- on PO amiodarone and IV heparin. Had surgical amputation of left great toe on 06/27/2016. Being followed by ortho and infectious disease as well. He also had an episode of aspiration. Video swallow study showed aspiration of thin liquids, he is now tolerating honey-thickened liquids. His overall condition has been declining, has multiple comorbidities. Palliative care consulted to assist with establishing goals of care. This patient is known to the palliative care service as I met with him and his back in February during previous admission. At that time, patient had dementia and all other conditions was but still in okay shape and believed that he had a good quality of life. She was not ready for hospice at that time and opted for home with [facility] caregivers and home health. A POLST form was done at that time-- copy is in risk/legal tab in EMR. I spoke with the patient's , Mary Jane, today on the phone. She states that after discharge last time, patient was at [facility]. She brought him home after Thanksgiving. Since then, his strength is decreasing, appetite less, confusion and overall condition worsening. She has caregivers coming into the home, but she is unsure if she is able to care for him at this point. We discussed his medical conditions. She states that the goal is for comfort and she now would like to keep the patient out of the hospital. She has already been in contact with [facility] hospice and she is ready to transition. However, she'd like the patient to have some rehab at SNF initially on discharge. We will meet tomorrow to solidify goals of care and likely redo POLST form. I met with the patient. He is awake and pleasant. Oriented to person only, but answered questions appropriately. He denied any pain or discomfort and was in no distress. Left foot is wrapped in bandage and CONSUELO wrap. Unfortunately due to patient's dementia, he was really not able to participate in goals of care conversation. Just stated that he was eager to get home. Past Medical/Surgical History Medical History: Severe PVD Chrnic systolic heart failure Severe ischemic cardiomyopathy EF 20% Severe CAD NSTEMI Dementia CKD stage III-IV DM type II Multiple CVA/lacunar infarcts BPH Carotid stenosis Cluster headaches AAA Depression Surgical History: Left heart catheterization CABG Endarterectomy Iliac artery stent Social History Smoking Status: Former Smoker History of Alcohol Use: No Drug Use: none Marital Status: Housing Status: lives with significant other Occupation Status: retired Review of Systems Constitutional: + weakness Respiratory: No dyspnea on exertion, No shortness of breath Cardiac: No chest pain, No palpitations Abdomen: No nausea, No pain, No vomiting Male : No problem reported (has tam catheter) Allergies Coded Allergies: Pravastatin (Verified Allergy, Mild, 06/20/16) Codeine (Verified Allergy, Unknown, 06/20/16) Morphine (Unverified Allergy, Unknown, UNKNOWN, 06/20/16) Statins (Unverified Allergy, Unknown, UNKNOWN, 06/20/16) Sulfa Antibiotics (Verified Allergy, Unknown, ., 06/20/16) Medications Current Inpatient Medications Medications (Trade) Dose Ordered Sig/Juan Route Start Time Stop Time Status Last Admin Dose Admin Acetaminophen (Tylenol Tab) 650 mg Q4H PRN PO 06/20/16 20:30 07/20/16 20:29 06/22/16 04:27 650 MG Al Hydrox/Mg Hydrox/Simethicone (Maalox Max Susp) 15 ml Q4H PRN PO 06/20/16 20:30 07/20/16 20:29 Magnesium Hydroxide (Milk Of Magnesia Susp) 30 ml Q12H PRN PO 06/20/16 20:30 07/20/16 20:29 Polyethylene (Miralax Powder Packet) 17 gm DAILY PRN PO 06/20/16 20:30 07/20/16 20:29 Piperacillin Sod/ Tazobactam Sod (Consult) 1 ea UD PRN N/A 06/20/16 20:45 07/20/16 20:44 Aspirin (Ecotrin Tab) 81 mg DAILY PO 06/21/16 09:00 07/21/16 08:59 07/02/16 07:51 81 MG Cholecalciferol (Vitamin D Tab) 1,000 inter.unit DAILY PO 06/21/16 09:00 07/21/16 08:59 07/02/16 07:54 1,000 INTER.UNIT Clopidogrel Bisulfate (plAVix TAB) 75 mg DAILY PO 06/21/16 09:00 07/21/16 08:59 07/02/16 07:51 75 MG Cyanocobalamin (Vitamin B-12 Tab) 1,000 mcg DAILY PO 06/21/16 09:00 07/21/16 08:59 07/02/16 07:52 1,000 MCG Finasteride (Proscar Tab) 5 mg DAILY PO 06/21/16 09:00 07/21/16 08:59 07/02/16 07:54 5 MG Isosorbide Mononitrate (Imdur Ext Rel Tab) 90 mg DAILY PO 06/21/16 09:00 07/21/16 08:59 07/02/16 07:52 90 MG Levothyroxine Sodium (Synthroid Tab) 25 mcg DAILYBB PO 06/21/16 06:00 07/21/16 06:59 07/02/16 05:51 25 MCG Metoprolol Succinate (Toprol Xl Tab) 50 mg DAILY PO 06/21/16 09:00 07/21/16 08:59 07/02/16 07:53 50 MG Albuterol (Ventolin Hfa Inhaler) 2 puffs QID INH 06/20/16 21:00 07/20/16 20:59 07/02/16 08:03 2 PUFFS Glucose (Glucose 40% Gel) 15-30 GRAMS 15 GRAMS... UD PRN PO 06/20/16 20:45 07/20/16 20:44 Glucose (Glucose Chew Tab) 4-8 Tablets 4 Tabl... UD PRN PO 06/20/16 20:45 07/20/16 20:44 Dextrose (Dextrose 50% 50ML Syringe) 25-50ML OF 50% DW IV FOR... UD PRN IV 06/20/16 20:45 07/20/16 20:44 Glucagon 1 mg 1 mg UD PRN SQ 06/20/16 20:45 07/20/16 20:44 Piperacillin Sod/ Tazobactam Sod/ Dextrose (Zosyn Iv/D5 100ml) 115 ml @ 28.75 mls/ hr Q8H IV 06/25/16 12:00 07/10/16 11:59 07/02/16 04:20 28.75 MLS/HR Hydralazine HCl (Apresoline Tab) 25 mg TID PO 06/25/16 14:00 07/25/16 13:59 07/02/16 07:52 25 MG Insulin Human Regular (novoLIN-R) SLIDING SCALE IF C... ACHS SC 06/29/16 08:00 07/29/16 07:59 07/02/16 08:00 2 UNITS Metoprolol Tartrate 5 mg 5 mg Q6 PRN IV 06/30/16 10:45 07/30/16 10:44 06/30/16 15:39 5 MG Heparin Sodium/ Dextrose (Heparin 25,000 Unit/500ml D5W) 500 ml @ 20 mls/hr Q24H PRN IV 06/30/16 12:45 07/30/16 12:44 07/01/16 17:29 19 MLS/HR Insulin Glargine (Lantus Solostar Pen) 5 unit DAILY SC 07/02/16 09:00 08/01/16 08:59 07/02/16 08:01 5 UNIT Amiodarone HCl (Cordarone Tab) 400 mg TID PO 07/01/16 14:00 07/02/16 14:00 07/02/16 07:53 400 MG Ipratropium Velpen (Atrovent 0.02% 0.5MG/2.5ML Neb) 0.5 mg Q6R INH 07/02/16 15:00 08/01/16 14:59 Levalbuterol (Xopenex 1.25MG/ 0.5ML Neb) 1.25 mg Q6R INH 07/02/16 15:00 08/01/16 14:59 Amiodarone HCl (Cordarone Tab) 200 mg DAILY PO 07/03/16 09:00 08/02/16 08:59 UNV Physical Exam Date Time Temp Pulse Resp B/P Pulse Ox O2 Delivery O2 Flow Rate FiO2 07/02/16 08:00 Nasal Cannula 4.0 07/02/16 08:00 36.6 66 16 136/79 93 Nasal Cannula 4.0 07/02/16 06:55 63 20 93 Nasal Cannula 4.0 07/02/16 04:00 Nasal Cannula 4.0 07/02/16 03:26 36.5 64 20 131/67 94 Room Air 07/02/16 00:00 Nasal Cannula 4.0 07/01/16 23:22 36.3 66 19 137/75 99 Nasal Cannula 3.5 07/01/16 20:26 36.4 71 22 141/71 97 Nasal Cannula 3.0 07/01/16 20:00 Nasal Cannula 4.0 07/01/16 19:22 60 20 94 Nasal Cannula 4.0 07/01/16 15:41 Nasal Cannula 4.0 07/01/16 15:33 36.5 75 20 139/74 98 Nasal Cannula 2.0 07/01/16 12:04 36.4 77 20 128/73 92 Nasal Cannula 2.0 07/01/16 12:02 79 20 98 Nasal Cannula 4.0 07/01/16 12:00 Nasal Cannula 4.0 General Appearance: no apparent distress, + thin Neck: no JVD Respiratory: normal breath sounds, no respiratory distress, no accessory muscle use, + decreased breath sounds Cardiovascular: no edema, + irregularly irregular, + pertinent finding (unable to assess left pedal pulse as his foot is in bandage and consuelo wrap. right pedal pulse is palpable) Abdomen: normal bowel sounds, non tender, soft Musculoskeletal: pertinent finding (generalized weakness and muscle wasting) Neurologic/Psychiatric: alert, normal mood/affect, + disoriented (history of dementia) Skin: normal color Laboratory Results Last 24 Hours Test 07/01/16 11:33 07/01/16 11:36 07/01/16 16:02 07/01/16 20:56 Thyroid Stimulating Hormone (TSH) 3.520 uIu/ml Free Thyroxine 1.20 ng/dl Bedside Glucose 197 mg/dl 198 mg/dl 123 mg/dl Test 07/02/16 05:10 07/02/16 06:42 White Blood Count 18.13 K/uL Red Blood Count 3.49 M/uL Hemoglobin 11.0 g/dL Hematocrit 32.0 % Mean Corpuscular Volume 91.7 fL Mean Corpuscular Hemoglobin 31.5 pg Mean Corpuscular Hemoglobin Concent 34.4 g/dl RDW Standard Deviation 47.5 fL RDW Coefficient of Variation 14.5 % Platelet Count 304 K/uL Mean Platelet Volume 11.8 fL Prothrombin Time 12.5 SECONDS Prothromb Time International Ratio 1.2 Activated Partial Thromboplast Time 45.7 SECONDS Partial Thromboplastin Ratio 1.8 Sodium Level 141 mmol/L Potassium Level 3.6 mmol/L Chloride Level 105 mmol/L Carbon Dioxide Level 25 mmol/L Anion Gap 11.0 mmol/L Blood Urea Nitrogen 51 mg/dl Creatinine 2.40 mg/dl Est Creatinine Clear Calc Drug Dose 21.6 ml/min Estimated GFR () 27.5 Estimated GFR (Non- 23.7 BUN/Creatinine Ratio 21.1 Random Glucose 147 mg/dl Calcium Level 8.5 mg/dl Magnesium Level 2.2 mg/dl Bedside Glucose 155 mg/dl Assessment & Plan Palliative Performance Scale: 40 % Problem list: Confusion/dementia Weakness/ambulatory dysfunction PVD Left great toe gangrene s/p left great toe amputation on 06/27/2016 Atrial fibrillation, new onset with RVR NSTEMI Aspiration Severe cardiomyopathy and chronic systolic dysfunction CKD stage III-IV Goals of care (Z51.5) Palliative care plan: Discussed with patient's , Mary Jane Cuevas. -Continue current medical treatment -Likely will need SNF rehab on discharge. will use this time to decide if patient is able to come with her. She has [facility] caregivers who can help with patient's care. Mary Jane is interested in hospice. -Will discuss goals of care tomorrow when Mary Jane is able to come in. Likely will need to redo POLST form. -Goal is ultimately for comfort when patient leaves the hospital. Thank you kindly for this consult. I will continue to follow.
--- NOTE | 2016-07-02 17:21 | Progress Note ---
Subjective Date of Service: Jul 02, 2016. Subjective Pt evaluation today including: conversation w/ patient, physical exam, lab review, review of studies, review of inpatient medication list Saw/examined the patient in room 229 Underlying dementia, but is answering some questions appropriately seems to understand that he needs to thicken liquids prior to drinking to prevent aspiration Denies pain anywhere Problem List Medical Problems: (1) Acute CHF Status: Acute (2) Acute congestive heart failure Status: Acute (3) Acute coronary syndrome Status: Acute (4) Altered mental status Status: Acute (5) Cellulitis of left foot Status: Acute (6) Diabetic ulcer of left great toe Status: Acute (7) Elevated troponin Status: Acute (8) Elevated troponin Status: Acute (9) Hypoxia Status: Acute (10) Hypoxia Status: Acute (11) Pneumonia Status: Acute (12) Pulmonary edema Status: Acute (13) Pulmonary edema Status: Acute (14) Renal failure Status: Acute Review of Systems difficult to obtain due to underlying dementia Medications Current Inpatient Medications Medications (Trade) Dose Ordered Sig/Juan Route Start Time Stop Time Status Last Admin Dose Admin Acetaminophen (Tylenol Tab) 650 mg Q4H PRN PO 06/20/16 20:30 07/20/16 20:29 06/22/16 04:27 650 MG Al Hydrox/Mg Hydrox/Simethicone (Maalox Max Susp) 15 ml Q4H PRN PO 06/20/16 20:30 07/20/16 20:29 Magnesium Hydroxide (Milk Of Magnesia Susp) 30 ml Q12H PRN PO 06/20/16 20:30 07/20/16 20:29 Polyethylene (Miralax Powder Packet) 17 gm DAILY PRN PO 06/20/16 20:30 07/20/16 20:29 Piperacillin Sod/ Tazobactam Sod (Consult) 1 ea UD PRN N/A 06/20/16 20:45 07/20/16 20:44 Aspirin (Ecotrin Tab) 81 mg DAILY PO 06/21/16 09:00 07/21/16 08:59 07/02/16 07:51 81 MG Cholecalciferol (Vitamin D Tab) 1,000 inter.unit DAILY PO 06/21/16 09:00 07/21/16 08:59 07/02/16 07:54 1,000 INTER.UNIT Clopidogrel Bisulfate (plAVix TAB) 75 mg DAILY PO 06/21/16 09:00 07/21/16 08:59 07/02/16 07:51 75 MG Cyanocobalamin (Vitamin B-12 Tab) 1,000 mcg DAILY PO 06/21/16 09:00 07/21/16 08:59 07/02/16 07:52 1,000 MCG Finasteride (Proscar Tab) 5 mg DAILY PO 06/21/16 09:00 07/21/16 08:59 07/02/16 07:54 5 MG Isosorbide Mononitrate (Imdur Ext Rel Tab) 90 mg DAILY PO 06/21/16 09:00 07/21/16 08:59 07/02/16 07:52 90 MG Levothyroxine Sodium (Synthroid Tab) 25 mcg DAILYBB PO 06/21/16 06:00 07/21/16 06:59 07/02/16 05:51 25 MCG Metoprolol Succinate (Toprol Xl Tab) 50 mg DAILY PO 06/21/16 09:00 07/21/16 08:59 07/02/16 07:53 50 MG Albuterol (Ventolin Hfa Inhaler) 2 puffs QID INH 06/20/16 21:00 07/20/16 20:59 07/02/16 17:04 2 PUFFS Glucose (Glucose 40% Gel) 15-30 GRAMS 15 GRAMS... UD PRN PO 06/20/16 20:45 07/20/16 20:44 Glucose (Glucose Chew Tab) 4-8 Tablets 4 Tabl... UD PRN PO 06/20/16 20:45 07/20/16 20:44 Dextrose (Dextrose 50% 50ML Syringe) 25-50ML OF 50% DW IV FOR... UD PRN IV 06/20/16 20:45 07/20/16 20:44 Glucagon 1 mg 1 mg UD PRN SQ 06/20/16 20:45 07/20/16 20:44 Piperacillin Sod/ Tazobactam Sod/ Dextrose (Zosyn Iv/D5 100ml) 115 ml @ 28.75 mls/ hr Q8H IV 06/25/16 12:00 07/10/16 11:59 07/02/16 12:45 28.75 MLS/HR Hydralazine HCl (Apresoline Tab) 25 mg TID PO 06/25/16 14:00 07/25/16 13:59 07/02/16 12:46 25 MG Insulin Human Regular (novoLIN-R) SLIDING SCALE IF C... ACHS SC 06/29/16 08:00 07/29/16 07:59 07/02/16 17:03 3 UNITS Metoprolol Tartrate (Lopressor Iv) 5 mg Q6 PRN IV 06/30/16 10:45 07/30/16 10:44 06/30/16 15:39 5 MG Insulin Glargine (Lantus Solostar Pen) 5 unit DAILY SC 07/02/16 09:00 08/01/16 08:59 07/02/16 08:01 5 UNIT Ipratropium [place] (Atrovent 0.02% 0.5MG/2.5ML Neb) 0.5 mg Q6R INH 07/02/16 15:00 08/01/16 14:59 07/02/16 15:00 0.5 MG Levalbuterol (Xopenex 1.25MG/ 0.5ML Neb) 1.25 mg Q6R INH 07/02/16 15:00 08/01/16 14:59 07/02/16 15:00 1.25 MG Amiodarone HCl (Cordarone Tab) 200 mg DAILY PO 07/03/16 09:00 08/02/16 08:59 Heparin Sodium (Porcine) (Heparin Sq 5000 Unit/0.5ml) 5,000 unit Q8 SQ 07/03/16 06:00 08/02/16 05:59 UNV Objective Vital Signs Date Time Temp Pulse Resp B/P Pulse Ox O2 Delivery O2 Flow Rate FiO2 07/02/16 15:33 36.9 69 16 143/76 99 Nasal Cannula 4.0 07/02/16 15:03 70 20 94 Nasal Cannula 4.0 07/02/16 12:00 36.5 73 20 114/66 94 Nasal Cannula 4.0 07/02/16 12:00 Nasal Cannula 4.0 07/02/16 08:00 Nasal Cannula 4.0 07/02/16 08:00 36.6 66 16 136/79 93 Nasal Cannula 4.0 07/02/16 06:55 63 20 93 Nasal Cannula 4.0 07/02/16 04:00 Nasal Cannula 4.0 07/02/16 03:26 36.5 64 20 131/67 94 Room Air 07/02/16 00:00 Nasal Cannula 4.0 07/01/16 23:22 36.3 66 19 137/75 99 Nasal Cannula 3.5 07/01/16 20:26 36.4 71 22 141/71 97 Nasal Cannula 3.0 07/01/16 20:00 Nasal Cannula 4.0 07/01/16 19:22 60 20 94 Nasal Cannula 4.0 Physical Exam General Appearance: no apparent distress, + thin Respiratory/Chest: lungs clear, normal breath sounds, no respiratory distress, no accessory muscle use Cardiovascular: regular rate, rhythm, no edema, no murmur Abdomen: normal bowel sounds, non tender, soft Extremities: + pertinent finding (+left big toe amputation) Laboratory Results Last 24 Hours Test 07/01/16 20:56 07/02/16 05:10 07/02/16 06:42 07/02/16 10:58 Bedside Glucose 123 mg/dl 155 mg/dl 160 mg/dl White Blood Count 18.13 K/uL Red Blood Count 3.49 M/uL Hemoglobin 11.0 g/dL Hematocrit 32.0 % Mean Corpuscular Volume 91.7 fL Mean Corpuscular Hemoglobin 31.5 pg Mean Corpuscular Hemoglobin Concent 34.4 g/dl RDW Standard Deviation 47.5 fL RDW Coefficient of Variation 14.5 % Platelet Count 304 K/uL Mean Platelet Volume 11.8 fL Prothrombin Time 12.5 SECONDS Prothromb Time International Ratio 1.2 Activated Partial Thromboplast Time 45.7 SECONDS Partial Thromboplastin Ratio 1.8 Sodium Level 141 mmol/L Potassium Level 3.6 mmol/L Chloride Level 105 mmol/L Carbon Dioxide Level 25 mmol/L Anion Gap 11.0 mmol/L Blood Urea Nitrogen 51 mg/dl Creatinine 2.40 mg/dl Est Creatinine Clear Calc Drug Dose 21.6 ml/min Estimated GFR () 27.5 Estimated GFR (Non- 23.7 BUN/Creatinine Ratio 21.1 Random Glucose 147 mg/dl Calcium Level 8.5 mg/dl Magnesium Level 2.2 mg/dl Test 07/02/16 14:25 07/02/16 16:01 Activated Partial Thromboplast Time 51.4 SECONDS Partial Thromboplastin Ratio 2.0 Bedside Glucose 129 mg/dl Assessment and Plan This is an 86 year old male with PMH of severe peripheral vascular disease with previous stenting of left common iliac, severe ischemic cardiomyopathy, chronic systolic heart failure with EF ~ 20%, recent NSTEMI, DM2, HTN, CKD stage 3, dementia 07/02 appreciate palliative care consultation spoke with and will have another talk tomorrow states she cannot take care of the patient at home Will need to send patient to rehab/SNF - post-rehab may need hospice involved New Onset A. Fib with RVR 07/02 patient is now in NSR amiodarone dose decreased as per cardiology, appreciate input 07/01 appreciate cardiology input will do 48 hours of IV heparin IV amio changed to oral amiodarone TSH wnl NSTEMI 07/02 IV heparin stopped switch to subq heparin type II secondary to A. 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 Peripheral Vascular Disease 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 Doing well post-operatively pain controlled 06/26 s/p stenting due to PAD plan for left big toe amputation on 06/27 06/25 s/p stenting x 2 of the left LE Plan is to continue Zosyn at this time continue aspirin/Plavix for the arterial disease and stenting appreciate vascular, ID input Ortho recommendations to follow for possible amputation 06/24 patient has known severe vascular disease; previous stenting of left common iliac Left LE U/S suggestive of multiple stenotic vessels Left Foot X-ray - no osteomyelitis Vascular surgery consulted - appreciate input and management Stenting of the left popliteal and superficial femoral arteries - 06/24 will need to continue dual antiplatelet therapy Appreciate orthopedic evaluation - possible amputation of the left big toe Appreciate ID input - continue Zosyn for now Blood culture + x1 for Citrobacter Additional cultures pending Hx. of Multiple CVA Head CT performed showing previous lacunar infarction continue ASA, Plavix will need tighter blood pressure control HTN 06/25 increased dose of hydralazine PO to 25mg TID 06/24 BP is uncontrolled today (06/24) extra dose of hydralazine given continue b-mayra, hydralazine, Imdur at this time CKD stage 3-4 creat seems to be at baseline of 1.9 estimated GFR ~ 30 DM2, diet controlled A1c = 7.2%, well controlled insulin sliding scale DVT ppx subq heparin DNR
--- NOTE | 2016-07-02 20:18 | Infectious Disease Progress Nt ---
Progress Note Date of Service Jul 02, 2016. Subjective Pt evaluation today including: conversation w/ patient, physical exam, chart review, lab review, review of studies, conversation w/ reporting process consultant, review of inpatient medication list palliative care consultation noted. Decision regarding comfort care pending. Patient remains afebrile and hemodynamically stable at present. Remains confused. No fever. All Other Systems: Reviewed and Negative Medications Current Inpatient Medications Medications (Trade) Dose Ordered Sig/Juan Route Start Time Stop Time Status Last Admin Dose Admin Acetaminophen (Tylenol Tab) 650 mg Q4H PRN PO 06/20/16 20:30 07/20/16 20:29 06/22/16 04:27 650 MG Al Hydrox/Mg Hydrox/Simethicone (Maalox Max Susp) 15 ml Q4H PRN PO 06/20/16 20:30 07/20/16 20:29 Magnesium Hydroxide (Milk Of Magnesia Susp) 30 ml Q12H PRN PO 06/20/16 20:30 07/20/16 20:29 Polyethylene (Miralax Powder Packet) 17 gm DAILY PRN PO 06/20/16 20:30 07/20/16 20:29 Piperacillin Sod/ Tazobactam Sod (Consult) 1 ea UD PRN N/A 06/20/16 20:45 07/20/16 20:44 Aspirin (Ecotrin Tab) 81 mg DAILY PO 06/21/16 09:00 07/21/16 08:59 07/02/16 07:51 81 MG Cholecalciferol (Vitamin D Tab) 1,000 inter.unit DAILY PO 06/21/16 09:00 07/21/16 08:59 07/02/16 07:54 1,000 INTER.UNIT Clopidogrel Bisulfate (plAVix TAB) 75 mg DAILY PO 06/21/16 09:00 07/21/16 08:59 07/02/16 07:51 75 MG Cyanocobalamin (Vitamin B-12 Tab) 1,000 mcg DAILY PO 06/21/16 09:00 07/21/16 08:59 07/02/16 07:52 1,000 MCG Finasteride (Proscar Tab) 5 mg DAILY PO 06/21/16 09:00 07/21/16 08:59 07/02/16 07:54 5 MG Isosorbide Mononitrate (Imdur Ext Rel Tab) 90 mg DAILY PO 06/21/16 09:00 07/21/16 08:59 07/02/16 07:52 90 MG Levothyroxine Sodium (Synthroid Tab) 25 mcg DAILYBB PO 06/21/16 06:00 07/21/16 06:59 07/02/16 05:51 25 MCG Metoprolol Succinate (Toprol Xl Tab) 50 mg DAILY PO 06/21/16 09:00 07/21/16 08:59 07/02/16 07:53 50 MG Albuterol (Ventolin Hfa Inhaler) 2 puffs QID INH 06/20/16 21:00 07/20/16 20:59 07/02/16 19:21 2 PUFFS Glucose (Glucose 40% Gel) 15-30 GRAMS 15 GRAMS... UD PRN PO 06/20/16 20:45 07/20/16 20:44 Glucose (Glucose Chew Tab) 4-8 Tablets 4 Tabl... UD PRN PO 06/20/16 20:45 07/20/16 20:44 Dextrose (Dextrose 50% 50ML Syringe) 25-50ML OF 50% DW IV FOR... UD PRN IV 06/20/16 20:45 07/20/16 20:44 Glucagon 1 mg 1 mg UD PRN SQ 06/20/16 20:45 07/20/16 20:44 Piperacillin Sod/ Tazobactam Sod/ Dextrose (Zosyn Iv/D5 100ml) 115 ml @ 28.75 mls/ hr Q8H IV 06/25/16 12:00 07/10/16 11:59 07/02/16 12:45 28.75 MLS/HR Hydralazine HCl (Apresoline Tab) 25 mg TID PO 06/25/16 14:00 07/25/16 13:59 07/02/16 19:21 25 MG Insulin Human Regular (novoLIN-R) SLIDING SCALE IF C... ACHS SC 06/29/16 08:00 07/29/16 07:59 07/02/16 17:03 3 UNITS Metoprolol Tartrate (Lopressor Iv) 5 mg Q6 PRN IV 06/30/16 10:45 07/30/16 10:44 06/30/16 15:39 5 MG Insulin Glargine (Lantus Solostar Pen) 5 unit DAILY SC 07/02/16 09:00 08/01/16 08:59 07/02/16 08:01 5 UNIT Ipratropium [place] (Atrovent 0.02% 0.5MG/2.5ML Neb) 0.5 mg Q6R INH 07/02/16 15:00 08/01/16 14:59 07/02/16 15:00 0.5 MG Levalbuterol (Xopenex 1.25MG/ 0.5ML Neb) 1.25 mg Q6R INH 07/02/16 15:00 08/01/16 14:59 07/02/16 15:00 1.25 MG Amiodarone HCl (Cordarone Tab) 200 mg DAILY PO 07/03/16 09:00 08/02/16 08:59 Heparin Sodium (Porcine) (Heparin Sq 5000 Unit/0.5ml) 5,000 unit Q8 SQ 07/03/16 06:00 08/02/16 05:59 Objective Vital Signs Date Time Temp Pulse Resp B/P Pulse Ox O2 Delivery O2 Flow Rate FiO2 07/02/16 19:32 36.7 80 16 121/70 96 Nasal Cannula 4.0 07/02/16 16:00 Nasal Cannula 4.0 07/02/16 15:33 36.9 69 16 143/76 99 Nasal Cannula 4.0 07/02/16 15:03 70 20 94 Nasal Cannula 4.0 07/02/16 12:00 36.5 73 20 114/66 94 Nasal Cannula 4.0 07/02/16 12:00 Nasal Cannula 4.0 07/02/16 08:00 Nasal Cannula 4.0 07/02/16 08:00 36.6 66 16 136/79 93 Nasal Cannula 4.0 07/02/16 06:55 63 20 93 Nasal Cannula 4.0 07/02/16 04:00 Nasal Cannula 4.0 07/02/16 03:26 36.5 64 20 131/67 94 Room Air 07/02/16 00:00 Nasal Cannula 4.0 07/01/16 23:22 36.3 66 19 137/75 99 Nasal Cannula 3.5 07/01/16 20:26 36.4 71 22 141/71 97 Nasal Cannula 3.0 Physical Exam General Appearance: WD/WN, no apparent distress Eyes: normal inspection, sclerae normal ENT: normal ENT inspection, pharynx normal Neck: supple, trachea midline Respiratory/Chest: lungs clear, normal breath sounds, no respiratory distress Cardiovascular: regular rate, rhythm, no gallop, no murmur Abdomen: normal bowel sounds, non tender, soft, no organomegaly Extremities: non-tender, no calf tenderness Neurologic/Psychiatric: alert, + disoriented Skin: normal color, no rash, + pertinent finding ( Surgical dressing intact) Lymphatic: no adenopathy Laboratory Results Last 24 Hours Test 07/01/16 20:56 07/02/16 05:10 07/02/16 06:42 07/02/16 10:58 Bedside Glucose 123 mg/dl 155 mg/dl 160 mg/dl White Blood Count 18.13 K/uL Red Blood Count 3.49 M/uL Hemoglobin 11.0 g/dL Hematocrit 32.0 % Mean Corpuscular Volume 91.7 fL Mean Corpuscular Hemoglobin 31.5 pg Mean Corpuscular Hemoglobin Concent 34.4 g/dl RDW Standard Deviation 47.5 fL RDW Coefficient of Variation 14.5 % Platelet Count 304 K/uL Mean Platelet Volume 11.8 fL Prothrombin Time 12.5 SECONDS Prothromb Time International Ratio 1.2 Activated Partial Thromboplast Time 45.7 SECONDS Partial Thromboplastin Ratio 1.8 Sodium Level 141 mmol/L Potassium Level 3.6 mmol/L Chloride Level 105 mmol/L Carbon Dioxide Level 25 mmol/L Anion Gap 11.0 mmol/L Blood Urea Nitrogen 51 mg/dl Creatinine 2.40 mg/dl Est Creatinine Clear Calc Drug Dose 21.6 ml/min Estimated GFR () 27.5 Estimated GFR (Non- 23.7 BUN/Creatinine Ratio 21.1 Random Glucose 147 mg/dl Calcium Level 8.5 mg/dl Magnesium Level 2.2 mg/dl Test 07/02/16 14:25 07/02/16 16:01 Activated Partial Thromboplast Time 51.4 SECONDS Partial Thromboplastin Ratio 2.0 Bedside Glucose 129 mg/dl Assessment and Plan Citrobacter sepsis in the setting of gangrenous left toe with severe peripheral arterial disease. Now s/p revascularization and s/p toe amputation. Course now complicated by STEMI, Afib. For now, until patient stabilizes from cardiac standpoint would continue on current Abx. Will follow.
[2016-07-03] VITALS (12 sets, daily range): BP systolic 133–187; BP diastolic 57–110; PULSE 75–118; TEMP 36.4–36.7; O2SAT 93–100
[2016-07-03] MEDS: LEVALBUTEROL 1.25MG/0.5ML NEB INH SCH ×4 (01:17→19:09)
[2016-07-03] MEDS: IPRATROPIUM BROMIDE NEB SOLN 0.02% 2.5 ML VIAL INH SCH ×4 (01:17→19:09)
[2016-07-03] MEDS: PIPERACILL/TAZOBAC IV 3.375 GM in DEXTROSE 5% 100ML IV SCH ×3 (03:51→20:23)
[2016-07-03] MEDS ORDERED: IPRATROPIUM BROMIDE NEB SOLN 0.02% 2.5 ML VIAL INH STA (04:24)
[2016-07-03] MEDS ORDERED: LEVALBUTEROL 1.25MG/0.5ML NEB INH STA (04:24)
[2016-07-03] MEDS ORDERED: LEVALBUTEROL/IPRATROPIUM NEB INH SCH (04:30)
--- NOTE | 2016-07-03 05:21 | Progress Note ---
Progress Note Date of Service Jul 03, 2016. Progress Note Contacted by nurse for increased tachypnea that was intermittent along with increased work of breathing. Pt has dementia at baseline, however, states that he is not short of breath. At bedside I initially walked in while he was being deep suctioned by the nurses at which time his RR was aorund 32. I walked in a few minutes later and he was 20 breaths per minute. Lung exam revealed diffuse coarse rhonchi throughout all lung hernandez which is quite different from two providers' exams earlier yesterday. He is satting 97% on 4L via NC at the moment and now appears comfortable. Preliminary read of CXR reveals some worsening volume overload vs PNA. Will give Lasix 40mg IV now to see if this helps his breathing. 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 Tala Rizo, DO Hospitalist
[2016-07-03] MEDS ORDERED: FUROSEMIDE INJ 40 MG in SYRINGE 0 ML IV STA (05:26)
[2016-07-03] MEDS: LEVOTHYROXINE 25 MCG TAB PO SCH (06:08)
[2016-07-03] MEDS: HEPARIN SOD 5000 UNIT/0.5 ML CARP SQ SCH ×3 (06:08→22:41)
--- NOTE | 2016-07-03 06:34 | DIAGNOSTIC IMAGING REPORT ---
CHEST ONE VIEW PORTABLE CLINICAL HISTORY: tachypnea acute dyspnea COMPARISON STUDY: 07/01/2016 FINDINGS: Mildly progressive bibasilar parenchymal markings. Slight blunting lateral costophrenic angles bilaterally. Slight increase in prominence right upper lobe infiltrative change. IMPRESSION: Mildly progressive findings of bibasilar parenchymal infiltrates versus pulmonary edema Electronically signed by: Juan Ramon Aquino M.D. 07/03/2016 6:33 AM Dictated Date/Time: 07/03/2016 6:32 AM
[2016-07-03] MEDS: ALBUTEROL HFA 8 GM INHALER INH SCH ×4 (07:21→19:56)
[2016-07-03 07:40] LABS: BASO % 0.1 %; BASO ABS # 0.02 K/uL (0-0.2); COMPLETE YES; IG% 0.3 %; LYMPH % 5.5 %; LYMPH ABS # 1.19 K/uL (1.2-3.4); MEAN CELL VOLUME 92.2 fL (80-100); MEAN CORPUSCULAR HEMOGLOBIN 31.8 pg (25-34); MEAN CORPUSCULAR HGB CONC 34.5 g/dl (32-36); MEAN PLATELET VOLUME 11.9 fL (7.4-10.4); NEUT % 92.1 %; PLATELET COUNT 311 K/uL (130-400); RED BLOOD COUNT 3.58 M/uL (4.7-6.1); WHITE BLOOD COUNT 21.65 K/uL (4.8-10.8)
[2016-07-03] MEDS: ISOSORBIDE MONONITRATE 30 MG TABCR PO SCH (08:10)
[2016-07-03] MEDS: METOPROLOL SUCC 50MG EXT REL TAB PO SCH (08:10)
[2016-07-03 08:11] LABS: BUN/CREATININE RATIO 22.8 (10-20); CALCIUM 8.6 mg/dl (8.5-10.1); CREATININE 2.4 mg/dl (0.60-1.40); MAGNESIUM 2.2 mg/dl (1.8-2.4); POTASSIUM 3.3 mmol/L (3.5-5.1)
[2016-07-03] MEDS: CLOPIDOGREL BISULFATE 75 MG TAB PO SCH (08:11)
[2016-07-03] MEDS: CHOLECALCIFEROL 1000 INTER.UNIT TAB PO SCH (08:11)
[2016-07-03] MEDS: AMIODARONE 200 MG TAB PO SCH (08:11)
[2016-07-03] MEDS: ASPIRIN 81 MG ECTAB PO SCH (08:11)
[2016-07-03] MEDS: CYANOCOBALAMIN 500 MCG TAB (VIT B-12) PO SCH (08:12)
[2016-07-03] MEDS: FINASTERIDE 5 MG TAB PO SCH (08:12)
[2016-07-03] MEDS: INSULIN HUMAN REGULAR SC SCH ×4 (08:17→20:47)
[2016-07-03] MEDS: INSULIN GLARGINE SOLOSTAR 100 UNITS/ML 3 ML PEN SC SCH (08:17)
[2016-07-03] MEDS ORDERED: POTASSIUM CHLORIDE 10 MEQ TABCR PO ONE (09:15)
--- NOTE | 2016-07-03 09:15 | Cardiology Follow-Up ---
Subjective General Date of Service: Jul 03, 2016. Chief Complaint: Cough Pt evaluation today including: conversation w/ patient, physical exam, chart review, lab review, review of studies, review of inpatient medication list History of Present Illness Patient seen and examined. Overnight issues, aspiration, noted. Lethargic this morning. No complaints. Denies chest pain, dyspnea, or palpitations. EKG this morning reveals NSR at 83 bpm with sinus arrhythmia, LVH with QRS widening and repolarization. Cannot rule out an old septal infarct. QT/QTc: 438/ 514 ms. Telemetry: Sinus at 80 bpm. Occasional PVC. No atrial fibrillation. No significant bradycardia or pauses. Allergies Coded Allergies: Pravastatin (Verified Allergy, Mild, 06/20/16) Codeine (Verified Allergy, Unknown, 06/20/16) Morphine (Unverified Allergy, Unknown, UNKNOWN, 06/20/16) Statins (Unverified Allergy, Unknown, UNKNOWN, 06/20/16) Sulfa Antibiotics (Verified Allergy, Unknown, ., 06/20/16) Social History Smoking Status: Former Smoker Hx Tobacco Use In Past Year?: Yes Hx Alcohol Use - Type And Amou: No Hx Substance Use - Type And Am: No Problem List Medical Problems: (1) Acute CHF Status: Acute (2) Acute congestive heart failure Status: Acute (3) Acute coronary syndrome Status: Acute (4) Altered mental status Status: Acute (5) Cellulitis of left foot Status: Acute (6) Diabetic ulcer of left great toe Status: Acute (7) Elevated troponin Status: Acute (8) Elevated troponin Status: Acute (9) Hypoxia Status: Acute (10) Hypoxia Status: Acute (11) Pneumonia Status: Acute (12) Pulmonary edema Status: Acute (13) Pulmonary edema Status: Acute (14) Renal failure Status: Acute Physical Exam Vital Signs Last Vital Signs Documentation Date Time Temp Pulse Resp B/P Pulse Ox O2 Delivery O2 Flow Rate FiO2 07/03/16 07:59 36.4 85 20 159/57 100 4.0 07/03/16 07:22 Nasal Cannula Physical Exam Constitutional: General Apperance: too thin Level of Distress: NAD, chronically ill Psychiatric: Orientation: to person, not oriented to time, not oriented to place Memory: recent memory abnormal, remote memory abnormal Head: normocephalic, atraumatic Eyes: EOM: EOMI Neck: pertinent finding (No JVD) Lungs: Respiratory effort: no dyspnea Auscultation: deminished air movement, decreased breath sounds, rhonchi, rales/crackles on the left, rales/crackles on the right Cardiovascular: Apical Impulse: not displaced Heart Auscultation: RRR, II/ ANNETTE Peripheral Pulses: Bruits: none appreciated Carotid Pulse: normal on the left, normal on the right Radial Pulse: decreased on the left, decreased on the right Dorsalis Pedis Pulse: absent on the left, absent on the right Abdomen: Bowel Sounds: normal Inspection & Palpation: soft, non-distended, no tenderness, guarding & rebound Extremities: no edema, no clubbing Neurologic: Cranial Nerves: grossly intact Assessment and Plan Assessment and Plan Admission on 06/20/2016 with confusion, metabolic encephalopathy secondary to a left great toe infection, gangrene, status post percutaneous revascularization followed by surgical debridement/amputation Aspiration pneumonia New onset symptomatic atrial fibrillation with a rapid ventricular response, resultant NSTEMI CHADS2 Score 6/6 Severe diffuse atherosclerosis. Severe end stage coronary artery disease not amendable to revascularization, resultant ischemic cardiomyopathy with LVEF 25%, NYHA Class III+ dyspnea. Stage III-IV chronic kidney disease Hypertension Dyslipidemia Type II diabetes mellitus Dementia, Alzheimer's type Hypokalemia RECOMMENDATIONS/PLAN: Supplement potassium Continue Toprol XL, nitrates and hydralazine, ASA and Plavix, and amiodarone Risks of mcfp anticoagulation appear to be greater than the benefit. Transition to hospice. CARDIOLOGY ATTENDING ADDENDUM: The patient was seen and personally examined. Agree with Juan Ramon Alonzo PA-C's findings and plans as documented above with additional findings as noted below. S: pt without complaints. Data: SR on telemetry. Imp / plan : as noted above. Laboratory Results Last 24 Hours Test 07/02/16 10:58 07/02/16 14:25 07/02/16 16:01 07/02/16 21:10 Bedside Glucose 160 mg/dl 129 mg/dl 89 mg/dl Activated Partial Thromboplast Time 51.4 SECONDS Partial Thromboplastin Ratio 2.0 Test 07/03/16 03:45 07/03/16 06:40 07/03/16 07:15 Bedside Glucose 221 mg/dl 203 mg/dl White Blood Count 21.65 K/uL Red Blood Count 3.58 M/uL Hemoglobin 11.4 g/dL Hematocrit 33.0 % Mean Corpuscular Volume 92.2 fL Mean Corpuscular Hemoglobin 31.8 pg Mean Corpuscular Hemoglobin Concent 34.5 g/dl Platelet Count 311 K/uL Mean Platelet Volume 11.9 fL Neutrophils (%) (Auto) 92.1 % Lymphocytes (%) (Auto) 5.5 % Monocytes (%) (Auto) 2.0 % Eosinophils (%) (Auto) 0.0 % Basophils (%) (Auto) 0.1 % Neutrophils # (Auto) 19.93 K/uL Lymphocytes # (Auto) 1.19 K/uL Monocytes # (Auto) 0.43 K/uL Eosinophils # (Auto) 0.01 K/uL Basophils # (Auto) 0.02 K/uL RDW Standard Deviation 49.6 fL RDW Coefficient of Variation 14.8 % Immature Granulocyte % (Auto) 0.3 % Immature Granulocyte # (Auto) 0.07 K/uL Nucleated RBC Absolute Count (auto) 0.02 K/uL Nucleated Red Blood Cells % 0.1 % Sodium Level 140 mmol/L Potassium Level 3.3 mmol/L Chloride Level 105 mmol/L Carbon Dioxide Level 21 mmol/L Anion Gap 14.0 mmol/L Blood Urea Nitrogen 55 mg/dl Creatinine 2.40 mg/dl Est Creatinine Clear Calc Drug Dose 21.0 ml/min Estimated GFR () 27.5 Estimated GFR (Non- 23.7 BUN/Creatinine Ratio 22.8 Random Glucose 216 mg/dl Calcium Level 8.6 mg/dl Magnesium Level 2.2 mg/dl
--- NOTE | 2016-07-03 11:21 | Progress Note ---
Subjective Date of Service: Jul 03, 2016. Subjective Pt evaluation today including: conversation w/ patient, physical exam, lab review, review of studies, review of inpatient medication list Saw/examined the patient in room 229 He seems more lethargic today, though he does respond and arousable last night developed hypoxia/shortness of breath symptoms today he seems better in terms of respirations Problem List Medical Problems: (1) Acute CHF Status: Acute (2) Acute congestive heart failure Status: Acute (3) Acute coronary syndrome Status: Acute (4) Altered mental status Status: Acute (5) Cellulitis of left foot Status: Acute (6) Diabetic ulcer of left great toe Status: Acute (7) Elevated troponin Status: Acute (8) Elevated troponin Status: Acute (9) Hypoxia Status: Acute (10) Hypoxia Status: Acute (11) Pneumonia Status: Acute (12) Pulmonary edema Status: Acute (13) Pulmonary edema Status: Acute (14) Renal failure Status: Acute Review of Systems Cannot obtain due to patient's mental status/dementia Medications Current Inpatient Medications Medications (Trade) Dose Ordered Sig/Juan Route Start Time Stop Time Status Last Admin Dose Admin Acetaminophen (Tylenol Tab) 650 mg Q4H PRN PO 06/20/16 20:30 07/20/16 20:29 06/22/16 04:27 650 MG Al Hydrox/Mg Hydrox/Simethicone (Maalox Max Susp) 15 ml Q4H PRN PO 06/20/16 20:30 07/20/16 20:29 Magnesium Hydroxide (Milk Of Magnesia Susp) 30 ml Q12H PRN PO 06/20/16 20:30 07/20/16 20:29 Polyethylene (Miralax Powder Packet) 17 gm DAILY PRN PO 06/20/16 20:30 07/20/16 20:29 Piperacillin Sod/ Tazobactam Sod (Consult) 1 ea UD PRN N/A 06/20/16 20:45 07/20/16 20:44 Aspirin (Ecotrin Tab) 81 mg DAILY PO 06/21/16 09:00 07/21/16 08:59 07/03/16 08:11 81 MG Cholecalciferol (Vitamin D Tab) 1,000 inter.unit DAILY PO 06/21/16 09:00 07/21/16 08:59 07/03/16 08:11 1,000 INTER.UNIT Clopidogrel Bisulfate (plAVix TAB) 75 mg DAILY PO 06/21/16 09:00 07/21/16 08:59 07/03/16 08:11 75 MG Cyanocobalamin (Vitamin B-12 Tab) 1,000 mcg DAILY PO 06/21/16 09:00 07/21/16 08:59 07/03/16 08:12 1,000 MCG Finasteride (Proscar Tab) 5 mg DAILY PO 06/21/16 09:00 07/21/16 08:59 07/03/16 08:12 5 MG Isosorbide Mononitrate (Imdur Ext Rel Tab) 90 mg DAILY PO 06/21/16 09:00 07/21/16 08:59 07/03/16 08:10 90 MG Levothyroxine Sodium (Synthroid Tab) 25 mcg DAILYBB PO 06/21/16 06:00 07/21/16 06:59 07/03/16 06:08 25 MCG Metoprolol Succinate (Toprol Xl Tab) 50 mg DAILY PO 06/21/16 09:00 07/21/16 08:59 07/03/16 08:10 50 MG Albuterol (Ventolin Hfa Inhaler) 2 puffs QID INH 06/20/16 21:00 07/20/16 20:59 07/02/16 19:21 2 PUFFS Glucose (Glucose 40% Gel) 15-30 GRAMS 15 GRAMS... UD PRN PO 06/20/16 20:45 07/20/16 20:44 Glucose (Glucose Chew Tab) 4-8 Tablets 4 Tabl... UD PRN PO 06/20/16 20:45 07/20/16 20:44 Dextrose (Dextrose 50% 50ML Syringe) 25-50ML OF 50% DW IV FOR... UD PRN IV 06/20/16 20:45 07/20/16 20:44 Glucagon 1 mg 1 mg UD PRN SQ 06/20/16 20:45 07/20/16 20:44 Piperacillin Sod/ Tazobactam Sod/ Dextrose (Zosyn Iv/D5 100ml) 115 ml @ 28.75 mls/ hr Q8H IV 06/25/16 12:00 07/10/16 11:59 07/03/16 03:51 28.75 MLS/HR Hydralazine HCl (Apresoline Tab) 25 mg TID PO 06/25/16 14:00 07/25/16 13:59 07/03/16 08:09 25 MG Insulin Human Regular (novoLIN-R) SLIDING SCALE IF C... ACHS SC 06/29/16 08:00 07/29/16 07:59 07/03/16 08:17 6 UNITS Metoprolol Tartrate (Lopressor Iv) 5 mg Q6 PRN IV 06/30/16 10:45 07/30/16 10:44 06/30/16 15:39 5 MG Insulin Glargine (Lantus Solostar Pen) 5 unit DAILY SC 07/02/16 09:00 08/01/16 08:59 07/03/16 08:17 5 UNIT Ipratropium [place] (Atrovent 0.02% 0.5MG/2.5ML Neb) 0.5 mg Q6R INH 07/02/16 15:00 08/01/16 14:59 07/03/16 07:18 0.5 MG Levalbuterol (Xopenex 1.25MG/ 0.5ML Neb) 1.25 mg Q6R INH 07/02/16 15:00 08/01/16 14:59 07/03/16 07:18 1.25 MG Amiodarone HCl (Cordarone Tab) 200 mg DAILY PO 07/03/16 09:00 08/02/16 08:59 07/03/16 08:11 200 MG Heparin Sodium (Porcine) (Heparin Sq 5000 Unit/0.5ml) 5,000 unit Q8 SQ 07/03/16 06:00 08/02/16 05:59 07/03/16 06:08 5,000 UNIT Objective Vital Signs Date Time Temp Pulse Resp B/P Pulse Ox O2 Delivery O2 Flow Rate FiO2 07/03/16 07:59 36.4 85 20 159/57 100 4.0 07/03/16 07:22 82 20 94 Nasal Cannula 4.0 07/03/16 04:45 75 20 94 Nasal Cannula 4.0 07/03/16 04:00 Nasal Cannula 4.0 07/03/16 03:47 118 32 140/95 94 Nasal Cannula 4.0 07/03/16 03:00 36.7 115 22 187/110 96 185/95 07/03/16 03:00 95 22 145/86 07/03/16 01:18 75 18 95 Nasal Cannula 4.0 07/03/16 00:00 Nasal Cannula 4.0 07/02/16 23:46 36.5 80 18 144/81 98 2.0 07/02/16 20:23 81 18 96 Nasal Cannula 4.0 07/02/16 20:00 Nasal Cannula 4.0 07/02/16 19:32 36.7 80 16 121/70 96 Nasal Cannula 4.0 07/02/16 16:00 Nasal Cannula 4.0 07/02/16 15:33 36.9 69 16 143/76 99 Nasal Cannula 4.0 07/02/16 15:03 70 20 94 Nasal Cannula 4.0 07/02/16 12:00 36.5 73 20 114/66 94 Nasal Cannula 4.0 07/02/16 12:00 Nasal Cannula 4.0 Physical Exam General Appearance: + cachetic, + thin, + pertinent finding (+frail; + pleasantly demented) Respiratory/Chest: no respiratory distress, no accessory muscle use, + decreased breath sounds, + pertinent finding (+scar noted on chest) Cardiovascular: regular rate, rhythm, no edema, + pertinent finding Abdomen: non tender, soft Extremities: + pertinent finding (left big toe amputation; waffle boots on, wound dressed) Neurologic/Psychiatric: alert, + pertinent finding (more lethargic and weak/ tired than yesterday) Laboratory Results Last 24 Hours Test 07/02/16 14:25 07/02/16 16:01 07/02/16 21:10 07/03/16 03:45 Activated Partial Thromboplast Time 51.4 SECONDS Partial Thromboplastin Ratio 2.0 Bedside Glucose 129 mg/dl 89 mg/dl 221 mg/dl Test 07/03/16 06:40 07/03/16 07:15 Bedside Glucose 203 mg/dl White Blood Count 21.65 K/uL Red Blood Count 3.58 M/uL Hemoglobin 11.4 g/dL Hematocrit 33.0 % Mean Corpuscular Volume 92.2 fL Mean Corpuscular Hemoglobin 31.8 pg Mean Corpuscular Hemoglobin Concent 34.5 g/dl Platelet Count 311 K/uL Mean Platelet Volume 11.9 fL Neutrophils (%) (Auto) 92.1 % Lymphocytes (%) (Auto) 5.5 % Monocytes (%) (Auto) 2.0 % Eosinophils (%) (Auto) 0.0 % Basophils (%) (Auto) 0.1 % Neutrophils # (Auto) 19.93 K/uL Lymphocytes # (Auto) 1.19 K/uL Monocytes # (Auto) 0.43 K/uL Eosinophils # (Auto) 0.01 K/uL Basophils # (Auto) 0.02 K/uL RDW Standard Deviation 49.6 fL RDW Coefficient of Variation 14.8 % Immature Granulocyte % (Auto) 0.3 % Immature Granulocyte # (Auto) 0.07 K/uL Nucleated RBC Absolute Count (auto) 0.02 K/uL Nucleated Red Blood Cells % 0.1 % Sodium Level 140 mmol/L Potassium Level 3.3 mmol/L Chloride Level 105 mmol/L Carbon Dioxide Level 21 mmol/L Anion Gap 14.0 mmol/L Blood Urea Nitrogen 55 mg/dl Creatinine 2.40 mg/dl Est Creatinine Clear Calc Drug Dose 21.0 ml/min Estimated GFR () 27.5 Estimated GFR (Non- 23.7 BUN/Creatinine Ratio 22.8 Random Glucose 216 mg/dl Calcium Level 8.6 mg/dl Magnesium Level 2.2 mg/dl Assessment and Plan This is an 86 year old male with PMH of severe peripheral vascular disease with previous stenting of left common iliac, severe ischemic cardiomyopathy, chronic systolic heart failure with EF ~ 20%, recent NSTEMI, DM2, HTN, CKD stage 3, dementia 07/03 Discussed the case with cardiology and case management for now, we will keep current cardiac mediations for A. Fib and NSTEMI - now off of IV heparin he is to stay on IV Zosyn as per ID - we will discuss length of treatment for this patient if treatment length is long - may need PICC line to be inserted aspiration precautions - he is at risk for aspiration appreciate palliative care consultation - plan is to discharge patient to [facility] - possible transition to hospice as patient's states she cannot take care of him 07/02 appreciate palliative care consultation spoke with and will have another talk tomorrow states she cannot take care of the patient at home Will need to send patient to rehab/SNF - post-rehab may need hospice involved New Onset A. Fib with RVR 07/02 patient is now in NSR amiodarone dose decreased as per cardiology, appreciate input 07/01 appreciate cardiology input will do 48 hours of IV heparin IV amio changed to oral amiodarone TSH wnl NSTEMI 07/02 IV heparin stopped switch to subq heparin type II secondary to A. 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 Peripheral Vascular Disease 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 Doing well post-operatively pain controlled 06/26 s/p stenting due to PAD plan for left big toe amputation on 06/27 06/25 s/p stenting x 2 of the left LE Plan is to continue Zosyn at this time continue aspirin/Plavix for the arterial disease and stenting appreciate vascular, ID input Ortho recommendations to follow for possible amputation 06/24 patient has known severe vascular disease; previous stenting of left common iliac Left LE U/S suggestive of multiple stenotic vessels Left Foot X-ray - no osteomyelitis Vascular surgery consulted - appreciate input and management Stenting of the left popliteal and superficial femoral arteries - 06/24 will need to continue dual antiplatelet therapy Appreciate orthopedic evaluation - possible amputation of the left big toe Appreciate ID input - continue Zosyn for now Blood culture + x1 for Citrobacter Additional cultures pending Hx. of Multiple CVA Head CT performed showing previous lacunar infarction continue ASA, Plavix will need tighter blood pressure control HTN 06/25 increased dose of hydralazine PO to 25mg TID 06/24 BP is uncontrolled today (06/24) extra dose of hydralazine given continue b-mayra, hydralazine, Imdur at this time CKD stage 3-4 creat seems to be at baseline of 1.9 estimated GFR ~ 30 DM2, diet controlled A1c = 7.2%, well controlled insulin sliding scale DVT ppx subq heparin DNR
--- NOTE | 2016-07-03 14:02 | Infectious Disease Progress Nt ---
Progress Note Date of Service Jul 03, 2016. Subjective Pt evaluation today including: conversation w/ patient, physical exam, chart review, lab review, review of studies, conversation w/ [employer] sales consultant, review of inpatient medication list Episode of worsening SOB last night, better this AM. More lethargic. Remains afebrile. Additional Comments: Not obtainable Medications Current Inpatient Medications Medications (Trade) Dose Ordered Sig/Juan Route Start Time Stop Time Status Last Admin Dose Admin Acetaminophen (Tylenol Tab) 650 mg Q4H PRN PO 06/20/16 20:30 07/20/16 20:29 06/22/16 04:27 650 MG Al Hydrox/Mg Hydrox/Simethicone (Maalox Max Susp) 15 ml Q4H PRN PO 06/20/16 20:30 07/20/16 20:29 Magnesium Hydroxide (Milk Of Magnesia Susp) 30 ml Q12H PRN PO 06/20/16 20:30 07/20/16 20:29 Polyethylene (Miralax Powder Packet) 17 gm DAILY PRN PO 06/20/16 20:30 07/20/16 20:29 Piperacillin Sod/ Tazobactam Sod (Consult) 1 ea UD PRN N/A 06/20/16 20:45 07/20/16 20:44 Aspirin (Ecotrin Tab) 81 mg DAILY PO 06/21/16 09:00 07/21/16 08:59 07/03/16 08:11 81 MG Cholecalciferol (Vitamin D Tab) 1,000 inter.unit DAILY PO 06/21/16 09:00 07/21/16 08:59 07/03/16 08:11 1,000 INTER.UNIT Clopidogrel Bisulfate (plAVix TAB) 75 mg DAILY PO 06/21/16 09:00 07/21/16 08:59 07/03/16 08:11 75 MG Cyanocobalamin (Vitamin B-12 Tab) 1,000 mcg DAILY PO 06/21/16 09:00 07/21/16 08:59 07/03/16 08:12 1,000 MCG Finasteride (Proscar Tab) 5 mg DAILY PO 06/21/16 09:00 07/21/16 08:59 07/03/16 08:12 5 MG Isosorbide Mononitrate (Imdur Ext Rel Tab) 90 mg DAILY PO 06/21/16 09:00 07/21/16 08:59 07/03/16 08:10 90 MG Levothyroxine Sodium (Synthroid Tab) 25 mcg DAILYBB PO 06/21/16 06:00 07/21/16 06:59 07/03/16 06:08 25 MCG Metoprolol Succinate (Toprol Xl Tab) 50 mg DAILY PO 06/21/16 09:00 07/21/16 08:59 07/03/16 08:10 50 MG Albuterol (Ventolin Hfa Inhaler) 2 puffs QID INH 06/20/16 21:00 07/20/16 20:59 07/02/16 19:21 2 PUFFS Glucose (Glucose 40% Gel) 15-30 GRAMS 15 GRAMS... UD PRN PO 06/20/16 20:45 07/20/16 20:44 Glucose (Glucose Chew Tab) 4-8 Tablets 4 Tabl... UD PRN PO 06/20/16 20:45 07/20/16 20:44 Dextrose (Dextrose 50% 50ML Syringe) 25-50ML OF 50% DW IV FOR... UD PRN IV 06/20/16 20:45 07/20/16 20:44 Glucagon 1 mg 1 mg UD PRN SQ 06/20/16 20:45 07/20/16 20:44 Piperacillin Sod/ Tazobactam Sod/ Dextrose (Zosyn Iv/D5 100ml) 115 ml @ 28.75 mls/ hr Q8H IV 06/25/16 12:00 07/10/16 11:59 07/03/16 12:24 28.75 MLS/HR Hydralazine HCl (Apresoline Tab) 25 mg TID PO 06/25/16 14:00 07/25/16 13:59 07/03/16 08:09 25 MG Insulin Human Regular (novoLIN-R) SLIDING SCALE IF C... ACHS SC 06/29/16 08:00 07/29/16 07:59 07/03/16 12:23 7 UNITS Metoprolol Tartrate (Lopressor Iv) 5 mg Q6 PRN IV 06/30/16 10:45 07/30/16 10:44 06/30/16 15:39 5 MG Insulin Glargine (Lantus Solostar Pen) 5 unit DAILY SC 07/02/16 09:00 08/01/16 08:59 07/03/16 08:17 5 UNIT Ipratropium [place] (Atrovent 0.02% 0.5MG/2.5ML Neb) 0.5 mg Q6R INH 07/02/16 15:00 08/01/16 14:59 07/03/16 07:18 0.5 MG Levalbuterol (Xopenex 1.25MG/ 0.5ML Neb) 1.25 mg Q6R INH 07/02/16 15:00 08/01/16 14:59 07/03/16 07:18 1.25 MG Amiodarone HCl (Cordarone Tab) 200 mg DAILY PO 07/03/16 09:00 08/02/16 08:59 07/03/16 08:11 200 MG Heparin Sodium (Porcine) (Heparin Sq 5000 Unit/0.5ml) 5,000 unit Q8 SQ 07/03/16 06:00 08/02/16 05:59 07/03/16 06:08 5,000 UNIT Objective Vital Signs Date Time Temp Pulse Resp B/P Pulse Ox O2 Delivery O2 Flow Rate FiO2 07/03/16 12:00 Nasal Cannula 4.0 07/03/16 11:40 36.6 80 18 137/64 94 4.0 07/03/16 08:00 Nasal Cannula 4.0 07/03/16 07:59 36.4 85 20 159/57 100 4.0 07/03/16 07:22 82 20 94 Nasal Cannula 4.0 07/03/16 04:45 75 20 94 Nasal Cannula 4.0 07/03/16 04:00 Nasal Cannula 4.0 07/03/16 03:47 118 32 140/95 94 Nasal Cannula 4.0 07/03/16 03:00 36.7 115 22 187/110 96 185/95 07/03/16 03:00 95 22 145/86 07/03/16 01:18 75 18 95 Nasal Cannula 4.0 07/03/16 00:00 Nasal Cannula 4.0 07/02/16 23:46 36.5 80 18 144/81 98 2.0 07/02/16 20:23 81 18 96 Nasal Cannula 4.0 07/02/16 20:00 Nasal Cannula 4.0 07/02/16 19:32 36.7 80 16 121/70 96 Nasal Cannula 4.0 07/02/16 16:00 Nasal Cannula 4.0 07/02/16 15:33 36.9 69 16 143/76 99 Nasal Cannula 4.0 07/02/16 15:03 70 20 94 Nasal Cannula 4.0 Physical Exam General Appearance: WD/WN, no apparent distress, + thin Eyes: normal inspection, sclerae normal ENT: normal ENT inspection, pharynx normal Neck: supple, no adenopathy, trachea midline Respiratory/Chest: chest non-tender, lungs clear, normal breath sounds, no respiratory distress Cardiovascular: regular rate, rhythm, no gallop, no murmur Abdomen: normal bowel sounds, non tender, soft, no organomegaly Extremities: non-tender, no calf tenderness Neurologic/Psychiatric: alert, + disoriented Skin: normal color, no rash, + pertinent finding (surgical site clean) Lymphatic: no adenopathy Laboratory Results [~ rep ct add3]] CHEST ONE VIEW PORTABLE CLINICAL HISTORY: tachypnea acute dyspnea COMPARISON STUDY: 07/01/2016 FINDINGS: Mildly progressive bibasilar parenchymal markings. Slight blunting lateral costophrenic angles bilaterally. Slight increase in prominence right upper lobe infiltrative change. IMPRESSION: Mildly progressive findings of bibasilar parenchymal infiltrates versus pulmonary edema Electronically signed by: Juan Ramon Aquino M.D. 07/03/2016 6:33 AM Dictated Date/Time: 07/03/2016 6:32 AM Last 24 Hours Test 07/02/16 14:25 07/02/16 16:01 07/02/16 21:10 07/03/16 03:45 Activated Partial Thromboplast Time 51.4 SECONDS Partial Thromboplastin Ratio 2.0 Bedside Glucose 129 mg/dl 89 mg/dl 221 mg/dl Test 07/03/16 06:40 07/03/16 07:15 07/03/16 11:13 Bedside Glucose 203 mg/dl 217 mg/dl White Blood Count 21.65 K/uL Red Blood Count 3.58 M/uL Hemoglobin 11.4 g/dL Hematocrit 33.0 % Mean Corpuscular Volume 92.2 fL Mean Corpuscular Hemoglobin 31.8 pg Mean Corpuscular Hemoglobin Concent 34.5 g/dl Platelet Count 311 K/uL Mean Platelet Volume 11.9 fL Neutrophils (%) (Auto) 92.1 % Lymphocytes (%) (Auto) 5.5 % Monocytes (%) (Auto) 2.0 % Eosinophils (%) (Auto) 0.0 % Basophils (%) (Auto) 0.1 % Neutrophils # (Auto) 19.93 K/uL Lymphocytes # (Auto) 1.19 K/uL Monocytes # (Auto) 0.43 K/uL Eosinophils # (Auto) 0.01 K/uL Basophils # (Auto) 0.02 K/uL RDW Standard Deviation 49.6 fL RDW Coefficient of Variation 14.8 % Immature Granulocyte % (Auto) 0.3 % Immature Granulocyte # (Auto) 0.07 K/uL Nucleated RBC Absolute Count (auto) 0.02 K/uL Nucleated Red Blood Cells % 0.1 % Sodium Level 140 mmol/L Potassium Level 3.3 mmol/L Chloride Level 105 mmol/L Carbon Dioxide Level 21 mmol/L Anion Gap 14.0 mmol/L Blood Urea Nitrogen 55 mg/dl Creatinine 2.40 mg/dl Est Creatinine Clear Calc Drug Dose 21.0 ml/min Estimated GFR () 27.5 Estimated GFR (Non- 23.7 BUN/Creatinine Ratio 22.8 Random Glucose 216 mg/dl Calcium Level 8.6 mg/dl Magnesium Level 2.2 mg/dl Assessment and Plan Citrobacter sepsis in the setting of gangrenous left toe with severe peripheral arterial disease. Now s/p revascularization and s/p toe amputation. Course now complicated by STEMI, Afib. For now, until patient stabilizes from cardiac standpoint would continue on current Abx. Will follow.
--- NOTE | 2016-07-03 14:52 | Palliative Care Progress Note ---
Palliative Care Progress Note Date of Service Jul 03, 2016. Subjective Pt evaluation today including: conversation w/ patient, conversation w/ family , physical exam, chart review, conversation w/ [employer] hcm consultant Pain: 0/10 PO Intake: tolerating diet Voiding: tam catheter in place -Patient pleasantly confused. Denies any pain or SOB -IV heparin off -Being transferred to medical -Met with , filled out new POLST form. See plan below Review of Systems Constitutional: + weakness Respiratory: No cough, No dyspnea on exertion, No shortness of breath Cardiac: No chest pain, No palpitations Abdomen: No nausea, No pain, No vomiting Male : No problem reported (has tam) Objective Vital Signs Date Time Temp Pulse Resp B/P Pulse Ox O2 Delivery O2 Flow Rate FiO2 07/03/16 12:00 Nasal Cannula 4.0 07/03/16 11:40 36.6 80 18 137/64 94 4.0 07/03/16 08:00 Nasal Cannula 4.0 07/03/16 07:59 36.4 85 20 159/57 100 4.0 07/03/16 07:22 82 20 94 Nasal Cannula 4.0 07/03/16 04:45 75 20 94 Nasal Cannula 4.0 07/03/16 04:00 Nasal Cannula 4.0 07/03/16 03:47 118 32 140/95 94 Nasal Cannula 4.0 07/03/16 03:00 36.7 115 22 187/110 96 185/95 07/03/16 03:00 95 22 145/86 07/03/16 01:18 75 18 95 Nasal Cannula 4.0 07/03/16 00:00 Nasal Cannula 4.0 07/02/16 23:46 36.5 80 18 144/81 98 2.0 07/02/16 20:23 81 18 96 Nasal Cannula 4.0 07/02/16 20:00 Nasal Cannula 4.0 07/02/16 19:32 36.7 80 16 121/70 96 Nasal Cannula 4.0 07/02/16 16:00 Nasal Cannula 4.0 07/02/16 15:33 36.9 69 16 143/76 99 Nasal Cannula 4.0 07/02/16 15:03 70 20 94 Nasal Cannula 4.0 Physical Exam General Appearance: no apparent distress Neck: no JVD Respiratory/Chest: no respiratory distress, no accessory muscle use, + decreased breath sounds Cardiovascular: no edema, + irregularly irregular, + pertinent finding (unable to palpate left pedal-covered with dressing. right pedal pulse palpable) Abdomen: normal bowel sounds, non tender, soft Neurologic/Psychiatric: alert, normal mood/affect, + disoriented (dementia) Skin: normal color Assessment and Plan Problem list: Confusion/dementia Weakness/ambulatory dysfunction PVD Left great toe gangrene s/p left great toe amputation on 06/27/2016 Atrial fibrillation, new onset with RVR NSTEMI Aspiration Severe cardiomyopathy and chronic systolic dysfunction CKD stage III-IV Goals of care (Z51.5) Palliative care plan: Discussed with patient's /POA, Mary Jane Cuevas. -Goal is for comfort. New POLST form as follows: DNR/DNI, comfort measures only , determine the use or limitation of antibiotics with comfort as the goal, trial of IV fluids only if indicated with comfort as the goal, no feeding tube. -Mary Jane is unsure if she wants patient to have PICC line. She stated that as long as the patient will not be coming to her home with the PICC, she might be okay with it. She does not want to be the one caring for a PICC line at home. She is waiting to hear Dr. Hagan's recommendations for how long patient will need IV abx before making a decision. -Patient to go to SNF after discharge. Goal is to eventually get him home with hospice and [facility] caregivers. I will follow as needed. Please contact me with any further palliative care needs. Palliative Performance Scale: 40 % Continued [facility] stay due to: multiple IV medications needed, home environment unsafe for pt Discharge planning: long term facility
[2016-07-04] VITALS (10 sets, daily range): BP systolic 124–147; BP diastolic 69–74; PULSE 80–88; TEMP 36.7–36.8; O2SAT 90–97
[2016-07-04] MEDS: LEVALBUTEROL 1.25MG/0.5ML NEB INH SCH ×4 (02:18→19:23)
[2016-07-04] MEDS: IPRATROPIUM BROMIDE NEB SOLN 0.02% 2.5 ML VIAL INH SCH ×4 (02:18→19:23)
[2016-07-04] MEDS: PIPERACILL/TAZOBAC IV 3.375 GM in DEXTROSE 5% 100ML IV SCH ×3 (04:41→19:07)
[2016-07-04] MEDS: HEPARIN SOD 5000 UNIT/0.5 ML CARP SQ SCH ×3 (06:00→19:11)
[2016-07-04] MEDS: LEVOTHYROXINE 25 MCG TAB PO SCH (06:10)
[2016-07-04] MEDS: ASPIRIN 81 MG ECTAB PO SCH (07:32)
[2016-07-04] MEDS: ALBUTEROL HFA 8 GM INHALER INH SCH ×4 (07:32→19:07)
[2016-07-04] MEDS: CLOPIDOGREL BISULFATE 75 MG TAB PO SCH (07:32)
[2016-07-04] MEDS: CYANOCOBALAMIN 500 MCG TAB (VIT B-12) PO SCH (07:33)
[2016-07-04] MEDS: FINASTERIDE 5 MG TAB PO SCH (07:33)
[2016-07-04] MEDS: ISOSORBIDE MONONITRATE 30 MG TABCR PO SCH (07:34)
[2016-07-04] MEDS: AMIODARONE 200 MG TAB PO SCH (07:34)
[2016-07-04] MEDS: CHOLECALCIFEROL 1000 INTER.UNIT TAB PO SCH (07:35)
[2016-07-04] MEDS: METOPROLOL SUCC 50MG EXT REL TAB PO SCH (07:35)
[2016-07-04 08:17] LABS: BUN/CREATININE RATIO 20.3 (10-20); CALCIUM 8.9 mg/dl (8.5-10.1); CREATININE 2.2 mg/dl (0.60-1.40); MAGNESIUM 2.1 mg/dl (1.8-2.4); POTASSIUM 3.6 mmol/L (3.5-5.1)
[2016-07-04 08:25] LABS: HEMATOCRIT 33.4 % (42-52); MEAN CELL VOLUME 94.6 fL (80-100); MEAN CORPUSCULAR HEMOGLOBIN 32.3 pg (25-34); MEAN CORPUSCULAR HGB CONC 34.1 g/dl (32-36); MEAN PLATELET VOLUME 12.7 fL (7.4-10.4); PLATELET COUNT 324 K/uL (130-400); RED BLOOD COUNT 3.53 M/uL (4.7-6.1); WHITE BLOOD COUNT 17.13 K/uL (4.8-10.8)
[2016-07-04] MEDS: INSULIN GLARGINE SOLOSTAR 100 UNITS/ML 3 ML PEN SC SCH (09:13)
[2016-07-04] MEDS: INSULIN HUMAN REGULAR SC SCH ×4 (09:14→20:13)
--- NOTE | 2016-07-04 18:22 | Progress Note ---
Subjective Date of Service: Jul 04, 2016. Subjective Pt evaluation today including: conversation w/ patient, physical exam, lab review, review of studies, conversation w/ it consultant, review of inpatient medication list Saw/examined the patient in room 456 somnolent today; arousable No complaints underlying dementia Problem List Medical Problems: (1) Acute CHF Status: Acute (2) Acute congestive heart failure Status: Acute (3) Acute coronary syndrome Status: Acute (4) Altered mental status Status: Acute (5) Cellulitis of left foot Status: Acute (6) Diabetic ulcer of left great toe Status: Acute (7) Elevated troponin Status: Acute (8) Elevated troponin Status: Acute (9) Hypoxia Status: Acute (10) Hypoxia Status: Acute (11) Pneumonia Status: Acute (12) Pulmonary edema Status: Acute (13) Pulmonary edema Status: Acute (14) Renal failure Status: Acute Medications Current Inpatient Medications Medications (Trade) Dose Ordered Sig/Juan Route Start Time Stop Time Status Last Admin Dose Admin Acetaminophen (Tylenol Tab) 650 mg Q4H PRN PO 06/20/16 20:30 07/20/16 20:29 06/22/16 04:27 650 MG Al Hydrox/Mg Hydrox/Simethicone (Maalox Max Susp) 15 ml Q4H PRN PO 06/20/16 20:30 07/20/16 20:29 Magnesium Hydroxide (Milk Of Magnesia Susp) 30 ml Q12H PRN PO 06/20/16 20:30 07/20/16 20:29 Polyethylene (Miralax Powder Packet) 17 gm DAILY PRN PO 06/20/16 20:30 07/20/16 20:29 Piperacillin Sod/ Tazobactam Sod (Consult) 1 ea UD PRN N/A 06/20/16 20:45 07/20/16 20:44 Aspirin (Ecotrin Tab) 81 mg DAILY PO 06/21/16 09:00 07/21/16 08:59 07/04/16 07:32 81 MG Cholecalciferol (Vitamin D Tab) 1,000 inter.unit DAILY PO 06/21/16 09:00 07/21/16 08:59 07/04/16 07:35 1,000 INTER.UNIT Clopidogrel Bisulfate (plAVix TAB) 75 mg DAILY PO 06/21/16 09:00 07/21/16 08:59 07/04/16 07:32 75 MG Cyanocobalamin (Vitamin B-12 Tab) 1,000 mcg DAILY PO 06/21/16 09:00 07/21/16 08:59 07/04/16 07:33 1,000 MCG Finasteride (Proscar Tab) 5 mg DAILY PO 06/21/16 09:00 07/21/16 08:59 07/04/16 07:33 5 MG Isosorbide Mononitrate (Imdur Ext Rel Tab) 90 mg DAILY PO 06/21/16 09:00 07/21/16 08:59 07/04/16 07:34 90 MG Levothyroxine Sodium (Synthroid Tab) 25 mcg DAILYBB PO 06/21/16 06:00 07/21/16 06:59 07/04/16 06:10 25 MCG Metoprolol Succinate (Toprol Xl Tab) 50 mg DAILY PO 06/21/16 09:00 07/21/16 08:59 07/04/16 07:35 50 MG Albuterol (Ventolin Hfa Inhaler) 2 puffs QID INH 06/20/16 21:00 07/20/16 20:59 07/02/16 19:21 2 PUFFS Glucose (Glucose 40% Gel) 15-30 GRAMS 15 GRAMS... UD PRN PO 06/20/16 20:45 07/20/16 20:44 Glucose (Glucose Chew Tab) 4-8 Tablets 4 Tabl... UD PRN PO 06/20/16 20:45 07/20/16 20:44 Dextrose (Dextrose 50% 50ML Syringe) 25-50ML OF 50% DW IV FOR... UD PRN IV 06/20/16 20:45 07/20/16 20:44 Glucagon 1 mg 1 mg UD PRN SQ 06/20/16 20:45 07/20/16 20:44 Piperacillin Sod/ Tazobactam Sod/ Dextrose (Zosyn Iv/D5 100ml) 115 ml @ 28.75 mls/ hr Q8H IV 06/25/16 12:00 07/10/16 11:59 07/04/16 11:33 28.75 MLS/HR Hydralazine HCl (Apresoline Tab) 25 mg TID PO 06/25/16 14:00 07/25/16 13:59 07/04/16 13:45 25 MG Insulin Human Regular (novoLIN-R) SLIDING SCALE IF C... ACHS SC 06/29/16 08:00 07/29/16 07:59 07/04/16 18:14 1 UNITS Metoprolol Tartrate (Lopressor Iv) 5 mg Q6 PRN IV 06/30/16 10:45 07/30/16 10:44 06/30/16 15:39 5 MG Insulin Glargine (Lantus Solostar Pen) 5 unit DAILY SC 07/02/16 09:00 08/01/16 08:59 07/04/16 09:13 5 UNIT Ipratropium [place] (Atrovent 0.02% 0.5MG/2.5ML Neb) 0.5 mg Q6R INH 07/02/16 15:00 08/01/16 14:59 07/04/16 14:25 0.5 MG Levalbuterol (Xopenex 1.25MG/ 0.5ML Neb) 1.25 mg Q6R INH 07/02/16 15:00 08/01/16 14:59 07/04/16 14:25 1.25 MG Amiodarone HCl (Cordarone Tab) 200 mg DAILY PO 07/03/16 09:00 08/02/16 08:59 07/04/16 07:34 200 MG Heparin Sodium (Porcine) (Heparin Sq 5000 Unit/0.5ml) 5,000 unit Q8 SQ 07/03/16 06:00 08/02/16 05:59 07/04/16 13:49 5,000 UNIT Objective Vital Signs Date Time Temp Pulse Resp B/P Pulse Ox O2 Delivery O2 Flow Rate FiO2 07/04/16 16:00 95 Room Air 07/04/16 15:54 36.8 81 20 143/70 95 Room Air 07/04/16 14:25 82 16 97 Room Air 07/04/16 08:00 94 Room Air 07/04/16 07:47 36.7 88 20 147/74 94 Room Air 07/04/16 07:20 88 16 94 Room Air 07/04/16 02:19 80 14 95 Room Air 07/04/16 00:46 36.8 88 16 124/69 93 Room Air 07/04/16 00:00 Nasal Cannula 4.0 07/03/16 20:25 83 141/64 07/03/16 19:09 83 18 93 Nasal Cannula 4.0 Physical Exam General Appearance: no apparent distress Respiratory/Chest: chest non-tender, lungs clear, normal breath sounds, no respiratory distress, no accessory muscle use Cardiovascular: regular rate, rhythm, no edema, no murmur Abdomen: normal bowel sounds, non tender, soft Extremities: + pertinent finding (+left big toe amputation) Laboratory Results Last 24 Hours Test 07/03/16 20:31 07/04/16 07:08 07/04/16 07:56 07/04/16 11:29 Bedside Glucose 131 mg/dl 177 mg/dl 132 mg/dl White Blood Count 17.13 K/uL Red Blood Count 3.53 M/uL Hemoglobin 11.4 g/dL Hematocrit 33.4 % Mean Corpuscular Volume 94.6 fL Mean Corpuscular Hemoglobin 32.3 pg Mean Corpuscular Hemoglobin Concent 34.1 g/dl RDW Standard Deviation 50.9 fL RDW Coefficient of Variation 15.2 % Platelet Count 324 K/uL Mean Platelet Volume 12.7 fL Sodium Level 140 mmol/L Potassium Level 3.6 mmol/L Chloride Level 107 mmol/L Carbon Dioxide Level 23 mmol/L Anion Gap 10.0 mmol/L Blood Urea Nitrogen 45 mg/dl Creatinine 2.20 mg/dl Est Creatinine Clear Calc Drug Dose 22.9 ml/min Estimated GFR () 30.5 Estimated GFR (Non- 26.3 BUN/Creatinine Ratio 20.3 Random Glucose 153 mg/dl Calcium Level 8.9 mg/dl Magnesium Level 2.1 mg/dl Test 07/04/16 16:08 Bedside Glucose 154 mg/dl Assessment and Plan This is an 86 year old male with PMH of severe peripheral vascular disease with previous stenting of left common iliac, severe ischemic cardiomyopathy, chronic systolic heart failure with EF ~ 20%, recent NSTEMI, DM2, HTN, CKD stage 3, dementia 07/04 discussed with about the possibility of PICC initially she refused, but now may be agreeable? will need length of treatment of IV Zosyn for this patient for his Citrobacter septicemia For discharge purposes: we will try to discharge to SNF with PICC and IV antibiotics - length of treatment as per ID, pending input continue current cardiac medications for A. Fib and recent NSTEMI aspiration precautions in place and diet as per speech therapy (honey thick liquids, pureed solids) monitor for fluid overload due to EF being around 20% activity instructions as per orthopedic surgery plan for after SNF would be converting patient to hospice prior to being discharged home - patient's can no longer support patient on her own 07/03 Discussed the case with cardiology and case management for now, we will keep current cardiac mediations for A. Fib and NSTEMI - now off of IV heparin he is to stay on IV Zosyn as per ID - we will discuss length of treatment for this patient if treatment length is long - may need PICC line to be inserted aspiration precautions - he is at risk for aspiration appreciate palliative care consultation - plan is to discharge patient to [facility] - possible transition to hospice as patient's states she cannot take care of him 07/02 appreciate palliative care consultation spoke with and will have another talk tomorrow states she cannot take care of the patient at home Will need to send patient to rehab/SNF - post-rehab may need hospice involved New Onset A. Fib with RVR 07/02 patient is now in NSR amiodarone dose decreased as per cardiology, appreciate input 07/01 appreciate cardiology input will do 48 hours of IV heparin IV amio changed to oral amiodarone TSH wnl NSTEMI 07/02 IV heparin stopped switch to subq heparin type II secondary to A. 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 Peripheral Vascular Disease 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 Doing well post-operatively pain controlled 06/26 s/p stenting due to PAD plan for left big toe amputation on 06/27 06/25 s/p stenting x 2 of the left LE Plan is to continue Zosyn at this time continue aspirin/Plavix for the arterial disease and stenting appreciate vascular, ID input Ortho recommendations to follow for possible amputation 06/24 patient has known severe vascular disease; previous stenting of left common iliac Left LE U/S suggestive of multiple stenotic vessels Left Foot X-ray - no osteomyelitis Vascular surgery consulted - appreciate input and management Stenting of the left popliteal and superficial femoral arteries - 06/24 will need to continue dual antiplatelet therapy Appreciate orthopedic evaluation - possible amputation of the left big toe Appreciate ID input - continue Zosyn for now Blood culture + x1 for Citrobacter Additional cultures pending Hx. of Multiple CVA Head CT performed showing previous lacunar infarction continue ASA, Plavix will need tighter blood pressure control HTN 06/25 increased dose of hydralazine PO to 25mg TID 06/24 BP is uncontrolled today (06/24) extra dose of hydralazine given continue b-mayra, hydralazine, Imdur at this time CKD stage 3-4 creat seems to be at baseline of 1.9 estimated GFR ~ 30 DM2, diet controlled A1c = 7.2%, well controlled insulin sliding scale DVT ppx subq heparin DNR Continued [facility] stay due to: multiple IV medications needed, home environment unsafe for pt Discharge planning: jail facility
[2016-07-05] VITALS (7 sets, daily range): BP systolic 143–158; BP diastolic 74–85; PULSE 55–81; TEMP 36.7; O2SAT 90–98
[2016-07-05] MEDS: IPRATROPIUM BROMIDE NEB SOLN 0.02% 2.5 ML VIAL INH SCH ×4 (02:43→20:41)
[2016-07-05] MEDS: LEVALBUTEROL 1.25MG/0.5ML NEB INH SCH ×4 (02:43→20:41)
[2016-07-05] MEDS: PIPERACILL/TAZOBAC IV 3.375 GM in DEXTROSE 5% 100ML IV SCH ×3 (04:06→20:20)
[2016-07-05] MEDS: LEVOTHYROXINE 25 MCG TAB PO SCH (06:00)
[2016-07-05] MEDS: HEPARIN SOD 5000 UNIT/0.5 ML CARP SQ SCH ×3 (06:06→21:34)
[2016-07-05] MEDS: CHOLECALCIFEROL 1000 INTER.UNIT TAB PO SCH (08:15)
[2016-07-05] MEDS: AMIODARONE 200 MG TAB PO SCH (08:15)
[2016-07-05] MEDS: METOPROLOL SUCC 50MG EXT REL TAB PO SCH (08:15)
[2016-07-05] MEDS: CYANOCOBALAMIN 500 MCG TAB (VIT B-12) PO SCH (08:15)
[2016-07-05] MEDS: CLOPIDOGREL BISULFATE 75 MG TAB PO SCH (08:16)
[2016-07-05] MEDS: ASPIRIN 81 MG ECTAB PO SCH (08:16)
[2016-07-05] MEDS: ALBUTEROL HFA 8 GM INHALER INH SCH ×4 (08:16→20:13)
[2016-07-05] MEDS: FINASTERIDE 5 MG TAB PO SCH (08:16)
[2016-07-05] MEDS: ISOSORBIDE MONONITRATE 30 MG TABCR PO SCH (08:16)
[2016-07-05 08:48] LABS: BASO % 0.1 %; BASO ABS # 0.01 K/uL (0-0.2); COMPLETE YES; EOS % 0.1 %; HEMATOCRIT 33.8 % (42-52); IG% 0.5 %; LYMPH % 4.5 %; LYMPH ABS # 0.74 K/uL (1.2-3.4); MEAN CELL VOLUME 94.7 fL (80-100); MEAN CORPUSCULAR HEMOGLOBIN 32.2 pg (25-34); MEAN PLATELET VOLUME 12.7 fL (7.4-10.4); MONO % 5.3 %; NEUT % 89.5 %; PLATELET COUNT 305 K/uL (130-400); RED BLOOD COUNT 3.57 M/uL (4.7-6.1); WHITE BLOOD COUNT 16.37 K/uL (4.8-10.8)
[2016-07-05] MEDS: INSULIN HUMAN REGULAR SC SCH ×4 (09:13→21:33)
[2016-07-05] MEDS: INSULIN GLARGINE SOLOSTAR 100 UNITS/ML 3 ML PEN SC SCH (09:14)
--- NOTE | 2016-07-05 19:36 | Progress Note ---
Internal Med Progress Note Date of Service: Jul 05, 2016. Provider Documentation: SUBJECTIVE: episode of hypoglycemia ; BSG was low in 60's given D 50 repeat BSG in 166 pt unable to voice any concern sleeping , wakes up to voice , offers no complain baseline advanced dementia OBJECTIVE: Vital Signs-as noted below Exam: General-elderly male , no sign of distress Eyes-sclera non icteric ENT-dry oral mucosa, poor dentition Neck-no thyromegaly Lungs-diminished, no audible wheeze or rales Heart-regular Abdomen-soft, non tender Extremities-s/p left great toe amputation, bandage in place Neuro-baseline dementia, no focal deficit Lab data as noted below. ASSESSMENT & PLAN: AFIB RVR : in a setting of severe cardiomyopathy , EF 20 % , PVD , gangrenous toe , PVD currently rate and rhythm controlled appreciate Cardiology eval cont Amiodarone , Toprol XL , nitrates , Aspirin , Plavix not a candidate for long term anticoagulation NSTEMI: due cardiac strain in setting of Afib RVR , severe cardiomyopathy possible demand ischemia given multiple co morbidities -medical management appropriate cont Aspirin , Plavix , Beta mayra, nitrates, amiodarone Left Big Toe 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 of Peripheral Vascular Disease Citrobacter sepsis on IV Zosyn may need [facility] ABx with PICC line placement appreciate input form ID s/p left lower ext arteriogram and balloon angioplasty and stenting of left popliteal and superficial femoral arteries on 06/24 s/p left big toe amputation by Ortho appreciate ortho eval wt bearing as tolerated on left foot ,on heel only if pt unable to follow instruction will need to be Non wt bearing status on left lower ext given fall risk , dementia , severe PVD , poor wound healing -requiring wound care pt will benefit with rehab placement Metabolic Encephalopathy, due to infection /dehydration seems to be closer to baseline currently has underlying dementia Severe Cardiomyopathy and Chronic Systolic Dysfunction likely secondary to a recent NSTEMI - non-operable EF ~ 20%; Dysphagia /concern for aspiration : speech eval appreciated pureed diet with [place] thick liquid aspiration precaution Hx. of Multiple CVA Head CT performed showing previous lacunar infarction continue ASA, Plavix HTN on hydralazine PO to 25mg TID continue b-mayra, Imdur CKD stage 3-4 creat seems to be at baseline of 1.9 estimated GFR ~ 30 DM2, diet controlled A1c = 7.2%, well controlled episode of hypoglycemia noted possible due to poor PO intake / DC basal Lantus SSI adjusted DVT ppx subq heparin DNR DISPOSITION will need rehab Vital Signs: Date Time Temp Pulse Resp B/P Pulse Ox O2 Delivery O2 Flow Rate FiO2 07/05/16 16:00 Nasal Cannula 2.0 07/05/16 15:25 36.7 81 18 143/74 93 Nasal Cannula 3.0 07/05/16 14:15 79 20 98 Nasal Cannula 2.0 07/05/16 08:00 98 Nasal Cannula 2.0 07/05/16 07:46 36.7 80 18 158/85 98 Nasal Cannula 2.0 07/05/16 07:16 62 20 92 Nasal Cannula 07/05/16 04:00 Nasal Cannula 2.0 07/05/16 02:44 81 20 90 Room Air 07/05/16 00:01 Room Air 07/04/16 23:30 36.8 84 18 147/72 90 Room Air Lab Results: Results Past 24 Hours Test 07/04/16 20:08 07/05/16 02:35 07/05/16 08:01 07/05/16 08:10 Range/Units Bedside Glucose 131 240 201 70-99 mg/dl White Blood Count 16.37 4.8-10.8 K/uL Red Blood Count 3.57 4.7-6.1 M/uL Hemoglobin 11.5 14.0-18.0 g/dL Hematocrit 33.8 42-52 % Mean Corpuscular Volume 94.7 80-100 fL Mean Corpuscular Hemoglobin 32.2 25-34 pg Mean Corpuscular Hemoglobin Concent 34.0 32-36 g/dl Platelet Count 305 130-400 K/uL Mean Platelet Volume 12.7 7.4-10.4 fL Neutrophils (%) (Auto) 89.5 % Lymphocytes (%) (Auto) 4.5 % Monocytes (%) (Auto) 5.3 % Eosinophils (%) (Auto) 0.1 % Basophils (%) (Auto) 0.1 % Neutrophils # (Auto) 14.66 1.4-6.5 K/uL Lymphocytes # (Auto) 0.74 1.2-3.4 K/uL Monocytes # (Auto) 0.86 0.11-0.59 K/uL Eosinophils # (Auto) 0.01 0-0.5 K/uL Basophils # (Auto) 0.01 0-0.2 K/uL RDW Standard Deviation 51.7 36.4-46.3 fL RDW Coefficient of Variation 15.2 11.5-14.5 % Immature Granulocyte % (Auto) 0.5 % Immature Granulocyte # (Auto) 0.09 0.00-0.02 K/uL Test 07/05/16 11:24 07/05/16 16:44 07/05/16 16:45 07/05/16 17:09 Range/Units Bedside Glucose 168 47 51 166 70-99 mg/dl
[2016-07-06] VITALS (7 sets, daily range): BP systolic 136–162; BP diastolic 71–80; PULSE 72–81; TEMP 36.3–36.5; O2SAT 95–99
[2016-07-06] MEDS: IPRATROPIUM BROMIDE NEB SOLN 0.02% 2.5 ML VIAL INH SCH ×3 (02:06→14:57)
[2016-07-06] MEDS: LEVALBUTEROL 1.25MG/0.5ML NEB INH SCH ×3 (02:06→14:57)
[2016-07-06] MEDS: PIPERACILL/TAZOBAC IV 3.375 GM in DEXTROSE 5% 100ML IV SCH ×3 (04:21→19:31)
[2016-07-06] MEDS: LEVOTHYROXINE 25 MCG TAB PO SCH (05:41)
[2016-07-06] MEDS: HEPARIN SOD 5000 UNIT/0.5 ML CARP SQ SCH ×3 (05:47→21:55)
[2016-07-06] MEDS: ASPIRIN 81 MG ECTAB PO SCH (07:35)
[2016-07-06] MEDS: CYANOCOBALAMIN 500 MCG TAB (VIT B-12) PO SCH (07:35)
[2016-07-06] MEDS: AMIODARONE 200 MG TAB PO SCH (07:35)
[2016-07-06] MEDS: CLOPIDOGREL BISULFATE 75 MG TAB PO SCH (07:35)
[2016-07-06] MEDS: FINASTERIDE 5 MG TAB PO SCH (07:36)
[2016-07-06] MEDS: CHOLECALCIFEROL 1000 INTER.UNIT TAB PO SCH (07:36)
[2016-07-06] MEDS: ALBUTEROL HFA 8 GM INHALER INH SCH ×2 (07:36→11:51)
[2016-07-06] MEDS: METOPROLOL SUCC 50MG EXT REL TAB PO SCH (07:36)
[2016-07-06] MEDS: ISOSORBIDE MONONITRATE 30 MG TABCR PO SCH (07:36)
[2016-07-06] MEDS: INSULIN HUMAN REGULAR SC SCH ×4 (09:27→21:55)
[2016-07-06] MEDS: LEValbuterol HFA 15GM INHALER INH SCH (18:03)
[2016-07-06] MEDS: IPRATROPIUM BROMIDE HFA INHALER INH SCH (18:03)
[2016-07-06] MEDS ORDERED: APR25 PO (18:36)
[2016-07-06] MEDS ORDERED: CRD200 PO (18:36)
[2016-07-06] MEDS ORDERED: MRLP17X PO (18:36)
--- NOTE | 2016-07-06 18:47 | Progress Note ---
Internal Med Progress Note Date of Service: Jul 06, 2016. Provider Documentation: SUBJECTIVE: pt unable to voice any concern sleeping , wakes up to voice , offers no complain baseline advanced dementia OBJECTIVE: Vital Signs-as noted below Exam: General-elderly male , no sign of distress Eyes-sclera non icteric ENT-dry oral mucosa, poor dentition Neck-no thyromegaly Lungs-diminished, no audible wheeze or rales Heart-regular Abdomen-soft, non tender Extremities-s/p left great toe amputation, bandage in place Neuro-baseline dementia, no focal deficit Lab data as noted below. ASSESSMENT & PLAN: AFIB RVR : in a setting of severe cardiomyopathy , EF 20 % , PVD , gangrenous toe with infection , PVD currently rate and rhythm controlled appreciate Cardiology eval cont Amiodarone , Toprol XL , nitrates , Aspirin , Plavix not a candidate for terminal manager anticoagulation NSTEMI: due cardiac strain in setting of Afib RVR , severe cardiomyopathy possible demand ischemia given multiple co morbidities -medical management appropriate cont Aspirin , Plavix , Beta mayra, nitrates, amiodarone Left Big Toe 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 of Peripheral Vascular Disease Citrobacter sepsis on IV Zosyn will need superintendent terminal ABx with PICC line placement consent obtained form Mary Jane Cuevas initially was reluctant for PICC Line as she will not be able to take care of the IV access at home agreeable with PICC line and SNF placement at [facility] for IV Abx but insists that PICC line has to be discontinued prior to discharge home plan for home with Hospice but also wants to explore option of Hospice at [facility] -if pt's condition declines and unable to provide end of life care at home ID consulted appreciate input form ID Citrobacter Sepsis in setting of gangrenous Left toe with severe peripheral arterial disease s/p left lower ext arteriogram and balloon angioplasty and stenting of left popliteal and superficial femoral arteries on 06/24 s/p left big toe amputation/resection of distal ist Metatarsal head by Ortho appreciate ortho eval wt bearing as tolerated on left foot ,on heel only if pt unable to follow instruction will need to be Non wt bearing status on left lower ext given fall risk , dementia , severe PVD , poor wound healing -requiring wound care pt will benefit with rehab placement referral made to SNF at [facility] Metabolic Encephalopathy, due to infection /dehydration seems to be closer to baseline currently has underlying dementia Severe Cardiomyopathy and Chronic Systolic Dysfunction likely secondary to a recent NSTEMI - non-operable EF ~ 20%; Dysphagia /concern for aspiration : speech eval appreciated pureed diet with [place] thick liquid aspiration precaution Hx. of Multiple CVA Head CT performed showing previous lacunar infarction continue ASA, Plavix HTN on hydralazine PO to 25mg TID continue b-mayra, Imdur CKD stage 3-4 creat seems to be at baseline estimated GFR ~ 30 DM2, diet controlled A1c = 7.2%, well controlled episode of hypoglycemia noted possible due to poor PO intake / DC basal Lantus SSI adjusted DVT ppx subq heparin DNR DISPOSITION very poor prognosis severe baseline dementia advanced PVD , left toe gangrene , Citrobacter sepsis with severe ischemic cardiomyopathy severe dysphagia , poor PO intake with failure to thrive hospice care would be appropriate Palliative care consulted is OK for IV abx to complete for infection then transition to Hospice afterwards wants PICC Line to be d/liz after Abx completed pt is accepted at [facility] for SNF transfer to [facility] tomorrow will need [employer] Transport arrangement given update over phone Vital Signs: Date Time Temp Pulse Resp B/P Pulse Ox O2 Delivery O2 Flow Rate FiO2 07/06/16 15:39 36.3 74 18 136/71 96 Room Air 07/06/16 14:58 73 18 95 Room Air 07/06/16 13:45 96 Room Air 07/06/16 08:00 99 Nasal Cannula 2.0 07/06/16 07:53 72 18 98 Nasal Cannula 3.0 07/06/16 07:30 36.5 81 20 162/80 99 Nasal Cannula 3.0 07/06/16 00:01 36.5 77 18 145/77 97 Nasal Cannula 3.0 07/06/16 00:01 Nasal Cannula 2.0 07/05/16 20:41 55 18 95 Nasal Cannula 3.0 Lab Results: Results Past 24 Hours Test 07/05/16 20:13 07/05/16 23:36 07/06/16 07:31 07/06/16 11:41 Range/Units Bedside Glucose 81 108 142 179 70-99 mg/dl Test 07/06/16 16:36 Range/Units Bedside Glucose 154 70-99 mg/dl
[2016-07-07] VITALS: O2SAT 92
[2016-07-07] MEDS: IPRATROPIUM BROMIDE HFA INHALER INH SCH ×3 (00:15→13:52)
[2016-07-07] MEDS: LEValbuterol HFA 15GM INHALER INH SCH ×3 (00:15→12:12)
[2016-07-07 00:16] VITALS: BP 157/77; PULSE 77; TEMP 36.9; O2SAT 92
[2016-07-07] MEDS: PIPERACILL/TAZOBAC IV 3.375 GM in DEXTROSE 5% 100ML IV SCH (04:15)
[2016-07-07] MEDS: HEPARIN SOD 5000 UNIT/0.5 ML CARP SQ SCH ×2 (06:22→13:53)
[2016-07-07] MEDS: LEVOTHYROXINE 25 MCG TAB PO SCH (06:23)
[2016-07-07 07:28] VITALS: BP 151/87; PULSE 85; TEMP 36.5; O2SAT 92
[2016-07-07 07:43] LABS: BASO % 0.1 %; BASO ABS # 0.02 K/uL (0-0.2); COMPLETE YES; EOS % 0.2 %; HEMATOCRIT 36.4 % (42-52); IG% 0.7 %; LYMPH % 4.2 %; LYMPH ABS # 0.75 K/uL (1.2-3.4); MEAN CELL VOLUME 94.3 fL (80-100); MEAN CORPUSCULAR HEMOGLOBIN 31.6 pg (25-34); MEAN CORPUSCULAR HGB CONC 33.5 g/dl (32-36); MEAN PLATELET VOLUME 12.2 fL (7.4-10.4); MONO % 5.2 %; NEUT % 89.6 %; PLATELET COUNT 300 K/uL (130-400); RED BLOOD COUNT 3.86 M/uL (4.7-6.1); WHITE BLOOD COUNT 17.92 K/uL (4.8-10.8)
[2016-07-07 08:21] LABS: CREATININE 2.2 mg/dl (0.60-1.40)
[2016-07-07] MEDS: AMIODARONE 200 MG TAB PO SCH (08:39)
[2016-07-07] MEDS: ASPIRIN 81 MG ECTAB PO SCH (08:39)
[2016-07-07] MEDS: CLOPIDOGREL BISULFATE 75 MG TAB PO SCH (08:40)
[2016-07-07] MEDS: METOPROLOL SUCC 50MG EXT REL TAB PO SCH (08:40)
[2016-07-07] MEDS: FINASTERIDE 5 MG TAB PO SCH (08:40)
[2016-07-07] MEDS: CHOLECALCIFEROL 1000 INTER.UNIT TAB PO SCH (08:40)
[2016-07-07] MEDS: ISOSORBIDE MONONITRATE 30 MG TABCR PO SCH (08:40)
[2016-07-07] MEDS: CYANOCOBALAMIN 500 MCG TAB (VIT B-12) PO SCH (08:40)
--- NOTE | 2016-07-07 09:44 | Progress Note ---
Progress Note Date of Service Jul 07, 2016. Progress Note ATTENDING NOTE : D/W Dr Hagan -pt's blood culture 06/20/15 Serratia -sensitive to Quinolones pt already s/p amputation of gangrenous left great toe does not need 4-6 weeks of IV Abx IV Zosyn D/liz ; no need for PICC line placement Floor updated PO Levaquin ordered will need 1 more week of abx Pharmacy consulted for renal dose of PO Levaquin
[2016-07-07] MEDS: INSULIN HUMAN REGULAR SC SCH ×2 (09:46→12:52)
[2016-07-07] MEDS ORDERED: LEVOFLOXACIN CONSULT ACTIVE PRN (10:15)
[2016-07-07] MEDS ORDERED: LEVOFLOXACIN 250 MG TAB PO SCH (11:00)
[2016-07-07] MEDS ORDERED: LEVAQUIN PO (11:08)
--- NOTE | 2016-07-07 15:06 | Infectious Disease Progress Nt ---
Progress Note Date of Service Jul 07, 2016. Subjective Pt evaluation today including: conversation w/ patient, physical exam, chart review, lab review, review of studies, conversation w/ clinical services consultant, review of inpatient medication list Patient offering no new complaints today. Remains afebrile. Anticipating discharge. All Other Systems: Reviewed and Negative Medications Current Inpatient Medications Medications (Trade) Dose Ordered Sig/Juan Route Start Time Stop Time Status Last Admin Dose Admin Acetaminophen (Tylenol Tab) 650 mg Q4H PRN PO 06/20/16 20:30 07/20/16 20:29 06/22/16 04:27 650 MG Al Hydrox/Mg Hydrox/Simethicone (Maalox Max Susp) 15 ml Q4H PRN PO 06/20/16 20:30 07/20/16 20:29 Magnesium Hydroxide (Milk Of Magnesia Susp) 30 ml Q12H PRN PO 06/20/16 20:30 07/20/16 20:29 Polyethylene (Miralax Powder Packet) 17 gm DAILY PRN PO 06/20/16 20:30 07/20/16 20:29 Aspirin (Ecotrin Tab) 81 mg DAILY PO 06/21/16 09:00 07/21/16 08:59 07/07/16 08:39 81 MG Cholecalciferol (Vitamin D Tab) 1,000 inter.unit DAILY PO 06/21/16 09:00 07/21/16 08:59 07/07/16 08:40 1,000 INTER.UNIT Clopidogrel Bisulfate (plAVix TAB) 75 mg DAILY PO 06/21/16 09:00 07/21/16 08:59 07/07/16 08:40 75 MG Cyanocobalamin (Vitamin B-12 Tab) 1,000 mcg DAILY PO 06/21/16 09:00 07/21/16 08:59 07/07/16 08:40 1,000 MCG Finasteride (Proscar Tab) 5 mg DAILY PO 06/21/16 09:00 07/21/16 08:59 07/07/16 08:40 5 MG Isosorbide Mononitrate (Imdur Ext Rel Tab) 90 mg DAILY PO 06/21/16 09:00 07/21/16 08:59 07/07/16 08:40 90 MG Levothyroxine Sodium (Synthroid Tab) 25 mcg DAILYBB PO 06/21/16 06:00 07/21/16 06:59 07/07/16 06:23 25 MCG Metoprolol Succinate (Toprol Xl Tab) 50 mg DAILY PO 06/21/16 09:00 07/21/16 08:59 07/07/16 08:40 50 MG Glucose (Glucose 40% Gel) 15-30 GRAMS 15 GRAMS... UD PRN PO 06/20/16 20:45 07/20/16 20:44 Glucose (Glucose Chew Tab) 4-8 Tablets 4 Tabl... UD PRN PO 06/20/16 20:45 07/20/16 20:44 Dextrose (Dextrose 50% 50ML Syringe) 25-50ML OF 50% DW IV FOR... UD PRN IV 06/20/16 20:45 07/20/16 20:44 07/05/16 16:53 50 ML Glucagon (Glucagon Inj) 1 mg UD PRN SQ 06/20/16 20:45 07/20/16 20:44 Hydralazine HCl (Apresoline Tab) 25 mg TID PO 06/25/16 14:00 07/25/16 13:59 07/07/16 13:52 25 MG Insulin Human Regular (novoLIN-R) SLIDING SCALE IF C... ACHS SC 06/29/16 08:00 07/07/16 12:52 2 UNITS Insulin Glargine (Lantus Solostar Pen) 5 unit DAILY SC 07/02/16 09:00 08/01/16 08:59 Future Hold 07/05/16 09:14 5 UNIT Amiodarone HCl (Cordarone Tab) 200 mg DAILY PO 07/03/16 09:00 08/02/16 08:59 07/07/16 08:39 200 MG Heparin Sodium (Porcine) (Heparin Sq 5000 Unit/0.5ml) 5,000 unit Q8 SQ 07/03/16 06:00 08/02/16 05:59 07/07/16 13:53 5,000 UNIT Ipratropium Murray (Atrovent Hfa Inhaler) 2 puffs Q6 INH 07/06/16 18:00 08/05/16 17:59 07/07/16 13:52 2 PUFFS Levalbuterol (Xopenex Hfa Inhaler) 2 puffs Q6 INH 07/06/16 18:00 08/05/16 17:59 07/07/16 12:12 2 PUFFS Levofloxacin (Levaquin Tab) 250 mg DAILY@11 PO 07/07/16 11:00 08/18/16 10:59 07/07/16 12:11 250 MG Levofloxacin (Consult) 1 ea UD PRN N/A 07/07/16 10:15 08/06/16 10:14 Objective Vital Signs Date Time Temp Pulse Resp B/P Pulse Ox O2 Delivery O2 Flow Rate FiO2 07/07/16 08:20 Room Air 07/07/16 07:28 36.5 85 18 151/87 92 Room Air 07/07/16 00:16 36.9 77 18 157/77 92 Room Air 07/07/16 00:00 92 Room Air 07/06/16 16:10 Room Air 07/06/16 15:39 36.3 74 18 136/71 96 Room Air Physical Exam General Appearance: WD/WN, no apparent distress Eyes: normal inspection, sclerae normal ENT: normal ENT inspection, pharynx normal Neck: supple, no adenopathy, trachea midline Respiratory/Chest: chest non-tender, lungs clear, normal breath sounds, no respiratory distress Cardiovascular: regular rate, rhythm, no gallop, no murmur Abdomen: normal bowel sounds, non tender, soft, no organomegaly Extremities: non-tender, no calf tenderness, + slow capillary refill Neurologic/Psychiatric: alert, + disoriented Skin: normal color, no rash, + pertinent finding (Surgical site healing) Lymphatic: no adenopathy Laboratory Results Last 24 Hours Test 07/06/16 16:36 07/06/16 20:26 07/07/16 07:10 07/07/16 08:11 Bedside Glucose 154 mg/dl 121 mg/dl 189 mg/dl White Blood Count 17.92 K/uL Red Blood Count 3.86 M/uL Hemoglobin 12.2 g/dL Hematocrit 36.4 % Mean Corpuscular Volume 94.3 fL Mean Corpuscular Hemoglobin 31.6 pg Mean Corpuscular Hemoglobin Concent 33.5 g/dl Platelet Count 300 K/uL Mean Platelet Volume 12.2 fL Neutrophils (%) (Auto) 89.6 % Lymphocytes (%) (Auto) 4.2 % Monocytes (%) (Auto) 5.2 % Eosinophils (%) (Auto) 0.2 % Basophils (%) (Auto) 0.1 % Neutrophils # (Auto) 16.05 K/uL Lymphocytes # (Auto) 0.75 K/uL Monocytes # (Auto) 0.94 K/uL Eosinophils # (Auto) 0.04 K/uL Basophils # (Auto) 0.02 K/uL RDW Standard Deviation 52.3 fL RDW Coefficient of Variation 15.5 % Immature Granulocyte % (Auto) 0.7 % Immature Granulocyte # (Auto) 0.12 K/uL Creatinine 2.20 mg/dl Est Creatinine Clear Calc Drug Dose 22.9 ml/min Estimated GFR () 30.5 Estimated GFR (Non- 26.3 Test 07/07/16 11:37 Bedside Glucose 165 mg/dl Assessment and Plan Citrobacter sepsis in the setting of gangrenous left toe with severe peripheral arterial disease. Now s/p revascularization and s/p toe amputation. Course now complicated by STEMI, Afib. Given that infected site has been amputated, think the patient can be transitioned to oral levofloxacin 500 mg daily to complete 2 weeks of treatment for Citrobacter sepsis.
[2016-07-07 16:00] VITALS: BP 167/89; PULSE 80; TEMP 36.8; O2SAT 95
--- NOTE | 2016-07-07 16:06 | Discharge Summary ---
Discharge Summary Date of Service Jul 07, 2016. Discharge Summary Admission Date: Jun 20, 2016 at 20:29 Discharge Date: Jul 07, 2016 Discharge Disposition: Home Principal Diagnosis: left great toe gangrene/afib /severe ischemic Cardiomyopathy Procedures: CT head 1. No acute intracranial hemorrhage or mass effect. 2. Numerous lacunar infarcts. The majority of these were present on head CT of December 15, 2013 and are chronic. A few are new since prior exam. The appearance favors old lacunar infarcts although several are age indeterminate. Xray Left foot No acute fracture or radiographic evidence of osteomyelitis within the left foot. Consultations: Infectious disease Orthopedics Vascular surgery Medication Reconciliation New Medications: [Levaquin ] () 250 MG PO DAILY for 7 Days, #7 TABS Amiodarone HCl (Amiodarone HCl) 200 Mg Tab 200 MG PO DAILY for 30 Days, #30 TAB Hydralazine Hcl (Apresoline) 25 Mg Tab 25 MG PO TID for 30 Days, TAB Polyethylene (Miralax) 17 Gm Pow 17 GM PO DAILY PRN for Constipation for 30 Days Continued Medications: Albuterol Sulfate (Proair Respiclick) 108 Mcg/Act Aer 2 PUFFS INH QID Aspirin (Aspirin Chewable) 81 Mg Chew 81 MG PO DAILY Cholecalciferol (Vitamin D3) 1,000 Unit Tab 1000 UNITS PO DAILY for 90 Days, TAB 3 Refills Clopidogrel Bisulfate (Clopidogrel) 75 Mg Tab 75 MG PO DAILY Cyanocobalamin (Vitamin B-12) 1,000 Mcg Tab 1000 MCG PO DAILY, TAB Finasteride (Proscar) 5 Mg Tab 5 MG PO DAILY, TAB Ipratropium Wilber (Ipratropium Wilber) 0.5 Mg/2.5 Ml Nebu 0.5 MG INH Q6R for 30 Days Isosorbide Mononitrate (Isosorbide Mononitrate ER) 30 Mg Tabcr 90 MG PO DAILY for 30 Days, #90 TABS Levothyroxine Sodium (Levothyroxine Sodium) 25 Mcg Tab 25 MCG PO DAILY for 90 Days, #90 TAB 3 Refills Metoprolol Succinate (Toprol Xl) 50 Mg Tab 50 MG PO DAILY, #30 TAB Nitroglycerin (Nitroglycerin Lingual) 400 Mcg/[place]ler Aer 1 SPRAY UT UD PRN for PRN ONE SPRAY UNDER THE TONGUE EVERY 5 MINUTES X 3 NEEDED. Paroxetine (Paxil) 20 Mg Tab 10 MG PO DAILY, TAB Discontinued Medications: Furosemide (Furosemide) 40 Mg Tab 40 MG PO QAM for 30 Days, #30 TAB Hydralazine HCl (Hydralazine HCl) 10 Mg Tab 10 MG PO TID, #90 TAB Tramadol (Ultram) 50 Mg Tab 50 MG PO Q4H PRN for Pain, TAB Admission Information HPI (per Admitting provider): this is a 86 Yo Male with complex past medical hx of Severe Peripheral Vascular disease , chronic systolic heart failure with severe ischemic cardiomyopathy EF 20 % . 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 xray was negative for osteomyelitis. He was started on cephalexin which he finished on 06/05/16 there was some improvement of redness and swelling of left foot after abx but had persisted dark discoloration of left great toe with scab formation pt was seen by Dr Santos in the past for his PAD had balloon angioplasty and stent place in left common iliac vein in 2014 has not been following with Vascular surgery since after Dr Posadas left practice today -pt was found to be more somnolent , confused was having tremor , dysarthria no fever or chills notes family was concerned for a new stroke , brought him to ER for evaluation Physical Exam (per Admitting): General Appearance: no apparent distress, + pertinent finding (elderly male , forgetful . baseline dementia ) Head: normocephalic, atraumatic Eyes: sclerae normal Respiratory/Chest: lungs clear, normal breath sounds, no respiratory distress Cardiovascular: regular rate, rhythm Abdomen/GI: non tender, soft Extremities/Musculoskelatal: + slow capillary refill (pedal pulse not palpable ), + pertinent finding (There is dark black scabbed distal border of toe nailbed that extends under toenail, no erythema or drainage present, ) Neurologic/Psych: + pertinent finding (baseline dementia, no facial droop , no focal neurological deficit noted ) Hospital Course AFIB RVR : in a setting of severe cardiomyopathy , EF 20 % , PVD , gangrenous toe with infection , PVD currently rate and rhythm controlled appreciate Cardiology eval cont Amiodarone , Toprol XL , nitrates , Aspirin , Plavix 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 NSTEMI: due cardiac strain in setting of Afib RVR , severe cardiomyopathy possible demand ischemia given multiple co morbidities -medical management appropriate cont Aspirin , Plavix , Beta mayra, nitrates, amiodarone Left Big Toe 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 of Peripheral Vascular Disease Citrobacter sepsis ID consulted appreciate input form ID Citrobacter Sepsis in setting of gangrenous Left toe with severe peripheral arterial disease D/W Dr Hagan -pt's blood culture 06/20/15 Serratia -sensitive to Quinolones pt already s/p amputation of gangrenous left great toe does not need 4-6 weeks of IV Abx IV Zosyn D/liz ; no need for PICC line placement Floor updated PO Levaquin ordered will need 1 more week of abx Pharmacy consulted for renal dose of PO Levaquin s/p left lower ext arteriogram and balloon angioplasty and stenting of left popliteal and superficial femoral arteries on 06/24 s/p left big toe amputation/resection of distal ist Metatarsal head by Ortho appreciate ortho eval wt bearing as tolerated on left foot ,on heel only if pt unable to follow instruction will need to be Non wt bearing status on left lower ext given fall risk , dementia , severe PVD , poor wound healing -requiring wound care pt will benefit with rehab placement referral made to SNF at [facility] Metabolic Encephalopathy, due to infection /dehydration seems to be closer to baseline currently has underlying dementia Severe Cardiomyopathy and Chronic Systolic Dysfunction likely secondary to a recent NSTEMI - non-operable EF ~ 20%; Dysphagia /concern for aspiration : speech eval appreciated pureed diet with [place] thick liquid aspiration precaution Hx. of Multiple CVA Head CT performed showing previous lacunar infarction continue ASA, Plavix HTN on hydralazine PO to 25mg TID continue b-mayra, Imdur CKD stage 3-4 creat seems to be at baseline estimated GFR ~ 30 DM2, diet controlled A1c = 7.2%, well controlled episode of hypoglycemia noted possible due to poor PO intake / DC basal Lantus SSI adjusted DVT ppx subq heparin DNR DISPOSITION transfer to [facility] today Total time spent on discharge = 40 mins This includes examination of the patient, discharge planning, medication reconciliation, and communication with other providers. Discharge Instructions Discharge Instructions Admission Reason for Admission: Change In Mental State,Infected Left Great Toe Discharge Discharge Diagnosis / Problem: LEFT GREAT TOE GANGRENE S/P AMPUTEATION /AFIB / SEVERE CARDIOMYOPAHTY Discharge Goals Goal(s): Increase independence, Improve disease control, Diagnostic testing, Therapeutic intervention Activity Recommendations Activity Level: Assistance Required Therapies: Physical Therapy, Weight Bearing Status (left lower extremity non wt bearing ), Occupational Therapy Weightbearing Status: Left non-weightbearing SPECIAL CARE INSTRUCTIONS: * Some drainage onto the dressing is normal and is no cause for alarm. * Some swelling is natural especially after walking. * When resting, keep your foot elevated above the level of your heart. * Call [facility] if you notice: -Increased drainage -Fever over 101 degrees F -Severe constant pain BANDAGE: * Leave bandage/cast in place unless otherwise directed. * Keep bandage/cast dry at all times. PIN CARE: * Leave pins alone. * If pins come loose or fall out, notify physician. FOLLOW UP VISIT WITH DR. KIM If appointment is not already scheduled: Please call [facility] after you get home today to schedule a follow-up appointment for 07.08.[address] Kim at . Time will need to be confirmed with call to the office. . Additional Information Patient informed of condition: Yes Advance Directives: Yes DNR: Yes Level of Care: Skilled Communicable Disease: No Prognosis: Deteriorating Faith Catheter: No Current Hospital Diet Patient's current hospital diet: Diabetes Type 2 Diet, AHA Diet (Heart Healthy) Discharge Diet Recommended Diet: AHA Diet (Heart Healthy) Diet Texture: Pureed (blended smooth) Liquid Consistency: [place] Thick Procedures Procedures Performed: Left Foot Amputation of great toe; Resection Distal First Metatarsal Head Pending Studies Studies pending at discharge: no Laboratory Results Hemoglobin A1c Test 06/21/16 05:23 Range/Units Estimated Average Glucose 160 mg/dl Hemoglobin A1c 7.2 H 4.5-5.6 % Lipid Panel Test 06/21/16 05:23 Range/Units Triglycerides Level 80 0-150 mg/dl Cholesterol Level 143 0-200 mg/dl HDL Cholesterol 38 mg/dl Cholesterol/HDL Ratio 3.8 LDL Cholesterol, Calculated 89 mg/dl Medical Emergencies . Who to Call and When: Medical Emergencies: If at any time you feel your situation is an emergency, please call 911 immediately. . Non-Emergent Contact Non-Emergency issues call your: Primary Care Provider . . "Provider Documentation" section prepared by Aleah Ibrahim. Core Measure Problem Core Measures: None
--- NOTE | 2016-07-07 16:09 | Discharge Instructions ---
Discharge Instructions Admission Reason for Admission: Change In Mental State,Infected Left Great Toe Discharge Discharge Diagnosis / Problem: LEFT GREAT TOE GANGRENE S/P AMPUTEATION /AFIB / SEVERE CARDIOMYOPAHTY Discharge Goals Goal(s): Increase independence, Improve disease control, Diagnostic testing, Therapeutic intervention Activity Recommendations Activity Level: Assistance Required Therapies: Physical Therapy, Weight Bearing Status (left lower extremity non wt bearing ), Occupational Therapy Weightbearing Status: Left non-weightbearing SPECIAL CARE INSTRUCTIONS: * Some drainage onto the dressing is normal and is no cause for alarm. * Some swelling is natural especially after walking. * When resting, keep your foot elevated above the level of your heart. * Call [facility] if you notice: -Increased drainage -Fever over 101 degrees F -Severe constant pain BANDAGE: * Leave bandage/cast in place unless otherwise directed. * Keep bandage/cast dry at all times. PIN CARE: * Leave pins alone. * If pins come loose or fall out, notify physician. FOLLOW UP VISIT WITH DR. CARRANZA If appointment is not already scheduled: Please call [facility] after you get home today to schedule a follow-up appointment for 07.08.[address] Carranza at . Time will need to be confirmed with call to the office. . Additional Information Patient informed of condition: Yes Advance Directives: Yes DNR: Yes Level of Care: Skilled Communicable Disease: No Prognosis: Deteriorating Faith Catheter: No Current Hospital Diet Patient's current hospital diet: Diabetes Type 2 Diet, AHA Diet (Heart Healthy) Discharge Diet Recommended Diet: AHA Diet (Heart Healthy) Diet Texture: Pureed (blended smooth) Liquid Consistency: [place] Thick Procedures Procedures Performed: Left Foot Amputation of great toe; Resection Distal First Metatarsal Head Pending Studies Studies pending at discharge: no Laboratory Results Hemoglobin A1c Test 06/21/16 05:23 Range/Units Estimated Average Glucose 160 mg/dl Hemoglobin A1c 7.2 H 4.5-5.6 % Lipid Panel Test 06/21/16 05:23 Range/Units Triglycerides Level 80 0-150 mg/dl Cholesterol Level 143 0-200 mg/dl HDL Cholesterol 38 mg/dl Cholesterol/HDL Ratio 3.8 LDL Cholesterol, Calculated 89 mg/dl Medical Emergencies . Who to Call and When: Medical Emergencies: If at any time you feel your situation is an emergency, please call 911 immediately. . Non-Emergent Contact Non-Emergency issues call your: Primary Care Provider . . "Provider Documentation" section prepared by Aleah Ibrahim. Core Measure Problem Core Measures: None
[2016-07-07 16:24] VITALS: BP 151/87; PULSE 85; TEMP 36.5; O2SAT 92
== END 2016-07-07 16:55 | DRG 853 ==
LOC: ENRESERVDT → ENRESERVTM → EDBD 18:38 → C.EDA 18:39 → C.2E 20:29 → C.MSN 06-25 10:56 → CANBEDREQ 06-29 10:00 → EDBEDREQ 06-30 10:42 → C.MED 06-30 11:48 → C.2T 06-30 15:37 → C.MS4W 07-03 14:45
PROVIDERS: ADMIT Hospitalist; ATTEND Hospitalist
PROC: 047N3DZ Dilation of Left Popliteal Artery with Intraluminal Device, Percutaneous Approach (ICD-10-PCS; principal; 2016-06-24 13:30)
PROC: B41GZZZ Fluoroscopy of Left Lower Extremity Arteries (ICD-10-PCS; principal; 2016-06-24 13:30)
PROC: 047L3DZ Dilation of Left Femoral Artery with Intraluminal Device, Percutaneous Approach (ICD-10-PCS; principal; 2016-06-24 13:30)
PROC: 0Y6Q0Z3 Detachment at Left 1st Toe, Low, Open Approach (ICD-10-PCS; 2016-06-27)
DX: A41.50 Gram-negative sepsis, unspecified (principal); G93.41 Metabolic encephalopathy; J69.0 Pneumonitis due to inhalation of food and vomit; I21.4 Non-ST elevation (NSTEMI) myocardial infarction; E11.52 Type 2 diabetes mellitus with diabetic peripheral angiopathy with gangrene; I24.8 Other forms of acute ischemic heart disease; I50.42 Chronic combined systolic (congestive) and diastolic (congestive) heart failure; N18.4 Chronic kidney disease, stage 4 (severe); L03.032 Cellulitis of left toe; E11.621 Type 2 diabetes mellitus with foot ulcer; L97.529 Non-pressure chronic ulcer of other part of left foot with unspecified severity; Z66 Do not resuscitate; I71.4 Abdominal aortic aneurysm, without rupture; Z51.5 Encounter for palliative care; I25.10 Atherosclerotic heart disease of native coronary artery without angina pectoris; N40.0 Benign prostatic hyperplasia without lower urinary tract symptoms; I12.9 Hypertensive chronic kidney disease with stage 1 through stage 4 chronic kidney disease, or unspecified chronic kidney disease; J44.9 Chronic obstructive pulmonary disease, unspecified; E11.22 Type 2 diabetes mellitus with diabetic chronic kidney disease; E03.9 Hypothyroidism, unspecified; I25.5 Ischemic cardiomyopathy; F32.9 Major depressive disorder, single episode, unspecified; G30.9 Alzheimer's disease, unspecified; F02.80 Dementia in other diseases classified elsewhere, unspecified severity, without behavioral disturbance, psychotic disturbance, mood disturbance, and anxiety; I48.91 Unspecified atrial fibrillation; E87.6 Hypokalemia; R13.10 Dysphagia, unspecified; I25.2 Old myocardial infarction; Z86.73 Personal history of transient ischemic attack (TIA), and cerebral infarction without residual deficits; Z87.891 Personal history of nicotine dependence; Z98.61 Coronary angioplasty status; Z95.1 Presence of aortocoronary bypass graft; Z98.890 Other specified postprocedural states; Z83.3 Family history of diabetes mellitus; Z79.02 Long term (current) use of antithrombotics/antiplatelets; Z79.82 Long term (current) use of aspirin; Z79.899 Other long term (current) drug therapy